=== PATIENT | female | born 1965 | race Caucasian/White ===

== ENCOUNTER → 2019-03-29 09:05 | Outpatient (BNVA) | payer MEDICARE, MEDICAID, SELFPAY | PROVIDERS: Family Provider Family Medicine; PCP Family Medicine; Visit Provider Nurse Practitioner Psychiatric/Mental Health | DX: F33.1 Major depressive disorder, recurrent, moderate (principal); F43.12 Post-traumatic stress disorder, chronic; F29 Unspecified psychosis not due to a substance or known physiological condition; F41.9 Anxiety disorder, unspecified; F40.10 Social phobia, unspecified | CPT/HCPCS: 99214; 99215 ==

== ENCOUNTER 2019-04-20 13:32 | Outpatient (CLI) | payer MEDICARE, MEDICAID, SELFPAY ==
[2019-04-20 14:45] LABS: Basophils # 0.1 10^3/uL (0.0-0.1); Basophils % 0.9 %; Eosinophils # 0.2 10^3/uL (0.0-0.8); Hematocrit 35.3 % (37.0-47.0); Hemoglobin 11.5 g/dL (11.5-15.3); Lymphocytes # 1.9 10^3/uL (0.8-4.8); Lymphocytes % 27.5 %; Mean Corpuscular HGB Conc 32.6 g/dL (30.0-36.0); Mean Corpuscular Hemoglobin 32.8 pg (28.0-34.0); Mean Corpuscular Volume 100.6 fL (81-99); Mean Platelet Volume 10.3 fL (7.4-10.4); Monocytes # 0.4 10^3/uL (0.2-0.9); Monocytes % 6.4 %; Neutrophils # 4.2 10^3/uL (1.8-7.7); Neutrophils % 61.9 %; Nucleated Red Blood Cells % 0 %; Platelet Count 389 10^3/cmm (130-400); Red Blood Count 3.51 10^6/uL (4.1-5.3); Red Cell Distribution Width 13.4 % (12.1-15.1); White Blood Count 6.8 10^3/uL (4.0-10.0)
[2019-04-20 15:08] LABS: Alanine Aminotransferase 16 U/L (0-33); Alkaline Phosphatase 143 IU/L (35-105); Aspartate Amino Transferase 21 U/L (0-32); Globulin 3.9 g/dL (1.3-4.6); Total Bilirubin 0.2 mg/dL (0.15-1.2); Total Protein 7.9 g/dL (6.6-8.7)
[2019-04-20 15:12] LABS: Creatinine Urine, Random 39 mg/dL (28-217); Microalbum Creatinine Ratio Ur 26 mg/dL (0-20); Microalbumin Random Urine 1 ug/dL (0-20)
[2019-04-20 15:27] LABS: Calcium 9.9 mg/dL (8.5-10.5); Parathyroid Hormone 50.8 pg/mL (15-65)
[2019-04-20 15:53] LABS: 25 Hydroxy Vitamin D 32 ng/mL (30-100)
== END 2019-04-20 13:33 | disposition home or self-care (01) ==
LOC: LAB 13:37
PROVIDERS: Family Provider Family Medicine; PCP Family Medicine; Visit Provider Nurse Practitioner Family
DX: N18.3 Chronic kidney disease, stage 3 (moderate) (principal)
CPT/HCPCS: 80076; 82044; 82306; 82310; 83970; 85025

== ENCOUNTER 2019-04-27 11:24 | Emergency (ER) | payer MEDICARE, MEDICAID, SELFPAY ==
[2019-04-27 11:36] VITALS: BP 126/76; PULSE 69; RESP 16; TEMP 36.6; O2SAT 97; BMI 32.5
[2019-04-27 11:45] VITALS: BP 163/74; PULSE 88; RESP 17; O2SAT 97
--- NOTE | 2019-04-27 11:46 | ED_ITS ---
HPI - General Adult General: Chief complaint: General Medical Stated complaint: eye pain, sore throat Time Seen by Provider: 04/27/19 11:42 History of Present Illness: HPI narrative: Patient complains about pinkeye in the left eye.complains about sore throat. Has had upper respiratory drainage. Did check into urgent care but left when they was told that she can only have one complaint is her story complaint: uri Onset (ago): day(s) Severity: mild Associated symptoms: Deny chest pain, dyspnea, headache(s), nausea, rash or vomiting Review of Systems Const: Denies: fever, chills or body aches Eyes: Reports: eye discharge and eye redness; Denies: change in vision or blurry vision ENMT: Reports: throat pain, nasal discharge and nasal congestion Card: Denies: chest pain or shortness of breath on exertion Resp: Denies: shortness of breath, productive cough or non-productive cough GI: Denies: abdominal pain, nausea or vomiting Musc: Denies: extremity pain Skin/Breast: Denies: rash Neuro: Denies: headache Psych: Denies: anxiety or depression Rafael/Lymph: Denies: easy bruising PFSH ED PFSH: Statuses (acute, chronic, etc) shown below reflect problem list status as previously entered and may not be historically accurate Social History (Updated 04/27/19 @ 11:19 by Yana Teixeira LPN) Smoking and tobacco status: former smoker Alcohol intake: never Physical Exam Const: COMMON NORMALS: no apparent distress, average body habitus and oriented x3 HENMT: COMMON NORMALS: normocephalic HEAD & SCALP: normal to inspection and normocephalic FACE & SINUS: normal facial exam Eye: GENERAL EYE: normal appearance of both eyes OTHER: Left conjunctive is red slight drainage green Neck/C-Spine: COMMON NORMALS: no JVD Chest: COMMONS NORMALS: inspection of chest normal Resp: COMMON NORMALS: normal respiratory effort and clear to auscultation bilaterally AUSCULTATION: clear to auscultation bilaterally Cardio: COMMON NORMALS: no JVD, regular rate and regular rhythm RATE: regular rate RHYTHM: regular rhythm GI: COMMON NORMALS: normal to inspection, nondistended, normoactive bowel sounds Extremity: COMMON NORMALS: normal to inspection and full ROM Neuro: COMMON NORMALS: oriented x3 Course Vital Signs: Vital signs: Vital Signs Temperature 97.9 F 04/27/19 11:36 Pulse Rate 69 04/27/19 11:36 Respiratory Rate 16 04/27/19 11:36 Blood Pressure 126/76 04/27/19 11:36 Pulse Oximetry 97 04/27/19 11:36 Discharge Plan Discharge Prescriptions: No Action loratadine [Claritin] 10 mg tablet 10 mg PO ONCE RF: 0 levothyroxine 50 mcg capsule 50 mcg PO ONCE RF: 0 buspirone 10 mg tablet 10 mg PO TID 30 Days Qty: 90 RF: 1 benztropine 1 mg tablet 1 mg PO BID 30 Days Qty: 60 RF: 1 gabapentin 100 mg capsule 100 mg PO TID Qty: 90 RF: 2 lamotrigine [Lamictal] 100 mg tablet 100 mg PO BID 30 Days Qty: 60 RF: 1 ziprasidone HCl [Geodon] 40 mg capsule 40 mg PO QAM 30 Days Qty: 30 RF: 1 ziprasidone HCl [Geodon] 60 mg capsule 60 mg PO .QHS 30 Days Qty: 30 RF: 1 zolpidem [Ambien] 10 mg tablet 10 mg PO .QHS PRN (Reason: insomnia) 30 Days Qty: 30 RF: 1 Coding Level of Care Code ED Watcher [employer] for Delia Arellano
[2019-04-27 12:34] VITALS: BP 118/75; PULSE 61; RESP 14; TEMP 36.6; O2SAT 98
== END 2019-04-27 12:32 | disposition home or self-care (01) ==
LOC: ER 11:53
PROVIDERS: Emergency Provider Nurse Practitioner Family; Family Provider Family Medicine; PCP Family Medicine
DX: J06.9 Acute upper respiratory infection, unspecified (principal); H57.12 Ocular pain, left eye; R09.82 Postnasal drip; J02.9 Acute pharyngitis, unspecified; Z87.891 Personal history of nicotine dependence
CPT/HCPCS: 99281

== ENCOUNTER 2019-05-03 10:24 | Outpatient (CLI) | payer MEDICARE, MEDICAID, SELFPAY ==
[2019-05-03 11:08] LABS: Albumin Level 3.9 g/dL (3.5-5.2); Anion Gap 15.1 (5-19); Blood Urea Nitrogen 12 mg/dL (6-20); Calcium 9.7 mg/dL (8.5-10.5); Carbon Dioxide 23 mmol/L (22-29); Chloride 107 mmol/L (98-107); Glucose 87 mg/dL (65-115); Phosphorus 3.8 mg/dL (2.5-4.5); Potassium 4.1 mmol/L (3.5-5.1); Sodium 141 mmol/L (136-145)
== END 2019-05-03 10:25 | disposition home or self-care (01) ==
LOC: LAB 10:26
PROVIDERS: Family Provider Family Medicine; PCP Family Medicine; Visit Provider Internal Medicine Nephrology
DX: N18.3 Chronic kidney disease, stage 3 (moderate) (principal)
CPT/HCPCS: 80069

== ENCOUNTER → 2019-05-10 09:00 | Outpatient (BNVA) | payer MEDICARE, MEDICAID, SELFPAY | PROVIDERS: Family Provider Family Medicine; PCP Family Medicine; Visit Provider Nurse Practitioner Psychiatric/Mental Health | DX: F33.1 Major depressive disorder, recurrent, moderate (principal); F43.12 Post-traumatic stress disorder, chronic; F41.9 Anxiety disorder, unspecified; F29 Unspecified psychosis not due to a substance or known physiological condition | CPT/HCPCS: 99214 ==

== ENCOUNTER 2019-05-13 07:52 | Emergency (ER) | payer MEDICARE, MEDICAID, SELFPAY ==
[2019-05-13 08:07] VITALS: BMI 30.9
[2019-05-13 08:12] VITALS: BP 142/86; PULSE 81; RESP 20; TEMP 36.7; O2SAT 97
--- NOTE | 2019-05-13 08:13 | XR_ITS ---
WS: [id number] Left ankle, 3 views, 05/13/2019 Clinical Data: INJURY TO ANKLE Comparison: None. Findings: No fractures or dislocations are seen. The ankle mortise is normal. The talus and calcaneus are unrem arkable. No soft tissue swelling over the medial or lateral malleolus is seen. XR/XR ankle LT min 3V* [id number] Impression: Negative left ankle.
--- NOTE | 2019-05-13 09:22 | ED_ITS ---
Entered by Rosa Isela Angela, acting as scribe for Nikhil Peoples DO May 13, 2019 07:52 HPI - Extremity Problem General: Chief complaint: Extremity Injury, Lower Stated complaint: LEFT ANKLE PAIN Time Seen by Provider: 05/13/19 09:23 History of Present Illness: HPI Narrative: 54 yo female presents with left ankle pain. Pt states that she was walking her dog a few days ago, he got excited and tangled her up and she fell. Pt states that she has been limping due to pain. MD Complaint: extremity pain Associated symptoms: Deny chest pain, fever(s) or rash Review of Systems Const: Denies: fever, chills, body aches, fatigue, malaise or night sweats Eyes: Denies: change in vision or blurry vision ENMT: Denies: throat pain, oral sores/lesions, dental pain, nasal discharge or nasal congestion Card: Denies: chest pain, palpitations, irregular heart rhythm, edema, syncope, shortness of breath on exertion, shortness of breath when lying down or leg pain with exertion Resp: Denies: shortness of breath, productive cough, non-productive cough or wheezing GI: Denies: abdominal pain, nausea, vomiting, vomiting blood, coffee grounds in vomit, difficulty swallowing, heartburn/indigestion, diarrhea, constipation, cramping, blood in stool or black tarry stool : Denies: flank pain, painful urination, urinary frequency, urinary urgency, urinary incontinence or blood in urine Musc: Denies: neck pain, back pain, extremity pain, extremity swelling, joint pain or joint swelling Skin/Breast: Denies: rash, itching or redness Neuro: Denies: headache, numbness in extremities, weakness in extremities, changes in sensation, lack of coordination, difficulty walking, frequent falls, dizziness, vertigo or confusion Psych: Denies: anxiety, depression, loss of interest, visual hallucinations, auditory hallucinations, suicidal ideation or homicidal ideation Endo: Denies: excessive urination, excessive thirst, tired all the time or cold intolerance Rafael/Lymph: Denies: easy bruising, easy bleeding, petechiae, enlarged lymph nodes or tender lymph nodes PFS ED PFSH: Medical History (Updated 05/13/19 @ 09:51 by Nikhil Peoples DO) Anxiety disorder Chronic post-traumatic stress disorder (PTSD) Moderate episode of recurrent major depressive disorder Psychosis Social History (Updated 05/10/19 @ 09:23 by Tasha Campos LPN) Smoking and tobacco status: never smoked Quit status (tobacco): has quit using tobacco Year quit tobacco: 2019 Former quit date comment: 0.5 PPD since I was 15. I did stop for 3 years one time but .. Second hand smoke exposure: No Alcohol intake: never Physical Exam Const: COMMON NORMALS: average body habitus, oriented x3 and alert GENERAL APPEARANCE: cooperative, comfortable, well kempt and well developed NUTRITIONAL APPEARANCE: not obese ORIENTATION/CONSCIOUSNESS: Yes awake, Yes oriented to person and Yes oriented to place HENMT: COMMON NORMALS: normocephalic, head/scalp atraumatic, EAC's normal, TM's normal bilaterally, external nose normal, moist oral mucous membranes and oropharynx normal HEAD & SCALP: normocephalic and atraumatic NOSE: external nose normal EXTERNAL AUDITORY CANAL: EAC's normal TYMPANIC MEMBRANE: TM's normal bilaterally MOUTH: oral and palatal mucosa normal, lip normal and tongue normal THROAT: posterior oropharynx normal and tonsils normal Eye: COMMON NORMALS: PERRL, EOMs intact bilaterally, conjunctivae normal and no scleral icterus CONJUNCTIVA: Yes conjunctivae normal PUPIL: Yes PERRL Neck/C-Spine: COMMON NORMALS: full ROM, no lymphadenopathy, supple, no meningeal signs and thyroid normal THYROID: thyroid normal and asymmetrical Lymph: LYMPHATIC: no lymphadenopathy noted Resp: COMMON NORMALS: normal respiratory effort, no retractions, no use of accessory muscles and clear to auscultation bilaterally AUSCULTATION: clear to auscultation bilaterally Cardio: COMMON NORMALS: regular rate and regular rhythm RATE: regular rate RHYTHM: regular rhythm HEART SOUNDS: no murmurs GI: COMMON NORMALS: normal to inspection, nondistended, normoactive bowel sounds, soft to palpation and no hepatosplenomegaly PALPATION: Yes soft and Yes no hepatosplenomegaly : COMMON NORMALS: Yes no CVA tenderness BLADDER/KIDNEY EXAM: Yes no CVA tenderness Back/Pelvis: COMMON NORMALS: no CVA tenderness LUMBAR SPINE/LOWER BACK: Yes normal to inspection Extremity: COMMON NORMALS: no clubbing, cyanosis or edema, no calf tenderness and no pedal edema Neuro: COMMON NORMALS: oriented x3 SENSORIUM/ORIENTATION: Yes alert, Yes oriented to person and Yes oriented to place MENINGEAL SIGNS: Yes no meningeal signs Psych: APPEARANCE: Yes well kempt Skin: COMMON NORMALS: no rashes or lesions noted and skin turgor normal GENERAL SKIN EXAM: no rashes or lesions noted and turgor normal Course ED course: X-ray unremarkable NSAIDs ice elevation follow-up as needed Vital Signs: Vital signs: Vital Signs Temperature 98.0 F 05/13/19 08:12 Pulse Rate 68 05/13/19 09:59 Respiratory Rate 18 05/13/19 09:59 Blood Pressure 132/83 05/13/19 09:59 Pulse Oximetry 98 05/13/19 09:59 Discharge Plan Discharge Patient Disposition: Home, Self-Care Clinical Impression: Ankle sprain and strain Condition: Stable Prescriptions: New diclofenac sodium 75 mg tablet,delayed release (DR/EC) 75 mg PO Q12H PRN (Reason: pain) Qty: 20 RF: 0 No Action trazodone 150 mg tablet 150 mg PO .q hs PRN (Reason: insomnia) Qty: 30 RF: 1 benztropine 1 mg tablet 1 mg PO BID 30 Days Qty: 60 RF: 1 gabapentin 100 mg capsule 100 mg PO TID Qty: 90 RF: 1 lamotrigine [Lamictal] 100 mg tablet 100 mg PO BID 30 Days Qty: 60 RF: 1 ziprasidone HCl [Geodon] 60 mg capsule 60 mg PO .QHS 30 Days Qty: 30 RF: 1 buspirone 10 mg tablet 10 mg PO TID 30 Days Qty: 90 RF: 1 ziprasidone HCl [Geodon] 40 mg capsule 40 mg PO QAM 30 Days Qty: 30 RF: 1 loratadine [Claritin] 10 mg tablet 10 mg PO ONCE RF: 0 levothyroxine 50 mcg capsule 50 mcg PO ONCE RF: 0 ciprofloxacin HCl 500 mg tablet 500 mg PO BID Qty: 10 RF: 0 Discharge Orders: Discharge Order (Routine); Ordered 05/13/19 Ordered By: Nikhil Peoples Referrals: Ange Keita DO [Primary Care Provider] - Discharge Diet: Usual diet Discharge Activity: Increase activity as tolerated Activity Restrictions/Additional Instructions: If not improving follow-up with your primary care doctor. 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
[2019-05-13 09:59] VITALS: BP 132/83; PULSE 68; RESP 18; O2SAT 98
== END 2019-05-13 10:03 | disposition home or self-care (01) ==
PROVIDERS: Emergency Provider Family Medicine; Family Provider Family Medicine; PCP Family Medicine
DX: S93.401A Sprain of unspecified ligament of right ankle, initial encounter (principal); S96.911A Strain of unspecified muscle and tendon at ankle and foot level, right foot, initial encounter; W18.39XA Other fall on same level, initial encounter; Y93.K1 Activity, walking an animal
CPT/HCPCS: 73610; 99281; 99283

== ENCOUNTER → 2019-07-05 08:16 | Outpatient (BNVA) | payer MEDICARE, MEDICAID, SELFPAY | PROVIDERS: Family Provider Family Medicine; PCP Family Medicine; Visit Provider Nurse Practitioner Psychiatric/Mental Health | DX: F33.1 Major depressive disorder, recurrent, moderate (principal); F43.12 Post-traumatic stress disorder, chronic; F41.9 Anxiety disorder, unspecified; F29 Unspecified psychosis not due to a substance or known physiological condition | CPT/HCPCS: 90832; 99213 ==

== ENCOUNTER 2019-07-25 09:55 | Emergency (ER) | payer MEDICARE, MEDICAID, SELFPAY ==
[2019-07-25 10:06] VITALS: BP 132/78; PULSE 73; RESP 16; TEMP 36.5; O2SAT 97; BMI 31.6
--- NOTE | 2019-07-25 10:22 | ED_ITS ---
HPI - General Adult General: Chief complaint: General Medical Stated complaint: BILAT/HAND TREMORS Time Seen by Provider: 07/25/19 10:06 History of Present Illness: HPI narrative: Camelia is a very nice 54-year-old female who comes in stating since she stopped taking buspirone 2 or 3 days ago she has had intermittent twitching or tremors of her upper extremities primarily in the hands. She notices this primarily when she goes to do something. She denies any headache, weakness, numbness or other complaints. The patient states she started hydroxyzine about a week ago but did not notice any problems when she started this medication. She otherwise denies any complaints and is unaware of anything that makes her symptoms better or worse. She is not tried anything at home for this. Associated symptoms: Deny chest pain, confusion, diaphoresis, dyspnea, headache(s), malaise, nausea, rash, palpitations, syncope or vomiting Review of Systems General: Reports: other (negative unless marked) Const: Denies: fever, chills, body aches, fatigue, malaise or diaphoresis Eyes: Denies: change in vision or blurry vision ENMT: Denies: throat pain, painful swallowing, hoarseness, ear pain, ear discharge, Change in hearing or nasal discharge Card: Denies: chest pain, palpitations, irregular heart rhythm, syncope, pre- syncope, shortness of breath on exertion or shortness of breath when lying down Resp: Denies: shortness of breath, productive cough, non-productive cough, wheezing, coughing up blood or chest congestion GI: Denies: abdominal pain, nausea, vomiting, vomiting blood, coffee grounds in vomit, diarrhea, constipation, cramping, blood in stool or black tarry stool : Denies: flank pain, painful urination, urinary frequency, urinary urgency, decreased urine ouput, urinary incontinence or blood in urine Musc: Denies: neck pain, back pain, extremity pain, extremity swelling, joint pain, joint swelling, joint warmth or joint stiffness Skin/Breast: Denies: rash, skin tenderness or yellow skin Neuro: Reports: other (See HPI); Denies: headache, numbness in extremities, weakness in extremities, changes in sensation, difficulty walking, dizziness, vertigo or confusion Psych: Reports: anxiety Endo: Denies: excessive thirst, tired all the time, cold intolerance, excessive sweating, flushing or hot flashes Rafael/Lymph: Denies: easy bruising, easy bleeding, petechiae or enlarged lymph nodes All/Imm: Denies: hives, throat swelling, tongue swelling, facial swelling or acute wheezing PFSH ED PFSH: Medical History Anxiety disorder Chronic post-traumatic stress disorder (PTSD) Moderate episode of recurrent major depressive disorder Psychosis Today, patient reports an increase in hearing sounds that other people do not hear, such as hearing her name being called and hearing animal sounds, such as an animal growl. She reports no command hallucinations. She asks about a temporary increase in the Geodon to 60 mg twice a day, but would like to titrate back down on this dosage in the future, if possible. Social History Smoking and tobacco status: never smoked Quit status (tobacco): has quit using tobacco Year quit tobacco: 2019 Former qu it date comment: 0.5 PPD since I was 15. I did stop for 3 years one time but.. Second hand smoke exposure: No Alcohol intake: never Physical Exam Const: COMMON NORMALS: no apparent distress, oriented x3, no limitations, healthy appearing and well nourished EXAM LIMITATIONS: no altered mental status GENERAL APPEARANCE: cooperative, well kempt and well developed ORIENTATION/CONSCIOUSNESS: Yes awake HENMT: COMMON NORMALS: normocephalic, head/scalp atraumatic, hearing grossly normal bilaterally, external ears normal, EAC's normal, external nose normal and moist oral mucous membranes HEAD & SCALP: normal to inspection, normocephalic and atraumatic FACE & SINUS: normal facial exam and face symmetric NOSE: external nose normal and nares normal EXTERNAL EAR: Yes external ears normal EXTERNAL AUDITORY CANAL: EAC's normal MOUTH: oral and palatal mucosa normal and tongue normal Eye: COMMON NORMALS: PERRL, EOMs intact bilaterally, conjunctivae normal and no scleral icterus GENERAL EYE: normal appearance of both eyes and normal light reflex CONJUNCTIVA: Yes conjunctivae normal SCLERA: sclerae normal CORNEA: Yes corneas normal PUPIL: Yes PERRL DIRECT OPHTHALMOSCOPY: Yes normal light reflex Neck/C-Spine: COMMON NORMALS: full ROM, no lymphadenopathy, supple, no meningeal signs and no JVD GENERAL: Yes normal visual inspection and Yes trachea midline CERVICAL SPINE: Yes cervical ROM normal Chest: COMMONS NORMALS: inspection of chest normal and palpation of chest normal Resp: COMMON NORMALS: normal respiratory effort, no retractions, no use of accessory muscles and clear to auscultation bilaterally EFFORT & INSPECTION: Yes able to speak in complete sentences AUSCULTATION: clear to auscultation bilaterally Cardio: COMMON NORMALS: no JVD, regular rate, regular rhythm, S1 normal heart sound, S2 normal heart sound, no gallops, no clicks, no murmurs and no rub JUGULAR VENOUS DISTENTION: no JVD RATE: regular rate RHYTHM: regular rhythm HEART SOUNDS: S1 normal and S2 normal GI: COMMON NORMALS: soft to palpation, non-tender, no hepatosplenomegaly and no masses INSPECTION: Yes normal to inspection PALPATION: Yes soft and Yes no hepatosplenomegaly : COMMON NORMALS: Yes no CVA tenderness BLADDER/KIDNEY EXAM: Yes no CVA tenderness Back/Pelvis: COMMON NORMALS: no CVA tenderness, thoracic and lumbar spine normal to inspection, no thoracic nor lumbar tenderness and thoraco-lumbar ROM normal Extremity: COMMON NORMALS: normal to inspection, full ROM, normal capillary refill, no joint enlargement, no clubbing, cyanosis or edema and no calf tenderness Neuro: COMMON NORMALS: oriented x3, CN's II-XII intact bilaterally, moves all extremities, no focal motor deficits and no sensory deficits noted MENINGEAL SIGNS: Yes no meningeal signs Psych: COMMON NORMALS: mental status grossly normal, thought process normal, cooperative, affect normal, speech normal and activity/motor behavior normal APPEARANCE: Yes well kempt SPEECH: Yes normal speech THOUGHT PROCESS: normal thought process Skin: COMMON NORMALS: no rashes or lesions noted, skin turgor normal, no jaundice, no petechiae and no mottling GENERAL SKIN EXAM: no rashes or lesions noted and turgor normal Course 2 ED course: 1024 -patient demonstrates alternating hand movements at the wrist calling these tremors. When distracted the symptoms subside. When she goes to move her hands and talk and touch her face she has no tremors or abnormal movements. Vital Signs: Vital signs: Vital Signs Temperature 97.7 F 07/25/19 10:06 Pulse Rate 73 07/25/19 10:06 Respiratory Rate 16 07/25/19 10:06 Blood Pressure 132/78 07/25/19 10:06 Pulse Oximetry 97 07/25/19 10:06 MDM - General Adult MDM Narrative: Medical decision making narrative: The case was reviewed with Dr. Bates, on-call for psychiatry. He does not think the patient's buspirone tapering off was causing the problems. He thinks this could be an extrapyramadial symptom related to her Geodon. He recommends increasing her benztropine to 1 mg every 8 hours. The patient symptoms do not seem classic for this and it seems to be that she is making herself do this but I will increase this nonetheless. She agrees to follow-up with the behavioral health clinic for recheck. She understands she can return here at any time should her symptoms change or worsen. Patient does have baseline renal insufficiency which is at his baseline but no other acute abnormalities are present. Lab Data: Attestation: I reviewed the patient's lab results. Labs: Lab Results 07/25/19 07/25/19 07/25/19 Range/Units 10:38 10:38 11:05 WBC 4.1 (4.0-10.0) 10^3/ uL RBC 3.51 L (4.1-5.3) 10^6/u L Hgb 11.3 L (11.5-15.3) g/dL Hct 35.3 L (37.0-47.0) % MCV 100.6 H (81-99) fL MCH 32.2 (28.0-34.0) pg MCHC 32.0 (30.0-36.0) g/dL RDW 12.8 (12.1-15.1) % Plt Count 265 (130-400) 10^3/c mm MPV 9.3 (7.4-10.4) fL Neut % (Auto) 52.9 % Lymph % (Auto) 33.5 % Zavala % (Auto) 8.7 % Eos % (Auto) 3.9 % Baso % (Auto) 1.0 % Neut # (Auto) 2.2 (1.8-7.7) 10^3/u L Lymph # (Auto) 1.4 (0.8-4.8) 10^3/u L Zavala # (Auto) 0.4 (0.2-0.9) 10^3/u L Eos # (Auto) 0.2 (0.0-0.8) 10^3/u L Baso # (Auto) 0.0 (0.0-0.1) 10^3/u L Nucleated RBC % (a uto) 0 % Nucleated RBCs # 0.0 /100WBC Sodium 140 (136-145) mmol/L Potassium 3.9 (3.5-5.1) mmol/L Chloride 107 (98-107) mmol/L Carbon Dioxide 23 (22-29) mmol/L Anion Gap 13.9 (5-19) BUN 14 (6-20) mg/dL Creatinine 2.0 H (0.5-0.9) mg/dL GFR Calculation 25.9 L (90-130) mL/min Glucose 87 (65-115) mg/dL Calculated Osmolal ity 286 (285-295) mOsm/k g Calcium 9.4 (8.5-10.5) mg/dL Magnesium 2.1 (1.7-2.3) mg/dL Total Bilirubin 0.2 (0.15-1.2) mg/dL AST 16 (0-32) U/L ALT 10 (0-33) U/L Alkaline Phosphata se 111 H (35-105) IU/L Creatine Kinase 87 (26-192) U/L Total Protein 7.0 (6.6-8.7) g/dL Albumin 4.2 (3.5-5.2) g/dL Globulin 2.8 (1.3-4.6) g/dL Urine Color (Yellow) Urine Appearance (CLEAR) Urine pH (5-7) Ur Specific Gravit y (1.005-1.030) Urine Protein (Negative) Urine Glucose (UA) (Normal) Urine Ketones (Negative) Urine Blood (Negative) Urine Nitrate (Negative) Urine Bilirubin (NEGATIVE) Urine Urobilinogen (Negative) mg/dL Ur Leukocyte Janelle ase (Negative) Urine RBC (0-2) /hpf Urine WBC (0-5) /hpf Ur Squamous Epith Cells (0-5) Urine Bacteria (NONE) Urine Opiates Scre en Negative (Negative) ng/mL Ur Barbiturates Sc reen Negative (Negative) ng/mL Ur Phencyclidine S crn Positive H (Negative) ng/mL Ur Amphetamines Sc reen Negative (Negative) ng/mL U Benzodiazepines Scrn Positive H (Negative) ng/mL Urine Cocaine Scre en Negative (Negative) ng/mL U Marijuana (THC) Screen Positive H (Negative) ng/mL 07/25/19 Range/Units 11:05 WBC (4.0-10.0) 10^3/ uL RBC (4.1-5.3) 10^6/u L Hgb (11.5-15.3) g/dL Hct (37.0-47.0) % MCV (81-99) fL MCH (28.0-34.0) pg MCHC (30.0-36.0) g/dL RDW (12.1-15.1) % Plt Count (130-400) 10^3/c mm MPV (7.4-10.4) fL Neut % (Auto) % Lymph % (Auto) % Zavala % (Auto) % Eos % (Auto) % Baso % (Auto) % Neut # (Auto) (1.8-7.7) 10^3/u L Lymph # (Auto) (0.8-4.8) 10^3/u L Zavala # (Auto) (0.2-0.9) 10^3/u L Eos # (Auto) (0.0-0.8) 10^3/u L Baso # (Auto) (0.0-0.1) 10^3/u L Nucleated RBC % (a uto) % Nucleated RBCs # /100WBC Sodium (136-145) mmol/L Potassium (3.5-5.1) mmol/L Chloride (98-107) mmol/L Carbon Dioxide (22-29) mmol/L Anion Gap (5-19) BUN (6-20) mg/dL Creatinine (0.5-0.9) mg/dL GFR Calculation (90-130) mL/min Glucose (65-115) mg/dL Calculated Osmolal ity (285-295) mOsm/k g Calcium (8.5-10.5) mg/dL Magnesium (1.7-2.3) mg/dL Total Bilirubin (0.15-1.2) mg/dL AST (0-32) U/L ALT (0-33) U/L Alkaline Phosphata se (35-105) IU/L Creatine Kinase (26-192) U/L Total Protein (6.6-8.7) g/dL Albumin (3.5-5.2) g/dL Globulin (1.3-4.6) g/dL Urine Color Yellow (Yellow) Urine Appearance Clear (CLEAR) Urine pH 5 (5-7) Ur Specific Gravit y 1.015 (1.005-1.030) Urine Protein Neg (Negative) Urine Glucose (UA) Norm (Normal) Urine Ketones Negative (Negative) Urine Blood Neg (Negative) Urine Nitrate Negative (Negative) Urine Bilirubin Neg (NEGATIVE) Urine Urobilinogen Norm (Negative) mg/dL Ur Leukocyte Janelle ase Trace H (Negative) Urine RBC None (0-2) /hpf Urine WBC 5-10 H (0-5) /hpf Ur Squamous Epith Cells 5-10 H (0-5) Urine Bacteria Trace (NONE) Urine Opiates Scre en (Negative) ng/mL Ur Barbiturates Sc reen (Negative) ng/mL Ur Phencyclidine S crn (Negative) ng/mL Ur Amphetamines Sc reen (Negative) ng/mL U Benzodiazepines Scrn (Negative) ng/mL Urine Cocaine Scre en (Negative) ng/mL U Marijuana (THC) Screen (Negative) ng/mL Discharge Plan Discharge Patient Disposition: Home, Self-Care Clinical Impression: Extrapyramidal symptom Condition: Stable Prescriptions: No Action loratadine [Claritin] 10 mg tablet 10 mg PO DAILY RF: 0 levothyroxine 50 mcg capsule 50 mcg PO DAILY RF: 0 ziprasidone HCl [Geodon] 60 mg capsule 60 mg PO BID 30 Days Qty: 60 RF: 1 benztropine 1 mg tablet 1 mg PO BID 30 Days Qty: 60 RF: 1 gabapentin 100 mg capsule 100 mg PO TID Qty: 90 RF: 1 lamotrigine [Lamictal] 100 mg tablet 100 mg PO BID 30 Days Qty: 60 RF: 1 hydroxyzine pamoate 25 mg capsule 25 mg PO BID PRN (Reason: anxiety) Qty: 60 RF: 0 propranolol 60 mg capsule,extended release 24 hr 60 mg PO BEDTIME RF: 0 Stool Softener-Laxative 8.6-50 mg tablet 1 tab PO DAILY RF: 0 Advil 200 mg Tablet 400 mg PO BID PRN (Reason: Pain) RF: 0 Dexilant See Rx Instructions .ROUTE .COMPLEX RF: 0 trazodone 150 mg tablet 150 mg PO BEDTIME PRN (Reason: insomnia) RF: 0 Multiple Vitamins Tablet 1 tab PO DAILY RF: 0 Discharge Orders: Discharge Order (Routine); Ordered 07/25/19 Ordered By: Thao Perez Referrals: Ange Keita DO [Primary Care Provider] - 1-3 days Discharge Diet: Advance as tolerated Discharge Activity: Resume usual activity Patient Instructions: Adverse Drug Reaction (ED) Activity Restrictions/Additional Instructions: Please return to the ER immediately for any of the signs or symptoms listed on your discharge instruction sheets, worsening/changing of your symptoms, you are not getting better as quickly as expected, or for ANY other cause or concerns. Be certain to take your benztropine 1 mg every 8 hours until your symptoms improve. Be certain to follow-up with the behavioral health clinic here in [place] as soon as possible to discuss further medication adjustments. Coding Level of Care Code ED Facility Manager Histology for Delia Fwandrew Exam Comprehensive
[2019-07-25 10:44] LABS: Eosinophils # 0.2 10^3/uL (0.0-0.8); Eosinophils % 3.9 %; Hematocrit 35.3 % (37.0-47.0); Hemoglobin 11.3 g/dL (11.5-15.3); Lymphocytes # 1.4 10^3/uL (0.8-4.8); Lymphocytes % 33.5 %; Mean Corpuscular Hemoglobin 32.2 pg (28.0-34.0); Mean Corpuscular Volume 100.6 fL (81-99); Mean Platelet Volume 9.3 fL (7.4-10.4); Monocytes # 0.4 10^3/uL (0.2-0.9); Monocytes % 8.7 %; Neutrophils # 2.2 10^3/uL (1.8-7.7); Neutrophils % 52.9 %; Nucleated Red Blood Cells % 0 %; Platelet Count 265 10^3/cmm (130-400); Red Blood Count 3.51 10^6/uL (4.1-5.3); Red Cell Distribution Width 12.8 % (12.1-15.1); White Blood Count 4.1 10^3/uL (4.0-10.0)
[2019-07-25 10:59] LABS: Alanine Aminotransferase 10 U/L (0-33); Albumin Level 4.2 g/dL (3.5-5.2); Alkaline Phosphatase 111 IU/L (35-105); Anion Gap 13.9 (5-19); Aspartate Amino Transferase 16 U/L (0-32); Blood Urea Nitrogen 14 mg/dL (6-20); Calcium 9.4 mg/dL (8.5-10.5); Carbon Dioxide 23 mmol/L (22-29); Chloride 107 mmol/L (98-107); Creatine Phosphokinase 87 U/L (26-192); Globulin 2.8 g/dL (1.3-4.6); Glomerular Filtration Rate 25.9 mL/min (90-130); Glucose 87 mg/dL (65-115); Magnesium 2.1 mg/dL (1.7-2.3); Osmolality Calculated 286 mOsm/kg (285-295); Potassium 3.9 mmol/L (3.5-5.1); Sodium 140 mmol/L (136-145); Total Bilirubin 0.2 mg/dL (0.15-1.2)
[2019-07-25 11:40] LABS: Bilirubin Urine Neg (NEGATIVE); Blood Urine Neg (Negative); Glucose Urine UA Norm (Normal); Ketones Urine Negative (Negative); Leukocyte Esterase Urine Trace (Negative); Nitrate Urine Negative (Negative); Protein Urine Neg (Negative); Specific Gravity, Urine 1.015 (1.005-1.030); Urine Appearance Clear (CLEAR); Urine Color Yellow (Yellow); Urobilinogen Urine Norm (Negative); pH Urine 5 (5-7)
[2019-07-25 11:45] LABS: Add Urine Culture? No; Bacteria Urine TRACE
[2019-07-25 11:49] LABS: Amphetamines Screen Urine Negative (Negative); Barbiturates Screen Urine Negative (Negative); Benzodiazepines Screen Urine Positive (Negative); Cocaine Screen Urine Negative (Negative); Opiate Screen Urine Negative (Negative); PCP Screen Urine Positive (Negative); THC Screen Urine Positive (Negative)
--- NOTE | 2019-07-25 11:55 | PC.NURSE ---
Read and agree with assessment.
--- NOTE | 2019-07-25 11:56 | PC.NURSE ---
Read and agree with medic assessment
[2019-07-25] MEDS: benztropine 1 mg Tablet PO (12:08)
[2019-07-25 12:09] VITALS: BP 128/75; PULSE 75; RESP 14; O2SAT 97
== END 2019-07-25 12:09 | disposition home or self-care (01) ==
PROVIDERS: Emergency Provider Emergency Medicine; PCP Family Medicine
DX: G25.9 Extrapyramidal and movement disorder, unspecified (principal); Z87.891 Personal history of nicotine dependence; Z79.899 Other long term (current) drug therapy
CPT/HCPCS: 12345; 36415; 80053; 80306; 81001; 82550; 83735; 85025; 99281; 99283

== ENCOUNTER → 2019-08-02 07:56 | Outpatient (BNVA) | payer MEDICARE, MEDICAID, SELFPAY | PROVIDERS: PCP Family Medicine; Visit Provider Nurse Practitioner Psychiatric/Mental Health | DX: F33.1 Major depressive disorder, recurrent, moderate (principal); F43.12 Post-traumatic stress disorder, chronic; F41.9 Anxiety disorder, unspecified | CPT/HCPCS: 99213 ==

== ENCOUNTER → 2019-08-12 07:41 | Outpatient (BNVA) | payer MEDICARE, MEDICAID, SELFPAY | PROVIDERS: PCP Family Medicine; Visit Provider Nurse Practitioner Psychiatric/Mental Health | DX: F43.12 Post-traumatic stress disorder, chronic (principal); F41.9 Anxiety disorder, unspecified; F33.1 Major depressive disorder, recurrent, moderate | CPT/HCPCS: 99212 ==

== ENCOUNTER → 2019-08-16 08:32 | Outpatient (BNVA) | payer MEDICARE, MEDICAID, SELFPAY | PROVIDERS: PCP Family Medicine; Visit Provider Nurse Practitioner Psychiatric/Mental Health | DX: F43.12 Post-traumatic stress disorder, chronic (principal); F41.9 Anxiety disorder, unspecified; F33.1 Major depressive disorder, recurrent, moderate | CPT/HCPCS: 99213 ==

== ENCOUNTER 2019-08-18 10:35 | Outpatient (CLI) | payer MEDICARE, MEDICAID, SELFPAY ==
--- NOTE | 2019-08-18 10:41 | XRR_ITS ---
PROCEDURE INFORMATION: Exam: XR Left Foot Complete Exam date and time: 08/18/2019 10:55 AM Age: 54 years old Clinical indication: Pain; Foot; Left; Additional info: Left lateral foot pain TECHNIQUE: Imaging protocol: XR Left foot. Views: 3 or more views. COMPARISON: CR Foot 3 views, LEFT* [id number] 10/05/2018 8:41 AM FINDINGS: Bones/joints: No fracture. No dislocation. Soft tissues: No acute soft tissue abnormality. XR/XR foot LT min 3V* [id number] IMPRESSION: No acute osseous abnormality.
== END 2019-08-18 10:36 | disposition home or self-care (01) ==
LOC: RADOUTREAD 10:39 → RADWPI 10:40
PROVIDERS: PCP Family Medicine; Visit Provider Family Medicine
DX: M79.672 Pain in left foot (principal)
CPT/HCPCS: 73630

== ENCOUNTER → 2019-08-30 07:41 | Outpatient (BNVA) | payer MEDICARE, MEDICAID, SELFPAY | PROVIDERS: PCP Family Medicine; Visit Provider Nurse Practitioner Psychiatric/Mental Health | DX: F33.1 Major depressive disorder, recurrent, moderate (principal); F41.9 Anxiety disorder, unspecified; F43.12 Post-traumatic stress disorder, chronic; F29 Unspecified psychosis not due to a substance or known physiological condition | CPT/HCPCS: 99213 ==

== ENCOUNTER 2019-10-14 13:42 | Outpatient (CLI) | payer MEDICARE, MEDICAID, SELFPAY ==
[2019-10-14 14:16] LABS: Basophils # 0.1 10^3/uL (0.0-0.1); Basophils % 1.1 %; Eosinophils # 0.1 10^3/uL (0.0-0.8); Eosinophils % 2.1 %; Hematocrit 34.9 % (37.0-47.0); Hemoglobin 11.2 g/dL (11.5-15.3); Lymphocytes # 1.5 10^3/uL (0.8-4.8); Lymphocytes % 32.2 %; Mean Corpuscular HGB Conc 32.1 g/dL (30.0-36.0); Mean Corpuscular Hemoglobin 31.5 pg (28.0-34.0); Mean Platelet Volume 9.8 fL (7.4-10.4); Monocytes # 0.4 10^3/uL (0.2-0.9); Monocytes % 8.4 %; Neutrophils # 2.67 10^3/uL (1.8-7.7); Neutrophils % 56.2 %; Nucleated Red Blood Cells % 0 %; Platelet Count 285 10^3/cmm (130-400); Red Blood Count 3.56 10^6/uL (4.1-5.3); Red Cell Distribution Width 12.7 % (12.1-15.1); White Blood Count 4.8 10^3/uL (4.0-10.0)
[2019-10-14 14:26] LABS: Albumin Level 4.1 g/dL (3.5-5.2); Anion Gap 13.2 (5-19); Blood Urea Nitrogen 11 mg/dL (6-20); Calcium 9.3 mg/dL (8.5-10.5); Carbon Dioxide 22 mmol/L (22-29); Chloride 109 mmol/L (98-107); Glomerular Filtration Rate 27.4 mL/min (90-130); Glucose 108 mg/dL (65-115); Phosphorus 3.8 mg/dL (2.5-4.5); Potassium 4.2 mmol/L (3.5-5.1); Sodium 140 mmol/L (136-145)
[2019-10-14 14:36] LABS: Urine Creatinine 107 mg/dL (28-217); Urine Protein Random 8 mg/dL
[2019-10-14 14:59] LABS: Calcium 9.4 mg/dL (8.5-10.5); Parathyroid Hormone 60.6 pg/mL (15-65)
[2019-10-14 15:32] LABS: UPRO/UCREAT Ratio 0.07 mg/mg CR
== END 2019-10-14 13:43 | disposition home or self-care (01) ==
LOC: LAB 13:46
PROVIDERS: PCP Family Medicine; Visit Provider Internal Medicine Nephrology
DX: N18.3 Chronic kidney disease, stage 3 (moderate) (principal)
CPT/HCPCS: 80069; 82310; 82570; 83970; 84156; 85025; 99212

== ENCOUNTER → 2019-11-08 10:09 | Outpatient (BNVA) | payer MEDICARE, MEDICAID, SELFPAY | PROVIDERS: PCP Family Medicine; Visit Provider Podiatrist Foot & Ankle Surgery | DX: M79.671 Pain in right foot (principal); M19.072 Primary osteoarthritis, left ankle and foot | CPT/HCPCS: 73630 ==

== ENCOUNTER → 2019-11-19 11:22 | Outpatient (BNVA) | payer MEDICARE, MEDICAID, SELFPAY | PROVIDERS: PCP Family Medicine; Visit Provider Nurse Practitioner Family | DX: N39.0 Urinary tract infection, site not specified (principal) | CPT/HCPCS: 81000; 87086 ==

== ENCOUNTER → 2019-12-09 08:25 | Outpatient (BNVA) | payer MEDICARE, MEDICAID, SELFPAY | PROVIDERS: PCP Family Medicine; Visit Provider Nurse Practitioner Psychiatric/Mental Health | DX: F43.12 Post-traumatic stress disorder, chronic (principal); F33.1 Major depressive disorder, recurrent, moderate; F41.9 Anxiety disorder, unspecified | CPT/HCPCS: 99212 ==

== ENCOUNTER → 2019-12-23 13:38 | Outpatient (BNVA) | payer MEDICARE, MEDICAID, SELFPAY | PROVIDERS: PCP Family Medicine; Visit Provider Nurse Practitioner | DX: R35.0 Frequency of micturition (principal) | CPT/HCPCS: 81000; 87086 ==

== ENCOUNTER 2020-01-06 10:07 | Outpatient (CLI) | payer MEDICARE, MEDICAID, SELFPAY | END 2020-01-06 10:08 | disposition home or self-care (01) | LOC: SPT 10:07 | PROVIDERS: PCP Family Medicine; Visit Provider Podiatrist Foot & Ankle Surgery | DX: Z46.89 Encounter for fitting and adjustment of other specified devices (principal); M79.671 Pain in right foot; M79.672 Pain in left foot; M19.071 Primary osteoarthritis, right ankle and foot; M19.072 Primary osteoarthritis, left ankle and foot | CPT/HCPCS: 81000; 87086; 97760; 99212; L3030 ==

== ENCOUNTER → 2020-01-20 11:38 | Outpatient (BNVA) | payer MEDICARE, MEDICAID, SELFPAY | PROVIDERS: PCP Family Medicine; Visit Provider Nurse Practitioner | DX: R30.0 Dysuria (principal) | CPT/HCPCS: 81000; 87086 ==

== ENCOUNTER → 2020-02-03 08:16 | Outpatient (BNVA) | payer MEDICARE, MEDICAID, SELFPAY | PROVIDERS: PCP Family Medicine; Visit Provider Nurse Practitioner Psychiatric/Mental Health | DX: F43.12 Post-traumatic stress disorder, chronic (principal); F33.1 Major depressive disorder, recurrent, moderate; F41.9 Anxiety disorder, unspecified; F29 Unspecified psychosis not due to a substance or known physiological condition | CPT/HCPCS: 99212 ==

== ENCOUNTER 2020-02-05 10:11 | Emergency (ER) | payer MEDICARE, MEDICAID, SELFPAY ==
[2020-02-05 10:42] VITALS: BP 128/83; PULSE 82; RESP 16; TEMP 36.5; O2SAT 97; BMI 32.4
[2020-02-05 10:50] VITALS: O2SAT 97
[2020-02-05] MEDS: morphine 4 mg/mL SDV 1 mL 2 MG IVP (11:32)
[2020-02-05] MEDS: ondansetron 2 mg/ML SDV 2 mL 4 MG IVP (11:32)
[2020-02-05 11:52] LABS: Basophils % 0.7 %; Eosinophils # 0.2 10^3/uL (0.0-0.8); Hematocrit 34.2 % (37.0-47.0); Hemoglobin 11.2 g/dL (11.5-15.3); Lymphocytes # 1.6 10^3/uL (0.8-4.8); Lymphocytes % 28.9 %; Mean Corpuscular HGB Conc 32.7 g/dL (30.0-36.0); Mean Corpuscular Hemoglobin 32.8 pg (28.0-34.0); Mean Corpuscular Volume 100.3 fL (81-99); Mean Platelet Volume 9.6 fL (7.4-10.4); Monocytes # 0.5 10^3/uL (0.2-0.9); Monocytes % 8.3 %; Neutrophils # 3.34 10^3/uL (1.8-7.7); Neutrophils % 58.9 %; Nucleated Red Blood Cells % 0 %; Platelet Count 263 10^3/cmm (130-400); Red Blood Count 3.41 10^6/uL (4.1-5.3); White Blood Count 5.7 10^3/uL (4.0-10.0)
--- NOTE | 2020-02-05 11:56 | ED_ITS ---
HPI - General Adult General: Chief complaint: General Medical Stated complaint: flank pain Time Seen by Provider: 02/05/20 10:39 Source: patient Mode of arrival: ambulatory Limitations: no limitations History of Present Illness: HPI narrative: 55-year-old female patient presents to the emergency department with urinary complaints. She reports treated for urinary tract infection approximately 2 weeks ago with Cipro. Reports seen by her primary care yesterday due to dysuria and lower pubic pain, diagnosed with urinary tract infection and placed on Augmentin. Reports woke up today with nausea, generalized dull achy pain throughout her abdomen worse to the bilateral flank area. She reports history of chronic kidney disease x6 years, followed by Dr. Muniz. She denies vomiting, denies fever or chills. She has history of chronic back pain but reports has not needed medication or pain management in several years. Onset (ago): day(s) (1) Location: back, abdomen and pelvis Radiation: back and abdomen Severity: moderate Quality: aching, dull and constant Pain Consistency: constant Relieving factors: rest Exacerbating factors: movement Associated symptoms: Reports decreased appetite and nausea; Deny chest pain, diaphoresis, dyspnea, headache(s), rash, palpitations or vomiting Treatments prior to arrival: other (Augmentin) Review of Systems General: Reports: 10 or more systems reviewed and unremarkable except in HPI and below Const: Denies: fever(s), chills or diaphoresis Eyes: Denies: blurry vision or eye redness ENMT: Denies: throat pain, dental pain or disequilibrium Card: Denies: chest pain, palpitations or irregular heart rhythm Resp: Denies: dyspnea, productive cough, non-productive cough or wheezing GI: Reports: abdominal pain and nausea; Denies: vomiting, heartburn or GI cramping : Denies: difficulty voiding or dysuria Musc: Reports: back pain (lower chronic); Denies: neck pain, joint swelling, joint stiffness, muscle cramps or muscle weakness Skin/Breast: Denies: rash or pruritus Neuro: Denies: headache(s), weakness in extremities or behavioral changes Psych: Denies: anxiety or depression Rafael/Lymph: Denies: easy bruising PFS ED PFSH: Medical History (Updated 02/05/20 @ 14:18 by GAMA Ayala) Anxiety disorder Chronic post-traumatic stress disorder (PTSD) GERD (gastroesophageal reflux disease) Moderate episode of recurrent major depressive disorder Psychosis History of unspecified psychosis diagnoses; has been on Geodon 40 mg twice daily for approximately 2 years. Surgical History H/O colonoscopy H/O decompression of ulnar nerve H/O esophagogastroduodenoscopy H/O: hysterectomy one ovary left S/P cholecystectomy Family History Other Cancer Hypertension Denies family history of Diabetes CAD (coronary artery disease) Anesthesia complication Bleeding disorder Social History (Updated 02/05/20 @ 10:48 by Lauro Wright RN) Smoking and tobacco status: former smoker Quit status (tobacco): has quit using tobacco Year quit tobacco: 2018 Former quit date comment: 0.5 PPD since I was 15. I did stop for 3 years one time but.. Second hand smoke exposure: No Alcohol intake: never Substance/Drug Use: current Substance/Drug use frequency: few times a week Substance/Drug use type: Marijuana Lives independently: Yes Marital status: Single Current occupational status: disabled History of recent travel: No Physical Exam Const: COMMON NORMALS: no acute distress, patient oriented x3, healthy appearing and alert GENERAL APPEARANCE: cooperative, comfortable and well hydrated HENMT: COMMON NORMALS: normocephalic, Normal external nose present and moist oral mucous membranes HEAD & SCALP: normocephalic NOSE: Normal external nose present Eye: COMMON NORMALS: Equal, round and reactive pupils present and EOMs intact bilaterally GENERAL EYE: appearance normal, both eyes and all related structures PUPIL: Yes Equal, round and reactive pupils present Neck/C-Spine: COMMON NORMALS: full ROM and no lymphadenopathy GENERAL: Yes normal visual inspection and Yes trachea midline CERVICAL SPINE: Yes cervical ROM normal Lymph: LYMPHATIC: no lymphadenopathy noted Chest: COMMONS NORMALS: normal inspection of the chest Resp: COMMON NORMALS: normal respiratory effort and clear to auscultation bilaterally EFFORT & INSPECTION: Yes able to speak in complete sentences AUSCULTATION: clear to auscultation bilaterally Cardio: COMMON NORMALS: regular rhythm, S1 normal heart sound present, S2 normal heart sound present and Peripheral pulses 2+ throughout RHYTHM: regular rhythm HEART SOUNDS: S1 normal heart sound present and S2 normal heart sound present PERIPHERAL PULSES: Peripheral pulses 2+ throughout GI: COMMON NORMALS: Normal to inspection, nondistended, normoactive bowel sounds present and Soft to palpation INSPECTION: Yes normal to inspection, No Abdominal wall edema, Yes abdominal distension, Yes central obesity, No Fluid wave present and No GI erythema present AUSCULTATION: Yes normoactive bowel sounds PALPATION: Yes Soft to palpation, Yes Tenderness to palpation present (GI) (pain reproduced to the bilateral flank with central palpation of abdomen), No Hernia present and No Palpable mass present PERCUSSION: no fluid wave : EXTERNAL FEMALE EXAM: No Hernia present Back/Pelvis: COMMON NORMALS: thoracic and lumbar spine normal to inspection GENERAL BACK: Yes CVA tenderness CVA tenderness: bilateral THORACIC SPINE/UPPER BACK: Yes normal to inspection, Yes thoracic ROM normal, No paraspinal muscle tenderness and No paraspinal muscle spasm LUMBAR SPINE/LOWER BACK: Yes normal to inspection, Yes lumbar spinal tenderness Lumbar spinal tenderness location: L3, L4 and L5, Yes paraspinal muscle tenderness Lumbar paraspinal muscle tenderness: right and Yes straight leg raise positive right SACROILIAC JOINTS: Yes SI joint(s) abnormal SI joint details: tender to palpation (rt) and pain elicited by compression of iliac crest maneuver (rt) Extremity: COMMON NORMALS: normal to inspection and capillary refill normal Neuro: COMMON NORMALS: patient oriented x3 and no focal motor deficits SENSORIUM/ORIENTATION: Yes alert Psych: COMMON NORMALS: mental status grossly normal, Normal thought process present and cooperative ACTIVITY/MOTOR BEHAVIOR: Yes appropriate eye contact THOUGHT PROCESS: Normal thought process present Skin: COMMON NORMALS: no rashes or lesions noted and turgor normal GENERAL SKIN EXAM: no rashes or lesions noted and turgor normal Course ED course: 55-year-old female patient presents to the emergency department with several week history of back pain, increased over the past 2 weeks, diagnosed with UTI approximately 10 days prior with prescription of short-term Cipro, return to her primary care physician's office yesterday with prescription of Augmentin. Right sciatic tenderness elicited upon exam. Elevation of creatinine at 2.1 with CKD 3B noted. Patient was counseled on kidney disease and to refrain from NSAID use. Pain was controlled in the ER with use of morphine, nausea resolved with Zofran. She has a history of pain management specialty. Findings were discussed with the patient of today's exam including urology results. She is to continue Augmentin until gone. Follow-up with her primary care provider next week, case discussed with Dr. Rueda and hydrocodone prescription was provided. She was counseled on use of Lidoderm patches and cyclobenzaprine. Agrees to return to the emergency department if she develops urinary or bowel incontinence lower leg extremity weakness. CT scan without acute abnormalities. Vital Signs: Vital signs: Vital Signs Temperature 97.7 F 02/05/20 10:42 Pulse Rate 74 02/05/20 13:03 Respiratory Rate 18 02/05/20 13:03 Blood Pressure 132/80 02/05/20 13:03 Pulse Oximetry 97 02/05/20 13:03 [facility] [place] - General Adult Lab Data: Labs: Lab Results 02/05/20 02/05/20 02/05/20 Range/Units 11:10 11:10 11:10 WBC 5.7 (4.0-10.0) 10^3/ uL RBC 3.41 L (4.1-5.3) 10^6/u L Hgb 11.2 L (11.5-15.3) g/dL Hct 34.2 L (37.0-47.0) % MCV 100.3 H (81-99) fL MCH 32.8 (28.0-34.0) pg MCHC 32.7 (30.0-36.0) g/dL RDW 14.0 (12.1-15.1) % Plt Count 263 (130-400) 10^3/c mm MPV 9.6 (7.4-10.4) fL Neut % (Auto) 58.9 % Lymph % (Auto) 28.9 % [place] % (Auto) 8.3 % Eos % (Auto) 3.0 % Baso % (Auto) 0.7 % Neut # (Auto) 3.34 (1.8-7.7) 10^3/u L Lymph # (Auto) 1.6 (0.8-4.8) 10^3/u L [place] # (Auto) 0.5 (0.2-0.9) 10^3/u L Eos # (Auto) 0.2 (0.0-0.8) 10^3/u L Baso # (Auto) 0.0 (0.0-0.1) 10^3/u L Nucleated RBC % (a uto) 0 % Nucleated RBCs # 0.0 /100WBC Sodium 139 (136-145) mmol/L Potassium 4.1 (3.5-5.1) mmol/L Chloride 107 (98-107) mmol/L Carbon Dioxide 22 (22-29) mmol/L Anion Gap 14.1 (5-19) BUN 14 (6-20) mg/dL Creatinine 2.1 H (0.5-0.9) mg/dL GFR Calculation 24.4 L (90-130) mL/min Glucose 101 (65-115) mg/dL Calculated Osmolal ity 289 (285-295) mOsm/k g Calcium 9.5 (8.5-10.5) mg/dL Total Bilirubin 0.2 (0.15-1.2) mg/dL AST 19 (0-32) U/L ALT 14 (0-33) U/L Alkaline Phosphata se 132 H (35-105) IU/L Total Protein 7.0 (6.6-8.7) g/dL Albumin 4.3 (3.5-5.2) g/dL Globulin 2.7 (1.3-4.6) g/dL HCG, Qual Negative (Negative) Urine Color (Yellow) Urine Appearance (CLEAR) Urine pH (5-7) Ur Specific Gravit y (1.005-1.030) Urine Protein (Negative) Urine Glucose (UA) (Normal) Urine Ketones (Negative) Urine Blood (Negative) Urine Nitrate (Negative) Urine Bilirubin (Negative) Urine Urobilinogen (Negative) mg/dL Ur Leukocyte Janelle ase (Negative) Urine RBC (0-2) /hpf Urine WBC (0-5) /hpf Ur Squamous Epith Cells (0-5) /hpf Amorphous Sediment Urine Bacteria (NONE) /hpf 02/04/ Range/Units 11:10 WBC (4.0-10.0) 10^3/ uL RBC (4.1-5.3) 10^6/u L Hgb (11.5-15.3) g/dL Hct (37.0-47.0) % MCV (81-99) fL MCH (28.0-34.0) pg MCHC (30.0-36.0) g/dL RDW (12.1-15.1) % Plt Count (130-400) 10^3/c mm MPV (7.4-10.4) fL Neut % (Auto) % Lymph % (Auto) % [place] % (Auto) % Eos % (Auto) % Baso % (Auto) % Neut # (Auto) (1.8-7.7) 10^3/u L Lymph # (Auto) (0.8-4.8) 10^3/u L [place] # (Auto) (0.2-0.9) 10^3/u L Eos # (Auto) (0.0-0.8) 10^3/u L Baso # (Auto) (0.0-0.1) 10^3/u L Nucleated RBC % (a uto) % Nucleated RBCs # /100WBC Sodium (136-145) mmol/L Potassium (3.5-5.1) mmol/L Chloride (98-107) mmol/L Carbon Dioxide (22-29) mmol/L Anion Gap (5-19) BUN (6-20) mg/dL Creatinine (0.5-0.9) mg/dL GFR Calculation (90-130) mL/min Glucose (65-115) mg/dL Calculated Osmolal ity (285-295) mOsm/k g Calcium (8.5-10.5) mg/dL Total Bilirubin (0.15-1.2) mg/dL AST (0-32) U/L ALT (0-33) U/L Alkaline Phosphata se (35-105) IU/L Total Protein (6.6-8.7) g/dL Albumin (3.5-5.2) g/dL Globulin (1.3-4.6) g/dL HCG, Qual (Negative) Urine Color Yellow (Yellow) Urine Appearance Clear (CLEAR) Urine pH 5 (5-7) Ur Specific Gravit y 1.010 (1.005-1.030) Urine Protein Neg (Negative) Urine Glucose (UA) Norm (Normal) Urine Ketones Negative (Negative) Urine Blood Neg (Negative) Urine Nitrate Negative (Negative) Urine Bilirubin Neg (Negative) Urine Urobilinogen Norm (Negative) mg/dL Ur Leukocyte Janelle ase Trace H (Negative) Urine RBC None (0-2) /hpf Urine WBC 5-10 H (0-5) /hpf Ur Squamous Epith Cells 0-4 H (0-5) /hpf Amorphous Sediment Not Reportable Urine Bacteria Trace (NONE) /hpf Imaging Data^: CT Abd/Pel: Radiologist's impression: [employer] [address] [address] Scan Report Signed Patient: Camelia Lopez Unit #: [id number] : 1965 Age/Sex: 55 / F ADM Date: 02/05/20 Loc: ER Room/Bed: Attending Dr: Ordering Provider/Ordering MD: Mey Treviño Date of Service: 02/05/20 Procedure(s): CT kidney stone 71015 Accession Number(s): [id number] Report Number: [id number] PROCEDURE INFORMATION: Exam: CT Abdomen And Pelvis Without Contrast Exam date and time: 02/05/2020 12:40 PM Age: 55 years old Clinical indication: Abdominal pain; Generalized; Additional info: Back and bilateral flank pain TECHNIQUE: Imaging protocol: Computed tomography of the abdomen and pelvis without contrast. Radiation optimization: All CT scans at this facility use at least one of these dose optimization techniques: automated exposure control; mA and/or kV adjustment per patient size (includes targeted exams where dose is matched to clinical indication); or iterative reconstruction. COMPARISON: CR Hip 2-3v RIGHT wwo Pelv* [id number] 06/04/2013 5:00 PM RADIATION DOSE METRICS: Total DLP (mGy-cm): 1648.45 FINDINGS: Mediastinal space: There is a sliding hiatal hernia measuring about 5 cm in diameter. Liver: There is a 1 cm benign cyst in the left lobe of the liver. Otherwise liver is unremarkable. Gallbladder and bile ducts: Cholecystectomy. Normal bile ducts. Pancreas: Normal. No ductal dilation. Pancreas: Normal. No ductal dilation. Spleen: Normal. No splenomegaly. Adrenal glands: Normal. No mass. Kidneys and ureters: There is left renal atrophy and scarring. A benign appearing cyst is present in the lower pole of the left kidney which is reported on old examination. There is no hydronephrosis or renal calcification. The ureters are not dilated. Stomach and bowel: There is sigmoid diverticulosis but there is no evidence of acute diverticulitis. There is no small bowel obstruction or dilatation. Appendix: No evidence of appendicitis. Intraperitoneal space: Unremarkable. No free air. No significant fluid collection. Vasculature: Unremarkable. No abdominal aortic aneurysm. Lymph nodes: Unremarkable. No enlarged lymph nodes. Urinary bladder: Unremarkable as visualized. Reproductive: The patient has undergone hysterectomy. No adnexal masses are seen.. Bones/joints: Unremarkable. No acute fracture. Soft tissues: Unremarkable. CT/CT kidney stone [id number] IMPRESSION: 1. No evidence of renal stone disease. 2. Left renal atrophy and scarring. 3. Sigmoid diverticulosis. 4. There is a 5 cm sliding hiatal hernia. 5. No acute abnormality. Radiation Dose CTDIVOL = (mGy): DLP = 1648.45 (mGy-cm) Dictated By: Vel Hunter Signed By: Vel Hunter Signed Date/Time: 02/05/20 1303 DD/ 1300 Discharge Plan Discharge Patient Disposition: Home Clinical Impression: Sciatica of right side, Spine pain, lumbar UTI (urinary tract infection) Qualifiers: Urinary tract infection type: acute cystitis Hematuria presence: without hematuria Qualified Code(s): N30.00 - Acute cystitis without hematuria CKD (chronic kidney disease) stage 3, GFR 30-59 ml/min Qualifiers: Chronic kidney disease stage 3 subtype: stage 3b (GFR 30-44) Qualified Code(s): N18.32 - Chronic kidney disease, stage 3b Condition: Stable Prescriptions: New Lidoderm 5 % adhesive patch,medicated 1 patch topical BID PRN (Reason: back pain) Qty: 30 RF: 0 cyclobenzaprine 10 mg tablet 10 mg PO TID PRN (Reason: muscle spasm) Qty: 10 RF: 0 hydrocodone-acetaminophen 5-325 mg tablet 1 tab PO Q4H PRN (Reason: pain) Qty: 7 RF: 0 Discontinued ciprofloxacin HCl 500 mg tablet 500 mg PO Q12H Qty: 14 RF: 0 meloxicam 15 mg tablet 15 mg PO DAILY 30 Days Qty: 30 RF: 0 ibuprofen [Advil] 200 mg Tablet 400 mg PO BID PRN (Reason: Pain) RF: 0 No Action propranolol 60 mg capsule,extended release 24 hr 60 mg PO .q am RF: 0 benztropine 1 mg tablet 1 mg PO BID Qty: 60 RF: 1 buspirone 10 mg tablet 20 mg PO TID 30 Days Qty: 180 RF: 1 hydroxyzine pamoate 25 mg capsule 25 mg PO BID PRN (Reason: anxiety) Qty: 60 RF: 1 lamotrigine [Lamictal] 100 mg tablet 100 mg PO BID 30 Days Qty: 60 RF: 1 ziprasidone HCl 60 mg capsule 60 mg PO QAM Qty: 30 RF: 1 ziprasidone HCl 40 mg capsule 40 mg PO .Every evening Qty: 30 RF: 0 trazodone 150 mg tablet 150 mg PO BEDTIME PRN (Reason: insomnia) Qty: 45 RF: 1 loratadine [Claritin] 10 mg tablet 10 mg PO DAILY RF: 0 levothyroxine 50 mcg capsule 50 mcg PO DAILY RF: 0 (DME) [employer] See Rx Instructions .Route .MEDSUPPLY Qty: 1 RF: 0 sucralfate [Carafate] 1 gram tablet 1 gm PO Q6H Qty: 120 RF: 3 Dexilant 30 mg capsule,biphase delayed releas 30 mg PO BID Qty: 60 RF: 2 Stool Softener-Laxative 8.6-50 mg tablet 1 tab PO DAILY RF: 0 Multiple Vitamins Tablet 1 tab PO DAILY RF: 0 Discharge Orders: Discharge Order (Routine); Ordered 02/05/20 Ordered By: Mey Treviño Referrals: Ange Keita DO [Primary Care Provider] - Discharge Diet: Usual diet Discharge Activity: Limit activity as instructed Patient Instructions: Urinary Tract Infection in Women (ED), Chronic Kidney Disease (ED), Sciatica (ED), Flank Pain (ED) Activity Restrictions/Additional Instructions: Do not use anti-inflammatories, such as Mobic, meloxicam, Advil, Aleve or naproxen Such medication can worsen your kidney function Take Augmentin until all gone Take Tylenol, 1 g orally 3 times daily, 2, 500 mg tablets as needed for pain Cyclobenzaprine will cause drowsiness, do not drive or operate heavy machinery with use of medication May apply warm moist heat, alternate with cool compresses as needed for sciatic pain May use Lidoderm patches as needed for pain Return to the emergency room if you develop fever, vomiting or worsening symptoms such as inability to feel your legs or incontinence of bowel or bladder Coding Level of Care Code ED Residence Hall Director for Chg Fwd Exam Comprehensive
[2020-02-05 11:59] LABS: HCG Qualitative Urine. Negative (Negative)
[2020-02-05 12:10] LABS: Alanine Aminotransferase 14 U/L (0-33); Albumin Level 4.3 g/dL (3.5-5.2); Alkaline Phosphatase 132 IU/L (35-105); Anion Gap 14.1 (5-19); Aspartate Amino Transferase 19 U/L (0-32); Blood Urea Nitrogen 14 mg/dL (6-20); Calcium 9.5 mg/dL (8.5-10.5); Carbon Dioxide 22 mmol/L (22-29); Chloride 107 mmol/L (98-107); Globulin 2.7 g/dL (1.3-4.6); Glomerular Filtration Rate 24.4 mL/min (90-130); Glucose 101 mg/dL (65-115); Osmolality Calculated 289 mOsm/kg (285-295); Potassium 4.1 mmol/L (3.5-5.1); Sodium 139 mmol/L (136-145); Total Bilirubin 0.2 mg/dL (0.15-1.2)
[2020-02-05 12:11] LABS: Bilirubin Urine Neg (Negative); Blood Urine Neg (Negative); Glucose Urine UA Norm (Normal); Ketones Urine Negative (Negative); Leukocyte Esterase Urine Trace (Negative); Nitrate Urine Negative (Negative); Protein Urine Neg (Negative); Urine Appearance Clear (CLEAR); Urine Color Yellow (Yellow); Urobilinogen Urine Norm (Negative); pH Urine 5 (5-7)
[2020-02-05 12:13] LABS: Add Urine Culture? No; Bacteria Urine TRACE /hpf; Squamous Epithelial Cell Urine 0-4 /hpf (0-5)
--- NOTE | 2020-02-05 12:15 | CTR_ITS ---
PROCEDURE INFORMATION: Exam: CT Abdomen And Pelvis Without Contrast Exam date and time: 02/05/2020 12:40 PM Age: 55 years old Clinical indication: Abdominal pain; Generalized; Additional info: Back and bilateral flank pain TECHNIQUE: Imaging protocol: Computed tomography of the abdomen and pelvis without contrast. Radiation optimization: All CT scans at this facility use at least one of these dose optimization techniques: automated exposure control; mA and/or kV adjustment per patient size (includes targeted exams where dose is matched to clinical indication); or iterative reconstruction. COMPARISON: CR Hip 2-3v RIGHT wwo Pelv* [id number] 06/04/2013 5:00 PM RADIATION DOSE METRICS: Total DLP (mGy-cm): 1648.45 FINDINGS: Mediastinal space: There is a sliding hiatal hernia measuring about 5 cm in diameter. Liver: There is a 1 cm benign cyst in the left lobe of the liver. Otherwise liver is unremarkable. Gallbladder and bile ducts: Cholecystectomy. Normal bile ducts. Pancreas: Normal. No ductal dilation. Pancreas: Normal. No ductal dilation. Spleen: Normal. No splenomegaly. Adrenal glands: Normal. No mass. Kidneys and ureters: There is left renal atrophy and scarring. A benign appearing cyst is present in the lower pole of the left kidney which is reported on old examination. There is no hydronephrosis or renal calcification. The ureters are not dilated. Stomach and bowel: There is sigmoid diverticulosis but there is no evidence of acute diverticulitis. There is no small bowel obstruction or dilatation. Appendix: No evidence of appendicitis. Intraperitoneal space: Unremarkable. No free air. No significant fluid collection. Vasculature: Unremarkable. No abdominal aortic aneurysm. Lymph nodes: Unremarkable. No enlarged lymph nodes. Urinary bladder: Unremarkable as visualized. Reproductive: The patient has undergone hysterectomy. No adnexal masses are seen.. Bones/joints: Unremarkable. No acute fracture. Soft tissues: Unremarkable. CT/CT kidney stone [id number] IMPRESSION: 1. No evidence of renal stone disease. 2. Left renal atrophy and scarring. 3. Sigmoid diverticulosis. 4. There is a 5 cm sliding hiatal hernia. 5. No acute abnormality. Radiation Dose CTDIVOL = (mGy): DLP = 1648.45 (mGy-cm)
[2020-02-05 13:03] VITALS: BP 132/80; PULSE 74; RESP 18; O2SAT 97
--- NOTE | 2020-02-05 13:12 | PC.NURSE ---
Pt updated on plan of care, vss, water provided, pt sts no other needs at this time, will continue to monitor.
--- NOTE | 2020-02-05 14:43 | PC.NURSE ---
Please disregard all orthopedic charges. Do not charge patient for elastic wrap, orthoglass supplies, cast padding, or sling. This was documented in error on the wrong patient. Patient had no charges for this visit. Thank you- Myra Chaudhry RN.
== END 2020-02-05 15:00 | disposition home or self-care (01) ==
PROVIDERS: Emergency Medicine; Emergency Provider Nurse Practitioner Family; PCP Family Medicine
DX: R30.0 Dysuria (principal); M54.31 Sciatica, right side; N30.00 Acute cystitis without hematuria; N18.32 Chronic kidney disease, stage 3b; Z87.891 Personal history of nicotine dependence
CPT/HCPCS: 12345; 29105; 74176; 80053; 81001; 81025; 85025; 96374; 96375; 99283; J2270; J2405

== ENCOUNTER → 2020-03-22 11:27 | Outpatient (BNVA) | payer MEDICARE, MEDICAID, SELFPAY | PROVIDERS: PCP Family Medicine; Referring Provider Family Medicine; Visit Provider Nurse Practitioner Family | DX: N39.0 Urinary tract infection, site not specified (principal) | CPT/HCPCS: 81003; 87086 ==

== ENCOUNTER → 2020-03-28 08:01 | Outpatient (BNVA) | payer MEDICARE, MEDICAID, SELFPAY | PROVIDERS: PCP Family Medicine; Visit Provider Nurse Practitioner Psychiatric/Mental Health | DX: F41.9 Anxiety disorder, unspecified (principal); F43.12 Post-traumatic stress disorder, chronic; F33.1 Major depressive disorder, recurrent, moderate | CPT/HCPCS: 99213 ==

== ENCOUNTER → 2020-04-27 07:51 | Outpatient (BNVA) | payer MEDICARE, MEDICAID, SELFPAY | PROVIDERS: PCP Family Medicine; Visit Provider Nurse Practitioner Psychiatric/Mental Health | DX: F41.9 Anxiety disorder, unspecified (principal); F43.12 Post-traumatic stress disorder, chronic; F33.1 Major depressive disorder, recurrent, moderate | CPT/HCPCS: 99214 ==

== ENCOUNTER 2020-04-27 12:53 | Outpatient (CLI) | payer MEDICARE, MEDICAID, SELFPAY ==
[2020-04-27 13:21] LABS: Basophils # 0.1 10^3/uL (0.0-0.1); Basophils % 0.9 %; Eosinophils # 0.1 10^3/uL (0.0-0.8); Eosinophils % 2.5 %; Hematocrit 35.7 % (37.0-47.0); Hemoglobin 11.9 g/dL (11.5-15.3); Lymphocytes # 1.9 10^3/uL (0.8-4.8); Lymphocytes % 32.9 %; Mean Corpuscular HGB Conc 33.3 g/dL (30.0-36.0); Mean Corpuscular Hemoglobin 33.7 pg (28.0-34.0); Mean Corpuscular Volume 101.1 fL (81-99); Mean Platelet Volume 9.4 fL (7.4-10.4); Monocytes # 0.4 10^3/uL (0.2-0.9); Monocytes % 7.6 %; Neutrophils # 3.16 10^3/uL (1.8-7.7); Neutrophils % 55.9 %; Nucleated Red Blood Cells % 0 %; Platelet Count 271 10^3/cmm (130-400); Red Blood Count 3.53 10^6/uL (4.1-5.3); Red Cell Distribution Width 13.2 % (12.1-15.1); White Blood Count 5.7 10^3/uL (4.0-10.0)
[2020-04-27 13:45] LABS: Creatinine Urine, Random 160 mg/dL (28-217); Microalbum Creatinine Ratio Ur 13 mg/dL (0-20); Microalbumin Random Urine 2 ug/dL (0-20)
[2020-04-27 14:04] LABS: 25 Hydroxy Vitamin D 39 ng/mL (30-100); Albumin Level 4.4 g/dL (3.5-5.2); Anion Gap 11.2 (5-19); Blood Urea Nitrogen 11 mg/dL (6-20); Calcium 9.4 mg/dL (8.5-10.5); Carbon Dioxide 25 mmol/L (22-29); Chloride 110 mmol/L (98-107); Glomerular Filtration Rate 29.1 mL/min (90-130); Glucose 89 mg/dL (65-115); Phosphorus 3.6 mg/dL (2.5-4.5); Potassium 4.2 mmol/L (3.5-5.1); Sodium 142 mmol/L (136-145)
[2020-04-27 14:22] LABS: Calcium 9.5 mg/dL (8.5-10.5); Parathyroid Hormone 78.5 pg/mL (15-65)
== END 2020-04-27 12:54 | disposition home or self-care (01) ==
PROVIDERS: PCP Family Medicine; Visit Provider Internal Medicine Nephrology
DX: N18.30 Chronic kidney disease, stage 3 unspecified (principal)
CPT/HCPCS: 36415; 80069; 82044; 82306; 82310; 83970; 85025

== ENCOUNTER 2020-05-23 12:42 | Emergency (ER) | payer MEDICARE, MEDICAID, SELFPAY ==
[2020-05-23 13:04] VITALS: BP 115/74; PULSE 72; RESP 18; TEMP 36.6; O2SAT 98; BMI 32.5
--- NOTE | 2020-05-23 13:30 | XRR_ITS ---
PROCEDURE INFORMATION: Exam: XR Right Foot Exam date and time: 05/23/2020 1:33 PM Age: 55 years old Clinical indication: Pain; Foot; Right; Additional info: Foot pain ? FX TECHNIQUE: Imaging protocol: XR Right foot. Views: 3 or more views. COMPARISON: CR XR foot RT min 3V* [id number] 11/08/2019 10:15 AM FINDINGS: Bones/joints: Mild degenerative changes are present predominantly in the 1st metatarsophalangeal joint and interphalangeal joints.. Soft tissues: Normal. XR/XR foot RT min 3V* [id number] IMPRESSION: No acute findings.
[2020-05-23 14:36] VITALS: PULSE 69; O2SAT 99
--- NOTE | 2020-05-23 14:42 | W.ED.EXTPRO ---
HPI - Extremity Problem General: Chief complaint: Extremity Injury, Lower Stated complaint: suspects broken right foot Time Seen by Provider: 05/23/20 14:42 Source: patient Mode of arrival: ambulatory Limitations: no limitations History of Present Illness: HPI Narrative: 55-year-old female patient presents to the emergency department with right foot pain. She reports tripped over a rock approximately 7 days ago. She reports pain remains to the right foot with swelling. She states unable to take ibuprofen due to renal disease. She reports pain with ambulation MD Complaint: extremity pain Onset (ago): day(s) (7) Pain Consistency: intermittent Location: right and lower extremity Quality: aching and dull Radiation: distal Relieving factors: immobilization and rest Exacerbating factors: range of motion, weight bearing and walking Associated symptoms: Reports no associated symptoms; Deny chest pain, fever(s) or rash Review of Systems General: Reports: 10 or more systems reviewed and unremarkable except in HPI and below Const: Denies: fever(s), chills or diaphoresis Eyes: Denies: blurry vision or eye redness ENMT: Denies: throat pain, dental pain or disequilibrium Card: Denies: chest pain, palpitations or irregular heart rhythm Resp: Denies: dyspnea, productive cough, non-productive cough or wheezing GI: Denies: abdominal pain, nausea or vomiting : Denies: difficulty voiding or dysuria Musc: Reports: joint pain and joint swelling; Denies: neck pain, back pain, joint redness or joint stiffness Skin/Breast: Denies: rash or pruritus Neuro: Denies: headache(s), weakness in extremities or behavioral changes Psych: Denies: anxiety or depression Rafael/Lymph: Denies: easy bruising PFS ED PFSH: Medical History Anxiety disorder Chronic post-traumatic stress disorder (PTSD) GERD (gastroesophageal reflux disease) Moderate episode of recurrent major depressive disorder Psychosis History of unspecified psychosis diagnoses; has been on Geodon 40 mg twice daily for approximately 2 years. Recurrent UTI Surgical History H/O colonoscopy H/O decompression of ulnar nerve H/O esophagogastroduodenoscopy H/O: hysterectomy one ovary left S/P cholecystectomy Family History Other Cancer Hypertension Denies family history of Diabetes CAD (coronary artery disease) Anesthesia complication Bleeding disorder Social History Smoking and tobacco status: former smoker Quit status (tobacco): has quit using tobacco Year quit tobacco: 2019 Former quit date comment: 0.5 PPD since I was 15. I did stop for 3 years one time but.. Second hand smoke exposure: No Alcohol intake: never Adopted: No Caregiver/support person: No Lives independently: Yes Household members: none Housing: Apartment Marital status: Single Number of children: 2 Number of grandchildren: 3 Highest education level completed: High School Graduate service: No Current occupational status: disabled Pets and animals: Yes Pets & animals: dog(s) History of recent travel: No Sexually active: No Current gender identity: Female Karely/Jew: [employer]ian Special karely needs: No Agree to transfusion: Yes Financial difficulty paying for basics: Somewhat Hard Female Reproductive History: Para: 2 Spontaneous abortions: Yes Physical Exam Const: COMMON NORMALS: no acute distress, average body habitus, patient oriented x3, healthy appearing, alert and well nourished GENERAL APPEARANCE: cooperative, comfortable and well hydrated HENMT: COMMON NORMALS: normocephalic, Normal external nose present and moist oral mucous membranes HEAD & SCALP: normocephalic NOSE: Normal external nose present Eye: COMMON NORMALS: Equal, round and reactive pupils present and EOMs intact bilaterally GENERAL EYE: appearance normal, both eyes and all related structures PUPIL: Yes Equal, round and reactive pupils present Neck/C-Spine: COMMON NORMALS: full ROM and no lymphadenopathy GENERAL: Yes normal visual inspection and Yes trachea midline CERVICAL SPINE: Yes cervical ROM normal Lymph: LYMPHATIC: no lymphadenopathy noted Chest: COMMONS NORMALS: normal inspection of the chest Resp: COMMON NORMALS: normal respiratory effort and clear to auscultation bilaterally AUSCULTATION: clear to auscultation bilaterally Cardio: COMMON NORMALS: regular rhythm, S1 normal heart sound present, S2 normal heart sound present and Peripheral pulses 2+ throughout RHYTHM: regular rhythm HEART SOUNDS: S1 normal heart sound present and S2 normal heart sound present PERIPHERAL PULSES: Peripheral pulses 2+ throughout GI: COMMON NORMALS: Soft to palpation and non-tender INSPECTION: Yes normal to inspection PALPATION: Yes Soft to palpation : COMMON NORMALS: Yes no CVA tenderness BLADDER/KIDNEY EXAM: Yes no CVA tenderness Back/Pelvis: COMMON NORMALS: no CVA tenderness and thoracic and lumbar spine normal to inspection Extremity: COMMON NORMALS: normal to inspection, full ROM, capillary refill normal, no clubbing, cyanosis or edema and no calf tenderness GENERAL: Yes normal exam except as noted RIGHT LOWER EXTREMITY: Yes foot & digits (Dorsal edema present, no ecchymosis or erythema) Right foot and digits: Yes palpation, Yes ROM (Full flexion and extension noted), Yes neurovascular exam (Distally intact) and Yes tendon exam (Intact without deficit) Neuro: COMMON NORMALS: patient oriented x3 and no focal motor deficits SENSORIUM/ORIENTATION: Yes alert Psych: COMMON NORMALS: mental status grossly normal, Normal thought process present and cooperative ACTIVITY/MOTOR BEHAVIOR: Yes appropriate eye contact THOUGHT PROCESS: Normal thought process present Skin: COMMON NORMALS: no rashes or lesions noted and turgor normal GENERAL SKIN EXAM: no rashes or lesions noted and turgor normal Course Vital Signs: Vital signs: Vital Signs Temperature 97.9 F 05/23/20 13:04 Pulse Rate 69 05/23/20 14:36 Respiratory Rate 18 05/23/20 13:04 Blood Pressure 115/74 05/23/20 13:04 Pulse Oximetry 99 05/23/20 14:36 MDM - Extremity (Nontraumatic) Imaging Data^: Xray Ortho: Radiologist's impression: [address] [address] XRay Report Signed Patient: Camelia Lopez #: [id number] : 1965Acct#:[id number] Age/Sex: 55 / FADM Date: 05/23/20 Loc: ERRoom/Bed: Attending Dr: Ordering Provider/Ordering MD: Mey Treviño Date of Service: 05/23/20 Procedure(s): XR foot RT min 3V* 22062 Accession Number(s): [id number] Report Number: [id number] PROCEDURE INFORMATION: Exam: XR Right Foot Exam date and time: 05/23/2020 1:33 PM Age: 55 years old Clinical indication: Pain; Foot; Right; Additional info: Foot pain ? FX TECHNIQUE: Imaging protocol: XR Right foot. Views: 3 or more views. COMPARISON: CR XR foot RT min 3V* [id number] 11/08/2019 10:15 AM FINDINGS: Bones/joints: Mild degenerative changes are present predominantly in the 1st metatarsophalangeal joint and interphalangeal joints.. Soft tissues: Normal. XR/XR foot RT min 3V* 27517 IMPRESSION: No acute findings. Dictated By:Vel Hunter Signed By:Zoe Hunter Date/Time:05/23/20 135 DD/ 1351 Discharge Plan Discharge Patient Disposition: Home Clinical Impression: Muscle strain of right foot, Contusion of foot Condition: Stable Prescriptions: No Action propranolol 60 mg capsule,extended release 24 hr 60 mg PO .q am RF: 0 benztropine 1 mg tablet 1 mg PO TID Qty: 90 RF: 1 buspirone 10 mg tablet 20 mg PO TID 30 Days Qty: 180 RF: 1 trazodone 150 mg tablet 150 mg PO BEDTIME PRN (Reason: insomnia) Qty: 45 RF: 1 ziprasidone HCl 60 mg capsule 60 mg PO QAM Qty: 30 RF: 1 hydroxyzine pamoate 50 mg capsule 50 mg PO BID PRN (Reason: anxiety) Qty: 60 RF: 1 ziprasidone HCl 40 mg capsule 40 mg PO .Every evening Qty: 30 RF: 1 ciprofloxacin HCl 500 mg tablet 500 mg PO BID Qty: 60 RF: 1 loratadine [Claritin] 10 mg tablet 10 mg PO DAILY RF: 0 levothyroxine 50 mcg capsule 50 mcg PO DAILY RF: 0 (DME) Sole Supports Custom Orthotics See Rx Instructions .Route .MEDSUPPLY Qty: 1 RF: 0 Combivent Respimat 20-100 mcg/actuation mist 2 puff inhalation Q6H PRN (Reason: shortness of breath or wheezing) RF: 0 albuterol sulfate 90 mcg/actuation HFA aerosol inhaler 2 inh inhalation Q6H PRN (Reason: shortness of breath or wheezing) RF: 0 diclofenac sodium 1 % gel topical RF: 0 meloxicam 15 mg tablet 15 mg PO DAILY RF: 0 simvastatin 20 mg tablet 20 mg PO DAILY RF: 0 epinephrine 0.3 mg/0.3 mL auto-injector 0.3 mg IM Q10M PRNRF: 0 Dexilant 30 mg capsule,biphase delayed releas 30 mg PO BID Qty: 60 RF: 2 sucralfate 1 gram tablet See Rx Instructions .ROUTE .COMPLEX Qty: 360 RF: 1 pantoprazole [Protonix] 40 mg tablet,delayed release (DR/EC) 40 mg PO BID 30 Days Qty: 60 RF: 0 Stool Softener-Laxative 8.6-50 mg tablet 1 tab PO DAILY RF: 0 Multiple Vitamins Tablet 1 tab PO DAILY RF: 0 Lidoderm 5 % adhesive patch,medicated 1 patch topical BID PRN (Reason: back pain) Qty: 30 RF: 0 Discharge Orders: Discharge ED (Routine); Ordered 05/23/20 Ordered By: Mey Treviño Referrals: Ange Keita DO [Primary Care Provider] - Discharge Diet: Usual diet Discharge Activity: Limit activity as instructed Patient Instructions: Muscle Strain (ED), Foot Contusion (ED), Opioid Safety Activity Restrictions/Additional Instructions: May apply Amor wrap to keep the foot compress, keep elevated and apply cool compresses as needed for pain Continue diclofenac topical gel as needed for pain May have Tylenol as needed for pain Return to the emergency department if you develop worsening symptoms such as redness swelling of the foot right calf pain or other concerns. Coding Level of Care Code ED Television Service Engineer for Delia Arellano
[2020-05-23 15:04] VITALS: BP 103/59; PULSE 70; O2SAT 98
== END 2020-05-23 15:07 | disposition home or self-care (01) ==
PROVIDERS: Emergency Provider Nurse Practitioner Family; PCP Family Medicine
DX: S96.911A Strain of unspecified muscle and tendon at ankle and foot level, right foot, initial encounter (principal); S90.31XA Contusion of right foot, initial encounter; Z87.891 Personal history of nicotine dependence; W18.09XA Striking against other object with subsequent fall, initial encounter
CPT/HCPCS: 73630; 99282

== ENCOUNTER 2020-06-07 07:59 | Emergency (ER) | payer MEDICARE, MEDICAID, SELFPAY ==
[2020-06-07 08:10] VITALS: BP 130/69; PULSE 77; RESP 18; TEMP 36.8; O2SAT 97; BMI 33.5
--- NOTE | 2020-06-07 08:39 | W.ED.GENADLT ---
HPI - General Adult General: Chief complaint: General Medical Stated complaint: SORE THROAT, LETHARGIC Time Seen by Provider: 06/07/20 08:11 History of Present Illness: HPI narrative: This patient is a 55 year old female presenting with sore throat, malaise, muscle aches and fatigue which started about a week ago. No fever. No loss of taste or smell. No N/V/D. No urinary symptoms, although she has been on cipro for a month for bladder problems . She has had mono previously, twice, and says this feels similar. She has chronic renal disease - not on dialysis - but says that otherwise she is healthy. She has history of mental illness and is on medications for that. Onset (ago): week(s) (1) Severity: moderate Pain Consistency: other (with swallowing) Associated symptoms: Reports malaise; Deny chest pain, dyspnea, headache(s), nausea, rash or vomiting Review of Systems General: Reports: 10 or more systems reviewed and unremarkable except in HPI and below Const: Reports: fatigue and malaise; Denies: fever(s) or chills Eyes: Denies: change in vision ENMT: Reports: throat pain and odynophagia Card: Denies: chest pain or swelling of feet/ankles Resp: Denies: dyspnea, productive cough or non-productive cough GI: Denies: abdominal pain, nausea or vomiting : Denies: flank pain or difficulty voiding Musc: Denies: neck pain or back pain Skin/Breast: Denies: rash Neuro: Denies: headache(s), numbness in extremities or weakness in extremities Rafael/Lymph: Denies: easy bruising or easy bleeding PFS ED PFSH: Medical History Anxiety disorder Chronic post-traumatic stress disorder (PTSD) GERD (gastroesophageal reflux disease) Moderate episode of recurrent major depressive disorder Psychosis History of unspecified psychosis diagnoses; has been on Geodon 40 mg twice daily for approximately 2 years. Recurrent UTI Surgical History H/O colonoscopy H/O decompression of ulnar nerve H/O esophagogastroduodenoscopy H/O: hysterectomy one ovary left S/P cholecystectomy Family History Other Cancer Hypertension Denies family history of Diabetes CAD (coronary artery disease) Anesthesia complication Bleeding disorder Social History Smoking and tobacco status: former smoker Quit status (tobacco): has quit using tobacco Year quit tobacco: 2019 Former quit date comment: 0.5 PPD since I was 15. I did stop for 3 years one time but.. Second hand smoke exposure: No Alcohol intake: never Adopted: No Caregiver/support person: No Lives independently: Yes Household members: none Housing: Apartment Marital status: Single Number of children: 2 Number of grandchildren: 3 Highest education level completed: High School Graduate service: No Current occupational status: disabled Pets and animals: Yes Pets & animals: dog(s) History of recent travel: No Sexually active: No Current gender identity: Female Karely/Judaism: Jain Special karely needs: No Agree to transfusion: Yes Financial difficulty paying for basics: Somewhat Hard Female Reproductive History: Para: 2 Spontaneous abortions: Yes Physical Exam Const: COMMON NORMALS: no acute distress, patient oriented x3, no limitations and alert GENERAL APPEARANCE: cooperative and comfortable HENMT: HEAD & SCALP: normal to inspection FACE & SINUS: normal facial exam Eye: GENERAL EYE: appearance normal, both eyes and all related structures Neck/C-Spine: COMMON NORMALS: supple, no meningeal signs and no JVD Chest: COMMONS NORMALS: normal inspection of the chest Resp: COMMON NORMALS: normal respiratory effort, No use of accessory muscles and clear to auscultation bilaterally AUSCULTATION: clear to auscultation bilaterally Cardio: COMMON NORMALS: no JVD, regular rate, regular rhythm and No murmurs present (Cardio) RATE: regular rate RHYTHM: regular rhythm GI: COMMON NORMALS: Normal to inspection, nondistended, normoactive bowel sounds present, Soft to palpation and non-tender INSPECTION: Yes normal to inspection AUSCULTATION: Yes normoactive bowel sounds PALPATION: Yes Soft to palpation Back/Pelvis: COMMON NORMALS: thoracic and lumbar spine normal to inspection Extremity: COMMON NORMALS: normal to inspection Neuro: COMMON NORMALS: patient oriented x3, moves all extremities, no focal motor deficits and no sensory deficits noted SENSORIUM/ORIENTATION: Yes alert MENINGEAL SIGNS: Yes no meningeal signs Psych: COMMON NORMALS: mental status grossly normal, cooperative and normal affect Skin: COMMON NORMALS: no rashes or lesions noted and turgor normal GENERAL SKIN EXAM: no rashes or lesions noted and turgor normal Course ED course: Patient's work up was unremarkable - COVID antigen neg - PCR pending. She reported feeling much better since being in the ED and was reassured by the normal results. She has outpatient follow up as needed. She understands to self isolate until the COVID PCR is back. Her anemia and elevated creatinine are around her baseline labs. Vital Signs: Vital signs: Vital Signs Temperature 98.2 F 06/07/20 08:10 Pulse Rate 64 06/07/20 10:32 Respiratory Rate 18 06/07/20 10:32 Blood Pressure 115/88 06/07/20 10:32 Pulse Oximetry 100 06/07/20 10:32 MDM - General Adult MDM Narrative: Medical decision making narrative: viral URI, COVID, anemia, dehydration, UTI Lab Data: Labs: Lab Results 06/07/20 06/07/20 06/07/20 Range/Units 08:55 08:55 08:56 WBC 5.1 (4.0-10.0) 10^3/ uL RBC 3.40 L (4.1-5.3) 10^6/u L Hgb 11.1 L (11.5-15.3) g/dL Hct 32.8 L (37.0-47.0) % MCV 96.5 (81-99) fL MCH 32.6 (28.0-34.0) pg MCHC 33.8 (30.0-36.0) g/dL RDW 12.3 (12.1-15.1) % Plt Count 220 (130-400) 10^3/c mm MPV 9.5 (7.4-10.4) fL Neut % (Auto) 54.5 % Lymph % (Auto) 33.4 % [place] % (Auto) 8.2 % Eos % (Auto) 2.5 % Baso % (Auto) 1.2 % Neut # (Auto) 2.79 (1.8-7.7) 10^3/u L Lymph # (Auto) 1.7 (0.8-4.8) 10^3/u L [place] # (Auto) 0.4 (0.2-0.9) 10^3/u L Eos # (Auto) 0.1 (0.0-0.8) 10^3/u L Baso # (Auto) 0.1 (0.0-0.1) 10^3/u L Nucleated RBC % (a uto) 0 % Nucleated RBCs # 0.0 /100WBC Sodium 142 (136-145) mmol/L Potassium 4.1 (3.5-5.1) mmol/L Chloride 109 H (98-107) mmol/L Carbon Dioxide 22 (22-29) mmol/L Anion Gap 15.1 (5-19) BUN 13 (6-20) mg/dL Creatinine 1.9 H (0.5-0.9) mg/dL GFR Calculation 27.3 L (90-130) mL/min Glucose 101 (65-115) mg/dL Calculated Osmolal ity 294 (285-295) mOsm/k g Calcium 9.1 (8.5-10.5) mg/dL Total Bilirubin 0.2 (0.15-1.2) mg/dL AST 17 (0-32) U/L ALT 13 (0-33) U/L Alkaline Phosphata se 116 H (35-105) IU/L Total Protein 6.7 (6.6-8.7) g/dL Albumin 4.0 (3.5-5.2) g/dL Globulin 2.7 (1.3-4.6) g/dL Urine Color (Yellow) Urine Appearance (CLEAR) Urine pH (5-7) Ur Specific Gravit y (1.005-1.030) Urine Protein (Negative) Urine Glucose (UA) (Normal) Urine Ketones (Negative) Urine Blood (Negative) Urine Nitrate (Negative) Urine Bilirubin (Negative) Urine Urobilinogen (Negative) mg/dL Ur Leukocyte Janelle ase (Negative) Urine RBC (0-2) /hpf Urine WBC (0-5) /hpf Ur Squamous Epith Cells (0-5) /hpf Amorphous Sediment Urine Bacteria (NONE) /hpf SARS-CoV-2 Ag (Rap id) Negative (Negative) Group A Strep Rapi d (Negative) 06/07/20 06/07/20 Range/Units 08:57 09:45 WBC (4.0-10.0) 10^3/ uL RBC (4.1-5.3) 10^6/u L Hgb (11.5-15.3) g/dL Hct (37.0-47.0) % MCV (81-99) fL MCH (28.0-34.0) pg MCHC (30.0-36.0) g/dL RDW (12.1-15.1) % Plt Count (130-400) 10^3/c mm MPV (7.4-10.4) fL Neut % (Auto) % Lymph % (Auto) % [place] % (Auto) % Eos % (Auto) % Baso % (Auto) % Neut # (Auto) (1.8-7.7) 10^3/u L Lymph # (Auto) (0.8-4.8) 10^3/u L [place] # (Auto) (0.2-0.9) 10^3/u L Eos # (Auto) (0.0-0.8) 10^3/u L Baso # (Auto) (0.0-0.1) 10^3/u L Nucleated RBC % (a uto) % Nucleated RBCs # /100WBC Sodium (136-145) mmol/L Potassium (3.5-5.1) mmol/L Chloride (98-107) mmol/L Carbon Dioxide (22-29) mmol/L Anion Gap (5-19) BUN (6-20) mg/dL Creatinine (0.5-0.9) mg/dL GFR Calculation (90-130) mL/min Glucose (65-115) mg/dL Calculated Osmolal ity (285-295) mOsm/k g Calcium (8.5-10.5) mg/dL Total Bilirubin (0.15-1.2) mg/dL AST (0-32) U/L ALT (0-33) U/L Alkaline Phosphata se (35-105) IU/L Total Protein (6.6-8.7) g/dL Albumin (3.5-5.2) g/dL Globulin (1.3-4.6) g/dL Urine Color Yellow (Yellow) Urine Appearance Clear (CLEAR) Urine pH 5 (5-7) Ur Specific Gravit y 1.015 (1.005-1.030) Urine Protein Neg (Negative) Urine Glucose (UA) Norm (Normal) Urine Ketones Negative (Negative) Urine Blood Neg (Negative) Urine Nitrate Negative (Negative) Urine Bilirubin Neg (Negative) Urine Urobilinogen Norm (Negative) mg/dL Ur Leukocyte Janelle ase 1+ H (Negative) Urine RBC 0-4 H (0-2) /hpf Urine WBC 10-15 H (0-5) /hpf Ur Squamous Epith Cells 0-4 H (0-5) /hpf Amorphous Sediment Not Reportable Urine Bacteria 1+ H (NONE) /hpf SARS-CoV-2 Ag (Rap id) (Negative) Group A Strep Rapi d Negative (Negative) Discharge Plan Discharge Patient Disposition: Home Clinical Impression: Malaise and fatigue, Acute sore throat Condition: Stable Prescriptions: No Action propranolol 60 mg capsule,extended release 24 hr 60 mg PO .q am RF: 0 benztropine 1 mg tablet 1 mg PO TID Qty: 90 RF: 1 buspirone 10 mg tablet 20 mg PO TID 30 Days Qty: 180 RF: 1 trazodone 150 mg tablet 150 mg PO BEDTIME PRN (Reason: insomnia) Qty: 45 RF: 1 ziprasidone HCl 60 mg capsule 60 mg PO QAM Qty: 30 RF: 1 hydroxyzine pamoate 50 mg capsule 50 mg PO BID PRN (Reason: anxiety) Qty: 60 RF: 1 ziprasidone HCl 40 mg capsule 40 mg PO .Every evening Qty: 30 RF: 1 ciprofloxacin HCl 500 mg tablet 500 mg PO BID Qty: 60 RF: 1 loratadine [Claritin] 10 mg tablet 10 mg PO DAILY RF: 0 levothyroxine 50 mcg capsule 50 mcg PO DAILY RF: 0 (DME) Sole Supports Custom Orthotics See Rx Instructions .Route .MEDSUPPLY Qty: 1 RF: 0 Combivent Respimat 20-100 mcg/actuation mist 2 puff inhalation Q6H PRN (Reason: shortness of breath or wheezing) RF: 0 albuterol sulfate 90 mcg/actuation HFA aerosol inhaler 2 inh inhalation Q6H PRN (Reason: shortness of breath or wheezing) RF: 0 diclofenac sodium 1 % gel topical RF: 0 meloxicam 15 mg tablet 15 mg PO DAILY RF: 0 simvastatin 20 mg tablet 20 mg PO DAILY RF: 0 epinephrine 0.3 mg/0.3 mL auto-injector 0.3 mg IM Q10M PRNRF: 0 Dexilant 30 mg capsule,biphase delayed releas 30 mg PO BID Qty: 60 RF: 2 sucralfate 1 gram tablet See Rx Instructions .ROUTE .COMPLEX Qty: 360 RF: 1 pantoprazole 40 mg tablet,delayed release (DR/EC) See Rx Instructions .ROUTE .COMPLEX Qty: 60 RF: 0 Stool Softener-Laxative 8.6-50 mg tablet 1 tab PO DAILY RF: 0 Multiple Vitamins Tablet 1 tab PO DAILY RF: 0 Lidoderm 5 % adhesive patch,medicated 1 patch topical BID PRN (Reason: back pain) Qty: 30 RF: 0 Discharge Orders: Discharge ED (Routine); Ordered 06/07/20 Ordered By: Poppy Rueda Referrals: Ange Keita DO [Primary Care Provider] - Discharge Diet: Usual diet Discharge Activity: Resume usual activity Patient Instructions: Pharyngitis (ED), Opioid Safety Activity Restrictions/Additional Instructions: Return to the ED if new or worse symptoms. Rest and drink plenty of fluids. Your COVID test was neg today, but a confirmatory test won't be completed until tomorrow - so you should self isolate as if you were positive until that test result is available. FOllow up wtih your doctor if not improving within 5 days. Coding Level of Care Code ED Human Resources Receptionist for Delia Arellano
[2020-06-07 09:04] LABS: Basophils # 0.1 10^3/uL (0.0-0.1); Basophils % 1.2 %; Eosinophils # 0.1 10^3/uL (0.0-0.8); Eosinophils % 2.5 %; Hematocrit 32.8 % (37.0-47.0); Hemoglobin 11.1 g/dL (11.5-15.3); Lymphocytes # 1.7 10^3/uL (0.8-4.8); Lymphocytes % 33.4 %; Mean Corpuscular HGB Conc 33.8 g/dL (30.0-36.0); Mean Corpuscular Hemoglobin 32.6 pg (28.0-34.0); Mean Corpuscular Volume 96.5 fL (81-99); Mean Platelet Volume 9.5 fL (7.4-10.4); Monocytes # 0.4 10^3/uL (0.2-0.9); Monocytes % 8.2 %; Neutrophils # 2.79 10^3/uL (1.8-7.7); Neutrophils % 54.5 %; Nucleated Red Blood Cells % 0 %; Platelet Count 220 10^3/cmm (130-400); Red Cell Distribution Width 12.3 % (12.1-15.1); White Blood Count 5.1 10^3/uL (4.0-10.0)
[2020-06-07 09:22] LABS: SARS Covid-2 Antigen Negative (Negative)
[2020-06-07 09:22] LABS: Alanine Aminotransferase 13 U/L (0-33); Alkaline Phosphatase 116 IU/L (35-105); Anion Gap 15.1 (5-19); Aspartate Amino Transferase 17 U/L (0-32); Blood Urea Nitrogen 13 mg/dL (6-20); Calcium 9.1 mg/dL (8.5-10.5); Carbon Dioxide 22 mmol/L (22-29); Chloride 109 mmol/L (98-107); Globulin 2.7 g/dL (1.3-4.6); Glomerular Filtration Rate 27.3 mL/min (90-130); Glucose 101 mg/dL (65-115); Osmolality Calculated 294 mOsm/kg (285-295); Potassium 4.1 mmol/L (3.5-5.1); Sodium 142 mmol/L (136-145); Total Bilirubin 0.2 mg/dL (0.15-1.2); Total Protein 6.7 g/dL (6.6-8.7)
[2020-06-07 09:23] LABS: Rapid Strep A Test Negative (Negative)
[2020-06-07 09:59] LABS: Add Urine Microscopic? YES; Bilirubin Urine Neg (Negative); Blood Urine Neg (Negative); Glucose Urine UA Norm (Normal); Ketones Urine Negative (Negative); Leukocyte Esterase Urine 1+ (Negative); Nitrate Urine Negative (Negative); Protein Urine Neg (Negative); Specific Gravity, Urine 1.015 (1.005-1.030); Urine Appearance Clear (CLEAR); Urine Color Yellow (Yellow); Urobilinogen Urine Norm (Negative); pH Urine 5 (5-7)
[2020-06-07 10:10] LABS: Add Urine Culture? No; Bacteria Urine 1+ /hpf; RBC Urine 0-4 /hpf (0-2); Squamous Epithelial Cell Urine 0-4 /hpf (0-5)
[2020-06-07 10:32] VITALS: BP 115/88; PULSE 64; RESP 18; O2SAT 100
== END 2020-06-07 10:30 | disposition home or self-care (01) ==
PROVIDERS: Emergency Provider Emergency Medicine; PCP Family Medicine
DX: J02.9 Acute pharyngitis, unspecified (principal); R53.83 Other fatigue; R53.81 Other malaise; Z87.891 Personal history of nicotine dependence
CPT/HCPCS: 80053; 81001; 85025; 87081; 87086; 87426; 87880; 99282

== ENCOUNTER 2020-06-29 11:19 | Outpatient (CLI) | payer MEDICARE, MEDICAID, SELFPAY ==
--- NOTE | 2020-06-29 11:32 | XR_ITS ---
WS: [id number] RIGHT ANKLE: 3 VIEW(S) TECHNIQUE: AP, oblique(s) and lateral. HISTORY: ACUTE R ANKLE PAIN COMPARISON: 05/23/2020 Normal anatomic alignment with no fracture or dislocation. Mild osteopenia. Mild narrowing of the joint. No significant degenerative changes at the joint spaces. Mild soft tissue edema around the ankle. XR/XR ankle RT min 3V* 65117 IMPRESSION: 1. Mild soft tissue edema. 2. Osteopenia with no fracture.
== END 2020-06-29 11:20 | disposition home or self-care (01) ==
PROVIDERS: PCP Family Medicine; Visit Provider Registered Nurse
DX: M25.571 Pain in right ankle and joints of right foot (principal); R60.0 Localized edema; M85.871 Other specified disorders of bone density and structure, right ankle and foot
CPT/HCPCS: 73610

== ENCOUNTER → 2020-07-03 08:12 | Outpatient (BNVA) | payer MEDICARE, MEDICAID, SELFPAY | PROVIDERS: PCP Family Medicine; Visit Provider Nurse Practitioner Psychiatric/Mental Health | DX: F43.12 Post-traumatic stress disorder, chronic (principal); F33.1 Major depressive disorder, recurrent, moderate | CPT/HCPCS: 99213 ==

== ENCOUNTER → 2020-07-10 14:44 | Outpatient (BNVA) | payer OTHER, MEDICAID, SELFPAY | PROVIDERS: PCP Family Medicine; Visit Provider Nurse Practitioner Psychiatric/Mental Health | DX: F43.12 Post-traumatic stress disorder, chronic (principal); F33.1 Major depressive disorder, recurrent, moderate; F41.1 Generalized anxiety disorder | CPT/HCPCS: 99213 ==

== ENCOUNTER 2020-07-15 14:13 | Emergency (ER) | payer MEDICARE, MEDICAID, SELFPAY ==
[2020-07-15 14:23] VITALS: BP 156/92; PULSE 92; RESP 18; TEMP 37.1; O2SAT 94; BMI 31.4
--- NOTE | 2020-07-15 14:33 | CTR_ITS ---
PROCEDURE INFORMATION: Exam: CT Head Without Contrast Exam date and time: 07/15/2020 2:56 PM Age: 55 years old Clinical indication: Weakness, extremity and weakness, facial; Left; Additional info: Dizzyness/weakness TECHNIQUE: Imaging protocol: Computed tomography of the head without contrast. Radiation optimization: All CT scans at this facility use at least one of these dose optimization techniques: automated exposure control; mA and/or kV adjustment per patient size (includes targeted exams where dose is matched to clinical indication); or iterative reconstruction. COMPARISON: No relevant prior studies available. RADIATION DOSE METRICS: Total DLP (mGy-cm): 1240.17 FINDINGS: Brain: There is asymmetric hyperdensity at right MCA trifurcation and proximal M2 segments, image 15 and 16 of axial series. This is concerning for hyperdense sign and thrombus. There is no loss of oglesby-white differentiation at this time. There is no acute intracranial hemorrhage. Cerebral ventricles: No ventriculomegaly. Bones/joints: No acute fracture. Paranasal sinuses: Visualized sinuses are unremarkable. No fluid levels. Mastoid air cells: No significant mastoid effusion. Soft tissues: Unremarkable as visualized. 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 No evidence of acute infarct at this time. [place] Stroke Program Early CT Score (ASPECTS) = 10. No evidence of acute hemorrhage. Radiation Dose CTDIVOL = (mGy): DLP = 1240.17 (mGy-cm)
--- NOTE | 2020-07-15 14:35 | ECG_ITS ---
[facility] Test Date: 2020-07-15 Pat Name: Camelia Lopez Department: Room: Gender: Female Reed Cleaner: : 1965 Requested By: Nikhil Jeffrey Order Number: [id number] Reading MD: LIO BLACK Measurements Intervals [place] Rate: 73 P: 64 SC: 157 QRS: 12 QRSD: 93 T: 44 QT: 396 QTc: 439 Interpretive Statements SINUS RHYTHM POSSIBLE LEFT ATRIAL ENLARGEMENT [-0.1mV P WAVE IN V1/V2] LOW QRS VOLTAGE IN PRECORDIAL LEADS [QRS DEFLECTION < 1.0 mV IN CHEST LEADS] POSSIBLE RIGHT VENTRICULAR CONDUCTION DELAY [RSR (QR) IN V1/V2] No previous ECG available for comparison Electronically Signed On 07-16-2020 22:25:39 CDT by LIO BLACK [id number]
[2020-07-15 14:42] VITALS: BP 156/92; PULSE 72; RESP 14; O2SAT 97
[2020-07-15 14:52] LABS: Basophils # 0.1 10^3/uL (0.0-0.1); Basophils % 0.7 %; Eosinophils # 0.2 10^3/uL (0.0-0.8); Eosinophils % 1.7 %; Hematocrit 36.6 % (37.0-47.0); Hemoglobin 11.9 g/dL (11.5-15.3); Lymphocytes # 3.6 10^3/uL (0.8-4.8); Lymphocytes % 36.1 %; Mean Corpuscular HGB Conc 32.5 g/dL (30.0-36.0); Mean Corpuscular Hemoglobin 32.4 pg (28.0-34.0); Mean Corpuscular Volume 99.7 fL (81-99); Mean Platelet Volume 9.8 fL (7.4-10.4); Monocytes # 0.7 10^3/uL (0.2-0.9); Monocytes % 6.9 %; Neutrophils # 5.33 10^3/uL (1.8-7.7); Neutrophils % 54.2 %; Nucleated Red Blood Cells % 0 %; Platelet Count 250 10^3/cmm (130-400); Red Blood Count 3.67 10^6/uL (4.1-5.3); White Blood Count 9.8 10^3/uL (4.0-10.0)
--- NOTE | 2020-07-15 14:55 | ED_ITS ---
HPI - Neuro Symptoms/Deficit General: Chief Complaint: Neuro Symptoms/Deficit Stated Complaint: NEURO SYMPTOMS Time Seen by Provider: 07/15/20 14:24 History of Present Illness: HPI Narrative: 55-year-old female presents emergency room earlier today she had lightheadedness and dizziness mild headache but this can wax and wane and at one point around 11 AM she thought she had some left-sided weakness that has resolved as well. On arrival here she has no focal neurologic deficits she denies any chest pain or shortness of breath she is awake and alert denies any abdominal pain. Onset (ago): hour(s) Last Observed Normal: 11:00 Location: left arm and left leg Severity: mild Quality: weak Relieving factors: time Exacerbating factors: none Context: sudden onset Associated symptoms: Deny chest pain, cough, diaphoresis, fevers/chills, headache(s), anorexia, malaise, nausea, seizures, short of breath, syncope, tingling, vertigo, vomiting or weakness Review of Systems Const: Denies: malaise or diaphoresis ENMT: Denies: throat pain, ear or mastoid pain, nasal discharge or nasal congestion Card: Denies: chest pain or syncope Resp: Denies: dyspnea, productive cough or non-productive cough GI: Denies: nausea or vomiting : Denies: flank pain, difficulty voiding, dysuria, urinary frequency or urinary urgency Skin/Breast: Denies: rash or pruritus Neuro: Denies: headache(s) or vertigo NIH stroke score NIHSS: Level Of Consciousness - 1a: 0 Level Of Consciousness Questions - 1b: Both Correct Level Of Consciousness Commands - 1c: Both Correct Best Gaze - 2: Normal Visual Mendez - 3: No Visual Loss Facial Palsy - 4: Normal Motor Arm Right - 5: No Drift Motor Arm Left - 5: No Drift Motor Leg Right - 6: No Drift Motor Leg Left - 6: No Drift Limb Ataxia - 7: Absent Sensory - 8: Normal Best Language - 9: No Aphasia Dysarthia - 10: Normal Extinction And Inattention - 11: 0 Score: Total Score: 0 Physical Exam Const: COMMON NORMALS: no acute distress GENERAL APPEARANCE: cooperative and comfortable ORIENTATION/CONSCIOUSNESS: Yes awake, Yes oriented to person, Yes oriented to place and Yes oriented to time HENMT: COMMON NORMALS: normocephalic, atraumatic and hearing grossly normal bilaterally HEAD & SCALP: normocephalic and atraumatic Neck/C-Spine: COMMON NORMALS: no JVD Resp: COMMON NORMALS: normal respiratory effort, No retractions, No use of accessory muscles and clear to auscultation bilaterally AUSCULTATION: clear to auscultation bilaterally Cardio: COMMON NORMALS: no JVD, regular rate, regular rhythm and No murmurs present (Cardio) RATE: regular rate RHYTHM: regular rhythm GI: COMMON NORMALS: Soft to palpation and No hepatosplenomegaly present AUSCULTATION: Yes normoactive bowel sounds PALPATION: Yes Soft to palpation, No Tenderness to palpation present (GI), No Guarding due to palpation present (GI) and Yes No hepatosplenomegaly present Extremity: COMMON NORMALS: normal to inspection, capillary refill normal, no clubbing, cyanosis or edema, no calf tenderness and no pedal edema Neuro: SENSORIUM/ORIENTATION: Yes oriented to person, Yes oriented to place and Yes oriented to time Skin: COMMON NORMALS: no rashes or lesions noted GENERAL SKIN EXAM: no rashes or lesions noted Course Vital Signs: Vital signs: Vital Signs Temperature 98.7 F 07/15/20 14:23 Pulse Rate 72 07/15/20 17:59 Respiratory Rate 18 07/15/20 15:15 Blood Pressure 132/79 07/15/20 17:59 Pulse Oximetry 97 07/15/20 17:59 MDM - Neuro Symptoms/Deficit MDM Narrative: Medical decision making narrative: Patient is completely resolved on repeat NIH score she still scores of 0 is full strength in all extremities and no deficits noted. She has fully resolved at this time she has no further deficits. Has not been taking aspirin will we will start her on a baby aspirin daily return if she has recurrence of symptoms. Lab Data: Labs: Lab Results 07/15/20 07/15/20 07/15/20 Range/Units 14:30 14:30 14:30 WBC 9.8 (4.0-10.0) 10^3/ uL RBC 3.67 L (4.1-5.3) 10^6/u L Hgb 11.9 (11.5-15.3) g/dL Hct 36.6 L (37.0-47.0) % MCV 99.7 H (81-99) fL MCH 32.4 (28.0-34.0) pg MCHC 32.5 (30.0-36.0) g/dL RDW 14.0 (12.1-15.1) % Plt Count 250 (130-400) 10^3/c mm MPV 9.8 (7.4-10.4) fL Neut % (Auto) 54.2 % Lymph % (Auto) 36.1 % Dougherty % (Auto) 6.9 % Eos % (Auto) 1.7 % Baso % (Auto) 0.7 % Neut # (Auto) 5.33 (1.8-7.7) 10^3/u L Lymph # (Auto) 3.6 (0.8-4.8) 10^3/u L Dougherty # (Auto) 0.7 (0.2-0.9) 10^3/u L Eos # (Auto) 0.2 (0.0-0.8) 10^3/u L Baso # (Auto) 0.1 (0.0-0.1) 10^3/u L Nucleated RBC % (a uto) 0 % Nucleated RBCs # 0.0 /100WBC Sodium 141 (136-145) mmol/L Potassium 3.9 (3.5-5.1) mmol/L Chloride 107 (98-107) mmol/L Carbon Dioxide 25 (22-29) mmol/L Anion Gap 12.9 (5-19) BUN 17 (6-20) mg/dL Creatinine 1.6 H (0.5-0.9) mg/dL GFR Calculation 33.3 L (90-130) mL/min Glucose 85 (65-115) mg/dL Calculated Osmolal ity 293 (285-295) mOsm/k g Calcium 8.5 (8.5-10.5) mg/dL Total Bilirubin 0.3 (0.15-1.2) mg/dL AST 21 (0-32) U/L ALT 18 (0-33) U/L Alkaline Phosphata se 103 (35-105) IU/L Troponin T Baselin e 13 H (0-10) ng/L Troponin T 120 Min [place] (0-10) ng/L Delta Troponin T (0-10) ABS# Total Protein 6.2 L (6.6-8.7) g/dL Albumin 3.8 (3.5-5.2) g/dL Globulin 2.4 (1.3-4.6) g/dL Urine Color (Yellow) Urine Appearance (CLEAR) Urine pH (5-7) Ur Specific Gravit y (1.005-1.030) Urine Protein (Negative) Urine Glucose (UA) (Normal) Urine Ketones (Negative) Urine Blood (Negative) Urine Nitrate (Negative) Urine Bilirubin (Negative) Urine Urobilinogen (Negative) mg/dL Ur Leukocyte Janelle ase (Negative) Urine RBC (0-2) /hpf Urine WBC (0-5) /hpf Ur Squamous Epith Cells (0-5) /hpf Ur Transition Epit h Cell /hpf Amorphous Sediment Urine Bacteria (NONE) /hpf 07/15/20 07/15/20 Range/Units 15:11 16:41 WBC (4.0-10.0) 10^3/ uL RBC (4.1-5.3) 10^6/u L Hgb (11.5-15.3) g/dL Hct (37.0-47.0) % MCV (81-99) fL MCH (28.0-34.0) pg MCHC (30.0-36.0) g/dL RDW (12.1-15.1) % Plt Count (130-400) 10^3/c mm MPV (7.4-10.4) fL Neut % (Auto) % Lymph % (Auto) % Dougherty % (Auto) % Eos % (Auto) % Baso % (Auto) % Neut # (Auto) (1.8-7.7) 10^3/u L Lymph # (Auto) (0.8-4.8) 10^3/u L Dougherty # (Auto) (0.2-0.9) 10^3/u L Eos # (Auto) (0.0-0.8) 10^3/u L Baso # (Auto) (0.0-0.1) 10^3/u L Nucleated RBC % (a uto) % Nucleated RBCs # /100WBC Sodium (136-145) mmol/L Potassium (3.5-5.1) mmol/L Chloride (98-107) mmol/L Carbon Dioxide (22-29) mmol/L Anion Gap (5-19) BUN (6-20) mg/dL Creatinine (0.5-0.9) mg/dL GFR Calculation (90-130) mL/min Glucose (65-115) mg/dL Calculated Osmolal ity (285-295) mOsm/k g Calcium (8.5-10.5) mg/dL Total Bilirubin (0.15-1.2) mg/dL AST (0-32) U/L ALT (0-33) U/L Alkaline Phosphata se (35-105) IU/L Troponin T Baselin e (0-10) ng/L Troponin T 120 Min [place] 13.48 H (0-10) ng/L Delta Troponin T 0.48 (0-10) ABS# Total Protein (6.6-8.7) g/dL Albumin (3.5-5.2) g/dL Globulin (1.3-4.6) g/dL Urine Color Yellow (Yellow) Urine Appearance Clear (CLEAR) Urine pH 5 (5-7) Ur Specific Gravit y 1.010 (1.005-1.030) Urine Protein Neg (Negative) Urine Glucose (UA) Norm (Normal) Urine Ketones Negative (Negative) Urine Blood Neg (Negative) Urine Nitrate Negative (Negative) Urine Bilirubin Neg (Negative) Urine Urobilinogen Norm (Negative) mg/dL Ur Leukocyte Janelle ase 1+ H (Negative) Urine RBC None (0-2) /hpf Urine WBC 5-10 H (0-5) /hpf Ur Squamous Epith Cells 0-4 H (0-5) /hpf Ur Transition Epit h Cell 0-4 /hpf Amorphous Sediment Not Reportable Urine Bacteria Trace (NONE) /hpf Discharge Plan Discharge Patient Disposition: Home Clinical Impression: Transient cerebral ischemia Condition: Stable Prescriptions: New aspirin 81 mg tablet,delayed release (DR/EC) 81 mg PO DAILY Qty: 30 RF: 0 No Action valacyclovir 1 gram tablet 1,000 mg PO DAILY@1030 RF: 0 sucralfate 1 gram tablet 1 g PO Q6H RF: 0 hydroxyzine pamoate 50 mg capsule 50 mg PO BID@1030,220 RF: 0 famotidine 20 mg tablet 20 mg PO BEDTIME@2199 RF: 0 levothyroxine 50 mcg tablet 50 mcg PO DAILY@103 RF: 0 simvastatin 20 mg tablet 20 mg PO BEDTIME@2199 RF: 0 trazodone 150 mg tablet 150 mg PO BEDTIME@2200 PRN (Reason: Insomnia) RF: 0 buspirone 10 mg tablet 20 mg PO TID@08,12,22 RF: 0 benztropine 1 mg tablet 1 mg PO BID@1030,2200 RF: 0 Geodon 40 mg capsule See Rx Instructions .ROUTE .COMPLEX RF: 0 albuterol sulfate 90 mcg/actuation HFA aerosol inhaler 2 puff INHALATION QID PRN (Reason: Shortness Of Breath) RF: 0 Dexilant 60 mg capsule,biphase delayed releas 60 mg PO DAILY@1030 RF: 0 Combivent Respimat 20-100 mcg/actuation mist 1 puff INHALATION QID RF: 0 Multivitamin Women 50 Plus 8 mg iron-400 mcg-300 mcg Tablet 1 tab PO DAILY@1030 RF: 0 Fish Oil 1,100 mg PO DAILY@1030 RF: 0 calcium 500 mg PO DAILY@1030 RF: 0 magnesium 1 tab PO DAILY@1030 RF: 0 Tylenol 325 mg Tablet 325 - 650 mg PO QID PRN (Reason: Pain) RF: 0 Discharge Orders: Discharge ED (Routine); Ordered 07/15/20 Ordered By: Nikhil Peoples Referrals: Ange Keita DO [Primary Care Provider] - Discharge Diet: Usual diet Discharge Activity: Resume usual activity Patient Instructions: Opioid Safety Coding Level of Care Code ED 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
[2020-07-15 15:09] LABS: Alanine Aminotransferase 18 U/L (0-33); Albumin Level 3.8 g/dL (3.5-5.2); Alkaline Phosphatase 103 IU/L (35-105); Blood Urea Nitrogen 17 mg/dL (6-20); Calcium 8.5 mg/dL (8.5-10.5); Carbon Dioxide 25 mmol/L (22-29); Chloride 107 mmol/L (98-107); Globulin 2.4 g/dL (1.3-4.6); Glomerular Filtration Rate 33.3 mL/min (90-130); Glucose 85 mg/dL (65-115); Osmolality Calculated 293 mOsm/kg (285-295); Sodium 141 mmol/L (136-145); Total Bilirubin 0.3 mg/dL (0.15-1.2); Total Protein 6.2 g/dL (6.6-8.7)
[2020-07-15 15:10] LABS: Troponin(5th) Baseline 13 ng/L (0-10)
[2020-07-15 15:15] VITALS: PULSE 69; RESP 18; O2SAT 97
[2020-07-15 15:17] LABS: Anion Gap 12.9 (5-19); Aspartate Amino Transferase 21 U/L (0-32); Potassium 3.9 mmol/L (3.5-5.1)
--- NOTE | 2020-07-15 15:25 | CTR_ITS ---
PROCEDURE INFORMATION: Exam: CT Angiography Head With Contrast, Arteriography Exam date and time: 07/15/2020 3:28 PM Age: 55 years old Clinical indication: Weakness; Additional info: Possible thrombus on CT head TECHNIQUE: Imaging protocol: Computed tomography angiography of the head with contrast. Exam focused on the arteries. 3D rendering (Not supervised by radiologist): MIP and/or 3D reconstructed images were created by the technologist. Total images: 798 Radiation optimization: All CT scans at this facility use at least one of these dose optimization techniques: automated exposure control; mA and/or kV adjustment per patient size (includes targeted exams where dose is matched to clinical indication); or iterative reconstruction. Contrast material: VISI 320; Contrast volume: 95 ml; Contrast route: INTRAVENOUS (IV); COMPARISON: CT head wo con* [id number] 07/15/2020 3:10 PM RADIATION DOSE METRICS: Total DLP (mGy-cm): 2105.8 FINDINGS: ANTERIOR CIRCULATION: Right internal carotid artery: Unremarkable. Intracranial segment is patent with no significant stenosis. No aneurysm. Right middle cerebral artery: Unremarkable. No occlusion or significant stenosis. No aneurysm. Right anterior cerebral artery: Unremarkable. No occlusion or significant stenosis. No aneurysm. Left internal carotid artery: Unremarkable. Intracranial segment is patent with no significant stenosis. No aneurysm. Left middle cerebral artery: Unremarkable. No occlusion or significant stenosis. No aneurysm. Left anterior cerebral artery: Unremarkable. No occlusion or significant stenosis. No aneurysm. POSTERIOR CIRCULATION: Right vertebral artery: Unremarkable. No occlusion or significant stenosis. No aneurysm. Left vertebral artery: Unremarkable. No occlusion or significant stenosis. No aneurysm. Basilar artery: Unremarkable. No occlusion or significant stenosis. No aneurysm. Right posterior cerebral artery: Unremarkable. No occlusion or significant stenosis. No aneurysm. Left posterior cerebral artery: Unremarkable. No occlusion or significant stenosis. No aneurysm. IMPRESSION: No large vessel stenosis or occlusion. PROCEDURE INFORMATION: Exam: CT Angiography Neck With Contrast Exam date and time: 07/15/2020 3:28 PM Age: 55 years old Clinical indication: Weakness; Additional info: Possible thrombus on CT head TECHNIQUE: Imaging protocol: Computed tomography angiography of the neck with contrast. 3D rendering (Not supervised by radiologist): MIP and/or 3D reconstructed images were created by the technologist. Radiation optimization: All CT scans at this facility use at least one of these dose optimization techniques: automated exposure control; mA and/or kV adjustment per patient size (includes targeted exams where dose is matched to clinical indication); or iterative reconstruction. Contrast material: VISI 320; Contrast volume: 95 ml; Contrast route: INTRAVENOUS (IV); COMPARISON: CT head wo con* [id number] 07/15/2020 3:10 PM RADIATION DOSE METRICS: Total DLP (mGy-cm): 2105.8 FINDINGS: Right common carotid artery: No stenosis. No dissection or occlusion. Right internal carotid artery: No stenosis of the extracranial segment. No dissection or occlusion. Right external carotid artery: No occlusion or stenosis of the origin. Right vertebral artery: No stenosis. No dissection or occlusion. Left common carotid artery: No stenosis. No dissection or occlusion. Left internal carotid artery: No stenosis of the extracranial segment. No dissection or occlusion. Left external carotid artery: No occlusion or stenosis of the origin. Left vertebral artery: No stenosis. No dissection or occlusion. Bones/joints: No visible acute osseous abnormality. Diffuse degenerative disease and degenerative disc disease of the cervical spine. Soft tissues: Unremarkable. No significant soft tissue swelling. CT/CT angio headneck* [id number] IMPRESSION: No stenosis or occlusion. REFERENCES: NASCET CRITERIA. The degree of internal carotid artery stenosis is based on NASCET criteria. Normal is no stenosis. Mild is less than 50% stenosis. Moderate is 50-69% stenosis. Severe is 70% to 99% stenosis. Total occlusion is no detectable patent lumen. Radiation Dose CTDIVOL = (mGy): DLP = 2105.8~2105.8 (mGy-cm)
[2020-07-15] MEDS: iodixanol 320 mg/mL 100mL Btl IV (16:01)
[2020-07-15 16:05] LABS: Add Urine Microscopic? YES; Bilirubin Urine Neg (Negative); Blood Urine Neg (Negative); Glucose Urine UA Norm (Normal); Ketones Urine Negative (Negative); Leukocyte Esterase Urine 1+ (Negative); Nitrate Urine Negative (Negative); Protein Urine Neg (Negative); Urine Appearance Clear (CLEAR); Urine Color Yellow (Yellow); Urobilinogen Urine Norm (Negative); pH Urine 5 (5-7)
[2020-07-15 16:06] LABS: Add Urine Culture? No; Bacteria Urine TRACE /hpf; Squamous Epithelial Cell Urine 0-4 /hpf (0-5); Transitional Epi Cells Urine 0-4 /hpf
[2020-07-15 16:33] VITALS: BP 124/68; PULSE 73; O2SAT 95
--- NOTE | 2020-07-15 16:35 | ECG_ITS ---
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1965 Requested By: Nikhil Jeffrey Order Number: [id number] Reading MD: LIO BLACK Measurements Intervals [place] Rate: 64 P: 52 [place]: 163 QRS: 17 QRSD: 93 T: 45 QT: 423 QTc: 439 Interpretive Statements SINUS RHYTHM LOW QRS VOLTAGE IN PRECORDIAL LEADS [QRS DEFLECTION < 1.0 mV IN CHEST LEADS] POSSIBLE RIGHT VENTRICULAR CONDUCTION DELAY [RSR (QR) IN V1/V2] Compared to ECG 07/15/2020 14:34:45 No significant changes Electronically Signed On 07-16-2020 22:28:42 CDT by LIO BLACK [id number]
[2020-07-15 17:14] LABS: Troponin 5 2HR 13.48 ng/L (0-10); Troponin 5 2HR Delta 0.48 ABS# (0-10)
[2020-07-15 17:30] VITALS: PULSE 72; O2SAT 100
[2020-07-15 17:59] VITALS: BP 132/79; PULSE 72; O2SAT 97
== END 2020-07-15 18:00 | disposition home or self-care (01) ==
PROVIDERS: Emergency Provider Family Medicine; PCP Family Medicine
DX: G45.9 Transient cerebral ischemic attack, unspecified (principal)
CPT/HCPCS: 36415; 70450; 70496; 70498; 80053; 81001; 84484; 85025; 93005; 99284; Q9967

== ENCOUNTER 2020-08-08 15:08 | Outpatient (CLI) | payer MEDICARE, MEDICAID, SELFPAY ==
[2020-08-08 15:37] LABS: INR 2.06 (0.8-1.2)
== END 2020-08-08 15:09 | disposition home or self-care (01) ==
LOC: LAB 15:14
PROVIDERS: PCP Family Medicine; Visit Provider Family Medicine
DX: I63.9 Cerebral infarction, unspecified (principal)
CPT/HCPCS: 85610

== ENCOUNTER 2020-08-10 16:02 | Outpatient (CLI) | payer MEDICARE, MEDICAID, SELFPAY ==
[2020-08-10 16:32] LABS: INR 1.99 (0.8-1.2)
== END 2020-08-10 16:03 | disposition home or self-care (01) ==
PROVIDERS: PCP Family Medicine; Visit Provider Family Medicine
DX: I63.9 Cerebral infarction, unspecified (principal)
CPT/HCPCS: 85610

== ENCOUNTER → 2020-08-31 08:23 | Outpatient (BNVA) | payer MEDICARE, MEDICAID, SELFPAY | PROVIDERS: PCP Family Medicine; Visit Provider Nurse Practitioner Psychiatric/Mental Health | DX: F43.12 Post-traumatic stress disorder, chronic (principal); F33.1 Major depressive disorder, recurrent, moderate; F41.1 Generalized anxiety disorder | CPT/HCPCS: 99213 ==

== ENCOUNTER 2020-09-13 17:07 | Outpatient (CLI) | payer MEDICARE, MEDICAID, SELFPAY ==
[2020-09-13 18:11] LABS: INR 5.47 (0.8-1.2)
== END 2020-09-13 17:08 | disposition home or self-care (01) ==
PROVIDERS: PCP Family Medicine; Visit Provider Family Medicine
DX: Z79.01 Long term (current) use of anticoagulants (principal)
CPT/HCPCS: 85610

== ENCOUNTER → 2020-10-03 07:20 | Outpatient (BNVA) | payer MEDICARE, MEDICAID, SELFPAY | PROVIDERS: PCP Family Medicine; Visit Provider Nurse Practitioner Psychiatric/Mental Health | DX: F41.1 Generalized anxiety disorder (principal); F43.12 Post-traumatic stress disorder, chronic; F33.1 Major depressive disorder, recurrent, moderate | CPT/HCPCS: 99213 ==

== ENCOUNTER → 2020-11-07 14:11 | Outpatient (BNVA) | payer MEDICARE, MEDICAID, SELFPAY | PROVIDERS: PCP Family Medicine; Visit Provider Specialist | DX: I69.359 Hemiplegia and hemiparesis following cerebral infarction affecting unspecified side (principal); Z79.01 Long term (current) use of anticoagulants; F17.200 Nicotine dependence, unspecified, uncomplicated | CPT/HCPCS: 99205 ==

== ENCOUNTER → 2020-11-09 10:30 | Outpatient (BNVA) | payer MEDICARE, MEDICAID, OTHER, SELFPAY | PROVIDERS: PCP Family Medicine; Visit Provider Nurse Practitioner Psychiatric/Mental Health | DX: F41.1 Generalized anxiety disorder (principal); F43.12 Post-traumatic stress disorder, chronic; F33.1 Major depressive disorder, recurrent, moderate; F29 Unspecified psychosis not due to a substance or known physiological condition | CPT/HCPCS: 99214 ==

== ENCOUNTER 2020-11-16 14:33 | Outpatient (RCR) | payer MEDICARE, MEDICAID, SELFPAY | END 2020-12-14 23:59 | disposition home or self-care (01) | LOC: SPT 14:33 | PROVIDERS: PCP Family Medicine; Referring Provider Family Medicine; Visit Provider Family Medicine | DX: I69.354 Hemiplegia and hemiparesis following cerebral infarction affecting left non-dominant side (principal) | CPT/HCPCS: 97110; 97161 ==

== ENCOUNTER → 2020-11-30 14:02 | Outpatient (BNVA) | payer MEDICARE, MEDICAID, SELFPAY | PROVIDERS: PCP Family Medicine; Visit Provider Registered Nurse Neonatal Intensive Care | DX: N39.0 Urinary tract infection, site not specified (principal) | CPT/HCPCS: 81000 ==

== ENCOUNTER → 2020-12-07 07:53 | Outpatient (BNVA) | payer MEDICARE, MEDICAID, SELFPAY | PROVIDERS: PCP Family Medicine; Visit Provider Nurse Practitioner Psychiatric/Mental Health | DX: I69.352 Hemiplegia and hemiparesis following cerebral infarction affecting left dominant side (principal); Z87.891 Personal history of nicotine dependence | CPT/HCPCS: 99213; 99214 ==

== ENCOUNTER 2020-12-27 12:35 | Outpatient (RCR) | payer MEDICARE, MEDICAID, SELFPAY | END 2021-01-14 23:59 | disposition home or self-care (01) | LOC: SOT 12:35 | PROVIDERS: PCP Family Medicine; Referring Provider Specialist; Visit Provider Specialist | DX: I69.359 Hemiplegia and hemiparesis following cerebral infarction affecting unspecified side (principal) | CPT/HCPCS: 97110; 97166 ==

== ENCOUNTER 2021-01-03 10:53 | Emergency (ER) | payer MEDICARE, MEDICAID, SELFPAY ==
[2021-01-03 10:58] VITALS: BP 119/78; PULSE 71; RESP 19; TEMP 36.7; O2SAT 96; BMI 30.9
--- NOTE | 2021-01-03 11:08 | XR_ITS ---
WS: [id number] Right ankle, 3 views, 01/03/2021 Clinical Data: fall, pain Comparison: Right ankle, 06/29/2020. Findings: No fractures or dislocations are seen. The ankle mortise is normal. The talus and calcaneus are unrem arkable. There is soft tissue swelling over the medial malleolus. XR/XR ankle RT min 3V* [id number] Impression: 1. Negative for fracture or dislocation of the right ankle. 2. Soft tissue swelling over the medial malleolus.
--- NOTE | 2021-01-03 11:36 | ED_ITS ---
HPI - Extremity Problem General: Chief complaint: Extremity Injury, Lower Stated complaint: R ANKLE PAIN, FALL Time Seen by Provider: 01/03/21 10:54 History of Present Illness: HPI Narrative: 55-year-old female presents emergency room with complaint of right ankle pain she had an inversion injury of her right ankle and now has significant bruising due to the fact that she is on Coumadin. She has been able to bear weight on it. She denies any other injury at the time that she fell. She is on Coumadin due to a septal defect which caused a stroke previously. MD Complaint: joint pain Onset (ago): day(s) Location: right and lower extremity (Ankle) Quality: aching Relieving factors: nothing Associated symptoms: Deny chest pain, fever(s) or rash Review of Systems Const: Denies: fever(s), chills, body aches, change in appetite, fatigue or malaise ENMT: Denies: throat pain, ear or mastoid pain, nasal discharge or nasal congestion Card: Denies: chest pain, edema, dyspnea on exertion or orthopnea Resp: Denies: dyspnea, productive cough or non-productive cough GI: Denies: abdominal pain, nausea, vomiting, hematemesis, coffee ground emesis, diarrhea, constipation, bloating, hematochezia or melena : Denies: flank pain, difficulty voiding, dysuria, urinary frequency or urinary urgency Skin/Breast: Denies: rash or pruritus PFS ED PFSH: Medical History Anxiety disorder Bile reflux gastritis Chronic kidney disease (CKD) Chronic post-traumatic stress disorder (PTSD) GERD (gastroesophageal reflux disease) Hypothyroidism Moderate episode of recurrent major depressive disorder Psychiatric care Psychosis History of unspecified psychosis diagnoses; has been on Geodon 40 mg twice daily for approximately 2 years. Recurrent UTI Surgical History H/O colonoscopy H/O decompression of ulnar nerve H/O esophagogastroduodenoscopy H/O: hysterectomy one ovary left S/P cholecystectomy Family History Other Cancer Hypertension Denies family history of Diabetes CAD (coronary artery disease) Anesthesia complication Bleeding disorder Social History Smoking and tobacco status: former smoker Quit status (tobacco): has quit using tobacco Year quit tobacco: 2019 Former quit date comment: 0.5 PPD since I was 15. I did stop for 3 years one time but.. Second hand smoke exposure: No Alcohol intake: never Adopted: No Caregiver/support person: No Lives independently: Yes Household members: none Housing: Apartment Marital status: Single Number of children: 2 Number of grandchildren: 3 Highest education level completed: High School Graduate service: No Current occupational status: disabled Pets and animals: Yes Pets & animals: dog(s) History of recent travel: No Sexually active: No Current gender identity: Female Karely/Baptism: [employer]oration Special karely needs: No Agree to transfusion: Yes Financial difficulty paying for basics: Somewhat Hard Female Reproductive History: Para: 2 Spontaneous abortions: Yes Physical Exam Const: COMMON NORMALS: no acute distress GENERAL APPEARANCE: cooperative and comfortable ORIENTATION/CONSCIOUSNESS: Yes awake, Yes oriented to person, Yes oriented to place and Yes oriented to time HENMT: COMMON NORMALS: normocephalic, atraumatic and hearing grossly normal bilaterally HEAD & SCALP: normocephalic and atraumatic Neck/C-Spine: COMMON NORMALS: no JVD Resp: COMMON NORMALS: normal respiratory effort, No retractions, No use of accessory muscles and clear to auscultation bilaterally AUSCULTATION: clear to auscultation bilaterally Cardio: COMMON NORMALS: no JVD, regular rate, regular rhythm and No murmurs present (Cardio) RATE: regular rate RHYTHM: regular rhythm GI: COMMON NORMALS: Soft to palpation and No hepatosplenomegaly present AUSCULTATION: Yes normoactive bowel sounds PALPATION: Yes Soft to palpation, No Tenderness to palpation present (GI), No Guarding due to palpation present (GI) and Yes No hepatosplenomegaly present Extremity: OTHER: Swelling and ecchymosis of the right ankle with no obvious deformity. Neurovascularly intact. Neuro: SENSORIUM/ORIENTATION: Yes oriented to person, Yes oriented to place and Yes oriented to time Skin: COMMON NORMALS: no rashes or lesions noted GENERAL SKIN EXAM: no rashes or lesions noted Course Vital Signs: Vital signs: Vital Signs Temperature 98.0 F 01/03/21 10:58 Pulse Rate 71 01/03/21 10:58 Respiratory Rate 19 H 01/03/21 10:58 Blood Pressure 119/78 01/03/21 10:58 Pulse Oximetry 96 01/03/21 10:58 MDM - Extremity (Nontraumatic) MDM Narrative: Medical decision making narrative: X-ray is unremarkable. Reviewed with patient. Also discussed around INR is 5 1 to hold her Coumadin for the next 2 days and follow-up with a repeat INR with her primary care doctor in 2 days they will further direct her from there. Weightbearing as tolerated ice and elevate acetaminophen for pain. Lab Data: Labs: Lab Results 01/03/21 11:25 PT 47.00 SECONDS H S ECONDS (12.1-14.9) INR 5.00 H (0.8-1.2) Discharge Plan Discharge Patient Disposition: Home Clinical Impression: Ankle sprain and strain Condition: Stable Prescriptions: No Action magnesium 200 mg tablet 200 mg PO DAILY RF: 0 loratadine [Claritin] 10 mg tablet 10 mg PO DAILY RF: 0 levothyroxine 50 mcg capsule 50 mcg PO DAILY RF: 0 (DME) Sole Supports Custom Orthotics See Rx Instructions .Route .MEDSUPPLY Qty: 1 RF: 0 Combivent Respimat 20-100 mcg/actuation mist 2 puff inhalation Q6H PRN (Reason: shortness of breath or wheezing) RF: 0 albuterol sulfate 90 mcg/actuation HFA aerosol inhaler 2 inh inhalation Q6H PRN (Reason: shortness of breath or wheezing) RF: 0 diclofenac sodium 1 % gel topical RF: 0 epinephrine 0.3 mg/0.3 mL auto-injector 0.3 mg IM Q10M PRNRF: 0 warfarin 2.5 mg tablet 2.5 mg PO DAILY RF: 0 gabapentin 100 mg capsule 100 mg PO TID RF: 0 bupropion HCl 100 mg tablet 100 mg PO QAM Qty: 30 RF: 1 buspirone 10 mg tablet 20 mg PO TID 30 Days Qty: 180 RF: 1 hydroxyzine pamoate 50 mg capsule 50 mg PO BID PRN (Reason: anxiety) Qty: 60 RF: 1 trazodone 150 mg tablet 150 mg PO BEDTIME PRN (Reason: insomnia) Qty: 30 RF: 1 ziprasidone HCl 60 mg capsule 60 mg PO QAM Qty: 30 RF: 1 ziprasidone HCl 40 mg capsule 40 mg PO .Every evening Qty: 30 RF: 1 nitrofurantoin monohyd/m-cryst [Macrobid] 100 mg capsule 100 mg PO BID 7 Days Qty: 14 RF: 0 sucralfate 1 gram tablet See Rx Instructions .ROUTE .COMPLEX Qty: 360 RF: 1 famotidine [Pepcid] 20 mg tablet 20 mg PO BID 90 Days Qty: 180 RF: 0 dexlansoprazole 30 mg capsule,biphase delayed releas 30 mg PO DAILY 30 Days Qty: 60 RF: 0 Stool Softener-Laxative 8.6-50 mg tablet 1 tab PO DAILY RF: 0 Multiple Vitamins Tablet 1 tab PO DAILY RF: 0 valacyclovir 1 gram tablet 1,000 mg PO DAILY@1030 RF: 0 sucralfate 1 gram tablet 1 g PO Q6H RF: 0 famotidine 20 mg tablet 20 mg PO BEDTIME@2200 RF: 0 levothyroxine 50 mcg tablet 50 mcg PO DAILY@1030 RF: 0 albuterol sulfate 90 mcg/actuation HFA aerosol inhaler 2 puff INHALATION QID PRN (Reason: Shortness Of Breath) RF: 0 Combivent Respimat 20-100 mcg/actuation mist 1 puff INHALATION QID RF: 0 Multivitamin Women 50 Plus 8 mg iron-400 mcg-300 mcg Tablet 1 tab PO DAILY@1030 RF: 0 Fish Oil 1,100 mg PO DAILY@1030 RF: 0 calcium 500 mg PO DAILY@1030 RF: 0 magnesium 1 tab PO DAILY@1030 RF: 0 Tylenol 325 mg Tablet 325 - 650 mg PO QID PRN (Reason: Pain) RF: 0 aspirin 81 mg tablet,delayed release (DR/EC) 81 mg PO DAILY Qty: 30 RF: 0 Discharge Orders: Discharge ED (Routine); Ordered 01/03/21 Ordered By: Nikhil Peoples Referrals: Ange Keita DO [Primary Care Provider] - Discharge Diet: Usual diet Discharge Activity: Increase activity as tolerated Patient Instructions: Opioid Safety Activity Restrictions/Additional Instructions: Ice elevate acetaminophen for discomfort. Weightbearing as tolerated if not improving follow-up with your primary care or return to the emergency room. Coding Level of Care Code ED Doctor Assistant for Delia Arellano
[2021-01-03 12:02] VITALS: BP 128/81; PULSE 73; RESP 16; O2SAT 97
== END 2021-01-03 12:04 | disposition home or self-care (01) ==
PROVIDERS: Emergency Provider Family Medicine; PCP Family Medicine
DX: S93.401A Sprain of unspecified ligament of right ankle, initial encounter (principal); S96.911A Strain of unspecified muscle and tendon at ankle and foot level, right foot, initial encounter; Z79.01 Long term (current) use of anticoagulants; Z79.82 Long term (current) use of aspirin; Z87.891 Personal history of nicotine dependence; X50.9XXA Other and unspecified overexertion or strenuous movements or postures, initial encounter
CPT/HCPCS: 36415; 73610; 85610; 99281

== ENCOUNTER 2021-01-05 07:41 | Emergency (ER) | payer MEDICARE, MEDICAID, SELFPAY ==
[2021-01-05 07:44] VITALS: BMI 30.9
--- NOTE | 2021-01-05 07:48 | USCV_ITS ---
Camelia Lopez Age: 55 Gender: F : 1965 Exam Date: 01/05/2021 08:06 Ordering Phys: Bryan Zurita Technologist: Lacey Fleming [place]am [place] [facility] [place] Indication: S/P FALL RLE PAIN AND DISCOLORATION HISTORY: Lower extremity pain. PROCEDURES: Venous duplex imaging was performed in only the right lower extremity. The following venous structures were evaluated: common femoral vein, profunda vein, proximal portion of the greater saphenous vein, superficial femoral vein, and the popliteal vein. In addition, the posterior tibial and peroneal trunk were evaluated. Serial compression, augmentation maneuvers, and spectral Doppler flow evaluation were performed. FINDINGS: No evidence of DVT seen in any vessel visualized at this time. Large right calf hematoma seen in area of pain CONCLUSIONS No evidence of right lower extremity DVT. Large right calf hematoma seen in area of pain measures 4.4 x 7.6 cm Bala Sanchez MD (Electronically Signed) Final Date: 05 January 2021 14:32 S
--- NOTE | 2021-01-05 07:49 | W.ED.LOWEXIN ---
HPI - Extremity Injury (Lower) General: Chief Complaint: Extremity Injury, Lower Stated Complaint: R LEG PAIN AFTER FALL FRIDAY Time Seen by Provider: 01/05/21 07:44 History of Present Illness: HPI Narrative: Patient is a 55-year-old female comes to the ED with right leg pain. Patient was seen here on January 03 after she had a fall twisted her right ankle. x-rayed her ankle and there is no fracture seen and she was diagnosed with an ankle sprain and strain. She is now having increased pain and swelling in her right lower leg is worried about a potential blood clot since she does have a history of DVT. She says the pain she is feeling and the swelling that she has reminds her of her last DVT. Patient is currently on warfarin. She denies any chest pain, shortness of breath or hemoptysis. Review of Systems Const: Denies: fever(s), chills or fatigue Eyes: Denies: change in vision or eye discomfort ENMT: Denies: throat pain, odynophagia, nasal discharge or nasal congestion Card: Denies: chest pain, palpitations, edema, swelling of feet/ankles, dyspnea on exertion or orthopnea Resp: Denies: dyspnea, productive cough or non-productive cough GI: Denies: abdominal pain, nausea, vomiting, diarrhea, constipation or hematochezia : Denies: flank pain, dysuria or hematuria Musc: Reports: extremity pain (Right lower leg) and extremity swelling (Right lower leg); Denies: neck pain or back pain Skin/Breast: Denies: rash or new lesions Neuro: Denies: headache(s), numbness in extremities or weakness in extremities [facility] PFSH: Medical History Anxiety disorder Bile reflux gastritis Chronic kidney disease (CKD) Chronic post-traumatic stress disorder (PTSD) GERD (gastroesophageal reflux disease) Hypothyroidism Moderate episode of recurrent major depressive disorder Psychiatric care Psychosis History of unspecified psychosis diagnoses; has been on Geodon 40 mg twice daily for approximately 2 years. Recurrent UTI Surgical History H/O colonoscopy H/O decompression of ulnar nerve H/O esophagogastroduodenoscopy H/O: hysterectomy one ovary left S/P cholecystectomy Family History Other Cancer Hypertension Denies family history of Diabetes CAD (coronary artery disease) Anesthesia complication Bleeding disorder Social History Smoking and tobacco status: former smoker Quit status (tobacco): has quit using tobacco Year quit tobacco: 2019 Former quit date comment: 0.5 PPD since I was 15. I did stop for 3 years one time but.. Second hand smoke exposure: No Alcohol intake: never Adopted: No Caregiver/support person: No Lives independently: Yes Household members: none Housing: Apartment Marital status: Single Number of children: 2 Number of grandchildren: 3 Highest education level completed: High School Graduate service: No Current occupational status: disabled Pets and animals: Yes Pets & animals: dog(s) History of recent travel: No Sexually active: No Current gender identity: Female Karely/Mu-Ism: Druze Special karely needs: No Agree to transfusion: Yes Financial difficulty paying for basics: Somewhat Hard Female Reproductive History: Para: 2 Spontaneous abortions: Yes Physical Exam Const: COMMON NORMALS: no acute distress, patient oriented x3, healthy appearing and alert GENERAL APPEARANCE: cooperative and comfortable HENMT: COMMON NORMALS: normocephalic HEAD & SCALP: normocephalic MOUTH: Normal oral and palatal mucosa present THROAT: posterior oropharynx normal and uvula midline Eye: COMMON NORMALS: Equal, round and reactive pupils present PUPIL: Yes Equal, round and reactive pupils present Neck/C-Spine: COMMON NORMALS: supple GENERAL: Yes normal visual inspection Resp: COMMON NORMALS: normal respiratory effort, No retractions, No use of accessory muscles and clear to auscultation bilaterally AUSCULTATION: clear to auscultation bilaterally Cardio: COMMON NORMALS: regular rate, regular rhythm, S1 normal heart sound present, S2 normal heart sound present, No gallops present (Cardio), No clicks present (Cardio), No murmurs present (Cardio) and Peripheral pulses 2+ throughout RATE: regular rate RHYTHM: regular rhythm HEART SOUNDS: S1 normal heart sound present and S2 normal heart sound present PERIPHERAL PULSES: Peripheral pulses 2+ throughout GI: COMMON NORMALS: Normal to inspection, nondistended, normoactive bowel sounds present, Soft to palpation, non-tender and no masses PALPATION: Yes Soft to palpation : COMMON NORMALS: Yes no CVA tenderness BLADDER/KIDNEY EXAM: Yes no CVA tenderness Back/Pelvis: COMMON NORMALS: no CVA tenderness Extremity: GENERAL: Yes normal exam except as noted, Yes calf tenderness (right leg) and Yes edema (2+ pitting edema around right foot and ankle. No edema on left leg) Neuro: COMMON NORMALS: patient oriented x3 SENSORIUM/ORIENTATION: Yes alert Skin: GENERAL SKIN EXAM: dry skin Course Vital Signs: Vital signs: Vital Signs Temperature 98.3 F 01/05/21 07:52 Pulse Rate 93 01/05/21 07:52 Respiratory Rate 20 H 01/05/21 07:52 Blood Pressure 133/78 01/05/21 07:52 Pulse Oximetry 97 01/05/21 07:52 MDM - Extremity Injury (Lower) MDM Narrative: Medical decision making narrative: Patient is a 55-year-old female comes to the ED with right lower extremity swelling and pain. Patient did have a fall and injured right ankle 2 days ago and was seen here in the ED and x-rays were negative for an ankle fracture patient was diagnosed with an ankle sprain of right lower leg. She is having increased pain and swelling in her right leg and calf. Patient does take warfarin. Exam finds pedal pulse 2+ but patient does have right lower extremity 2+ pitting edema. Ultrasound venous duplex of right lower extremity showed no DVTs or blood clots but did note a hematoma in the calf. Patient diagnosed with a hematoma of right calf and discharged home. She was sent home with a prescription for hydrocodone 5/325 mg 8 tablets to help with any acute pain. She was told to rest ice elevate and use compression to help with symptoms. Return to ED precautions given. Follow-up with PCP in 5 to 7 days reevaluation. Patient understood and agreed with plan. Imaging Data^: US Vascular: Attestation: I personally reviewed and interpreted this imaging study as follows: Radiologist's impression: Ultrasound venous duplex right lower extremity?no DVTs or blood clots seen. 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 See Rx Instructions .Route .MEDSUPPLY Qty: 1 RF: 0 Combivent Respimat 20-100 mcg/actuation mist 2 puff inhalation Q6H PRN (Reason: shortness of breath or wheezing) RF: 0 albuterol sulfate 90 mcg/actuation HFA aerosol inhaler 2 inh inhalation Q6H PRN (Reason: shortness of breath or wheezing) RF: 0 diclofenac sodium 1 % gel topical RF: 0 epinephrine 0.3 mg/0.3 mL auto-injector 0.3 mg IM Q10M PRNRF: 0 warfarin 2.5 mg tablet 2.5 mg PO DAILY RF: 0 gabapentin 100 mg capsule 100 mg PO TID RF: 0 bupropion HCl 100 mg tablet 100 mg PO QAM Qty: 30 RF: 1 buspirone 10 mg tablet 20 mg PO TID 30 Days Qty: 180 RF: 1 hydroxyzine pamoate 50 mg capsule 50 mg PO BID PRN (Reason: anxiety) Qty: 60 RF: 1 trazodone 150 mg tablet 150 mg PO BEDTIME PRN (Reason: insomnia) Qty: 30 RF: 1 ziprasidone HCl 60 mg capsule 60 mg PO QAM Qty: 30 RF: 1 ziprasidone HCl 40 mg capsule 40 mg PO .Every evening Qty: 30 RF: 1 nitrofurantoin monohyd/m-cryst [Macrobid] 100 mg capsule 100 mg PO BID 7 Days Qty: 14 RF: 0 sucralfate 1 gram tablet See Rx Instructions .ROUTE .COMPLEX Qty: 360 RF: 1 famotidine [Pepcid] 20 mg tablet 20 mg PO BID 90 Days Qty: 180 RF: 0 dexlansoprazole 30 mg capsule,biphase delayed releas 30 mg PO DAILY 30 Days Qty: 60 RF: 0 Stool Softener-Laxative 8.6-50 mg tablet 1 tab PO DAILY RF: 0 Multiple Vitamins Tablet 1 tab PO DAILY RF: 0 valacyclovir 1 gram tablet 1,000 mg PO DAILY@1030 RF: 0 sucralfate 1 gram tablet 1 g PO Q6H RF: 0 famotidine 20 mg tablet 20 mg PO BEDTIME@2200 RF: 0 levothyroxine 50 mcg tablet 50 mcg PO DAILY@1030 RF: 0 albuterol sulfate 90 mcg/actuation HFA aerosol inhaler 2 puff INHALATION QID PRN (Reason: Shortness Of Breath) RF: 0 Combivent Respimat 20-100 mcg/actuation mist 1 puff INHALATION QID RF: 0 Multivitamin Women 50 Plus 8 mg iron-400 mcg-300 mcg Tablet 1 tab PO DAILY@1030 RF: 0 Fish Oil 1,100 mg PO DAILY@1030 RF: 0 calcium 500 mg PO DAILY@1030 RF: 0 magnesium 1 tab PO DAILY@1030 RF: 0 Tylenol 325 mg Tablet 325 - 650 mg PO QID PRN (Reason: Pain) RF: 0 aspirin 81 mg tablet,delayed release (DR/EC) 81 mg PO DAILY Qty: 30 RF: 0 Discharge Orders: Discharge ED (Routine); Ordered 01/05/21 Ordered By: Bryan Zurita Referrals: Ange Keita DO [Primary Care Provider] - Discharge Diet: Regular Discharge Activity: Increase activity as tolerated Patient Instructions: Contusion in Adults (ED), Hematoma (ED) Activity Restrictions/Additional Instructions: Follow-up with medical provider as directed in 5 to 7 days for reevaluation. Rest, ice, elevate and compress right lower leg with Amor wrap to help with symptoms. Take medications as prescribed. Return to the ER or your medical provider if condition worsens. Please read and understand discharge instructions. Thank you for choosing [facility] for your healthcare needs today. Please realize this is an emergency room and that we are providing you with a medical screening exam and this may not be complete and all inclusive of all the testing and or work up that you may need to determine your ailment or severity of your illness. It is very important that you follow up as instructed or that you return to the Emergency Department should you have concerns or if your condition changes or worsens in any way. Coding Level of Care Code ED Technical Maintenance Specialist for Delia Fwd Exam Comprehensive
[2021-01-05 07:52] VITALS: BP 133/78; PULSE 93; RESP 20; TEMP 36.8; O2SAT 97
[2021-01-05] MEDS: HYDROcodone-acetaminophen 5-325 mg Tablet 1 TAB PO (09:01)
[2021-01-05 09:58] VITALS: BP 141/63; PULSE 87; RESP 18; O2SAT 95
== END 2021-01-05 09:45 | disposition home or self-care (01) ==
PROVIDERS: Emergency Provider Physician Assistant; PCP Family Medicine
DX: S80.11XA Contusion of right lower leg, initial encounter (principal); Z79.01 Long term (current) use of anticoagulants; Z79.82 Long term (current) use of aspirin; Z87.891 Personal history of nicotine dependence; W19.XXXA Unspecified fall, initial encounter
CPT/HCPCS: 93971; 99283

== ENCOUNTER → 2021-01-08 15:10 | Outpatient (BNVA) | payer MEDICARE, MEDICAID, SELFPAY | PROVIDERS: PCP Family Medicine; Referring Provider Registered Nurse; Visit Provider Specialist | DX: M25.561 Pain in right knee (principal) | CPT/HCPCS: 73562; 73590 ==

== ENCOUNTER → 2021-01-23 08:33 | Outpatient (BNVA) | payer MEDICARE, MEDICAID, SELFPAY | PROVIDERS: PCP Family Medicine; Visit Provider Nurse Practitioner Psychiatric/Mental Health | DX: F43.12 Post-traumatic stress disorder, chronic (principal); F33.1 Major depressive disorder, recurrent, moderate; F41.1 Generalized anxiety disorder | CPT/HCPCS: 99213 ==

== ENCOUNTER 2021-02-04 15:19 | Outpatient (CLI) | payer MEDICARE, MEDICAID, SELFPAY ==
[2021-02-04 15:45] LABS: INR 2.34 (0.8-1.2)
== END 2021-02-04 15:20 | disposition home or self-care (01) ==
LOC: LAB 15:24
PROVIDERS: PCP Family Medicine; Visit Provider Internal Medicine
DX: I10 Essential (primary) hypertension (principal); I82.409 Acute embolism and thrombosis of unspecified deep veins of unspecified lower extremity
CPT/HCPCS: 85610

== ENCOUNTER → 2021-04-24 08:10 | Outpatient (BNVA) | payer MEDICARE, MEDICAID, SELFPAY | PROVIDERS: PCP Family Medicine; Visit Provider Nurse Practitioner Psychiatric/Mental Health | DX: F33.1 Major depressive disorder, recurrent, moderate (principal); F41.1 Generalized anxiety disorder; F43.12 Post-traumatic stress disorder, chronic | CPT/HCPCS: 99213 ==

== ENCOUNTER → 2021-04-25 10:08 | Outpatient (BNVA) | payer MEDICARE, MEDICAID, SELFPAY | PROVIDERS: PCP Family Medicine; Visit Provider Specialist | DX: I69.354 Hemiplegia and hemiparesis following cerebral infarction affecting left non-dominant side (principal); D68.59 Other primary thrombophilia; Z87.891 Personal history of nicotine dependence | CPT/HCPCS: 99213 ==

== ENCOUNTER 2021-05-18 15:37 | Outpatient (CLI) | payer MEDICARE, MEDICAID, SELFPAY ==
[2021-05-18 16:23] LABS: Basophils # 0.1 10^3/uL (0.0-0.1); Basophils % 0.9 %; Eosinophils # 0.2 10^3/uL (0.0-0.8); Eosinophils % 2.2 %; Hematocrit 35.3 % (37.0-47.0); Hemoglobin 11.4 g/dL (11.5-15.3); Lymphocytes # 2.2 10^3/uL (0.8-4.8); Lymphocytes % 27.4 %; Mean Corpuscular HGB Conc 32.3 g/dL (30.0-36.0); Mean Corpuscular Hemoglobin 29.6 pg (28.0-34.0); Mean Corpuscular Volume 91.7 fl (81-99); Mean Platelet Volume 10.3 fL (7.4-10.4); Monocytes # 0.6 10^3/uL (0.2-0.9); Monocytes % 7.9 %; Neutrophils # 4.98 10^3/uL (1.8-7.7); Neutrophils % 61.4 %; Nucleated Red Blood Cells % 0 %; Platelet Count 307 10^3/cmm (130-400); Red Blood Count 3.85 10^6/uL (4.1-5.3); Red Cell Distribution Width 15.7 % (12.1-15.1); White Blood Count 8.1 10^3/uL (4.0-10.0)
[2021-05-18 17:10] LABS: Albumin Level 4.3 g/dL (3.5-5.2); Anion Gap 14.1 (5-19); Blood Urea Nitrogen 10 mg/dL (6-20); Calcium 9.5 mg/dL (8.5-10.5); Carbon Dioxide 24 mmol/L (22-29); Chloride 105 mmol/L (98-107); Glomerular Filtration Rate 35.8 mL/min (90-130); Glucose 95 mg/dL (65-115); Parathyroid Hormone 61.1 pg/mL (15-65); Phosphorus 2.7 mg/dL (2.5-4.5); Potassium 4.1 mmol/L (3.5-5.1); Sodium 139 mmol/L (136-145)
[2021-05-18 17:11] LABS: Calcium 9.7 mg/dL (8.5-10.5)
[2021-05-18 17:18] LABS: 25 Hydroxy Vitamin D 48 ng/mL (30-100)
[2021-05-18 17:25] LABS: Creatinine Urine, Random 31 mg/dL (28-217); Microalbum Creatinine Ratio Ur 32 mg/dL (0-20); Microalbumin Random Urine 1 ug/dL (0-20)
== END 2021-05-18 15:38 | disposition home or self-care (01) ==
PROVIDERS: PCP Family Medicine; Visit Provider Internal Medicine Nephrology
DX: N18.4 Chronic kidney disease, stage 4 (severe) (principal)
CPT/HCPCS: 36415; 80069; 82044; 82306; 82310; 83970; 85025

== ENCOUNTER 2021-05-24 12:22 | Outpatient (CLI) | payer MEDICARE, MEDICAID, SELFPAY ==
[2021-05-24 14:33] LABS: Basophils # 0.1 10^3/uL (0.0-0.1); Basophils % 0.6 %; Eosinophils # 0.2 10^3/uL (0.0-0.8); Eosinophils % 1.6 %; Hematocrit 36.8 % (37.0-47.0); Hemoglobin 11.8 g/dL (11.5-15.3); Mean Corpuscular HGB Conc 32.1 g/dL (30.0-36.0); Mean Corpuscular Hemoglobin 30.2 pg (28.0-34.0); Mean Corpuscular Volume 94.1 fl (81-99); Mean Platelet Volume 10.5 fL (7.4-10.4); Monocytes # 0.6 10^3/uL (0.2-0.9); Monocytes % 5.9 %; Neutrophils # 6.78 10^3/uL (1.8-7.7); Neutrophils % 70.7 %; Nucleated Red Blood Cells % 0 %; Platelet Count 315 10^3/cmm (130-400); Red Blood Count 3.91 10^6/uL (4.1-5.3); Red Cell Distribution Width 16.9 % (12.1-15.1); White Blood Count 9.6 10^3/uL (4.0-10.0)
[2021-05-24 14:49] LABS: Alanine Aminotransferase 13 U/L (0-33); Albumin Level 4.1 g/dL (3.5-5.2); Alkaline Phosphatase 106 IU/L (35-105); Anion Gap 13.3 (5-19); Aspartate Amino Transferase 18 U/L (0-32); Blood Urea Nitrogen 11 mg/dL (6-20); Calcium 9.9 mg/dL (8.5-10.5); Carbon Dioxide 26 mmol/L (22-29); Chloride 106 mmol/L (98-107); Ferritin 19 ng/mL (15-150); Glomerular Filtration Rate 35.8 mL/min (90-130); Glucose 78 mg/dL (65-115); Iron 84 ug/dL (37-145); Lactate Dehydrogenase 242 U/L (135-214); Osmolality Calculated 290 mOsm/kg (285-295); Percent Saturation 24.3 % (20-50); Potassium 4.3 mmol/L (3.5-5.1); Sodium 141 mmol/L (136-145); Total Bilirubin 0.3 mg/dL (0.15-1.2); Total Iron Binding Capacity 345 mcg/dl; Total Protein 7.1 g/dL (6.6-8.7); Unsaturated Iron Binding 261 ug/dL (112-347)
[2021-05-24 14:56] LABS: Erythrocyte Sedimentation Rate 4 mm/hr (0-15)
[2021-05-24 15:05] LABS: Vitamin B12 611 pg/mL (232-1245)
[2021-05-24 19:37] LABS: Folate Level > 20.0 ng/mL (4.8-37.3)
[2021-05-25 15:13] LABS: KAPPA LIGHT CHAIN, FREE, SERUM 38.1 mg/L (3.3-19.4); KAPPA/LAMBDA LIGHT CHAINS FREE 0.84 (0.26-1.65); LAMBDA LIGHT CHAIN, FREE, SERU 45.1 mg/L (5.7-26.3)
--- NOTE | 2021-05-27 10:39 | ONC CON_ITS ---
Dr. Pantoja New Patient Note Patient: Camelia CHAUHAN Unit #: [id number]: 1965 Dicatated By: Rosas Pantoja M.D.Date of Visit: May 24, 2021 Onc MED New Patient/Consult Referring Physician: Dr. JASON MAZARIEGOS MD Chief Complaint: Anemia/thrombophilia. History of Present Illness: This is a 56-year-old woman with a mild anemia. 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 In July 2020 she was admitted to [facility] in [place] with an acute right hemispheric stroke. I do not have those records available, but according the patient, she was determined to have 2 blood clotting disorders, one being factor V Leiden mutation and the other a protein deficiency, which I would assume to be protein C or protein S deficiency. The records from Dr. Mazariegos include a factor V Leiden mutation study from 07/19/2020 which did confirm heterozygosity for the factor V Leiden ([id number]) mutation. 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 She has remained on anticoagulation with apixaban and aspirin. Her more recent laboratory studies from 04/25/2021 included CBC showing mild anemia, hemoglobin 11.8 g and hematocrit 35.7%. The MCV was normal at 91.5. The white blood cell count was 6900 and the platelet count was 331,000. Her comprehensive metabolic profile showed elevated BUN and creatinine at 13 and 1.78 mg/dL. Bilirubin and liver enzymes were normal. TSH was normal at 1.42 mIU/L. In reviewing her records in [facility], she has multiple CBCs dating back to 2010. Up until June 2018 these at all shown normal hemoglobin levels, ranging from 12 to 14 g. As of 11/09/2018 hemoglobin was slightly low at 11.1 g, and it has remained at that level on multiple subsequent blood counts. Her previous serum iron studies and B12 level were both in the low normal range. There appears to have been a gradual increase in her serum creatinine since 2016, but with the most significant increase occurring between June and September 2017. It has basically remained stable since then. She complains that she gets tired easily, but she is able to do some housework. Her ECOG score is 1. She has good appetite. Over the past 8 months she has had a weight gain in the range of 35 pounds. She does not have fever or night sweats. She reports having a lot of allergy related sinus symptoms. She does not complain of cough, and she has not been having shortness of breath or chest pain. She has bad bile acid reflux. She has no other GI or complaints. She reports having pain at the bottom of her right heel. She has chronic nerve pain in the back of her neck. She does not complain of headache. She has some mild orthostatic dysequilibrium. She has persistent left arm paralysis. She has had problems with her memory since the stroke. She has bipolar disorder with associated anxiety and depression. Past Medical History: Her medical history includes anxiety, arthritis, asthma, bipolar disorder, chronic kidney disease (stage 3b), chronic migraine, chronic obstructive pulmonary disease, depression, gastroesophageal reflux disease, history of cervical cancer, history of right hemispheric stroke, hyperlipidemia, hypothyroidism, irritable bowel syndrome, and thrombophilia in association with factor V Leiden mutation. Past Surgical History: Her surgical/procedural history includes cholecystectomy, tonsillectomy, ulnar nerve release on the left arm, right oophorectomy in 2002, and hysterectomy in 1994. Medications: Albuterol Sulfate 2 Puff(s) (of 108 (90 base) mcg/act) Aerosol Powder, Breath Activated Inhalation four times a day PRN, Apixaban 1 Tablet (of 5 mg) Oral b.i.d., Aspirin 1 Tablet (of 81 mg) Tablet, enteric coated Oral daily, Atorvastatin Calcium 1 Tablet (of 40 mg) Oral at bedtime, busPIRone HCl 1 Tablet (of 20 mg) Oral daily, Calcium 600 + D 1 Tablet (of 600-200 mg - Units) Oral daily, Dexlansoprazole 1 Capsule (of 60 mg) Capsule Delayed Release Oral daily, Fexofenadine HCl 1 Tablet (of 180 mg) Oral daily, Gabapentin 2 Capsule (of 100 mg) Oral t.i.d., hydrOXYzine Pamoate 2 Capsule (of 25 mg) Oral b.i.d., Levothyroxine Sodium 1 Tablet (of 50 mcg) Oral daily, Magnesium Oxide 1 Tablet (of 400 mg) Oral b.i.d., Multivitamin 1 Tablet Oral daily, [place] 3 1 Capsule (of 1000 mg) Oral daily, Pantoprazole Sodium 1 Tablet (of 40 mg) Tablet, enteric coated Oral b.i.d., Propranolol HCl 1 Capsule (of 60 mg) Tablet Oral at bedtime, Senna 1 Capsule (of 8.6 mg) Oral q 2 days, Sucralfate 1 Tablet (of 1 g) Oral b.i.d., traZODone HCl 1 Tablet (of 150 mg) Oral at bedtime, Triamcinolone Acetonide 1 Inhalation (of 55 mcg/act) Aerosol Nasal daily, valACYclovir HCl 1 Tablet (of 1 g) Oral daily, Ziprasidone HCl 1 Capsule (of 40 mg) Oral at bedtime Allergies: Amoxicillin-Pot Clavulanate, Cefaclor, Ciprofloxacin HCl, Hymenoptra Tests, Penicillins, and Sulfa Antibiotics. Social History: Ms. CHAUHAN is and she is disabled. She has a 30-year history of smoking, previously 1 pack of cigarettes daily. She had quit smoking in 2019. She started again after her stroke. She currently smokes 1/4 to 1/2 packs/day. She does not drink alcohol. Family History: Father of kidney cancer age 64. Mother with suicide at age 67. Her only sibling is a sister, currently age 61, who has been treated for breast cancer. There is no history of thromboembolism in the family. Review Of Symptoms: Constitutional - She gets tired very easily. She is able to go some housework. She has good appetite. She has had a weight gain of 35 pounds over the past 8 months. She does not have fever or night sweats. ECOG score is 1, Eyes - No change in vision, ENMT - No hearing loss. She has tinnitus. She has a lot of allergy related sinus symptoms. No mouth sores. No sore throat or difficulty swallowing, Hematologic/Lymphatic - No abnormal bruising or bleeding, Respiratory - No shortness of breath. No cough. No pleuritic pain or hemoptysis, Cardiovascular - No angina pain. No palpitations, Gastrointestinal - No nausea or vomiting. She has bad bile acid reflux. No diarrhea or constipation. No blood in the stool or black stools. She had a colonoscopy a couple of years ago, Genitourinary (F) - No dysuria or hematuria. No urinary frequency. She has some bladder incontinence, Musculoskeletal - She has pain at the bottom of her right heel. She has no other joint or bone pain, Integumentary - No skin rash or other skin changes, Neurologic - No headache. No numbness or tingling. She has some mild orthostatic dysequilibrium. She has had persistent paralysis in the left arm following her stroke, Psychiatric - She has bipolar disorder with anxiety and depression. Vital Signs: Performed on May 24, 2021 14:36: 4, 0, 31.76 (HIGH), 1.89 sq.m, 64 in, 96 %, 80 /min, 16 /min, 110/72 mm(hg), 99.5 F (HIGH), and 185.0 lbs (HIGH). Physical Examination: Constitutional - She appears somewhat weak generally, Eyes - Sclerae nonicteric. Conjunctivae clear, ENMT - No lesions noted in the oral cavity, Neck - No mass or thyromegaly, Hematologic/Lymphatic - No cervical, clavicular, or axillary adenopathy, Respiratory - Lungs are clear with good air movement bilaterally, Cardiovascular - Heart rhythm is regular. There is no murmur, gallop, or rub noted. There is no carotid bruit noted, Abdomen - Soft and non-tender. Liver and spleen are not enlarged. There is no abdominal mass or ascites noted and there is no inguinal adenopathy, Back/Spine - No spine or CVA tenderness noted, Extremities - No edema. Pedal pulses are palpable bilaterally, Integumentary - No rashes. No suspicious skin lesions noted, Neurologic - She has left arm paralysis. Problem List: 1. Thrombophilia in association with factor V Leiden mutation and possibly an additional inheritable defect. 2. She had associated right hemispheric stroke in July 2020. 3. She has mild anemia. The cause is uncertain. It may be due to underlying chronic kidney disease. 4. Chronic kidney disease. She has been followed by Dr. Muniz. 5. Hyperlipidemia. 6. Bile acid reflux. 7. Asthma/COPD. 8. Hypothyroidism. 9. Chronic migraine. 10. Chronic nerve pain. 11. Bipolar disorder with anxiety and depression. Problems Addressed with this Encounter and Plan: 1. Thrombophilia in association with the factor V Leiden mutation. She may have an additional inheritable defect contributing to it, but that will have to be verified with records. In any case, she will need to remain on anticoagulation indefinitely. There are no other specific implications with regard to her management, but genetic counseling may be appropriate for her children. 2. She is mildly anemic. The cause is uncertain, but it may just be due to the underlying chronic kidney disease. She will have additional laboratory studies today to include CBC, comprehensive metabolic profile, reticulocyte count, LDH level, sed rate, B12 and folate levels, serum iron studies and ferritin, protein electrophoresis, and serum free light chain assay. With the associated thromboembolism, I also will check PNH level, and I will review the blood smear. She will have further evaluation as indicated. Signed By: Rosas Pantoja M.D. <<Signature on File>>
[2021-05-30 02:02] LABS: PROTEIN, TOTAL 7.1 g/dL (6.1-8.1)
[2021-05-30 13:33] LABS: ALPHA 1 GLOBULIN 0.3 g/dL (0.2-0.3); ALPHA 2 GLOBULIN 0.7 g/dL (0.5-0.9); BETA 1 GLOBULIN 0.5 g/dL (0.4-0.6); BETA 2 GLOBULIN 0.3 g/dL (0.2-0.5); GAMMA GLOBULIN 1.2 g/dL (0.8-1.7)
== END 2021-05-24 12:23 | disposition home or self-care (01) ==
PROVIDERS: PCP Family Medicine; Visit Provider Internal Medicine Medical Oncology
DX: D68.59 Other primary thrombophilia (principal); D68.51 Activated protein C resistance; D64.9 Anemia, unspecified; E78.5 Hyperlipidemia, unspecified; J44.9 Chronic obstructive pulmonary disease, unspecified; E03.9 Hypothyroidism, unspecified; F31.9 Bipolar disorder, unspecified; F41.9 Anxiety disorder, unspecified; F32.A Depression, unspecified; Z86.73 Personal history of transient ischemic attack (TIA), and cerebral infarction without residual deficits; K21.9 Gastro-esophageal reflux disease without esophagitis; Z79.899 Other long term (current) drug therapy
CPT/HCPCS: 36415; 80053; 82607; 82728; 82746; 83540; 83550; 83615; 83883; 84155; 84165; 85025; 85045; 85651; 86356; 99204

== ENCOUNTER → 2021-06-21 11:16 | Outpatient (BNVA) | payer MEDICARE, MEDICAID, SELFPAY | PROVIDERS: PCP Family Medicine; Visit Provider Nurse Practitioner Psychiatric/Mental Health | DX: F33.1 Major depressive disorder, recurrent, moderate (principal); F41.1 Generalized anxiety disorder; F43.12 Post-traumatic stress disorder, chronic | CPT/HCPCS: 99214 ==

== ENCOUNTER → 2021-07-05 11:26 | Outpatient (BNVA) | payer MEDICARE, MEDICAID, SELFPAY | PROVIDERS: PCP Family Medicine; Visit Provider Nurse Practitioner Psychiatric/Mental Health | DX: F41.9 Anxiety disorder, unspecified (principal); Z79.899 Other long term (current) drug therapy | CPT/HCPCS: 80061; 83036 ==

== ENCOUNTER → 2021-09-10 07:26 | Outpatient (BNVA) | payer MEDICARE, MEDICAID, SELFPAY ==
[2021-07-27 14:04] VITALS: BP 116/71; BMI 31.2
== END ==
PROVIDERS: PCP Family Medicine; Visit Provider Nurse Practitioner Psychiatric/Mental Health
DX: F33.1 Major depressive disorder, recurrent, moderate (principal); F41.1 Generalized anxiety disorder; F43.12 Post-traumatic stress disorder, chronic
CPT/HCPCS: 99213

== ENCOUNTER 2021-11-18 09:09 | Emergency (ER) | payer MEDICARE, SELFPAY ==
[2021-07-27 14:04] VITALS: BP 116/71; BMI 31.2
[2021-11-18 09:21] VITALS: BP 107/70; PULSE 101; RESP 18; TEMP 36.3; O2SAT 96; BMI 30.9
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
== END 2021-11-18 11:42 | disposition home or self-care (01) ==
PROVIDERS: Emergency Provider Registered Nurse; PCP Family Medicine
DX: S22.41XA Multiple fractures of ribs, right side, initial encounter for closed fracture (principal); Z79.01 Long term (current) use of anticoagulants; Z79.82 Long term (current) use of aspirin; Z87.891 Personal history of nicotine dependence; V89.2XXA Person injured in unspecified motor-vehicle accident, traffic, initial encounter
CPT/HCPCS: 71101; 99283

== ENCOUNTER 2021-12-02 07:35 | Emergency (ER) | payer MEDICARE, SELFPAY ==
[2021-07-27 14:04] VITALS: BP 116/71; BMI 31.2
--- NOTE | 2021-12-02 07:37 | XRR_ITS ---
PROCEDURE INFORMATION: Exam: XR Chest Exam date and time: 12/02/2021 8:20 AM Age: 56 years old Clinical indication: Cough TECHNIQUE: Imaging protocol: Radiologic exam of the chest. Views: 1 view. Other technique: Frontal portable upright view of the chest. COMPARISON: CR (CHEST, ) 11/18/2021 10:01 AM FINDINGS: Lungs: The lungs are clear bilaterally. The pulmonary vasculature is normal. Pleural spaces: No pleural effusion. No pneumothorax. Heart/Mediastinum: The heart is normal in size and contour. Mediastinum: Stable. Vasculature: Mild aortic arch atherosclerotic calcification without ectasia. Bones/joints: Stable. Organs: The gallbladder is likely surgically absent, with metallic clips overlying the gallbladder fossa. XR/XR chest 1V portable [id number] IMPRESSION: 1. No acute cardiopulmonary abnormality identified. 2. Prior cholecystectomy.
[2021-12-02 07:57] VITALS: BP 140/81; PULSE 103; RESP 21; TEMP 36.7; O2SAT 97; BMI 31.2
--- NOTE | 2021-12-02 08:20 | CTR_ITS ---
PROCEDURE INFORMATION: Exam: CT Abdomen And Pelvis Without Contrast Exam date and time: 12/02/2021 8:56 AM Age: 56 years old Clinical indication: Abdominal pain; Generalized; Prior surgery; Surgery date: 6+ months; Surgery type: Lap choley, hyster; Additional info: Diarrhea/abd pain TECHNIQUE: Imaging protocol: Computed tomography of the abdomen and pelvis without contrast. Radiation optimization: All CT scans at this facility use at least one of these dose optimization techniques: automated exposure control; mA and/or kV adjustment per patient size (includes targeted exams where dose is matched to clinical indication); or iterative reconstruction. COMPARISON: CT kidney stone [id number] 02/05/2020 12:30 PM RADIATION DOSE METRICS: Total DLP (mGy-cm): 818.64 FINDINGS: Diaphragm: A moderate hiatal hernia is present above the level of the diaphragm. Liver: Hepatic left lobe benign cyst, measuring 8.8 mm. Gallbladder and bile ducts: The gallbladder is surgically absent, with metallic clips in the gallbladder fossa. No extrahepatic biliary ductal dilatation or calculus. Pancreas: Moderate pancreatic atrophy. Spleen: A small medial splenule is present. Adrenal glands: Normal. No mass. Kidneys and ureters: Bilateral renal benign cysts, largest on the right measuring 1.9 cm. Severe left, mild right renal cortical scarring. Stomach and bowel: Sigmoid and distal descending colonic diverticula are present without evidence of diverticulitis. Appendix: The vermiform appendix is normal. Intraperitoneal space: No free air. No significant fluid collection. Vasculature: Mild aortic atherosclerotic calcification without aneurysm. The iliac arteries show mild bilateral atherosclerotic calcifications without evidence of aneurysm. Right pelvic calcified phlebolith. Lymph nodes: No enlarged lymph nodes. Urinary bladder: The urinary bladder is partially decompressed and somewhat difficult to assess. Reproductive: The uterus is status post hysterectomy. Bones/joints: Moderate interval chronic appearing L1 vertebral body compression deformity. Soft tissues: Unremarkable. CT/CT abdomen pelvis wo con [id number] IMPRESSION: 1. Moderate interval chronic appearing L1 vertebral body compression deformity. Clinical correlation with the patient's specific symptomatology is recommended. 2. Prior cholecystectomy. 3. Prior hysterectomy. 4. Diverticulosis. 5. Bilateral renal benign cysts. No follow-up imaging is recommended. 6. Stable bilateral renal cortical scarring. 7. Hepatic benign cyst. No follow-up imaging is recommended. 8. Hiatal hernia. COMMENTS: Consistent with the [employer]'s Incidental Findings Committee white paper (J Am Alpa Radiol 2018): Any incidental renal lesion less than 1 cm or classified as too small to characterize, or any incidental cystic renal lesion characterized as simple-appearing, is likely benign. No follow-up imaging is recommended for these lesions per consensus recommendations based on imaging criteria.
--- NOTE | 2021-12-02 08:36 | W.ED.NAVMDI ---
HPI - Nausea/Vomiting/Diarrhea General: Chief complaint: Nausea/Vomiting/Diarrhea Stated complaint: Possible Covid Time Seen by Provider: 12/02/21 07:37 Source: patient Mode of arrival: ambulatory Limitations: no limitations History of Present Illness: 56-year-old female states over the last 3 to 4 days she had some cough congestion states she had been on a Z-Cory states over the last 2 days she has been having some abdominal cramping and having diarrhea she had nausea as well and vomiting. States she is concerned she may have COVID states the cramping pain she has in her abdomen is a 2 out of 10 denies any blood in her stool. She denies any worsening proving factors. Associated nausea: No Associated symtoms: Denies chest pain, dysuria, headache(s) or nausea Review of Systems Const: Denies: fever(s), chills, body aches or change in appetite Eyes: Denies: blurry vision or eye discomfort ENMT: Denies: throat pain or dental pain Card: Denies: chest pain Resp: Denies: dyspnea GI: Reports: diarrhea; Denies: abdominal pain, nausea or vomiting : Denies: dysuria Musc: Denies: neck pain or back pain Skin/Breast: Denies: rash Neuro: Denies: headache(s) Psych: Denies: depression Rafael/Lymph: Denies: easy bruising All/Imm: Denies: urticaria PFSH ED PFSH: Medical History Anxiety disorder Bile reflux gastritis Chronic kidney disease (CKD) Chronic post-traumatic stress disorder (PTSD) GERD (gastroesophageal reflux disease) Hypothyroidism Moderate episode of recurrent major depressive disorder Psychiatric care Psychosis History of unspecified psychosis diagnoses; has been on Geodon 40 mg twice daily for approximately 2 years. Recurrent UTI Surgical History H/O colonoscopy H/O decompression of ulnar nerve H/O esophagogastroduodenoscopy H/O: hysterectomy one ovary left S/P cholecystectomy Family History Other Cancer Hypertension Denies family history of Diabetes CAD (coronary artery disease) Anesthesia complication Bleeding disorder Social History Smoking and tobacco status: former smoker Quit status (tobacco): has quit using tobacco Year quit tobacco: 2019 Former quit date comment: 0.5 PPD since I was 15. I did stop for 3 years one time but.. Second hand smoke exposure: No Alcohol intake: never Adopted: No Caregiver/support person: No Lives independently: Yes Household members: none Housing: Apartment Marital status: Single Number of children: 2 Number of grandchildren: 3 Highest education level completed: High School Graduate service: No Current occupational status: disabled Pets and animals: Yes Pets & animals: dog(s) History of recent travel: No Sexually active: No Current gender identity: Female Karely/Jehovah'S Witness: Adventist Special karely needs: No Agree to transfusion: Yes Financial difficulty paying for basics: Somewhat Hard Female Reproductive History: Para: 2 Spontaneous abortions: Yes Physical Exam Const: COMMON NORMALS: patient oriented x3 HENMT: COMMON NORMALS: normocephalic and atraumatic HEAD & SCALP: normocephalic and atraumatic Eye: COMMON NORMALS: Equal, round and reactive pupils present and EOMs intact bilaterally PUPIL: Yes Equal, round and reactive pupils present Neck/C-Spine: COMMON NORMALS: full ROM and supple Chest: COMMONS NORMALS: normal inspection of the chest and normal palpation of entire chest wall Resp: COMMON NORMALS: normal respiratory effort, No retractions, No use of accessory muscles and clear to auscultation bilaterally AUSCULTATION: clear to auscultation bilaterally Cardio: COMMON NORMALS: regular rate, regular rhythm and No murmurs present (Cardio) RATE: regular rate RHYTHM: regular rhythm GI: COMMON NORMALS: Normal to inspection, nondistended, normoactive bowel sounds present, Soft to palpation, non-tender and no masses PALPATION: Yes Soft to palpation Extremity: COMMON NORMALS: normal to inspection and full ROM Neuro: COMMON NORMALS: patient oriented x3, moves all extremities and no focal motor deficits Psych: COMMON NORMALS: mental status grossly normal, Normal thought process present and cooperative THOUGHT PROCESS: Normal thought process present Skin: COMMON NORMALS: no rashes or lesions noted and no wounds GENERAL SKIN EXAM: no rashes or lesions noted Course Vital Signs: Vital signs: Vital Signs Temperature 98.1 F 12/02/21 07:57 Pulse Rate 71 12/02/21 10:42 Respiratory Rate 14 12/02/21 10:42 Blood Pressure 114/67 12/02/21 10:42 Pulse Oximetry 95 12/02/21 10:25 Oxygen Delivery Me thod 12/02/21 10:25 MDM - Nausea/Vomiting/Diarrhea Medical Decision Making Patient presents here with some nausea vomiting slight generalized weakness her COVID was negative she does have a urinary tract infection she has been able to tolerate p.o. here CT scan is negative blood works normal we will treat with antibiotics at home along with nausea medicine she is to follow-up with PCP and return if worsening she understands agrees to plan. Lab Data : 12/02/21 08:36 12/02/21 08:36 Radiology Impressions Chest X-Ray 12/02/21 07:37 IMPRESSION: 1. No acute cardiopulmonary abnormality identified. 2. Prior cholecystectomy. Abdomen/Pelvis CT 12/02/21 08:20 IMPRESSION: 1. Moderate interval chronic appearing L1 vertebral body compression deformity. Clinical correlation with the patient's specific symptomatology is recommended. 2. Prior cholecystectomy. 3. Prior hysterectomy. 4. Diverticulosis. 5. Bilateral renal benign cysts. No follow-up imaging is recommended. 6. Stable bilateral renal cortical scarring. 7. Hepatic benign cyst. No follow-up imaging is recommended. 8. Hiatal hernia. COMMENTS: Consistent with the [employer]'s Incidental Findings Committee white paper (J Am Alpa Radiol 2018): Any incidental renal lesion less than 1 cm or classified as too small to characterize, or any incidental cystic renal lesion characterized as simple-appearing, is likely benign. No follow-up imaging is recommended for these lesions per consensus recommendations based on imaging criteria. Laboratory Results WBC 6.6 10^3/uL (4.0-10.0) 12/02/21 08:36 RBC 3.42 10^6/uL (4.1-5.3) L 12/02/21 08:36 Hgb 11.8 g/dL (11.5-15.3) 12/02/21 08:36 Hct 34.5 % (37.0-47.0) L 12/02/21 08:36 MCV 100.9 fl (81-99) H 12/02/21 08:36 MCH 34.5 pg (28.0-34.0) H 12/02/21 08:36 MCHC 34.2 g/dL (30.0-36.0) 12/02/21 08:36 RDW 13.9 % (12.1-15.1) 12/02/21 08:36 Plt Count 330 10^3/cmm (130-400) 12/02/21 08:36 MPV 10.4 fL (7.4-10.4) 12/02/21 08:36 Neut % (Auto) 64.4 % 12/02/21 08:36 Lymph % (Auto) 23.1 % 12/02/21 08:36 Amelia % (Auto) 9.0 % 12/02/21 08:36 Eos % (Auto) 2.1 % 12/02/21 08:36 Baso % (Auto) 1.2 % 12/02/21 08:36 Neut # (Auto) 4.22 10^3/uL (1.8-7.7) 12/02/21 08:36 Lymph # (Auto) 1.5 10^3/uL (0.8-4.8) 12/02/21 08:36 Amelia # (Auto) 0.6 10^3/uL (0.2-0.9) 12/02/21 08:36 Eos # (Auto) 0.1 10^3/uL (0.0-0.8) 12/02/21 08:36 Baso # (Auto) 0.1 10^3/uL (0.0-0.1) 12/02/21 08:36 Nucleated RBC % (auto) 0 % 12/02/21 08:36 Nucleated RBCs # 0.0 /100WBC 12/02/21 08:36 Sodium 140 mmol/L (136-145) 12/02/21 08:36 Potassium 3.8 mmol/L (3.5-5.1) 12/02/21 08:36 Chloride 108 mmol/L (98-107) H 12/02/21 08:36 Carbon Dioxide 20 mmol/L (22-29) L 12/02/21 08:36 Anion Gap 15.8 (5-19) 12/02/21 08:36 BUN 17 mg/dL (6-20) 12/02/21 08:36 Creatinine 1.4 mg/dL (0.5-0.9) H 12/02/21 08:36 GFR Calculation 38.8 mL/min (90-130) L 12/02/21 08:36 Glucose 92 mg/dL (65-115) 12/02/21 08:36 Calculated Osmolality 291 mOsm/kg (285-295) 12/02/21 08:36 Calcium 9.4 mg/dL (8.5-10.5) 12/02/21 08:36 Total Bilirubin 0.6 mg/dL (0.15-1.2) 12/02/21 08:36 AST 31 U/L (0-32) 12/02/21 08:36 ALT 19 U/L (0-33) 12/02/21 08:36 Alkaline Phosphatase 177 U/L (35-105) H 12/02/21 08:36 Total Protein 6.8 g/dL (6.6-8.7) 12/02/21 08:36 Albumin 3.9 g/dL (3.5-5.2) 12/02/21 08:36 Globulin 2.9 g/dL (1.3-4.6) 12/02/21 08:36 Lipase 37 U/L (13-60) 12/02/21 08:36 Urine Color Yellow (Yellow) 12/02/21 10:14 Urine Appearance Hazy (CLEAR) A 12/02/21 10:14 Urine pH 5 (5-7) 12/02/21 10:14 Ur Specific [place] 1.020 (1.005-1.030) 12/02/21 10:14 Urine Protein Trace (Negative) 12/02/21 10:14 Urine Glucose (UA) Norm (Normal) 12/02/21 10:14 Urine Ketones 2+ (Negative) H 12/02/21 10:14 Urine Blood 2+ (Negative) H 12/02/21 10:14 Urine Nitrate Positive (Negative) H 12/02/21 10:14 Urine Bilirubin Neg (Negative) 12/02/21 10:14 Urine Urobilinogen Norm mg/dL (Negative) 12/02/21 10:14 Ur Leukocyte Esterase 2+ (Negative) H 12/02/21 10:14 Urine RBC 0-4 /hpf (0-2) H 12/02/21 10:14 Urine WBC >100 /hpf (0-5) H 12/02/21 10:14 Ur Squamous Epith Cells 5-10 /hpf (0-5) H 12/02/21 10:14 Amorphous Sediment Not Reportable 12/02/21 10:14 Urine Bacteria 2+ /hpf (NONE) H 12/02/21 10:14 SARS-CoV-2 Ag (Rapid) Negative (Negative) 12/02/21 08:36 Discharge Plan Discharge Patient Disposition: Home Clinical Impression: Acute cystitis, Diarrhea, Vomiting Condition: Stable Prescriptions: New ondansetron 4 mg tablet,disintegrating 4 mg PO Q6H PRN (Reason: nausea and vomiting) Qty: 14 0RF doxycycline hyclate 100 mg tablet 100 mg PO BID 7 Days Qty: 14 0RF No Action magnesium 200 mg tablet 200 mg PO DAILY (DME) Sole Supports Custom Orthotics See Rx Instructions .Route .MEDSUPPLY Qty: 1 0RF Rx Instructions: As directed Combivent Respimat 20-100 mcg/actuation mist 2 puff inhalation Q6H PRN (Reason: shortness of breath or wheezing) albuterol sulfate 90 mcg/actuation HFA aerosol inhaler 2 inh inhalation Q6H PRN (Reason: shortness of breath or wheezing) diclofenac sodium 1 % gel topical gabapentin 100 mg capsule 100 mg PO TID Eliquis 5 mg tablet 5 mg PO BID tizanidine 2 mg capsule 2 mg PO Q8H PRN (Reason: muscle spasticity) fexofenadine [Makenna Allergy] 180 mg tablet 180 mg PO DAILY PRN (Reason: allergies) melatonin 5 mg capsule PO .q hs PRN (Reason: insomnia) bupropion HCl 150 mg tablet extended release 24 hr 150 mg PO QAM Qty: 30 2RF Rx Instructions: Take one tablet by mouth every morning buspirone 10 mg tablet 20 mg PO TID 30 Days Qty: 180 2RF Rx Instructions: Take 2 tablets by mouth morning, afternoon, and evening hydroxyzine pamoate 50 mg capsule 50 mg PO BID PRN (Reason: anxiety) Qty: 60 2RF Rx Instructions: Take 1 capsule twice daily, if needed for anxiety trazodone 150 mg tablet 150 mg PO BEDTIME PRN (Reason: insomnia) Qty: 30 2RF Rx Instructions: take 1 tablet daily at bedtime, if needed for sleep ziprasidone HCl 40 mg capsule 40 mg PO .Every evening Qty: 30 2RF Rx Instructions: Take 1 capsule by mouth every evening; give with food (meal/snack) ziprasidone HCl 60 mg capsule 60 mg PO QAM Qty: 30 2RF Rx Instructions: Take 1 capsule by mouth every morning;give with food (meal/snack) azithromycin 250 mg tablet See Rx Instructions PO .COMPLEX Qty: 6 0RF Rx Instructions: take 500 mg today (day 1), then 250 mg for 4 days (days 2-5) PO sucralfate 1 gram tablet See Rx Instructions .ROUTE .COMPLEX Qty: 360 1RF Dose Instruction: TAKE 1 TABLET BY MOUTH EVERY 6 HOURS Rx Instructions: TAKE 1 TABLET BY MOUTH EVERY 6 HOURS dexlansoprazole 30 mg capsule,biphase delayed releas 30 mg PO DAILY 30 Days Qty: 60 0RF Stool Softener-Laxative 8.6-50 mg tablet 1 tab PO DAILY Multiple Vitamins Tablet 1 tab PO DAILY valacyclovir 1 gram tablet 1,000 mg PO DAILY@1030 sucralfate 1 gram tablet 1 g PO Q6H levothyroxine 50 mcg tablet 50 mcg PO DAILY@1030 albuterol sulfate 90 mcg/actuation HFA aerosol inhaler 2 puff INHALATION QID PRN (Reason: Shortness Of Breath) Combivent Respimat 20-100 mcg/actuation mist 1 puff INHALATION QID Multivitamin Women 50 Plus 8 mg iron-400 mcg-300 mcg Tablet 1 tab PO DAILY@1030 Fish Oil 1,100 mg PO DAILY@1030 calcium 500 mg PO DAILY@1030 Tylenol 325 mg Tablet 325 - 650 mg PO QID PRN (Reason: Pain) aspirin 81 mg tablet,delayed release (DR/EC) 81 mg PO DAILY Qty: 30 0RF Discharge Orders: Discharge ED (Routine); Ordered 12/02/21 Ordered By: Buddy Moran Referrals: Ange Keita DO [Primary Care Provider] - 1-3 days Discharge Diet: Advance as tolerated Discharge Activity: Resume usual activity Patient Instructions: Urinary Tract Infection in Women (ED) Coding Level of Care Code ED Lead Java Software Engineer for Delia Fwd Exam Comprehensive
[2021-12-02 08:54] LABS: Basophils # 0.1 10^3/uL (0.0-0.1); Basophils % 1.2 %; Eosinophils # 0.1 10^3/uL (0.0-0.8); Eosinophils % 2.1 %; Hematocrit 34.5 % (37.0-47.0); Hemoglobin 11.8 g/dL (11.5-15.3); Lymphocytes # 1.5 10^3/uL (0.8-4.8); Lymphocytes % 23.1 %; Mean Corpuscular HGB Conc 34.2 g/dL (30.0-36.0); Mean Corpuscular Hemoglobin 34.5 pg (28.0-34.0); Mean Corpuscular Volume 100.9 fl (81-99); Mean Platelet Volume 10.4 fL (7.4-10.4); Monocytes # 0.6 10^3/uL (0.2-0.9); Neutrophils # 4.22 10^3/uL (1.8-7.7); Neutrophils % 64.4 %; Nucleated Red Blood Cells % 0 %; Platelet Count 330 10^3/cmm (130-400); Red Blood Count 3.42 10^6/uL (4.1-5.3); Red Cell Distribution Width 13.9 % (12.1-15.1); White Blood Count 6.6 10^3/uL (4.0-10.0)
[2021-12-02 09:08] LABS: Alanine Aminotransferase 19 U/L (0-33); Albumin Level 3.9 g/dL (3.5-5.2); Alkaline Phosphatase 177 U/L (35-105); Anion Gap 15.8 (5-19); Aspartate Amino Transferase 31 U/L (0-32); Blood Urea Nitrogen 17 mg/dL (6-20); Calcium 9.4 mg/dL (8.5-10.5); Carbon Dioxide 20 mmol/L (22-29); Chloride 108 mmol/L (98-107); Globulin 2.9 g/dL (1.3-4.6); Glomerular Filtration Rate 38.8 mL/min (90-130); Glucose 92 mg/dL (65-115); Lipase 37 U/L (13-60); Osmolality Calculated 291 mOsm/kg (285-295); Potassium 3.8 mmol/L (3.5-5.1); Sodium 140 mmol/L (136-145); Total Bilirubin 0.6 mg/dL (0.15-1.2); Total Protein 6.8 g/dL (6.6-8.7)
[2021-12-02 09:10] VITALS: RESP 16
[2021-12-02] MEDS: HYDROmorphone 1 mg/mL INJ 1 mL 0.5 MG IVP (09:10)
[2021-12-02] MEDS: ondansetron 2 mg/ML SDV 2 mL 4 MG IVP (09:10)
[2021-12-02] MEDS: sodium chloride 0.9% 1,000 ML 999 ML IV (09:11)
[2021-12-02 09:20] LABS: SARS Covid-2 Antigen Negative (Negative)
[2021-12-02 10:25] VITALS: BP 141/85; PULSE 68; RESP 16; O2SAT 95
[2021-12-02 10:40] LABS: Blood Urine 2+ (Negative); Glucose Urine UA Norm (Normal); Ketones Urine 2+ (Negative); Protein Urine Trace (Negative); Urine Appearance Hazy (CLEAR); Urine Color Yellow (Yellow); pH Urine 5 (5-7)
[2021-12-02 10:41] LABS: Add Urine Culture? Yes; Add Urine Microscopic? YES; Bacteria Urine 2+ /hpf; Bilirubin Urine Neg (Negative); Leukocyte Esterase Urine 2+ (Negative); Nitrate Urine Positive (Negative); RBC Urine 0-4 /hpf (0-2); Urobilinogen Urine Norm (Negative); WBC Urine >100 /hpf (0-5)
[2021-12-02 10:42] VITALS: BP 114/67; PULSE 71; RESP 14
[2021-12-02] MEDS: doxycycline 100 mg Tablet PO (10:51)
[2021-12-02 10:58] VITALS: BP 114/67
== END 2021-12-02 11:05 | disposition home or self-care (01) ==
PROVIDERS: Emergency Provider Emergency Medicine; PCP Family Medicine
DX: N30.00 Acute cystitis without hematuria (principal); R19.7 Diarrhea, unspecified; R11.11 Vomiting without nausea; Z79.01 Long term (current) use of anticoagulants; Z79.82 Long term (current) use of aspirin; Z20.822 Contact with and (suspected) exposure to COVID-19; Z87.891 Personal history of nicotine dependence
CPT/HCPCS: 71045; 74176; 80053; 81001; 83690; 85025; 87077; 87086; 87186; 87426; 87493; 87506; 96361; 96374; 96375; 99285; J1170; J2405; J7030

== ENCOUNTER 2022-01-03 09:05 | Emergency (ER) | payer MEDICARE, MEDICAID, SELFPAY ==
[2021-07-27 14:04] VITALS: BP 116/71; BMI 31.2
[2022-01-03 09:08] VITALS: BP 120/78; PULSE 78; RESP 16; TEMP 36.6; O2SAT 98; BMI 27.4
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
[2022-01-03 09:38] VITALS: BP 115/76; PULSE 67; RESP 18; O2SAT 95
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
== END 2022-01-03 10:21 | disposition home or self-care (01) ==
PROVIDERS: Emergency Provider Family Medicine; PCP Family Medicine
DX: M25.562 Pain in left knee (principal); Z79.01 Long term (current) use of anticoagulants; Z79.82 Long term (current) use of aspirin; Z87.891 Personal history of nicotine dependence
CPT/HCPCS: 73562; 99283

== ENCOUNTER → 2022-05-14 14:31 | Outpatient (BNVA) | payer MEDICARE, MEDICAID, SELFPAY ==
[2021-07-27 14:04] VITALS: BP 116/71; BMI 31.2
== END ==
PROVIDERS: PCP Family Medicine; Visit Provider Specialist
DX: I69.354 Hemiplegia and hemiparesis following cerebral infarction affecting left non-dominant side (principal); D68.59 Other primary thrombophilia; Z87.891 Personal history of nicotine dependence; Z79.01 Long term (current) use of anticoagulants
CPT/HCPCS: 99214

== ENCOUNTER 2022-07-08 15:56 | Oncology outpatient (recurring) (ONCR) | payer MEDICARE, MEDICAID, SELFPAY ==
[2021-07-27 14:04] VITALS: BP 116/71; BMI 31.2
[2022-07-08 16:55] LABS: Basophils # 0.1 10^3/uL (0.0-0.1); Basophils % 1.3 %; Eosinophils # 0.2 10^3/uL (0.0-0.8); Eosinophils % 3.6 %; Hematocrit 38.1 % (37.0-47.0); Hemoglobin 12.6 g/dL (11.5-15.3); Lymphocytes % 35.2 %; Mean Corpuscular HGB Conc 33.1 g/dL (30.0-36.0); Mean Corpuscular Hemoglobin 31.1 pg (28.0-34.0); Mean Corpuscular Volume 94.1 fl (81-99); Mean Platelet Volume 9.6 fL (7.4-10.4); Monocytes # 0.5 10^3/uL (0.2-0.9); Monocytes % 8.7 %; Neutrophils # 2.83 10^3/uL (1.8-7.7); Nucleated Red Blood Cells % 0 %; Platelet Count 280 10^3/cmm (130-400); Red Blood Count 4.05 10^6/uL (4.1-5.3); Red Cell Distribution Width 13.2 % (12.1-15.1); White Blood Count 5.5 10^3/uL (4.0-10.0)
[2022-07-08 18:03] LABS: Alanine Aminotransferase 21 U/L (0-33); Albumin Level 3.9 g/dL (3.5-5.2); Alkaline Phosphatase 117 U/L (35-105); Anion Gap 13.2 (5-19); Aspartate Amino Transferase 18 U/L (0-32); Blood Urea Nitrogen 11 mg/dL (6-20); Calcium 8.8 mg/dL (8.5-10.5); Carbon Dioxide 24 mmol/L (22-29); Chloride 106 mmol/L (98-107); Ferritin 55 ng/mL (15-150); Globulin 2.5 g/dL (1.3-4.6); Glomerular Filtration Rate 30.9 mL/min (90-130); Glucose 87 mg/dL (65-115); Iron 74 ug/dL (37-145); Osmolality Calculated 287 mOsm/kg (285-295); Percent Saturation 32.3 % (20-50); Potassium 4.2 mmol/L (3.5-5.1); Sodium 139 mmol/L (136-145); Total Bilirubin 0.2 mg/dL (0.15-1.2); Total Iron Binding Capacity 229 mcg/dl; Total Protein 6.4 g/dL (6.6-8.7); Unsaturated Iron Binding 155 ug/dL (112-347)
== END 2022-07-14 23:59 | disposition home or self-care (01) ==
LOC: ONCMED 15:56
PROVIDERS: PCP Family Medicine; Visit Provider Internal Medicine Medical Oncology
DX: D64.9 Anemia, unspecified (principal); K59.00 Constipation, unspecified; D68.51 Activated protein C resistance; Z79.01 Long term (current) use of anticoagulants; Z79.899 Other long term (current) drug therapy
CPT/HCPCS: 36415; 80053; 82728; 83540; 83550; 85025; 99214

== ENCOUNTER → 2022-07-09 07:40 | Outpatient (BNVA) | payer MEDICARE, MEDICAID, SELFPAY ==
[2021-07-27 14:04] VITALS: BP 116/71; BMI 31.2
== END ==
PROVIDERS: PCP Family Medicine; Visit Provider Podiatrist Foot & Ankle Surgery
DX: I73.9 Peripheral vascular disease, unspecified (principal); L60.3 Nail dystrophy; Z79.01 Long term (current) use of anticoagulants; D68.59 Other primary thrombophilia; G81.10 Spastic hemiplegia affecting unspecified side
CPT/HCPCS: 11721

== ENCOUNTER 2022-07-19 11:37 | Outpatient (CLI) | payer MEDICARE, MEDICAID, SELFPAY ==
[2021-07-27 14:04] VITALS: BP 116/71; BMI 31.2
[2022-07-19 12:58] LABS: Basophils # 0.1 10^3/uL (0.0-0.1); Basophils % 1.3 %; Eosinophils # 0.2 10^3/uL (0.0-0.8); Hematocrit 37.3 % (37.0-47.0); Lymphocytes # 1.8 10^3/uL (0.8-4.8); Lymphocytes % 33.2 %; Mean Corpuscular HGB Conc 32.2 g/dL (30.0-36.0); Mean Corpuscular Hemoglobin 31.2 pg (28.0-34.0); Mean Corpuscular Volume 96.9 fl (81-99); Mean Platelet Volume 9.8 fL (7.4-10.4); Monocytes # 0.4 10^3/uL (0.2-0.9); Monocytes % 7.3 %; Neutrophils # 2.98 10^3/uL (1.8-7.7); Nucleated Red Blood Cells % 0 %; Platelet Count 256 10^3/cmm (130-400); Red Blood Count 3.85 10^6/uL (4.1-5.3); Red Cell Distribution Width 13.5 % (12.1-15.1); White Blood Count 5.5 10^3/uL (4.0-10.0)
[2022-07-19 13:14] LABS: Albumin Level 3.9 g/dL (3.5-5.2); Anion Gap 12.8 (5-19); Blood Urea Nitrogen 9 mg/dL (6-20); Calcium 8.5 mg/dL (8.5-10.5); Carbon Dioxide 25 mmol/L (22-29); Chloride 107 mmol/L (98-107); Glomerular Filtration Rate 33.1 mL/min (90-130); Glucose 92 mg/dL (65-115); Phosphorus 3.4 mg/dL (2.5-4.5); Potassium 3.8 mmol/L (3.5-5.1); Sodium 141 mmol/L (136-145)
[2022-07-19 13:16] LABS: Calcium 8.7 mg/dL (8.5-10.5)
[2022-07-19 13:23] LABS: Parathyroid Hormone 76.8 pg/mL (15-65)
[2022-07-19 13:24] LABS: Creatinine Urine, Random 37 mg/dL (28-217); Microalbum Creatinine Ratio Ur 27 mg/dL (0-20); Microalbumin Random Urine 1 ug/dL (0-20)
== END 2022-07-19 11:38 | disposition home or self-care (01) ==
LOC: LAB 11:42
PROVIDERS: PCP Family Medicine; Visit Provider Internal Medicine Nephrology
DX: N18.32 Chronic kidney disease, stage 3b (principal)
CPT/HCPCS: 36415; 80069; 82044; 82310; 83970; 85025

== ENCOUNTER → 2022-09-12 11:14 | Outpatient (BNVA) | payer MEDICARE, SELFPAY ==
[2021-07-27 14:04] VITALS: BP 116/71; BMI 31.2
== END ==
PROVIDERS: PCP Family Medicine; Visit Provider Specialist
DX: I69.354 Hemiplegia and hemiparesis following cerebral infarction affecting left non-dominant side (principal); D68.51 Activated protein C resistance; Z79.01 Long term (current) use of anticoagulants
CPT/HCPCS: 36415; 64642; 64645; 85651; 86160; 86162; 86235; 86255; 86376; 86431; 99214; J0585

== ENCOUNTER → 2022-10-10 11:29 | Outpatient (BNVA) | payer MEDICARE, SELFPAY ==
[2021-07-27 14:04] VITALS: BP 116/71; BMI 31.2
== END ==
PROVIDERS: PCP Family Medicine; Visit Provider Nurse Practitioner Psychiatric/Mental Health
DX: Z79.899 Other long term (current) drug therapy (principal); F33.1 Major depressive disorder, recurrent, moderate; F41.1 Generalized anxiety disorder; F43.12 Post-traumatic stress disorder, chronic
CPT/HCPCS: 80053; 80061; 83036

== ENCOUNTER → 2022-12-12 10:22 | Outpatient (BNVA) | payer MEDICARE, MEDICAID, SELFPAY ==
[2021-07-27 14:04] VITALS: BP 116/71; BMI 31.2
== END ==
PROVIDERS: PCP Family Medicine; Visit Provider Specialist
DX: G81.12 Spastic hemiplegia affecting left dominant side (principal); R29.90 Unspecified symptoms and signs involving the nervous system; I63.511 Cerebral infarction due to unspecified occlusion or stenosis of right middle cerebral artery; R76.0 Raised antibody titer
CPT/HCPCS: 64642

== ENCOUNTER 2023-02-10 10:12 | Outpatient (CLI) | payer OTHER, MEDICAID, SELFPAY ==
[2021-07-27 14:04] VITALS: BP 116/71; BMI 31.2
[2023-02-10 11:04] LABS: Basophils # 0.1 10^3/uL (0.0-0.1); Basophils % 1.1 %; Eosinophils # 0.3 10^3/uL (0.0-0.8); Eosinophils % 4.3 %; Hematocrit 39.4 % (36-47); Lymphocytes # 2.1 10^3/uL (0.8-4.8); Lymphocytes % 31.5 %; Mean Corpuscular HGB Conc 33.2 g/dL (30-55); Mean Corpuscular Hemoglobin 33.5 pg (27-33); Mean Corpuscular Volume 100.8 fl (85-98); Mean Platelet Volume 10.6 fL (7.4-10.4); Monocytes # 0.5 10^3/uL (0.2-0.9); Monocytes % 8.1 %; Neutrophils # 3.59 10^3/uL (1.8-7.7); Neutrophils % 54.8 %; Nucleated Red Blood Cells % 0 %; Platelet Count 293 10^3/cmm (157-399); Red Blood Count 3.91 10^6/uL (3.85-5.65); Red Cell Distribution Width 15.6 % (12.1-15.1); White Blood Count 6.54 10^3/uL (3.29-11.43)
[2023-02-10 11:22] LABS: Albumin Level 3.9 g/dL (3.5-5.2); Anion Gap 14.9 (5-19); Blood Urea Nitrogen 13 mg/dL (6-20); Calcium 9.2 mg/dL (8.5-10.5); Carbon Dioxide 23 mmol/L (22-29); Chloride 108 mmol/L (98-107); Glomerular Filtration Rate 28.8 mL/min (90-130); Glucose 91 mg/dL (65-115); Phosphorus 3.2 mg/dL (2.5-4.5); Potassium 3.9 mmol/L (3.5-5.1); Sodium 142 mmol/L (136-145)
[2023-02-10 11:23] LABS: Calcium 9.4 mg/dL (8.5-10.5)
[2023-02-10 11:30] LABS: Parathyroid Hormone 55.2 pg/mL (15-65)
[2023-02-10 11:37] LABS: Creatinine Urine, Random 122 mg/dL (28-217); Microalbum Creatinine Ratio Ur 8 mg/dL (0-20); Microalbumin Random Urine 1 ug/dL (0-20)
== END 2023-02-10 10:13 | disposition home or self-care (01) ==
PROVIDERS: PCP Family Medicine; Visit Provider Internal Medicine Nephrology
DX: N18.32 Chronic kidney disease, stage 3b (principal); D63.1 Anemia in chronic kidney disease; R32 Unspecified urinary incontinence
CPT/HCPCS: 36415; 80069; 82044; 82310; 83970; 85025

== ENCOUNTER → 2023-03-04 07:47 | Outpatient (BNVA) | payer MEDICARE, MEDICAID, SELFPAY ==
[2021-07-27 14:04] VITALS: BP 116/71; BMI 31.2
== END ==
PROVIDERS: PCP Family Medicine; Visit Provider Podiatrist Foot & Ankle Surgery
DX: L60.3 Nail dystrophy (principal); I73.9 Peripheral vascular disease, unspecified; Z79.01 Long term (current) use of anticoagulants; G81.10 Spastic hemiplegia affecting unspecified side; D68.59 Other primary thrombophilia
CPT/HCPCS: 11721

== ENCOUNTER → 2023-03-20 13:20 | Outpatient (BNVA) | payer OTHER, MEDICAID, SELFPAY ==
[2021-07-27 14:04] VITALS: BP 116/71; BMI 31.2
== END ==
PROVIDERS: PCP Family Medicine; Visit Provider Specialist
DX: G81.14 Spastic hemiplegia affecting left nondominant side (principal)
CPT/HCPCS: 64643; 64642

== ENCOUNTER → 2023-04-10 16:08 | Outpatient (BNVA) | payer MEDICARE, MEDICAID, SELFPAY ==
[2021-07-27 14:04] VITALS: BP 116/71; BMI 31.2
== END ==
PROVIDERS: PCP Family Medicine; Visit Provider Nurse Practitioner
DX: S69.92XA Unspecified injury of left wrist, hand and finger(s), initial encounter (principal); W19.XXXA Unspecified fall, initial encounter
CPT/HCPCS: 73110

== ENCOUNTER → 2023-05-07 11:45 | Outpatient (BNVA) | payer MEDICARE, MEDICAID, SELFPAY ==
[2021-07-27 14:04] VITALS: BP 116/71; BMI 31.2
== END ==
PROVIDERS: PCP Family Medicine; Referring Provider Nurse Practitioner Family; Visit Provider Surgery
DX: M62.08 Separation of muscle (nontraumatic), other site (principal); Z79.899 Other long term (current) drug therapy
CPT/HCPCS: 99203

== ENCOUNTER → 2023-06-17 07:56 | Outpatient (BNVA) | payer MEDICARE, MEDICAID, SELFPAY ==
[2021-07-27 14:04] VITALS: BP 116/71; BMI 31.2
== END ==
PROVIDERS: PCP Family Medicine; Visit Provider Podiatrist Foot & Ankle Surgery
DX: L60.3 Nail dystrophy (principal); I73.9 Peripheral vascular disease, unspecified; Z79.01 Long term (current) use of anticoagulants; D68.59 Other primary thrombophilia; L84 Corns and callosities; G81.14 Spastic hemiplegia affecting left nondominant side
CPT/HCPCS: 11055; 11721

== ENCOUNTER → 2023-06-19 09:16 | Outpatient (BNVA) | payer MEDICARE, MEDICAID, SELFPAY ==
[2021-07-27 14:04] VITALS: BP 116/71; BMI 31.2
== END ==
PROVIDERS: PCP Family Medicine; Visit Provider Specialist
DX: I69.359 Hemiplegia and hemiparesis following cerebral infarction affecting unspecified side (principal); D68.59 Other primary thrombophilia; Z79.01 Long term (current) use of anticoagulants
CPT/HCPCS: 64642; 64643; 99214

== ENCOUNTER → 2023-09-16 08:15 | Outpatient (BNVA) | payer MEDICARE, OTHER, SELFPAY ==
[2021-07-27 14:04] VITALS: BP 116/71; BMI 31.2
== END ==
PROVIDERS: PCP Family Medicine; Visit Provider Podiatrist Foot & Ankle Surgery
DX: L60.3 Nail dystrophy (principal); I73.9 Peripheral vascular disease, unspecified; Z79.01 Long term (current) use of anticoagulants; G81.10 Spastic hemiplegia affecting unspecified side; D68.59 Other primary thrombophilia; L84 Corns and callosities
CPT/HCPCS: 11055; 11721

== ENCOUNTER → 2023-09-25 09:14 | Outpatient (BNVA) | payer MEDICARE, MEDICAID, SELFPAY ==
[2021-07-27 14:04] VITALS: BP 116/71; BMI 31.2
== END ==
PROVIDERS: PCP Family Medicine; Visit Provider Specialist
DX: I69.352 Hemiplegia and hemiparesis following cerebral infarction affecting left dominant side (principal); D68.59 Other primary thrombophilia; Z79.01 Long term (current) use of anticoagulants
CPT/HCPCS: 64642

== ENCOUNTER → 2023-12-02 10:30 | Outpatient (BNVA) | payer MEDICARE, MEDICAID, SELFPAY ==
[2021-07-27 14:04] VITALS: BP 116/71; BMI 31.2
== END ==
PROVIDERS: PCP Family Medicine; Visit Provider Podiatrist Foot & Ankle Surgery
DX: L60.3 Nail dystrophy (principal); I73.9 Peripheral vascular disease, unspecified; Z79.01 Long term (current) use of anticoagulants; D68.59 Other primary thrombophilia; L84 Corns and callosities; G81.14 Spastic hemiplegia affecting left nondominant side
CPT/HCPCS: 11055; 11721

== ENCOUNTER → 2023-12-18 12:29 | Outpatient (BNVA) | payer MEDICARE, MEDICAID, SELFPAY ==
[2021-07-27 14:04] VITALS: BP 116/71; BMI 31.2
== END ==
PROVIDERS: PCP Family Medicine; Visit Provider Specialist
DX: I69.352 Hemiplegia and hemiparesis following cerebral infarction affecting left dominant side; D68.59 Other primary thrombophilia; Z79.01 Long term (current) use of anticoagulants
CPT/HCPCS: 64643; 64644

== ENCOUNTER 2024-01-23 09:36 | Emergency (ER) | payer MEDICARE, MEDICAID, SELFPAY ==
[2021-07-27 14:04] VITALS: BP 116/71; BMI 31.2
[2024-01-23 09:44] VITALS: BP 167/88; PULSE 71; RESP 18; TEMP 36.7; O2SAT 95
--- NOTE | 2024-01-23 10:02 | W.ED.DENTAL ---
HPI - Dental/Oral General: Chief complaint: Dental/Oral Stated complaint: bleeding for 24hrs, surgery yesterday Time Seen by Provider: 01/23/24 09:44 Source: patient Mode of arrival: ambulatory Limitations: no limitations History of Present Illness: Patient is a 59-year-old female presents to ED today for a complaint of dental extraction bleeding. She states yesterday she had multiple bottom teeth extracted. She states sites have continued to ooze over the past 24 hours. She normally does take Eliquis but was taken off of this prior to the procedure and placed on Lovenox shots. She has no other complaints at this time. Onset (ago): hour(s) Duration: constant Severity: mild Relieving factors: nothing Exacerbating factors: nothing Context: other (recent dental extractions) Associated symptoms: Reports no associated symptoms Treatment prior to arrival: none Related Data Home Medications Medication Instructions Recorded Confirmed ipratropium 20 mcg-albuterol 100 2 puff inhalation Q6H PRN 02/08/20 01/23/24 mcg/actuation mist for inhalation shortness of breath or wheezing (Combivent Respimat) Fish Oil 1,100 mg PO DAILY@102907/15/20 01/23/24 acetaminophen 325 mg tablet 325 - 650 mg PO QID PRN Pain 07/15/20 01/23/24 (Tylenol) albuterol sulfate 90 mcg/actuation 2 puff inhalation QID PRN 07/15/20 01/23/24 aerosol inhaler Shortness Of Breath calcium 500 mg PO DAILY@0 07/15/20 01/23/24 levothyroxine 50 mcg tablet 50 mcg PO DAILY@102907/15/20 01/23/24 [id number] 8 mg-folic 400 1 tab PO DAILY@102907/15/20 01/23/24 mcg-K 50 mcg-lutein 300 mcg tablet (Multivitamin Women 50 Plus) sucralfate 1 gram tablet 1 g PO Q6H 07/15/20 01/23/24 valacyclovir 1 gram tablet 1,000 mg PO DAILY@0 07/15/20 01/23/24 apixaban 5 mg tablet (Eliquis) 5 mg PO BID 04/25/21 01/23/24 coenzyme Q10 75 mg capsule (Ultra 75 mg PO DAILY 06/04/22 01/23/24 CoQ10) atorvastatin 40 mg tablet 40 mg PO DAILY 01/23/24 01/23/24 bupropion HCl 300 mg 24 hr tablet, 300 mg PO QAM 01/23/24 01/23/24 extended release dexlansoprazole 60 mg 60 mg PO DAILY 01/23/24 01/23/24 capsule,biphase delayed release fluticasone propionate 50 50 mcg intranasal DAILY 01/23/24 01/23/24 mcg/actuation nasal spray,suspension gabapentin 100 mg capsule 100 mg PO TID 01/23/24 01/23/24 metoclopramide HCl 10 mg tablet 10 mg PO BID 01/23/24 01/23/24 oxybutynin chloride 10 mg 10 mg PO DAILY 01/23/24 01/23/24 tablet,extended release 24 hr propranolol 60 mg capsule,24 60 mg PO DAILY 01/23/24 01/23/24 hr,extended release Previous Rx's Medication Instructions Recorded aspirin 81 mg tablet,delayed 81 mg PO DAILY #30 tabs 07/15/20 release fluconazole 150 mg tablet 150 mg PO Q72H #2 tabs 11/28/23 baclofen 10 mg tablet See Rx Instructions .Route 12/16/23 .COMPLEX #60 tabs onabotulinumtoxinA 100 unit 600 unit IM .[id number] #6 ea 12/16/23 solution for injection (Botox) enoxaparin 150 mg/mL subcutaneous 150 mg SUBCUT Q12H #10 mL 12/18/23 syringe (Lovenox) fluoxetine 40 mg capsule (Prozac) 80 mg (2 x 40 mg) PO DAILY #60 caps 01/15/24 hydroxyzine pamoate 50 mg capsule 50 mg PO TID PRN anxiety #90 caps 01/15/24 ziprasidone HCl 60 mg capsule See Rx Instructions .Route 01/15/24 .COMPLEX #60 caps Allergies Allergy/AdvReac Type Severity Reaction Status Date / Time venom-wasp Allergy Severe ALGY-Anaphy Verified 01/15/24 11:06 laxis amoxicillin Allergy rash Verified 01/15/24 11:06 cefaclor [From Ceclor] Allergy rash Verified 01/15/24 11:06 cefazolin Allergy rash Verified 01/15/24 11:06 clavulanic acid Allergy Unknown Verified 01/15/24 11:06 [From Augmentin] Penicillins Allergy rash Verified 01/15/24 11:06 Sulfa (Sulfonamide Allergy rash Verified 01/15/24 11:06 Antibiotics) zolpidem [From Ambien] Allergy Unknown Verified 01/15/24 11:06 Review of Systems ENMT: Reports: other (dental extraction bleeding) Card: Denies: chest pain Resp: Denies: dyspnea GI: Denies: nausea or vomiting Neuro: Denies: headache(s) PFSH ED PFSH: Medical History On combination antipsychotic drug therapy Nicotine use disorder Heterozygous factor V Leiden mutation Anemia Psychiatric care Hypothyroidism Chronic kidney disease (CKD) Bile reflux gastritis Recurrent UTI GERD (gastroesophageal reflux disease) Psychosis History of unspecified psychosis diagnoses; has been on Geodon 40 mg twice daily for approximately 2 years. Anxiety disorder Chronic post-traumatic stress disorder (PTSD) Moderate episode of recurrent major depressive disorder Surgical History S/P cholecystectomy H/O esophagogastroduodenoscopy H/O colonoscopy H/O decompression of ulnar nerve H/O: hysterectomy one ovary left Family History Other Cancer Hypertension Denies family history of Diabetes CAD (coronary artery disease) Anesthesia complication Bleeding disorder Social History Smoking and tobacco/nicotine status: current every day tobacco/nicotine user Quit status (tobacco/nicotine): has quit using Year quit tobacco: 2019 Former quit date comment: 0.5 PPD since I was 15. I did stop for 3 years one time but.. Second hand smoke exposure: No Alcohol intake: never Substance/Drug Use: current Substance/Drug use frequency: few times a week Adopted: No Caregiver/support person: No Lives independently: Yes Household members: none Housing: Apartment Marital status: Single Number of children: 2 Number of grandchildren: 3 Highest education level completed: High School Graduate service: No Current occupational status: disabled Pets and animals: Yes Pets & animals: dog(s) Sexually active: No Do you think of yourself as: Straight/Heterosexual Current gender identity: Female Karely/Nondenominational: Sikhism Special karely needs: No Agree to transfusion: Yes Female Reproductive History: Para: 2 Spontaneous abortions: Yes Physical Exam Const: COMMON NORMALS: no acute distress, no limitations, alert and well nourished HENMT: FACE & SINUS: normal facial exam TEETH & GINGIVA IMAGES: 1. recent dental extractions with large clot formation; sutures Neck/C-Spine: GENERAL: Yes normal visual inspection Resp: COMMON NORMALS: normal respiratory effort and clear to auscultation bilaterally AUSCULTATION: clear to auscultation bilaterally Cardio: COMMON NORMALS: regular rate and regular rhythm RATE: regular rate RHYTHM: regular rhythm Neuro: SENSORIUM/ORIENTATION: Yes alert Course Vital Signs: Vital signs: Vital Signs Temperature 98.1 F 01/23/24 09:44 Pulse Rate 71 01/23/24 09:44 Respiratory Rate 18 01/23/24 09:44 Blood Pressure 167/88 01/23/24 09:44 Pulse Oximetry 95 01/23/24 09:44 Oxygen Delivery Me thod Room Air 01/23/24 09:44 MDM - Dental/Oral Medical Decision Making Patient here with oozing to surgical dental extraction sites involving lower gumline. Attempted lidocaine/epi soaked gauze, tea bag, firm pressure, and ultimately surgicel and bleeding has subsided. Discussed multiple therapies she can try at home if bleeding resumes. Recommend she follow up with her dentist as soon as possible. Return precautions were discussed if she cannot get bleeding to stop at home. Medical Records I reviewed the patient's medical records. No radiology studies performed this visit Discharge Plan Discharge Patient Disposition: Home Clinical Impression: Surgical wound hemorrhage after dental procedure Condition: Stable Prescriptions: No Action Combivent Respimat 20-100 mcg/actuation mist 2 puff inhalation Q6H PRN (Reason: shortness of breath or wheezing) Eliquis 5 mg tablet 5 mg PO BID Ultra CoQ10 75 mg capsule 75 mg PO DAILY enoxaparin [Lovenox] 150 mg/mL syringe 150 mg SUBCUT Q12H Qty: 10 0RF Rx Instructions: Start twice daily injections immediately after stopping Eliquis. Take up until AM of surgery. fluoxetine [Prozac] 40 mg capsule 80 mg PO DAILY Qty: 60 2RF hydroxyzine pamoate 50 mg capsule 50 mg PO TID PRN (Reason: anxiety) Qty: 90 2RF ziprasidone HCl 60 mg capsule See Rx Instructions .ROUTE .COMPLEX Qty: 60 2RF Dose Instruction: take 1 capsule BY MOUTH TWICE DAILY EVERY MORNING AND EVERY EVENING. TAKE WITH FOOD (MEAL/SNACK) OF AT LEAST 350 CALORIES Rx Instructions: take 1 capsule BY MOUTH TWICE DAILY EVERY MORNING AND EVERY EVENING. TAKE WITH FOOD (MEAL/SNACK) OF AT LEAST 350 CALORIES fluconazole 150 mg tablet 150 mg PO Q72H Qty: 2 0RF baclofen 10 mg tablet See Rx Instructions .ROUTE .COMPLEX Qty: 60 2RF Dose Instruction: take 1/2 tablet BY MOUTH TWICE DAILY Rx Instructions: take 1/2 tablet BY MOUTH TWICE DAILY Botox 100 unit recon soln 600 unit IM .[id number] Qty: 6 3RF valacyclovir 1 gram tablet 1,000 mg PO DAILY@1030 sucralfate 1 gram tablet 1 g PO Q6H levothyroxine 50 mcg tablet 50 mcg PO DAILY@1030 albuterol sulfate 90 mcg/actuation HFA aerosol inhaler 2 puff INHALATION QID PRN (Reason: Shortness Of Breath) Multivitamin Women 50 Plus 8 mg iron-400 mcg-300 mcg Tablet 1 tab PO DAILY@1030 Fish Oil 1,100 mg PO DAILY@1030 calcium 500 mg PO DAILY@1030 acetaminophen [Tylenol] 325 mg Tablet 325 - 650 mg PO QID PRN (Reason: Pain) aspirin 81 mg tablet,delayed release (DR/EC) 81 mg PO DAILY Qty: 30 0RF atorvastatin 40 mg tablet 40 mg PO DAILY oxybutynin chloride 10 mg tablet extended release 24hr 10 mg PO DAILY propranolol 60 mg capsule,extended release 24 hr 60 mg PO DAILY gabapentin 100 mg capsule 100 mg PO TID fluticasone propionate 50 mcg/actuation spray,suspension 50 mcg INTRANASAL DAILY metoclopramide HCl 10 mg tablet 10 mg PO BID dexlansoprazole 60 mg capsule,biphase delayed releas 60 mg PO DAILY bupropion HCl 300 mg tablet extended release 24 hr 300 mg PO QAM Discharge Orders: Discharge ED (Routine); Ordered 01/23/24 Ordered By: Nancy Carlos Referrals: Ange Keita DO [Primary Care Provider] - Activity Restrictions/Additional Instructions: As we discussed, if bleeding begins again once you get home, apply firm pressure to the bleeding site for 45 minutes to an hour. You were also provided Surgicel which provided good hemostatic relief here in the emergency department. You can try cold fluids/ice and tea bags to attempt to help as well. Your dentist should have an after hour emergency contact you can use over the weekend if needed. If you cannot get bleeding to stop or if you cannot contact your dentist-you may return to the emergency department for further care. Coding Level of Care Code ED [employer] Service Captain for Delia Arellano
[2024-01-23 10:30] VITALS: BP 123/85; PULSE 71; O2SAT 92
[2024-01-23 11:00] VITALS: BP 126/90; PULSE 70; O2SAT 94
[2024-01-23 12:31] VITALS: BP 134/95; PULSE 73; O2SAT 94
== END 2024-01-23 12:35 | disposition home or self-care (01) ==
PROVIDERS: Emergency Provider Physician Assistant; PCP Family Medicine
DX: K91.840 Postprocedural hemorrhage of a digestive system organ or structure following a digestive system procedure (principal); Z79.01 Long term (current) use of anticoagulants; Z79.82 Long term (current) use of aspirin; Z87.891 Personal history of nicotine dependence; N18.9 Chronic kidney disease, unspecified
CPT/HCPCS: 99282

== ENCOUNTER → 2024-02-10 10:45 | Outpatient (BNVA) | payer MEDICARE, MEDICAID, SELFPAY ==
[2021-07-27 14:04] VITALS: BP 116/71; BMI 31.2
== END ==
PROVIDERS: PCP Family Medicine; Visit Provider Podiatrist Foot & Ankle Surgery
DX: L60.3 Nail dystrophy (principal); I73.9 Peripheral vascular disease, unspecified; Z79.01 Long term (current) use of anticoagulants; D68.59 Other primary thrombophilia; L84 Corns and callosities; M20.42 Other hammer toe(s) (acquired), left foot; G81.14 Spastic hemiplegia affecting left nondominant side
CPT/HCPCS: 11055; 11721

== ENCOUNTER 2024-03-02 13:31 | Outpatient (CLI) | payer MEDICARE, MEDICAID, SELFPAY ==
[2021-07-27 14:04] VITALS: BP 116/71; BMI 31.2
[2024-03-02 14:18] LABS: Basophils # 0.1 10^3/uL (0.0-0.1); Basophils % 1.4 %; Eosinophils # 0.2 10^3/uL (0.0-0.8); Eosinophils % 4.2 %; Hematocrit 32.2 % (36-47); Lymphocytes # 1.7 10^3/uL (0.8-4.8); Lymphocytes % 29.6 %; Mean Corpuscular HGB Conc 30.7 g/dL (30-55); Mean Corpuscular Hemoglobin 29.8 pg (27-33); Mean Platelet Volume 9.6 fL (7.4-10.4); Monocytes # 0.6 10^3/uL (0.2-0.9); Monocytes % 10.4 %; Neutrophils # 3.14 10^3/uL (1.8-7.7); Neutrophils % 54.2 %; Nucleated Red Blood Cells % 0 %; Platelet Count 342 10^3/cmm (157-399); Red Blood Count 3.32 10^6/uL (3.85-5.65); Red Cell Distribution Width 14.5 % (12.1-15.1); White Blood Count 5.78 10^3/uL (3.29-11.43)
[2024-03-02 14:35] LABS: Cholesterol 171 mg/dL (0-200); HDL Cholesterol 61 mg/dL (60-100); LDL Cholesterol Calculated 88 mg/dL (50-129); LDL HDL Ratio 1.44 RATIO (0.00-3.22); Triglycerides 109 mg/dL (0-150)
[2024-03-02 14:36] LABS: Albumin Level 3.9 g/dL (3.5-5.2); Chloride 104 mmol/L (98-107); Estmated Average Glucose 97; Potassium 4.4 mmol/L (3.5-5.1); Sodium 143 mmol/L (136-145)
[2024-03-02 14:38] LABS: Calcium 9.3 mg/dL (8.5-10.5)
[2024-03-02 14:41] LABS: Creatinine Urine, Random 34 mg/dL (28-217); Microalbum Creatinine Ratio Ur 29 mg/dL (0-20); Microalbumin Random Urine 1 ug/dL (0-20)
[2024-03-02 14:52] LABS: Anion Gap 17.4 (5-19); Blood Urea Nitrogen 17 mg/dL (8-23); Calcium 9.1 mg/dL (8.5-10.5); Carbon Dioxide 26 mmol/L (22-29); Glomerular Filtration Rate 28.7 mL/min (90-130); Glucose 86 mg/dL (65-115); Phosphorus 3.5 mg/dL (2.5-4.5)
== END 2024-03-02 13:32 | disposition home or self-care (01) ==
LOC: LAB 13:33
PROVIDERS: Nurse Practitioner; PCP Family Medicine; Visit Provider Registered Nurse
DX: N18.32 Chronic kidney disease, stage 3b (principal); Z79.899 Other long term (current) drug therapy
CPT/HCPCS: 36415; 80061; 80069; 82044; 82310; 83036; 83970; 85025

== ENCOUNTER 2024-03-19 18:05 | Emergency (ER) | payer MEDICARE, MEDICAID, SELFPAY ==
[2021-07-27 14:04] VITALS: BP 116/71; BMI 31.2
[2024-03-19 18:10] VITALS: BP 115/74; PULSE 97; RESP 16; TEMP 36.8; O2SAT 96
--- NOTE | 2024-03-19 21:00 | XRR_ITS ---
PROCEDURE INFORMATION: Exam: XR Right Shoulder Exam date and time: 03/19/2024 9:21 PM Age: 59 years old Clinical indication: Right; Patient HX: RT shoulder pain post fall TECHNIQUE: Imaging protocol: Radiologic exam of the right shoulder. Views: 2 or more views. COMPARISON: CR (CHEST, ) 12/02/2021 8:20 AM FINDINGS: Bones/joints: No acute fracture or dislocation. Degenerative joint disease. Soft tissues: Unremarkable. XR/XR shoulder RT min 2V* [id number] IMPRESSION: No acute bony findings.
--- NOTE | 2024-03-19 21:00 | XRR_ITS ---
PROCEDURE INFORMATION: Exam: XR Left Ribs Exam date and time: 03/19/2024 9:26 PM Age: 59 years old Clinical indication: Other: Lt lower rib pain; Patient HX: Lt lower anterior/lateral rib pain post fall TECHNIQUE: Imaging protocol: Radiologic exam of the left ribs. Views: 2 views. COMPARISON: CR (CHEST, ) 12/02/2021 8:20 AM FINDINGS: Bones/joints: Subtle cortical irregularity of the left posterolateral 4th rib. Pleural space: No pneumothorax. Soft tissues: Normal. XR/XR ribs LT 2V* [id number] IMPRESSION: Subtle cortical irregularity of the left posterolateral 4th rib concerning for a nondisplaced fracture.
--- NOTE | 2024-03-19 21:01 | ED_ITS ---
HPI - Back Pain/Injury General: Chief Complaint: Back Pain/Injury Stated Complaint: FALL rib pain right shoulder pain Time Seen by Provider: 03/19/24 20:37 Source: patient Mode of arrival: ambulatory Limitations: no limitations History of Present Illness: Patient is a 59-year-old female presenting to the emergency department after a fall occurred on Friday. She states that this was a simple trip and fall, she has had similar in the past but this time she fell onto her 's wheelchair. States that she struck her left ribs, and try to catch herself with her right arm. She is having pain to the left ribs and the right shoulder region. States she is having pain with abduction of the right shoulder. She has been taking Tylenol for pain, states that when she moves it is an 8/10 but if she is resting it is a 0. She denies pain medications at this time, just wants to make sure nothing is fractured or dislocated. Reports a history of right rib fractures, stating this feels similar. She denies hitting her head or losing consciousness with the fall. MD elicited complaint: fall Onset (ago): day(s) Timing: constant Pain scale (0-10): 8 Similar Symptoms Previously: Yes Exacerbating factors: movement Relieving factors: immobilization Context: fall Associated symptoms: Deny abdominal pain, chills, fever(s), nausea or vomiting Related Data Home Medications Medication Instructions Recorded Confirmed ipratropium 20 mcg-albuterol 100 2 puff inhalation Q6H PRN 02/08/20 03/18/24 mcg/actuation mist for inhalation shortness of breath or wheezing (Combivent Respimat) Fish Oil 1,100 mg PO DAILY@102907/15/20 03/18/24 acetaminophen 325 mg tablet 325 - 650 mg PO QID PRN Pain 07/15/20 03/18/24 (Tylenol) albuterol sulfate 90 mcg/actuation 2 puff inhalation QID PRN 07/15/20 03/18/24 aerosol inhaler Shortness Of Breath calcium 500 mg PO DAILY@102907/15/20 03/18/24 levothyroxine 50 mcg tablet 50 mcg PO DAILY@102907/15/20 03/18/24 buqvcqge-qmli-naho 8 mg-folic 400 1 tab PO DAILY@1030 07/15/20 03/18/24 mcg-K 50 mcg-lutein 300 mcg tablet (Multivitamin Women 50 Plus) sucralfate 1 gram tablet 1 g PO Q6H 07/15/20 03/18/24 valacyclovir 1 gram tablet 1,000 mg PO DAILY@1030 07/15/20 03/18/24 apixaban 5 mg tablet (Eliquis) 5 mg PO BID 04/25/21 03/18/24 coenzyme Q10 75 mg capsule (Ultra 75 mg PO DAILY 06/04/22 03/18/24 CoQ10) atorvastatin 40 mg tablet 40 mg PO DAILY 01/23/24 03/18/24 dexlansoprazole 60 mg 60 mg PO DAILY 01/23/24 03/18/24 capsule,biphase delayed release fluticasone propionate 50 50 mcg intranasal DAILY 01/23/24 03/18/24 mcg/actuation nasal spray,suspension gabapentin 100 mg capsule 100 mg PO TID 01/23/24 03/18/24 metoclopramide HCl 10 mg tablet 10 mg PO BID 01/23/24 03/18/24 oxybutynin chloride 10 mg 10 mg PO DAILY 01/23/24 03/18/24 tablet,extended release 24 hr propranolol 60 mg capsule,24 60 mg PO DAILY 01/23/24 03/18/24 hr,extended release Previous Rx's Medication Instructions Recorded aspirin 81 mg tablet,delayed 81 mg PO DAILY #30 tabs 07/15/20 release fluconazole 150 mg tablet 150 mg PO Q72H #2 tabs 11/28/23 baclofen 10 mg tablet See Rx Instructions .Route 12/16/23 .COMPLEX #60 tabs onabotulinumtoxinA 100 unit 600 unit IM .P10rgdu #6 ea 12/16/23 solution for injection (Botox) bupropion HCl 300 mg 24 hr tablet, 300 mg PO QAM #30 tabs 03/18/24 extended release fluoxetine 40 mg capsule (Prozac) 80 mg (2 x 40 mg) PO DAILY #60 caps 03/18/24 hydroxyzine pamoate 50 mg capsule 50 mg PO TID PRN anxiety #90 caps 03/18/24 ziprasidone HCl 60 mg capsule See Rx Instructions .Route 03/18/24 .COMPLEX #60 caps Allergies Allergy/AdvReac Type Severity Reaction Status Date / Time venom-wasp Allergy Severe ALGY-Anaphy Verified 03/18/24 15:04 laxis amoxicillin Allergy rash Verified 03/18/24 15:04 cefaclor [From Ceclor] Allergy rash Verified 03/18/24 15:04 cefazolin Allergy rash Verified 03/18/24 15:04 clavulanic acid Allergy Unknown Verified 03/18/24 15:04 [From Augmentin] Penicillins Allergy rash Verified 03/18/24 15:04 Sulfa (Sulfonamide Allergy rash Verified 03/18/24 15:04 Antibiotics) zolpidem [From Ambien] Allergy Unknown Verified 03/18/24 15:04 Review of Systems General: Reports: 10 or more systems reviewed and unremarkable except in HPI and below Const: Denies: fever(s) or chills Card: Denies: chest pain Resp: Denies: dyspnea or productive cough GI: Denies: abdominal pain, nausea, vomiting or diarrhea : Denies: flank pain Musc: Reports: limited range of motion and other (Left rib pain); Denies: neck pain, back pain, extremity pain, extremity swelling, joint pain (Right shoulder), joint swelling, joint redness, joint warmth or muscle weakness Skin/Breast: Denies: rash Neuro: Denies: headache(s), numbness in extremities or weakness in extremities PFSH ED PFSH: Medical History On combination antipsychotic drug therapy Nicotine use disorder Heterozygous factor V Leiden mutation Anemia Psychiatric care Hypothyroidism Chronic kidney disease (CKD) Bile reflux gastritis Recurrent UTI GERD (gastroesophageal reflux disease) Psychosis History of unspecified psychosis diagnoses; has been on Geodon 40 mg twice daily for approximately 2 years. Anxiety disorder Chronic post-traumatic stress disorder (PTSD) Moderate episode of recurrent major depressive disorder Surgical History S/P cholecystectomy H/O esophagogastroduodenoscopy H/O colonoscopy H/O decompression of ulnar nerve H/O: hysterectomy one ovary left Family History Other Cancer Hypertension Denies family history of Diabetes CAD (coronary artery disease) Anesthesia complication Bleeding disorder Social History Smoking and tobacco/nicotine status: current every day tobacco/nicotine user Quit status (tobacco/nicotine): has quit using Year quit tobacco: 2019 Former quit date comment: 0.5 PPD since I was 15. I did stop for 3 years one time b ut.. Second hand smoke exposure: No Alcohol intake: never Substance/Drug Use: current Substance/Drug use frequency: few times a week Adopted: No Caregiver/support person: No Lives independently: Yes Household members: none Housing: Apartment Marital status: Single Number of children: 2 Number of grandchildren: 3 Highest education level completed: High School Graduate service: No Current occupational status: disabled Pets and animals: Yes Pets & animals: dog(s) Sexually active: No Do you think of yourself as: Straight/Heterosexual Current gender identity: Female Karely/Orthodoxy: Anabaptist Special karely needs: No Agree to transfusion: Yes Female Reproductive History: Para: 2 Spontaneous abortions: Yes Physical Exam Const: COMMON NORMALS: no acute distress, patient oriented x3, no limitations, healthy appearing, alert and well nourished HENMT: COMMON NORMALS: normocephalic and atraumatic HEAD & SCALP: normocephalic and atraumatic Neck/C-Spine: COMMON NORMALS: full ROM, supple and no meningeal signs Chest: COMMONS NORMALS: normal inspection of the chest OTHER: Reproducible tenderness to palpation to the left lateral chest wall, just inferior to left breast. No bruising or step-off deformity. Resp: COMMON NORMALS: normal respiratory effort, No use of accessory muscles and clear to auscultation bilaterally AUSCULTATION: clear to auscultation bilaterally Cardio: COMMON NORMALS: regular rate and regular rhythm RATE: regular rate RHYTHM: regular rhythm Extremity: COMMON NORMALS: normal to inspection, full ROM, capillary refill normal, no joint enlargement and no clubbing, cyanosis or edema NARRATIVE EXTREMITY EXAM: Right shoulder normal to inspection. Mild nonspecific tenderness to palpation of the right shoulder joint. No pain with extension or flexion of the right shoulder, reproducible pain specifically with abduction. Radial pulse 2+. Neuro: COMMON NORMALS: patient oriented x3, moves all extremities, no focal motor deficits and no sensory deficits noted SENSORIUM/ORIENTATION: Yes alert MENINGEAL SIGNS: Yes no meningeal signs Skin: COMMON NORMALS: no rashes or lesions noted GENERAL SKIN EXAM: no rashes or lesions noted Course Vital Signs: Vital signs: Vital Signs Temperature 98.2 F 03/19/24 18:10 Pulse Rate 72 03/19/24 22:37 Respiratory Rate 18 03/19/24 22:37 Blood Pressure 114/81 03/19/24 22:37 Pulse Oximetry 99 03/19/24 22:37 Oxygen Delivery Me thod Room Air 03/19/24 18:10 MDM - Back Pain/Injury Medical Decision Making Patient fell on Friday, has had steady pain in the left side as well as to her right shoulder. X-ray of the right shoulder was normal, but x-ray of left ribs showing nondisplaced fracture of the fourth posterolateral rib. Will treat with pain control and we discussed pulmonary hygiene. Also we thoroughly discussed reasons to return and patient endorsed understanding. She denied pain medication throughout ED stay, will follow-up with primary care. Labs Radiology Impressions Ribs X-Ray 03/19/24 21:00 IMPRESSION: Subtle cortical irregularity of the left posterolateral 4th rib concerning for a nondisplaced fracture. Shoulder X-Ray 03/19/24 21:00 IMPRESSION: No acute bony findings. All radiology interpretation(s) finalized by discharge Discharge Plan Discharge Patient Disposition: Home Clinical Impression: Closed rib fracture Qualifiers: Encounter type: initial encounter Rib fracture type: single rib Laterality: left Qualified Code(s): S22.32XA - Fracture of one rib, left side, initial encounter for closed fracture Condition: Stable Prescriptions: No Action Combivent Respimat 20-100 mcg/actuation mist 2 puff inhalation Q6H PRN (Reason: shortness of breath or wheezing) Eliquis 5 mg tablet 5 mg PO BID Ultra CoQ10 75 mg capsule 75 mg PO DAILY bupropion HCl 300 mg tablet extended release 24 hr 300 mg PO QAM Qty: 30 2RF fluoxetine [Prozac] 40 mg capsule 80 mg PO DAILY Qty: 60 2RF ziprasidone HCl 60 mg capsule See Rx Instructions .ROUTE .COMPLEX Qty: 60 2RF Dose Instruction: take 1 capsule BY MOUTH TWICE DAILY EVERY MORNING AND EVERY EVENING. TAKE WITH FOOD (MEAL/SNACK) OF AT LEAST 350 CALORIES Rx Instructions: take 1 capsule BY MOUTH TWICE DAILY EVERY MORNING AND EVERY EVENING. TAKE WITH FOOD (MEAL/SNACK) OF AT LEAST 350 CALORIES hydroxyzine pamoate 50 mg capsule 50 mg PO TID PRN (Reason: anxiety) Qty: 90 2RF fluconazole 150 mg tablet 150 mg PO Q72H Qty: 2 0RF baclofen 10 mg tablet See Rx Instructions .ROUTE .COMPLEX Qty: 60 2RF Dose Instruction: take 1/2 tablet BY MOUTH TWICE DAILY Rx Instructions: take 1/2 tablet BY MOUTH TWICE DAILY Botox 100 unit recon soln 600 unit IM .[id number] Qty: 6 3RF valacyclovir 1 gram tablet 1,000 mg PO DAILY@1030 sucralfate 1 gram tablet 1 g PO Q6H levothyroxine 50 mcg tablet 50 mcg PO DAILY@1030 albuterol sulfate 90 mcg/actuation HFA aerosol inhaler 2 puff INHALATION QID PRN (Reason: Shortness Of Breath) Multivitamin Women 50 Plus 8 mg iron-400 mcg-300 mcg Tablet 1 tab PO DAILY@1030 Fish Oil 1,100 mg PO DAILY@1030 calcium 500 mg PO DAILY@1030 acetaminophen [Tylenol] 325 mg Tablet 325 - 650 mg PO QID PRN (Reason: Pain) aspirin 81 mg tablet,delayed release (DR/EC) 81 mg PO DAILY Qty: 30 0RF atorvastatin 40 mg tablet 40 mg PO DAILY oxybutynin chloride 10 mg tablet extended release 24hr 10 mg PO DAILY propranolol 60 mg capsule,extended release 24 hr 60 mg PO DAILY gabapentin 100 mg capsule 100 mg PO TID fluticasone propionate 50 mcg/actuation spray,suspension 50 mcg INTRANASAL DAILY metoclopramide HCl 10 mg tablet 10 mg PO BID dexlansoprazole 60 mg capsule,biphase delayed releas 60 mg PO DAILY Discharge Orders: Discharge ED (Routine); Ordered 03/20/24 Ordered By: Howard Garcia Referrals: Ange Keita DO [Primary Care Provider] - Patient Instructions: Rib Fracture (ED) Activity Restrictions/Additional Instructions: See attached patient instructions for further education. Please take pain medication as prescribed. Pulmonary hygiene as we discussed. Topical IcyHot or other remedies. Avoid any further trauma. Follow-up with your primary care provider. Return with any new or worsening. Coding Level of Care Code ED Tool Adjuster for Delia Arellano
[2024-03-19 22:37] VITALS: BP 114/81; PULSE 72; RESP 18; O2SAT 99
[2024-03-20 00:07] VITALS: BP 116/61; PULSE 79; RESP 16; O2SAT 98
[2024-03-20 00:17] VITALS: BP 116/61; PULSE 82; RESP 16; O2SAT 95
== END 2024-03-20 00:18 | disposition home or self-care (01) ==
PROVIDERS: Emergency Provider Physician Assistant; PCP Family Medicine
DX: S22.32XA Fracture of one rib, left side, initial encounter for closed fracture (principal); Z79.01 Long term (current) use of anticoagulants; Z79.82 Long term (current) use of aspirin; Z87.891 Personal history of nicotine dependence; N18.9 Chronic kidney disease, unspecified; W19.XXXA Unspecified fall, initial encounter
CPT/HCPCS: 71100; 73030; 99284

== ENCOUNTER → 2024-04-02 14:00 | Outpatient (BNVA) | payer MEDICARE, MEDICAID, SELFPAY ==
[2021-07-27 14:04] VITALS: BP 116/71; BMI 31.2
== END ==
PROVIDERS: PCP Family Medicine; Visit Provider Specialist
DX: G81.10 Spastic hemiplegia affecting unspecified side (principal)
CPT/HCPCS: 64644

== ENCOUNTER → 2024-04-15 10:42 | Outpatient (BNVA) | payer MEDICAID, OTHER, SELFPAY ==
[2021-07-27 14:04] VITALS: BP 116/71; BMI 31.2
== END ==
PROVIDERS: PCP Family Medicine; Visit Provider Podiatrist Foot & Ankle Surgery
DX: M20.42 Other hammer toe(s) (acquired), left foot (principal); I73.9 Peripheral vascular disease, unspecified; L60.3 Nail dystrophy; Z79.01 Long term (current) use of anticoagulants; G81.10 Spastic hemiplegia affecting unspecified side; D68.59 Other primary thrombophilia
CPT/HCPCS: 11721; 28010; 28011

== ENCOUNTER → 2024-07-09 12:50 | Outpatient (BNVA) | payer MEDICARE, MEDICAID, SELFPAY ==
[2021-07-27 14:04] VITALS: BP 116/71; BMI 31.2
== END ==
PROVIDERS: PCP Family Medicine; Visit Provider Specialist
DX: G81.12 Spastic hemiplegia affecting left dominant side (principal); D68.59 Other primary thrombophilia; Z79.01 Long term (current) use of anticoagulants
CPT/HCPCS: 64644; 99212; J9999

== ENCOUNTER → 2024-07-13 11:18 | Outpatient (BNVA) | payer MEDICARE, MEDICAID, SELFPAY ==
[2021-07-27 14:04] VITALS: BP 116/71; BMI 31.2
== END ==
PROVIDERS: PCP Family Medicine; Visit Provider Podiatrist Foot & Ankle Surgery
DX: I73.9 Peripheral vascular disease, unspecified (principal); L60.3 Nail dystrophy; L84 Corns and callosities; Z79.01 Long term (current) use of anticoagulants; G81.10 Spastic hemiplegia affecting unspecified side; D68.59 Other primary thrombophilia; M20.42 Other hammer toe(s) (acquired), left foot
CPT/HCPCS: 11056; 11721

== ENCOUNTER 2024-07-15 14:52 | Emergency (ER) | payer MEDICARE, MEDICAID, SELFPAY ==
[2021-07-27 14:04] VITALS: BP 116/71; BMI 31.2
[2024-07-15 14:58] VITALS: BP 94/86; PULSE 84; RESP 18; TEMP 37; O2SAT 97
--- NOTE | 2024-07-15 15:18 | XR_ITS ---
WS: [id number] Left hip, 2 views, AP pelvis, 07/15/2024 Clinical Data: fall Comparison: Left hip, 06/04/2013 Findings: No fractures or dislocations are seen. The left hip shows no fractures. The right hip is normal. The soft tissues are not remarkable. The adjacent pelvis is normal. XR/XR hip LT 2-3V wo/w pel* [id number] Impression: Negative pelvis and left hip.
--- NOTE | 2024-07-15 15:19 | W.ED.BACK ---
HPI - Back Pain/Injury General: Chief Complaint: Back Pain/Injury Stated Complaint: has had several falls in last couple of days Time Seen by Provider: 07/15/24 15:07 Source: patient Mode of arrival: wheelchair Limitations: no limitations History of Present Illness: This patient made her way to the emergency department today because of concern about injury to her left pelvis left hip and left lower back. She states that she had a fall onto her left buttock on Friday when she missed stepped. 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 She was able to get up and make her way back home. Yesterday she apparently caught her foot when she was walking around the house on a piece of furniture and fell on the same left hip buttock region. She says she thinks it is bruised but last time she thought that she had a broken bone so she is here to get that evaluated. States she is able to walk and bear weight but it is sore to do so. She states she did not hurt herself in any other location she denies any head or neck or other back pain. No other change in her usual state of health. Absolutely no syncopal episodes related to the fall and she has had no change in her neurologic status in any way. Associated symptoms: Deny abdominal pain, chills, fever(s), nausea, syncope or vomiting Related Data Home Medications ?Medication ?Instructions ?Recorded ?Confirmed ipratropium 20 mcg-albuterol 100 2 puff inhalation Q6H PRN 02/08/20 07/15/24 mcg/actuation mist for inhalation shortness of breath or wheezing (Combivent Respimat) acetaminophen 325 mg tablet 325 - 650 mg PO QID PRN Pain 07/15/20 07/15/24 (Tylenol) albuterol sulfate 90 mcg/actuation 2 puff inhalation QID PRN 07/15/20 07/15/24 aerosol inhaler Shortness Of Breath levothyroxine 50 mcg tablet 50 mcg PO DAILY@102907/15/20 07/15/24 nfsdkmal-gdkr-ushf 8 mg-folic 400 1 tab PO DAILY@102907/15/20 07/15/24 mcg-K 50 mcg-lutein 300 mcg tablet (Multivitamin Women 50 Plus) sucralfate 1 gram tablet 1 g PO Q6H 07/15/20 07/15/24 valacyclovir 1 gram tablet 1,000 mg PO DAILY@1030 07/15/20 07/15/24 apixaban 5 mg tablet (Eliquis) 5 mg PO BID 04/25/21 07/15/24 coenzyme Q10 75 mg capsule (Ultra 75 mg PO DAILY 06/04/22 07/15/24 CoQ10) atorvastatin 40 mg tablet 40 mg PO QPM 01/23/24 07/15/24 dexlansoprazole 60 mg 60 mg PO DAILY 01/23/24 07/15/24 capsule,biphase delayed release fluticasone propionate 50 50 mcg intranasal DAILY PRN 01/23/24 07/15/24 mcg/actuation nasal allergies spray,suspension metoclopramide HCl 10 mg tablet 10 mg PO BID 01/23/24 07/15/24 oxybutynin chloride 10 mg 10 mg PO DAILY 01/23/24 07/15/24 tablet,extended release 24 hr propranolol 60 mg capsule,24 60 mg PO DAILY 01/23/24 07/15/24 hr,extended release baclofen 10 mg tablet 10 mg PO .UP TO QID 07/15/24 07/15/24 calcium carbonate 500 mg PO DAILY 07/15/24 07/15/24 omega 0-vui-qnh-fish oil 1,000 mg 1 cap PO .@1030 07/15/24 07/15/24 (120 mg-180 mg) capsule (Fish Oil) Previous Rx's ?Medication ?Instructions ?Recorded aspirin 81 mg tablet,delayed 81 mg PO DAILY #30 tabs 07/15/20 release onabotulinumtoxinA 100 unit 600 unit IM .[id number] #6 ea 12/16/23 solution for injection (Botox) bupropion HCl 300 mg 24 hr tablet, 300 mg PO QAM #30 tabs 06/04/24 extended release fluoxetine 40 mg capsule (Prozac) 80 mg (2 x 40 mg) PO DAILY #60 caps 06/04/24 hydroxyzine pamoate 50 mg capsule 50 mg PO TID PRN anxiety #90 caps 06/04/24 ziprasidone HCl 60 mg capsule See Rx Instructions .Route 06/04/24 .COMPLEX #60 caps Allergies Allergy/AdvReac Type Severity Reaction Status Date / Time venom-wasp Allergy Severe ALGY-Anaphy Verified 07/13/24 11:33 laxis amoxicillin Allergy rash Verified 07/13/24 11:33 cefaclor (From Ceclor) Allergy rash Verified 07/13/24 11:33 cefazolin Allergy rash Verified 07/13/24 11:33 clavulanic acid (From Allergy Unknown Verified 07/13/24 11:33 Augmentin) doxycycline Allergy ALGY-Rash Verified 07/13/24 11:33 Penicillins Allergy rash Verified 07/13/24 11:33 Sulfa (Sulfonamide Allergy rash Verified 07/13/24 11:33 Antibiotics) zolpidem (From Ambien) Allergy Unknown Verified 07/13/24 11:33 Review of Systems Const: Denies: fever(s) or chills Card: Denies: chest pain, palpitations, syncope or pre-syncope GI: Denies: abdominal pain, nausea or vomiting Musc: Reports: extremity pain; Denies: neck pain Skin/Breast: Denies: rash or pruritus Neuro: Denies: headache(s) or numbness in extremities Rafael/Lymph: Denies: easy bruising or easy bleeding PFSH ED PFSH: Medical History On combination antipsychotic drug therapy Nicotine use disorder Heterozygous factor V Leiden mutation Anemia Psychiatric care Hypothyroidism Chronic kidney disease (CKD) Bile reflux gastritis Recurrent UTI GERD (gastroesophageal reflux disease) Psychosis History of unspecified psychosis diagnoses; has been on Geodon 40 mg twice daily for approximately 2 years. Anxiety disorder Chronic post-traumatic stress disorder (PTSD) Moderate episode of recurrent major depressive disorder Surgical History S/P cholecystectomy H/O esophagogastroduodenoscopy H/O colonoscopy H/O decompression of ulnar nerve H/O: hysterectomy one ovary left Family History Other Cancer Hypertension Denies family history of Diabetes CAD (coronary artery disease) Anesthesia complication Bleeding disorder Social History Smoking and tobacco/nicotine status: current every day tobacco/nicotine user Quit status (tobacco/nicotine): has quit using Year quit tobacco: 2019 Former quit date comment: 0.5 PPD since I was 15. I did stop for 3 years one time but.. Second hand smoke exposure: No Alcohol intake: never Substance/Drug Use: current Substance/Drug use frequency: few times a week Adopted: No Caregiver/support person: No Lives independently: Yes Household members: none Housing: Apartment Marital status: Single Number of children: 2 Number of grandchildren: 3 Highest education level completed: High School Graduate service: No Current occupational status: disabled Pets and animals: Yes Pets & animals: dog(s) Sexually active: No Do you think of yourself as: Straight/Heterosexual Current gender identity: Female Karely/Synagogue: Jewish Special karely needs: No Agree to transfusion: Yes Female Reproductive History: Para: 2 Spontaneous abortions: Yes Physical Exam Narrative: EXAM NARRATIVE: She is alert and cooperative. She speaks relatively fluently there is a's very minimal dysarthria but does not in any way affect her ability to communicate. He has otherwise in no acute distress. Const: COMMON NORMALS: no acute distress and patient oriented x3 GENERAL APPEARANCE: cooperative and comfortable NUTRITIONAL APPEARANCE: overweight HENMT: COMMON NORMALS: atraumatic HEAD & SCALP: atraumatic FACE & SINUS: face symmetric Eye: COMMON NORMALS: Equal, round and reactive pupils present and EOMs intact bilaterally PUPIL: Yes Equal, round and reactive pupils present Neck/C-Spine: COMMON NORMALS: full ROM CERVICAL SPINE: Yes cervical ROM normal, No Cervical spine tenderness, No step off deformity, No Paracervical muscle tenderness, No Paracervical spasm and No Trapezius muscle tenderness Resp: COMMON NORMALS: normal respiratory effort EFFORT & INSPECTION: Yes able to speak in complete sentences Cardio: COMMON NORMALS: regular rate and Peripheral pulses 2+ throughout RATE: regular rate PERIPHERAL PULSES: Peripheral pulses 2+ throughout GI: COMMON NORMALS: Soft to palpation and non-tender PALPATION: Yes Soft to palpation Back/Pelvis: PELVIS: Yes no pain with anterior-posterior compression, Yes no pain with lateral compression and No tenderness over symphysis pubis SACROILIAC JOINTS: Yes SI joint(s) abnormal SI joint details: tender to palpation (Left) COCCYX: no tenderness Extremity: COMMON NORMALS: normal to inspection, full ROM, capillary refill normal and no calf tenderness Neuro: COMMON NORMALS: patient oriented x3 OTHER: 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 Psych: COMMON NORMALS: mental status grossly normal Skin: COMMON NORMALS: no rashes or lesions noted and no wounds GENERAL SKIN EXAM: no rashes or lesions noted Course Reevaluation(s): Reevaluation #1: Patient remained stable. I discussed x-ray findings and lack of any evidence of fracture pelvis, hip etc. I also discussed that the soreness should improve as it is most consistent with a soft tissue injury but if it is not improving or worsening anytime she should return for reevaluation. Time: 16:28 Vital Signs: Vital signs: Vital Signs Temperature 98.6 F 07/15/24 14:58 Pulse Rate 84 07/15/24 14:58 Respiratory Rate 18 07/15/24 14:58 Blood Pressure 94/86 07/15/24 14:58 Pulse Oximetry 97 07/15/24 14:58 Oxygen Delivery Me thod Room Air 07/15/24 14:58 MDM - Back Pain/Injury Medical Decision Making Patient presented as noted in history of present illness because of fall with some resultant left hip and pelvic pain. She was concerned about possible broken bone. Her clinical exam did not reveal any shortening rotation or any other concerning obvious findings without any evidence of deformity etc. She had some tenderness in her posterior superior iliac spine region but again no other secondary significant findings. Images were ordered of the left hip and pelvis which were reassuring without evidence of fracture etc. She is stable to be discharged at this time with close follow-up and return precautions which she acknowledged. Labs Radiology Impressions Hip/Pelvis X-Ray 07/15/24 15:18 Impression: Negative pelvis and left hip. All radiology interpretation(s) finalized by discharge Discharge Plan Discharge Patient Disposition: Home Clinical Impression: Contusion of soft tissue Condition: Stable Prescriptions: No Action Combivent Respimat 20-100 mcg/actuation mist 2 puff inhalation Q6H PRN (Reason: shortness of breath or wheezing) Eliquis 5 mg tablet 5 mg PO BID Ultra CoQ10 75 mg capsule 75 mg PO DAILY Botox 100 unit recon soln 600 unit IM .[id number] Qty: 6 3RF bupropion HCl 300 mg tablet extended release 24 hr 300 mg PO QAM Qty: 30 2RF fluoxetine [Prozac] 40 mg capsule 80 mg PO DAILY Qty: 60 2RF hydroxyzine pamoate 50 mg capsule 50 mg PO TID PRN (Reason: anxiety) Qty: 90 2RF ziprasidone HCl 60 mg capsule See Rx Instructions .ROUTE .COMPLEX Qty: 60 2RF Dose Instruction: take 1 capsule BY MOUTH TWICE DAILY EVERY MORNING AND EVERY EVENING. TAKE WITH FOOD (MEAL/SNACK) OF AT LEAST 350 CALORIES Rx Instructions: Take 1 capsule BY MOUTH TWICE DAILY EVERY MORNING AND EVERY EVENING. TAKE WITH FOOD (MEAL/SNACK) OF AT LEAST 350 CALORIES valacyclovir 1 gram tablet 1,000 mg PO DAILY@1030 sucralfate 1 gram tablet 1 g PO Q6H levothyroxine 50 mcg tablet 50 mcg PO DAILY@1030 albuterol sulfate 90 mcg/actuation HFA aerosol inhaler 2 puff INHALATION QID PRN (Reason: Shortness Of Breath) Multivitamin Women 50 Plus 8 mg iron-400 mcg-300 mcg Tablet 1 tab PO DAILY@1030 acetaminophen [Tylenol] 325 mg Tablet 325 - 650 mg PO QID PRN (Reason: Pain) aspirin 81 mg tablet,delayed release (DR/EC) 81 mg PO DAILY Qty: 30 0RF calcium carbonate [Calcium 500] 500 mg calcium (1,250 mg) Tablet 500 mg PO DAILY omega 3-yvh-nog-fish oil [Fish Oil] 1,000 (120-180) mg Capsule 1 cap PO .@1030 baclofen 10 mg tablet 10 mg PO .UP TO QID atorvastatin 40 mg tablet 40 mg PO QPM oxybutynin chloride 10 mg tablet extended release 24hr 10 mg PO DAILY propranolol 60 mg capsule,extended release 24 hr 60 mg PO DAILY fluticasone propionate 50 mcg/actuation spray,suspension 50 mcg INTRANASAL DAILY PRN (Reason: allergies) metoclopramide HCl 10 mg tablet 10 mg PO BID dexlansoprazole 60 mg capsule,biphase delayed releas 60 mg PO DAILY Discharge Orders: Discharge ED (Routine); Ordered 07/15/24 Ordered By: Martin Greenberg Referrals: Ange Keita DO [Primary Care Provider, Family Practice] Discharge Diet: Usual diet Discharge Activity: Increase activity as tolerated Patient Instructions: Opioid Safety, Pain Management Activity Restrictions/Additional Instructions: Your x-rays today did not show any signs of fracture or other serious injury. Continue to increase your activity as tolerated with utilization of your walker or cane to aid in your ambulation. If your pain does not resolve in the next 5 to 7 days or worsens at any time return to this or the nearest emergency department for reevaluation or follow-up with your regular doctor. Print Language: Kiswahili Coding Level of Care Code ED [employer] for Delia Arellano
[2024-07-15 16:47] VITALS: BP 103/74; PULSE 79; O2SAT 87
== END 2024-07-15 16:54 | disposition home or self-care (01) ==
PROVIDERS: Emergency Provider Emergency Medicine; PCP Family Medicine
DX: R10.2 Pelvic and perineal pain (principal); S70.02XA Contusion of left hip, initial encounter; Z79.01 Long term (current) use of anticoagulants; Z79.82 Long term (current) use of aspirin; Z72.0 Tobacco use; W19.XXXA Unspecified fall, initial encounter
CPT/HCPCS: 73502; 99283

== ENCOUNTER → 2024-10-07 13:06 | Outpatient (BNVA) | payer MEDICARE, MEDICAID, SELFPAY ==
[2021-07-27 14:04] VITALS: BP 116/71; BMI 31.2
== END ==
PROVIDERS: PCP Family Medicine; Visit Provider Specialist
DX: G81.14 Spastic hemiplegia affecting left nondominant side (principal); D68.59 Other primary thrombophilia; Z79.01 Long term (current) use of anticoagulants
CPT/HCPCS: 64644; 99212; J9999

== ENCOUNTER 2024-10-16 15:06 | Observation (INO) | payer MEDICARE, MEDICAID, SELFPAY ==
--- OUTSIDE RECORDS SUMMARY | 2016-08-16 06:00 | XMS_ITS | Continuity of Care Document ---
Author Organization [facility] Address [id number] [address] Phone Care Team Providers Care Back Hand Name Role Phone Ronaldo LIONSJanice Unavailable Unavaila ble Allergies, Adverse Reactions, Alerts Substance Reaction Status Criticality Sulfa (Sulfonamide Antibiotics) Active No Information PENICILLIN Active No Information cefaclor Active No Information Medications Medication Instructions Dosage Effective Dates (start - stop) Status Comments clindamycin 150 mg capsule take 2 capsules by oral route every 6 hours until gone for dental infection for Pain - Active Lexapro 10 mg tablet take 1 tablet by or al route every day 10 MG - Active Patanol 0.1 % eye drops instill 1 drop by ophthalmic route 2 times every day into affected eye(s) at an interval of 6 to 8 hours - Active trazodone 100 mg tablet take 1 tablet by oral route 2 times every day after meals 100 MG - Active Geodon 80 mg capsule take 1 capsule by o ral route 2 times every day with food 80 MG - Active ranitidine 150 mg capsule take 1 capsule by oral route 2 times every day - Active Flovent Diskus 50 mcg/actuation powder for inhalation inhale 1 puff by inhalation route 2 times every day - Active senna 8.6 mg capsule take 2 capsule by o ral route every day at bedtime - Active propranolol ER 60 mg capsule,24 hr,extended release take 2 capsule by oral route every day 120 MG - Active Claritin 10 mg tablet take 1 tablet by o ral route every day 10 MG - Active Tirosint 50 mcg capsule take 1 capsule by oral route every day 50 MCG - Active zonisamide 100 mg capsule take 1 capsule by oral route every day 100 MG - Active Procedures Procedure Date Intraoral Periapical First Film Intraoral Periapical Each Additional Film Intraoral Periapical Each Additional Film Panoramic Film Bitewings Two Films Comprehensive Oral Evaluatio n New Or Established EDR Approval Note EDR Approval Note Advance Directives Directive Yes / No Effective Date File Name No Information Encounters Encounter Description Practice Location Reason(s) For Visit Diagnoses Date Provider Providers Copied on Encounter [facility], [id number] [facility], [place], [place], [id number], [place] tel:[phone] [facility] Encounter for dental exam and cleaning w/o abnormal findings 7 Ronaldo Camacho. [address] [place], [address], [place]. tel:[phone] Referring Provider: Janice Jeffrey, [address] [place], [address]. tel:[phone] Family History Family Member Type Diagnosis Age At Onset No Information Payers Payer name Insurance type Covered alliance party ID Joaquim arnold(s) D Medicaid [id number] Social History Type Description Quantity Date Captured Comments Alcohol Use Details No Caffeine Use Details Unknown Tobacco Use Status Smoking Status Unknown if ever smoked 16 Non-Smoking Tobacco Use Details : No Details Available : No Details Available Sex Female Vital Signs Date / Time: Height Weight BMI Pulse Rate Blood Pressure Temperature Respiratory Rate Body Surface Area Head Circumference Head Circ. Percentile Wt./Robin. Percentile BMI percentile Pulse Ox Inhaled Ox 11:13 AM 116/71 mm[Hg] Chief Complaint And Reason For Visit No Information Reason For Referral Reason For Referral No Information History Of Present Illness Encounter Date Complaint History Of Prese nt Illness No Information Functional Status Date Functional Assessmen t No Information Instructions Date Instruction Additional Infor mation No Information Assessments Type Assessment Date No Information Patient Care Teams Name Effective Dates (start - stop) Status Members No Information
[2021-07-27 14:04] VITALS: BP 116/71; BMI 31.2
[2024-10-16] VITALS (7 sets, daily range): BP systolic 104–123; BP diastolic 59–80; PULSE 91–100; RESP 16–18; TEMP 36.4–37.5; O2SAT 92–95
--- NOTE | 2024-10-16 15:08 | W.ED.GENADLT ---
HPI - General Adult General: Stated complaint: diff urinating Time Seen by Provider: 10/16/24 15:07 History of Present Illness: 59-year-old female presents to the emergency room with difficulty urinating Associated symptoms: Deny chest pain, dyspnea or rash Related Data Home Medications ?Medication ?Instructions ?Recorded ?Confirmed ipratropium 20 mcg-albuterol 100 2 puff inhalation Q6H PRN 02/08/20 10/07/24 mcg/actuation mist for inhalation shortness of breath or wheezing (Combivent Respimat) acetaminophen 325 mg tablet 325 - 650 mg PO QID PRN Pain 07/15/20 10/07/24 (Tylenol) albuterol sulfate 90 mcg/actuation 2 puff inhalation QID PRN 07/15/20 10/07/24 aerosol inhaler Shortness Of Breath levothyroxine 50 mcg tablet 50 mcg PO DAILY@1030 07/15/20 10/07/24 yyltzwjw-jueo-vxjd 8 mg-folic 400 1 tab PO DAILY@0 07/15/20 10/07/24 mcg-K 50 mcg-lutein 300 mcg tablet (Multivitamin Women 50 Plus) sucralfate 1 gram tablet 1 g PO Q6H 07/15/20 10/07/24 valacyclovir 1 gram tablet 1,000 mg PO DAILY@1030 07/15/20 10/07/24 apixaban 5 mg tablet (Eliquis) 5 mg PO BID 04/25/21 10/07/24 coenzyme Q10 75 mg capsule (Ultra 75 mg PO DAILY 06/04/22 10/07/24 CoQ10) atorvastatin 40 mg tablet 40 mg PO QPM 01/23/24 10/07/24 dexlansoprazole 60 mg 60 mg PO DAILY 01/23/24 10/07/24 capsule,biphase delayed release fluticasone propionate 50 50 mcg intranasal DAILY PRN 01/23/24 10/07/24 mcg/actuation nasal allergies spray,suspension oxybutynin chloride 10 mg 10 mg PO DAILY 01/23/24 10/07/24 tablet,extended release 24 hr propranolol 60 mg capsule,24 60 mg PO DAILY 01/23/24 10/07/24 hr,extended release baclofen 10 mg tablet 10 mg PO .UP TO QID 07/15/24 10/07/24 calcium carbonate 500 mg PO DAILY 07/15/24 10/07/24 omega 7-jtl-frh-fish oil 1,000 mg 1 cap PO .@1030 07/15/24 10/07/24 (120 mg-180 mg) capsule (Fish Oil) Previous Rx's ?Medication ?Instructions ?Recorded aspirin 81 mg tablet,delayed 81 mg PO DAILY #30 tabs 07/15/20 release onabotulinumtoxinA 100 unit 400 unit IM .[id number] #6 ea 07/20/24 solution for injection (Botox) fluoxetine 40 mg capsule (Prozac) 80 mg (2 x 40 mg) PO DAILY #60 caps 09/19/24 bupropion HCl 300 mg 24 hr tablet, 300 mg PO QAM #30 tabs 09/30/24 extended release ziprasidone HCl 60 mg capsule See Rx Instructions .Route 09/30/24 .COMPLEX #60 caps hydroxyzine pamoate 50 mg capsule 50 mg PO TID PRN anxiety #90 caps 10/07/24 Allergies Allergy/AdvReac Type Severity Reaction Status Date / Time venom-wasp Allergy Severe ALGY-Anaphy Verified 10/07/24 13:51 laxis amoxicillin Allergy rash Verified 10/07/24 13:51 cefaclor (From Ceclor) Allergy rash Verified 10/07/24 13:51 cefazolin Allergy rash Verified 10/07/24 13:51 clavulanic acid (From Allergy Unknown Verified 10/07/24 13:51 Augmentin) doxycycline Allergy ALGY-Rash Verified 10/07/24 13:51 Penicillins Allergy rash Verified 10/07/24 13:51 Sulfa (Sulfonamide Allergy rash Verified 10/07/24 13:51 Antibiotics) zolpidem (From Ambien) Allergy Unknown Verified 10/07/24 13:51 Review of Systems Const: Denies: fever(s) or chills Card: Denies: chest pain Resp: Denies: dyspnea GI: Denies: abdominal pain : Denies: dysuria, urinary frequency or urinary urgency Musc: Denies: neck pain or back pain Skin/Breast: Denies: rash PFSH ED PFSH: Medical History On combination antipsychotic drug therapy Nicotine use disorder Heterozygous factor V Leiden mutation Anemia Psychiatric care Hypothyroidism Chronic kidney disease (CKD) Bile reflux gastritis Recurrent UTI GERD (gastroesophageal reflux disease) Psychosis History of unspecified psychosis diagnoses; has been on Geodon 40 mg twice daily for approximately 2 years. Anxiety disorder Chronic post-traumatic stress disorder (PTSD) Moderate episode of recurrent major depressive disorder Surgical History S/P cholecystectomy H/O esophagogastroduodenoscopy H/O colonoscopy H/O decompression of ulnar nerve H/O: hysterectomy one ovary left Family History Other Cancer Hypertension Denies family history of Diabetes CAD (coronary artery disease) Anesthesia complication Bleeding disorder Social History Smoking and tobacco/nicotine status: current every day tobacco/nicotine user Quit status (tobacco/nicotine): has quit using Year quit tobacco: 2019 Former quit date comment: 0.5 PPD since I was 15. I did stop for 3 years one time but.. Second hand smoke exposure: No Alcohol intake: never Substance/Drug Use: current Substance/Drug use frequency: few times a week Adopted: No Caregiver/support person: No Lives independently: Yes Household members: none Housing: Apartment Marital status: Single Number of children: 2 Number of grandchildren: 3 Highest education level completed: High School Graduate service: No Current occupational status: disabled Pets and animals: Yes Pets & animals: dog(s) Sexually active: No Do you think of yourself as: Straight/Heterosexual Current gender identity: Female Karely/Restorationist: Scientologist Special karely needs: No Agree to transfusion: Yes Female Reproductive History: Para: 2 Spontaneous abortions: Yes Physical Exam Const: COMMON NORMALS: no acute distress GENERAL APPEARANCE: cooperative and comfortable ORIENTATION/CONSCIOUSNESS: Yes awake, Yes oriented to person, Yes oriented to place and Yes oriented to time HENMT: COMMON NORMALS: normocephalic, atraumatic and hearing grossly normal bilaterally HEAD & SCALP: normocephalic and atraumatic Resp: COMMON NORMALS: normal respiratory effort, No retractions, No use of accessory muscles and clear to auscultation bilaterally AUSCULTATION: clear to auscultation bilaterally Cardio: COMMON NORMALS: regular rate, regular rhythm and No murmurs present (Cardio) RATE: regular rate RHYTHM: regular rhythm GI: COMMON NORMALS: Soft to palpation and No hepatosplenomegaly present AUSCULTATION: Yes normoactive bowel sounds PALPATION: Yes Soft to palpation, No Tenderness to palpation present (GI), No Guarding due to palpation present (GI) and Yes No hepatosplenomegaly present Extremity: COMMON NORMALS: normal to inspection, capillary refill normal, no clubbing, cyanosis or edema, no calf tenderness and no pedal edema Neuro: SENSORIUM/ORIENTATION: Yes oriented to person, Yes oriented to place and Yes oriented to time Skin: COMMON NORMALS: no rashes or lesions noted GENERAL SKIN EXAM: no rashes or lesions noted Discharge Plan Discharge Condition: Stable Prescriptions: No Action Combivent Respimat 20-100 mcg/actuation mist 2 puff inhalation Q6H PRN (Reason: shortness of breath or wheezing) Eliquis 5 mg tablet 5 mg PO BID Ultra CoQ10 75 mg capsule 75 mg PO DAILY bupropion HCl 300 mg tablet extended release 24 hr 300 mg PO QAM Qty: 30 2RF ziprasidone HCl 60 mg capsule See Rx Instructions .ROUTE .COMPLEX Qty: 60 2RF Dose Instruction: take 1 capsule BY MOUTH TWICE DAILY EVERY MORNING AND EVERY EVENING. TAKE WITH FOOD (MEAL/SNACK) OF AT LEAST 350 CALORIES Rx Instructions: Take 1 capsule BY MOUTH TWICE DAILY EVERY MORNING AND EVERY EVENING. TAKE WITH FOOD (MEAL/SNACK) OF AT LEAST 350 CALORIES Botox 100 unit recon soln 400 unit IM .[id number] Qty: 6 3RF fluoxetine [Prozac] 40 mg capsule 80 mg PO DAILY Qty: 60 2RF hydroxyzine pamoate 50 mg capsule 50 mg PO TID PRN (Reason: anxiety) Qty: 90 2RF valacyclovir 1 gram tablet 1,000 mg PO DAILY@1030 sucralfate 1 gram tablet 1 g PO Q6H levothyroxine 50 mcg tablet 50 mcg PO DAILY@1030 albuterol sulfate 90 mcg/actuation HFA aerosol inhaler 2 puff INHALATION QID PRN (Reason: Shortness Of Breath) Multivitamin Women 50 Plus 8 mg iron-400 mcg-300 mcg Tablet 1 tab PO DAILY@1030 acetaminophen [Tylenol] 325 mg Tablet 325 - 650 mg PO QID PRN (Reason: Pain) aspirin 81 mg tablet,delayed release (DR/EC) 81 mg PO DAILY Qty: 30 0RF calcium carbonate [Calcium 500] 500 mg calcium (1,250 mg) Tablet 500 mg PO DAILY omega 9-opj-jyr-fish oil [Fish Oil] 1,000 (120-180) mg Capsule 1 cap PO .@1030 baclofen 10 mg tablet 10 mg PO .UP TO QID atorvastatin 40 mg tablet 40 mg PO QPM oxybutynin chloride 10 mg tablet extended release 24hr 10 mg PO DAILY propranolol 60 mg capsule,extended release 24 hr 60 mg PO DAILY fluticasone propionate 50 mcg/actuation spray,suspension 50 mcg INTRANASAL DAILY PRN (Reason: allergies) dexlansoprazole 60 mg capsule,biphase delayed releas 60 mg PO DAILY Referrals: Ange Keita DO [Primary Care Provider, Family Practice] Print Language: Haitian Coding Level of Care Code ED [employer] for Delia Arellano
--- NOTE | 2024-10-16 15:11 | W.ED.GENADLT ---
HPI - General Adult General: Chief complaint: Urogenital-Female Stated complaint: diff urinating Time Seen by Provider: 10/16/24 15:07 Source: patient Mode of arrival: ambulatory Limitations: no limitations History of Present Illness: 59-year-old female states she has had a history of chronic kidney disease states over the last 2 to 3 days been having difficult time urinating. States that she had frequent urination and not urinating much. She has had some mild abdominal pain she rates a 2 out of 10 she denies any severe dysuria but does have a lot of frequency. She denies any fevers denies any vomiting. Associated symptoms: Deny chest pain, dyspnea, headache(s), nausea, rash or vomiting Related Data Home Medications ?Medication ?Instructions ?Recorded ?Confirmed ipratropium 20 mcg-albuterol 100 2 puff inhalation Q6H PRN 02/08/20 10/16/24 mcg/actuation mist for inhalation shortness of breath or wheezing (Combivent Respimat) acetaminophen 325 mg tablet 325 - 650 mg PO QID PRN Pain 07/15/20 10/16/24 (Tylenol) albuterol sulfate 90 mcg/actuation 2 puff inhalation QID PRN 07/15/20 10/16/24 aerosol inhaler Shortness Of Breath iakmdjcy-emxm-foly 8 mg-folic 400 1 tab PO DAILY@102907/15/20 10/16/24 mcg-K 50 mcg-lutein 300 mcg tablet (Multivitamin Women 50 Plus) valacyclovir 1 gram tablet 1,000 mg PO DAILY@1030 07/15/20 10/16/24 apixaban 5 mg tablet (Eliquis) 5 mg PO BID 04/25/21 10/16/24 coenzyme Q10 75 mg capsule (Ultra 75 mg PO DAILY 06/04/22 10/16/24 CoQ10) atorvastatin 40 mg tablet 40 mg PO QPM 01/23/24 10/16/24 dexlansoprazole 60 mg 60 mg PO DAILY 01/23/24 10/16/24 capsule,biphase delayed release (Dexilant) fluticasone propionate 50 50 mcg intranasal DAILY PRN 01/23/24 10/16/24 mcg/actuation nasal allergies spray,suspension oxybutynin chloride 10 mg 10 mg PO DAILY 11/08/24 08/02/25 tablet,extended release 24 hr propranolol 60 mg capsule,24 60 mg PO DAILY 01/23/24 10/16/24 hr,extended release baclofen 10 mg tablet 10 mg PO .UP TO QID 07/15/24 10/16/24 calcium carbonate 500 mg PO DAILY 07/15/24 10/16/24 omega 6-egh-cdn-fish oil 1,000 mg 1 cap PO .@1030 07/15/24 10/16/24 (120 mg-180 mg) capsule (Fish Oil) ferrous sulfate 325 mg (65 mg 325 mg PO DAILY 10/16/24 10/16/24 iron) tablet (FeroSul) fluoxetine 40 mg capsule 80 mg PO DAILY 10/16/24 10/16/24 levothyroxine 50 mcg tablet 50 mcg PO QAM 10/16/24 10/16/24 Previous Rx's ?Medication ?Instructions ?Recorded aspirin 81 mg tablet,delayed 81 mg PO DAILY #30 tabs 07/15/20 release onabotulinumtoxinA 100 unit 400 unit IM .Z15izmn #6 ea 07/20/24 solution for injection (Botox) bupropion HCl 300 mg 24 hr tablet, 300 mg PO QAM #30 tabs 09/30/24 extended release ziprasidone HCl 60 mg capsule See Rx Instructions .Route 09/30/24 .COMPLEX #60 caps hydroxyzine pamoate 50 mg capsule 50 mg PO TID PRN anxiety #90 caps 10/07/24 nitrofurantoin 100 mg PO BID 7 days #14 caps 10/16/24 monohydrate/macrocrystals 100 mg capsule (Macrobid) Allergies Allergy/AdvReac Type Severity Reaction Status Date / Time venom-wasp Allergy Severe ALGY-Anaphy Verified 10/07/24 13:51 laxis amoxicillin Allergy rash Verified 10/07/24 13:51 cefaclor (From [facility]) Allergy rash Verified 10/07/24 13:51 cefazolin Allergy rash Verified 10/07/24 13:51 clavulanic acid (From Allergy Unknown Verified 10/07/24 13:51 Augmentin) doxycycline Allergy ALGY-Rash Verified 10/07/24 13:51 Penicillins Allergy rash Verified 10/07/24 13:51 Sulfa (Sulfonamide Allergy rash Verified 10/07/24 13:51 Antibiotics) zolpidem (From Ambien) Allergy Unknown Verified 10/07/24 13:51 Review of Systems Const: Denies: fever(s), chills, body aches or change in appetite ENMT: Denies: throat pain or dental pain Card: Denies: chest pain Resp: Denies: dyspnea GI: Reports: abdominal pain; Denies: nausea, vomiting or diarrhea : Reports: difficulty voiding Musc: Denies: neck pain or back pain Skin/Breast: Denies: rash Neuro: Denies: headache(s) PFSH ED PFSH: Medical History On combination antipsychotic drug therapy Nicotine use disorder Heterozygous factor V Leiden mutation Anemia Psychiatric care Hypothyroidism Chronic kidney disease (CKD) Bile reflux gastritis Recurrent UTI GERD (gastroesophageal reflux disease) Psychosis History of unspecified psychosis diagnoses; has been on Geodon 40 mg twice daily for approximately 2 years. Anxiety disorder Chronic post-traumatic stress disorder (PTSD) Moderate episode of recurrent major depressive disorder Surgical History S/P cholecystectomy H/O esophagogastroduodenoscopy H/O colonoscopy H/O decompression of ulnar nerve H/O: hysterectomy one ovary left Family History Other Cancer Hypertension Denies family history of Diabetes CAD (coronary artery disease) Anesthesia complication Bleeding disorder Social History Smoking and tobacco/nicotine status: current every day tobacco/nicotine user Quit status (tobacco/nicotine): has quit using Year quit tobacco: 2019 Former quit date comment: 0.5 PPD since I was 15. I did stop for 3 years one time but.. Second hand smoke exposure: No Alcohol intake: never Substance/Drug Use: current Substance/Drug use frequency: few times a week Adopted: No Caregiver/support person: No Lives independently: Yes Household members: none Housing: Apartment Marital status: Single Number of children: 2 Number of grandchildren: 3 Highest education level completed: High School Graduate service: No Current occupational status: disabled Pets and animals: Yes Pets & animals: dog(s) Sexually active: No Do you think of yourself as: Straight/Heterosexual Current gender identity: Female Karely/Buddhism: Mu-Ism Special karely needs: No Agree to transfusion: Yes Female Reproductive History: Para: 2 Spontaneous abortions: Yes Physical Exam Const: COMMON NORMALS: no acute distress, patient oriented x3 and healthy appearing HENMT: COMMON NORMALS: normocephalic and atraumatic HEAD & SCALP: normocephalic and atraumatic Eye: COMMON NORMALS: conjunctivae normal CONJUNCTIVA: Yes conjunctivae normal Neck/C-Spine: COMMON NORMALS: full ROM and supple Chest: COMMONS NORMALS: normal inspection of the chest Resp: COMMON NORMALS: normal respiratory effort Cardio: COMMON NORMALS: regular rate, regular rhythm and No murmurs present (Cardio) RATE: regular rate RHYTHM: regular rhythm GI: COMMON NORMALS: Normal to inspection, nondistended, normoactive bowel sounds present, Soft to palpation, non-tender and no masses PALPATION: Yes Soft to palpation Extremity: COMMON NORMALS: normal to inspection and full ROM Neuro: COMMON NORMALS: patient oriented x3, moves all extremities and no focal motor deficits Psych: COMMON NORMALS: mental status grossly normal, Normal thought process present and cooperative THOUGHT PROCESS: Normal thought process present Skin: COMMON NORMALS: no rashes or lesions noted and no wounds GENERAL SKIN EXAM: no rashes or lesions noted Course Vital Signs: Vital signs: Vital Signs Temperature 97.5 F L 10/16/24 15:21 Pulse Rate 100 10/16/24 17:00 Respiratory Rate 16 10/16/24 15:21 Blood Pressure 104/80 10/16/24 17:00 Pulse Oximetry 95 10/16/24 17:00 Oxygen Delivery Me thod Room Air 10/16/24 15:21 MDM - General Adult Medical Decision Making Patient presents here with urinary retention she does have a UTI likely causing her retention she does have an elevated white count she has had some weakness as well we will admit this time for observation for IV antibiotics patient's vital signs here been stable. Medical Records I reviewed the patient's medical records. Lab Data I reviewed the patient's lab results. 10/16/24 14:53 10/16/24 14:53 Radiology Impressions Abdomen/Pelvis CT 10/16/24 15:29 IMPRESSION: 1. Atrophic left kidney not significantly changed. 2. No acute findings or significant change from previous. Laboratory Results WBC 18.04 10^3/uL (3.29-11.43) H 10/16/24 14:53 RBC 3.85 10^6/uL (3.85-5.65) 10/16/24 14:53 Hgb 11.90 g/dL (11.27-16.99) 10/16/24 14:53 Hct 36.7 % (36-47) 10/16/24 14:53 MCV 95.3 fl (85-98) 10/16/24 14:53 MCH 30.9 pg (27-33) 10/16/24 14:53 MCHC 32.4 g/dL (30-55) 10/16/24 14:53 RDW 16.2 % (12.1-15.1) H 10/16/24 14:53 Plt Count 366 10^3/cmm (157-399) 10/16/24 14:53 MPV 10.3 fL (7.4-10.4) 10/16/24 14:53 Neut % (Auto) 78.9 % 10/16/24 14:53 Lymph % (Auto) 11.6 % 10/16/24 14:53 Angelina % (Auto) 8.5 % 10/16/24 14:53 Eos % (Auto) 0.2 % 10/16/24 14:53 Baso % (Auto) 0.4 % 10/16/24 14:53 Neut # (Auto) 14.23 10^3/uL (1.8-7.7) H 10/16/24 14:53 Lymph # (Auto) 2.1 10^3/uL (0.8-4.8) 10/16/24 14:53 Angelina # (Auto) 1.5 10^3/uL (0.2-0.9) H 10/16/24 14:53 Eos # (Auto) 0.0 10^3/uL (0.0-0.8) 10/16/24 14:53 Baso # (Auto) 0.1 10^3/uL (0.0-0.1) 10/16/24 14:53 Nucleated RBC % (auto) 0 % 10/16/24 14:53 Nucleated RBCs # 0.0 /100WBC 10/16/24 14:53 Sodium 138 mmol/L (136-145) 10/16/24 14:53 Potassium 3.7 mmol/L (3.5-5.1) 10/16/24 14:53 Chloride 101 mmol/L (98-107) 10/16/24 14:53 Carbon Dioxide 19 mmol/L (22-29) L 10/16/24 14:53 Anion Gap 21.7 (5-19) H 10/16/24 14:53 BUN 20 mg/dL (8-23) 10/16/24 14:53 Creatinine 1.8 mg/dL (0.5-0.9) H 10/16/24 14:53 GFR Calculation 28.7 mL/min (90-130) L 10/16/24 14:53 Glucose 109 mg/dL (65-115) 10/16/24 14:53 Calculated Osmolality 289 mOsm/kg (285-295) 10/16/24 14:53 Calcium 9.5 mg/dL (8.5-10.5) 10/16/24 14:53 Total Bilirubin 0.6 mg/dL (0.15-1.2) 10/16/24 14:53 AST 1325 U/L (0-32) H 10/16/24 14:53 ALT 656 U/L (0-33) H 10/16/24 14:53 Alkaline Phosphatase 214 U/L (35-105) H 10/16/24 14:53 Total Protein 7.1 g/dL (6.6-8.7) 10/16/24 14:53 Albumin 3.8 g/dL (3.5-5.2) 10/16/24 14:53 Globulin 3.3 g/dL (1.3-4.6) 10/16/24 14:53 Lipase 24 U/L (13-60) 10/16/24 14:53 Urine Color Yellow (Yellow) 10/16/24 15:41 Urine Appearance Cloudy (CLEAR) A 10/16/24 15:41 Urine pH 6.5 (5-7) 10/16/24 15:41 Ur Specific [place] 1.013 (1.005-1.030) 10/16/24 15:41 Urine Protein Trace (Negative) A 10/16/24 15:41 Urine Glucose (UA) Negative (Normal) 10/16/24 15:41 Urine Ketones 1+ (Negative) H 10/16/24 15:41 Urine Blood Trace (Negative) A 10/16/24 15:41 Urine Nitrate Negative (Negative) 10/16/24 15:41 Urine Bilirubin Negative (Negative) 10/16/24 15:41 Urine Urobilinogen 1.0 mg/dL (Negative) 10/16/24 15:41 Ur Leukocyte Esterase 3+ (Negative) A 10/16/24 15:41 Urine RBC 0-2 /hpf (0-2) 10/16/24 15:41 Urine WBC >100 /hpf (0-5) H 10/16/24 15:41 Ur Squamous Epith Cells 0-5 /hpf (0-5) 10/16/24 15:41 Amorphous Sediment Not Reportable 10/16/24 15:41 Urine Bacteria 4+ /hpf (NONE) H 10/16/24 15:41 Hyaline Casts 5.77 /lpf 10/16/24 15:41 All radiology interpretation(s) finalized by discharge Discharge Plan Discharge Patient Disposition: Placed in Observation Clinical Impression: Acute cystitis, Acute urinary retention Discharge Diet: Advance as tolerated Discharge Activity: Resume usual activity Coding Level of Care Code ED Public Health Advisor for Delia Arellano
--- OUTSIDE RECORDS SUMMARY | 2024-10-16 15:16 | XMS_ITS | Encounter Summary ---
Author Organization [place] [employer] [facility] Address [address] [place] [address] Phone Care Team Providers Care Fire Extinguisher Sprinkler Inspector Name Role Phone Ange Keita DO Primary Care Provider [phone] Encounter Details Date Type Department Care Team (Late st Contact Info) Description 11/07/2018 Orders Only [facility] [employer] [address] [address] Shane Callejas NP Chronic kidney disease stage 3 Social History Tobacco Use Types Packs/Day Years Used Date Smoking Tobacco: Every Day Cigarettes 0.3 35.6 Started: 03/17/1989 Smokeless Tobacco: Never Alcohol Use Standard Drinks/Week Comments Never 0 (1 standard drink = 0.6 oz pur e alcohol) AUDIT-C Answer Date Recorded Frequency of Alcohol Consumption Never 07/08/2018 Average Number of Drinks Not on file 019 Frequency of Binge Drinking Not on file 06/16 Comments Unknown Sex and Gender Information Value Date Recorded Sex Assigned at Not on file Legal Sex Female 12:42 PM EST Gender Identity Not on file Sexual Orientation Not on file documented as of this encounter Plan of Treatment Upcoming Encounters Date Type Department Care Team (Late st Contact Info) Description 03/08/2025 9:00 AM WOUND CARE NURSE Office Visit [facility] [employer] [address] [address] Violeta Ortega NP [address] [place] [address] documented as of this encounter Procedures Procedure Name Priority Date/Time Associated Diagnosis Comments VITAMIN D 25 HYDROXY Routine 11/09/2018 12:08 PM CDT Chronic kidney disease stage 3 CBC Routine 11/09/2018 12:08 PM CDT Chronic kidney disease stage 3 PTH, INTACT Routine 11/09/2018 12:08 PM CDT Chronic kidney disease stage 3 RENAL FUNCTION PANEL Routine 11/09/2018 12:08 PM CDT Chronic kidney disease stage 3 documented in this encounter Results * Vit D 25 hydroxy (11/09/2018 12:08 PM CDT) Vitamin D, 25-OH, Total 40 ng/mL Blood specimen (specimen) Venous blood / Unknown 11/09/2018 12:08 PM CDT Heather Whitten MA - 11/09/2018 2:44 PM CDT [facility] [address] [place], [place] [address] Shane Callejas DRY MILL WORKER LAB BLOOD ORDERABLES Final Result * PTH, intact (11/09/2018 12:08 PM CDT) Pathologist [facility] Parathyroid Hormone, Intact 61.5 pg/mL Blood specimen (specimen) Venous blood / Unknown 11/09/2018 12:08 PM CDT Heather Whitten MA - 11/09/2018 2:44 PM CDT [facility] [address] [place], [place] [address] Shane Callejas DRY MILL WORKER LAB BLOOD ORDERABLES Final Result * CBC (11/09/2018 12:08 PM CDT) WBC 6.9 K/uL Red Blood Cell Count 3.25 Hemoglobin 11.1 g/dL Hematocrit 33.7 % MCV 103.7 MCH 34.3 MCHC 33.0 RDW 13.9 Platelet Count 254 MPV 8.1 Absolute Neutrophils 4.5 Absolute Lymphocytes 1.8 Absolute Monocytes 0.4 Absolute Eosinophils 0.2 Absolute Basophils 0.0 Neutrophils 64.6 K/uL Lymphocytes 25.9 Monocytes 5.9 Eosinophils 3.3 Basophils 0.3 Blood specimen (specimen) Venous blood / Unknown 11/09/2018 12:08 PM CDT Heather Whitten MA - 11/09/2018 2:40 PM CDT [facility] [address] [place], [place] [address] Shane Callejas DRY MILL WORKER LAB BLOOD ORDERABLES Final Result * (ABNORMAL) Renal function panel (11/09/2018 12:08 PM CDT) Albumin 3.8 3.5 - 5.0 g/dL BUN 20 4 - 21 mg/dL Calcium 9.0 8.7 - 10.7 mg/dL Chloride 107 99 - 108 Bicarbonate (CO2) 22 22 - 30 mmol/L Creatinine 1.70(A) 0.50 - 1.10 mg/dL eGFR 38.0 mL/min/1.7 3m*2 eGFR Non- 31.0 mL/min/1.7 3m*2 Glucose 110 Phosphorus, Serum 3.4 Potassium 3.9 3.4 - 5.5 Sodium 142 137 - 147 Blood specimen (specimen) Venous blood / Unknown 11/09/2018 12:08 PM CDT Heather Whitten MA - 11/09/2018 2:40 PM CDT [facility] [address] [place], [place] [address] Shane Callejas DRY MILL WORKER LAB BLOOD ORDERABLES Final Result documented in this encounter Visit Diagnoses Diagnosis Chronic kidney disease stage 3 (HCC) documented in this encounter Care Teams Fire Extinguisher Sprinkler Inspector Relationship Specialty Start Date End Date Ange Keita DO [address] [place] [address] PCP - General Family Medicine 03/26/18 documented as of this encounter
--- OUTSIDE RECORDS SUMMARY | 2024-10-16 15:16 | XMS_ITS | Encounter Summary ---
Author Organization [facility] Address [address] [place] [address] Phone Care Team Providers Care Data Technical Lead Name Role Phone Ange Keita DO Primary Care Provider [phone] Encounter Details Date Type Department Care Team (Late st Contact Info) Description 05/15/2019 Orders Only [facility] [employer], [address] [address] Shane Callejas NP Chronic kidney disease stage 3 (HCC) Social History Tobacco Use Types Packs/Day Years Used Date Smoking Tobacco: Former Cigarettes Q uit: 06/15/2018 Smokeless Tobacco: Never Alcohol Use Standard Drinks/Week [...] st Contact Info) Description 03/08/2025 9:00 AM DIRECTOR MEDICAL WRITING Office Visit [facility] [employer] [address] [phone] Violeta Ortega NP [address] [place] [address] documented as of this encounter Procedures Procedure Name Priority Date/Time Associated Diagnosis Comments URINE ALBUMIN / CREATININE RATIO Routine 04/20/2019 1:50 PM DIRECTOR MEDICAL WRITING Chronic kidney disease stage 3 (HCC) VITAMIN D 25 HYDROXY Routine 04/20/2019 1:50 PM DIRECTOR MEDICAL WRITING Chronic kidney disease stage 3 (HCC) CBC Routine 04/20/2019 1:50 PM DIRECTOR MEDICAL WRITING Chronic kidney disease stage 3 (HCC) PTH, INTACT Routine 04/20/2019 1:50 PM DIRECTOR MEDICAL WRITING Chronic kidney disease stage 3 (HCC) documented in this encounter Results * Vit D 25 hydroxy (04/20/2019 1:50 PM DIRECTOR MEDICAL WRITING) [facility] Vitamin D, 25-OH, Total 32 ng/mL Blood specimen (specimen) Venous blood / Unknown 04/20/2019 1:50 PM DIRECTOR MEDICAL WRITING Rebekah Bull LPN - 04/20/2019 2:37 PM DIRECTOR MEDICAL WRITING .[facility] [address] [place] [id number] Kobi Reeves Defensive Line Coach. Shane Callejas CARTON MARKER MACHINE LAB BLOOD ORDERABLES Final Result * (ABNORMAL) Urine albumin / creatinine ratio (04/20/2019 1:50 PM DIRECTOR MEDICAL WRITING) [facility] Urine Microalbumin 1 mg/dL Creatinine, Urine 39 mg/dL Microalb/Creat Ratio 26(A) 0 - 20 mg/g Creat Urine specimen (specimen) Urine specimen obtained by clean catch procedure / Unknown 04/20/2019 1:50 PM DIRECTOR MEDICAL WRITING Rebekah Bull LPN - 04/20/2019 2:37 PM DIRECTOR MEDICAL WRITING .[facility] [address] [facility] [place] [address] Dr. Kobi Reeves Defensive Line Coach. Shane Callejas CARTON MARKER MACHINE LAB URINE ORDERABLES Final Result * PTH, intact (04/20/2019 1:50 PM DIRECTOR MEDICAL WRITING) Parathyroid Hormone, Intact 50.8 pg/mL Blood specimen (specimen) Venous blood / Unknown 04/20/2019 1:50 PM DIRECTOR MEDICAL WRITING Narrative Rebekah Reeves LPN - 04/20/2019 2:37 PM DIRECTOR MEDICAL WRITING .[facility] [address] [place] [address] Dr. Kobi Reeves Defensive Line Coach. Shane Callejas CARTON MARKER MACHINE LAB BLOOD ORDERABLES Final Result * CBC (04/20/2019 1:50 PM DIRECTOR MEDICAL WRITING) Pathologist [facility] WBC 6.8 K/uL Red Blood Cell Count 3.51 Hemoglobin 11.5 g/dL Hematocrit 35.3 % MCV 100.6 MCH 32.8 MCHC 32.6 RDW 13.4 Platelet Count 389 MPV 10.3 Absolute Neutrophils 4.2 Absolute Lymphocytes 1.9 Absolute Monocytes 0.4 Absolute Eosinophils 0.2 Absolute Basophils 0.1 Neutrophils 61.9 K/uL Lymphocytes 27.5 Monocytes 6.4 Eosinophils 3.0 Basophils 0.9 Blood specimen (specimen) Venous blood / Unknown 04/20/2019 1:50 PM DIRECTOR MEDICAL WRITING Narrative Nicole Nation LPN - 04/20/2019 2:37 PM DIRECTOR MEDICAL WRITING CIRCLE BEVELER lab [facility] [address] [facility] [address] [address] Michael Monteiro, MED DIRECTOR Shane Callejas CARTON MARKER MACHINE LAB BLOOD ORDERABLES Final Result documented in this encounter Visit Diagnoses Diagnosis Chronic kidney disease stage 3 (HCC) documented in this encounter Care Teams Data Technical Lead Relationship Specialty Start Date End Date Ange Keita DO [address] [place] [address] PCP - General Family Medicine 03/26/18 documented as of this encounter
--- OUTSIDE RECORDS SUMMARY | 2024-10-16 15:16 | XMS_ITS | Clinical Summary ---
Author Organization [facility] Facility Address [address] [address] Care Team Providers Care Housekeeping Department Worker Name Role Phone Ange Keita DO Primary Care Provider [phone] Allergies Active Allergy Reactions Criticality Noted Date Comments Amoxicillin-Pot Clavulanate Other (see comments) 07/04/2020 Cefaclor Other (see comments) 05/26/2018 Ciprofloxacin Other (see comments) 07/04/2020 Doxycycline Itching,Rash Medium 02/18/2024 Penicillins Other (see comments) 05/26/2018 Sulfa Antibiotics Other (see comments),Itching,Ra sh Low 05/26/2017 Wasp Venom Protein Other (see comments) 018 Zolpidem 09/12/2022 Other reaction(s): Unknown Medications * This document contains information received from the source organization and may not represent a complete record from that organization. omega-3 (FISH OIL) 1000 MG capsule 1 (one) time each day Active Multiple Vitamins-Minera ls (MULTIVITAMIN ADULT) tablet 1 (one) time each day Active Sennosides (SENNA) 8.6 MG capsule Take 1 capsule by mouth every other day Active albuterol HFA (PROVENTIL HFA;VENTOLIN HFA) 108 (90 Base) MCG/ACT inhaler 2 puffs 4 (four) times a day Active levothyroxine (SYNTHROID, LEVOTHROID) 50 MCG tablet 1 tablet 1 (one) time each day Active propranolol LA (INDERAL LA) 60 MG 24 hr capsule Take 1 capsule by mouth at bed time Active sucralfate (CARAFATE) 1 g tablet Take 1 tablet by mouth 2 (two) times a day Active ziprasidone (GEODON) 20 MG capsule 60 mg every morning and 40 mg every evening Active hydrOXYzine (VISTARIL) 25 MG capsule Take 50 mg by mouth 2 (two) times a day 0 Active valACYclovir (VALTREX) 1 g tablet Take 1,000 mg by mouth daily 0 Active pantoprazole (PROTONIX) 40 MG EC tablet Take 1 tablet by mouth 2 (two) times a day 1 Active atorvastatin (LIPITOR) 40 MG tablet Take 40 mg by mouth 1 Active Eliquis 5 MG tablet 2 (two) times a day 2 Active dexlansoprazole (DEXILANT) [address] capsule Take 1 tablet by mouth 1 (one) time each day 1 Active magnesium oxide (MAG-OX) 400 MG tablet Take 400 mg by mouth 1 (one) time each day Active calcium carbonate-vitam in D 600-200 MG-UNIT per tablet Take 1 tablet by mouth in the morning. Active aspirin (ST KIMMY) 81 MG EC tablet Take 81 mg by mouth 1 (one) time each day Active COENZYME Q10 PO 75 mg 3 Active acetaminophen (TYLENOL) 325 MG tablet Take 650 mg by mouth every 6 (six) hours if needed 1 Active Combivent Respimat 20-100 MCG/ACT inhaler inhale ONE PUFF FOUR TIMES DAILY 3 Active baclofen (LIORESAL) 10 MG tablet Take 5 mg by mouth in the morning and 5 mg in the evening. 3 Active FLUoxetine (PROzac) 40 MG capsule Take 60 mg by mouth 1 (one) time each day 4 Active fluticasone (FLONASE) 50 MCG/ACT nasal spray Administer 1 spray into each nostril 1 (one) time each day 4 Active oxybutynin XL (DITROPAN-XL) 10 MG 24 hr tablet Take 10 mg by mouth 1 (one) time each day 4 Active buPROPion XL (WELLBUTRIN XL) 300 MG 24 hr tablet Take 300 mg by mouth 1 (one) time each day in the morning 4 Active Breztri Aerosphere 160-9-4.8 MCG/ACT aerosol Inhale 2 puffs in the morning and 2 puffs in the evening. 5 Active ferrous sulfate 325 (65 Fe) MG tablet Take 325 mg by mouth in the morning. 5 Active metoclopramide (REGLAN) 10 MG tablet TAKE 1 TABLET BY MOUTH TWICE DAILY NEEDED FOR nausea or emesis Active Botox 100 units injection Inject 100 Units into the shoulder, thigh, or buttocks Active Active Problems Problem Noted Date Diagnosed Date Patient declines smoking cessation information 0 09/06/2024 Chronic kidney disease stage 3B 09/06/2024 Anemia in chronic kidney disease 11/12/2018 Urinary incontinence 04/07/2018 Resolved Problems Problem Noted Date Diagnosed Date Resolved Date Chronic kidney disease, Stage IV (severe) 04/07/2018 09/06/2024 Tobacco user 04/07/2018 11/12/2018 Encounters Date Type Department Care Team Description 09/06/2024 9:30 AM CDT Office Visit [facility] [address] [place] [address] Leyla Devlin, LAVELL Urinary incontinence, not otherwise specified (Primary Dx); Chronic kidney disease, Stage IV (severe) (HCC); Anemia in chronic kidney disease; Patient declines smoking cessation information; Chronic kidney disease stage 3B (HCC) 08/30/2024 Telephone [facility] [address] [place] [address] Fady Mejia from Last 3 Months Immunizations Immunization Administration Dates Next Due Influenza TIV (IM) 2018,10/15/2012 Pneumococcal Polysaccharide 11/11/2017 Family History Medical History Relation Comments Cancer Father 2 Kidney Cancer Dementia Mother 2 Diabetes Mother 2 Hypertension Mother 2 Relation Status Comments Father 1 Father 2 Mother 1 Mother 2 Social History Tobacco Use Types Packs/Day Years Used Date Smoking Tobacco: Every Day Cigarettes Last attempted to quit: 06/15/2018 Smokeless Tobacco: Never Tobacco Cessation:Ready to Q uit: Not Asked; Counseling Given: Not Answered Alcohol Use Standard Drinks/Week Comments Never 0 [...] on file Sexual Orientation Not on file Last Filed Vital Signs Vital Sign Reading Time Taken Comments Blood Pressure 102/66 09/06/2024 9:43 AM CDT Pulse 68 09/06/2024 9:43 AM CDT Temperature 36.7 C (98.1 F) 10/20/2019 9:07 AM CDT Respiratory Rate - - Oxygen Saturation 99% 03/03/2024 1:04 PM [employer] Inhaled Oxygen Concentration - - Weight 76.1 kg (167 lb 12.8 oz) 09/06/2024 9:43 AM CDT Height 162.6 cm (5' 4 ) 09/06/2024 9:43 AM CDT Body Mass Index 28.8 09/06/2024 9:43 AM CDT Plan of Treatment Upcoming Encounters Date Type Department Care Team (Late st Contact Info) Description 03/08/2025 9:00 AM [employer] Office Visit [facility] [address] [place] [address] Violeta Ortega NP [address] [address] Health Maintenance Due Date Last Done Comments Breast Cancer Screening 1965 Colorectal Cancer Screening: Annual FOBT 01/06/2013 Colorectal Cancer Screening: Sigmoidoscopy 01/06/2013 Pneumococcal Vaccine: 50+ Years (3 of 3 - PCV20 or PCV21) 11/11/2022 11/13/2018, 11/11/2017 Influenza Vaccine (#1) 2024 2, 11/08/2019, 11/11/2018, Additional history exists Colorectal Cancer Screening: Colonoscopy 12/24/2027 12/23/2017 Pneumococcal Vaccine: Peds (0 to 5 Years) and At-Risk Patients (6 to 49 Years) Discontinued 11/13/2018, 11/11/2017 Hepatitis B Vaccine Aged Out No longe r eligible based on patient's age to complete this topic Insurance Medicaid [place] ([id number]) Dual Complete Choice [place] Care Teams Housekeeping Department Worker Relationship Specialty Start Date End Date Ange Keita DO [address] [place] [address] PCP - General Family Medicine 03/26/18
[2024-10-16 15:23] LABS: Hematocrit 36.7 % (36-47); Hemoglobin 11.90 g/dL (11.27-16.99); Mean Corpuscular HGB Conc 32.4 g/dL (30-55); Mean Corpuscular Hemoglobin 30.9 pg (27-33); Mean Corpuscular Volume 95.3 fl (85-98); Nucleated Red Blood Cells % 0 %; Platelet Count 366 10^3/cmm (157-399); Red Blood Count 3.85 10^6/uL (3.85-5.65); White Blood Count 18.04 10^3/uL (3.29-11.43)
--- NOTE | 2024-10-16 15:29 | CTR_ITS ---
PROCEDURE INFORMATION: Exam: CT Abdomen And Pelvis Without Contrast Exam date and time: 10/16/2024 4:01 PM Age: 59 years old Clinical indication: Abdominal pain; C/O urinary retention. PT reports that she has only been able to dribble urine out since this morning. HX left kidney and decreased function to the right. ; Additional info: Abd pain TECHNIQUE: Imaging protocol: Computed tomography of the abdomen and pelvis without contrast. Radiation optimization: All CT scans at this facility use at least one of these dose optimization techniques: automated exposure control; mA and/or kV adjustment per patient size (includes targeted exams where dose is matched to clinical indication); or iterative reconstruction. COMPARISON: CT abdomen pelvis wo con [id number] 12/02/2021 8:56 AM RADIATION DOSE METRICS: Total DLP (mGy-cm): 644.57 FINDINGS: Limitations: The absence of intravenous contrast lessens the sensitivity of this study for solid organ abnormalities. Lungs: There is mild dependent atelectasis of the lung bases. Diaphragm: A moderate hiatal hernia is present. Liver: There is no focal abnormality within the liver. Gallbladder and biliary ducts: There has been a cholecystectomy. There is no common bile duct dilation. Pancreas: The pancreas is normal. Spleen: The spleen is normal. There is prominent splenule medial to the spleen not significantly changed. Adrenal glands: The adrenal glands are normal. Kidneys and ureters: There is a 17 x 27 mm sized cyst lower pole left kidney not significantly changed. Left kidney is moderately atrophic with areas of cortical scarring not significantly changed. The right kidney is normal. There is no evidence of hydronephrosis. There is no evidence of renal or ureteral calcifications. Stomach and bowel: Mild diverticulosis is present in the distal colon. There is no evidence of colitis/diverticulitis. There is no evidence of intestinal obstruction. Appendix: A normal appendix is identified. Intraperitoneal space: There is no evidence of free intraperitoneal fluid. Vasculature: The aorta demonstrates mild atherosclerotic calcification. There is no evidence of an abdominal aortic aneurysm. Lymph nodes: There is no evidence of lymphadenopathy. Urinary bladder: Urinary bladder is drained by Cortez catheter. Reproductive: There has been a hysterectomy. Bones/joints: There is moderate wedging compression L1 stable compared with 12/02/2021. Soft tissues: Unremarkable. CT/CT kidney stone [id number] IMPRESSION: 1. Atrophic left kidney not significantly changed. 2. No acute findings or significant change from previous.
[2024-10-16 15:37] LABS: Alanine Aminotransferase 656 U/L (0-33); Albumin Level 3.8 g/dL (3.5-5.2); Alkaline Phosphatase 214 U/L (35-105); Anion Gap 21.7 (5-19); Blood Urea Nitrogen 20 mg/dL (8-23); Calcium 9.5 mg/dL (8.5-10.5); Carbon Dioxide 19 mmol/L (22-29); Chloride 101 mmol/L (98-107); Globulin 3.3 g/dL (1.3-4.6); Glucose 109 mg/dL (65-115); Lipase 24 U/L (13-60); Osmolality Calculated 289 mOsm/kg (285-295); Potassium 3.7 mmol/L (3.5-5.1); Sodium 138 mmol/L (136-145); Total Protein 7.1 g/dL (6.6-8.7)
[2024-10-16 15:44] LABS: Creatinine Clr Calc Pharmacy 31.9762
[2024-10-16 15:48] LABS: Glucose Urine UA Negative (Normal); Nitrate Urine Negative (Negative); Specific Gravity, Urine 1.013 (1.005-1.030)
[2024-10-16 15:51] LABS: Add Urine Microscopic? YES
[2024-10-16 16:09] LABS: Aspartate Amino Transferase 1325 U/L (0-32)
--- NOTE | 2024-10-16 17:45 | PC.NURSE ---
pt in gown, thompson in place, ID band and allergy band on.
--- NOTE | 2024-10-16 19:07 | PM.HP ---
Providers/Chief Complaint Admitting Physician: Bala Clements MD Primary Care Provider: Ange Keita DO Chief Complaint: diff urinating History of Present Illness Camelia Lopez is a 59 year old female comes in with symptoms of urinary retention states she could not pee and was dribbling. She states she has never had a Cortez catheter before and this is the first time. She could not pee on Friday or Friday and her butt hurts from sitting on the toilet. She denies back pain. She has multiple medication allergies including penicillin and sulfa. She had rash to penicillin sulfa doxycycline cefazolin Ceclor. She can take Macrobid and clindamycin. Patient had Cortez placed and returned 700 cc immediately and thousand total within the hour. She had a CT scan showingAtrophic atrophic left kidney bladder was decompressed with Cortez and so no particular findings Patient is on multiple muscle relaxers and also oxybutynin. Urine with 4+ bacteria greater than 100 white cells 3+ leukocyte Estrace and ketones Review of Systems Narrative: General no fever she has had chills felt cold Cardiovascular no chest pain palpitations or edema Respiratory no shortness of breath cough wheezing GI no nausea vomiting constipation she has diarrhea couple times today. She reports some blood in the stool with wiping no dysuria or pain just cannot pee she denies hematuria. Neuro patient reports she had a stroke about 3 years ago and left side is weak. She is able to walk typically but weaker last couple of days. She also denies being aware of having unequal pupils Medications/Allergies Home Medications ?Medication ?Instructions ?Recorded ?Confirmed ?Last Taken ?Type ipratropium 20 mcg-albuterol 100 2 puff inhalation Q6H PRN 02/08/20 10/16/24 01/22/24 History mcg/actuation mist for inhalation shortness of breath or wheezing (Combivent Respimat) acetaminophen 325 mg tablet 325 - 650 mg PO QID PRN Pain 07/15/20 10/16/24 01/22/24 History (Tylenol) albuterol sulfate 90 mcg/actuation 2 puff inhalation QID PRN 07/15/20 10/16/24 01/22/24 History aerosol inhaler Shortness Of Breath aspirin 81 mg tablet,delayed 81 mg PO DAILY #30 tabs 07/15/20 10/16/2425 07:00 Rx release sopvrbnd-guxh-wjxq 8 mg-folic 400 1 tab PO DAILY@1030 07/15/20 10/16/24 10/15/24 10:00 History mcg-K 50 mcg-lutein 300 mcg tablet (Multivitamin Women 50 Plus) valacyclovir 1 gram tablet 1,000 mg PO DAILY@1030 07/15/20 10/16/24 10/15/24 10:30 History apixaban 5 mg tablet (Eliquis) 5 mg PO BID 04/25/21 10/16/24 10/15/24 07:00 History coenzyme Q10 75 mg capsule (Ultra 75 mg PO DAILY 06/04/22 10/16/24 10/15/24 09:00 History CoQ10) atorvastatin 40 mg tablet 40 mg PO QPM 01/23/24 10/16/24 10/14/24 21:00 History dexlansoprazole 60 mg 60 mg PO DAILY 01/23/24 10/16/24 10/15/24 09:00 History capsule,biphase delayed release (Dexilant) fluticasone propionate 50 50 mcg intranasal DAILY PRN 01/23/24 10/16/24 01/22/24 History mcg/actuation nasal allergies spray,suspension oxybutynin chloride 10 mg 10 mg PO DAILY 01/23/24 10/16/24 10/15/24 09:00 History tablet,extended release 24 hr propranolol 60 mg capsule,24 60 mg PO DAILY 01/23/24 10/16/24 10/15/24 09:00 History hr,extended release baclofen 10 mg tablet 10 mg PO .UP TO QID 07/15/24 10/16/24 10/15/24 08:00 History calcium carbonate 500 mg PO DAILY 07/15/24 10/16/24 10/15/24 09:00 History omega 3-glt-rur-fish oil 1,000 mg 1 cap PO .@1030 07/15/24 10/16/24 10/15/24 10:30 History (120 mg-180 mg) capsule (Fish Oil) onabotulinumtoxinA 100 unit 400 unit IM .M48isda #6 ea 07/20/24 10/16/24 Unknown Rx solution for injection (Botox) bupropion HCl 300 mg 24 hr tablet, 300 mg PO QAM #30 tabs 09/30/24 10/16/24 10/15/24 08:00 Rx extended release ziprasidone HCl 60 mg capsule See Rx Instructions .Route 09/30/24 10/16/24 10/15/24 09:00 Rx .COMPLEX #60 caps hydroxyzine pamoate 50 mg capsule 50 mg PO TID PRN anxiety #90 caps 10/07/24 10/16/24 10/15/24 09:00 Rx ferrous sulfate 325 mg (65 mg 325 mg PO DAILY 10/16/24 10/16/24 10/15/24 11:00 History iron) tablet (FeroSul) fluoxetine 40 mg capsule 80 mg PO DAILY 10/16/24 10/16/24 10/15/24 09:00 History levothyroxine 50 mcg tablet 50 mcg PO QAM 10/16/24 10/16/24 10/15/24 08:00 History nitrofurantoin 100 mg PO BID 7 days #14 caps 10/16/24 Unknown Rx monohydrate/macrocrystals 100 mg capsule (Macrobid) Allergies Allergy/AdvReac Type Severity Reaction Status Date / Time venom-wasp Allergy Severe ALGY-Anaphy Verified 10/07/24 13:51 laxis amoxicillin Allergy rash Verified 10/07/24 13:51 cefaclor (From Ceclor) Allergy rash Verified 10/07/24 13:51 cefazolin Allergy rash Verified 10/07/24 13:51 clavulanic acid (From Allergy Unknown Verified 10/07/24 13:51 Augmentin) doxycycline Allergy ALGY-Rash Verified 10/07/24 13:51 Penicillins Allergy rash Verified 10/07/24 13:51 Sulfa (Sulfonamide Allergy rash Verified 10/07/24 13:51 Antibiotics) zolpidem (From Ambien) Allergy Unknown Verified 10/07/24 13:51 PFSH Acute PFSH: Medical History (Updated 10/16/24 @ 19:15 by Bala Clements MD) On combination antipsychotic drug therapy Nicotine use disorder Heterozygous factor V Leiden mutation Anemia Psychiatric care Hypothyroidism Chronic kidney disease (CKD) Bile reflux gastritis Recurrent UTI GERD (gastroesophageal reflux disease) Psychosis History of unspecified psychosis diagnoses; has been on Geodon 40 mg twice daily for approximately 2 years. Anxiety disorder Chronic post-traumatic stress disorder (PTSD) Moderate episode of recurrent major depressive disorder Surgical History S/P cholecystectomy H/O esophagogastroduodenoscopy H/O colonoscopy H/O decompression of ulnar nerve H/O: hysterectomy one ovary left Family History Other Cancer Hypertension Denies family history of Diabetes CAD (coronary artery disease) Anesthesia complication Bleeding disorder Social History (Updated 10/16/24 @ 19:11 by Bala Clements MD) Smoking and tobacco/nicotine status: current every day tobacco/nicotine user cigarettes Packs smoked per day: 1 Second hand smoke exposure: No Alcohol intake: never Substance/Drug Use: unknown Additional social history: Patient denies drug use she admits to smoking 1 pack/day she denies being on chronic pain meds. She is companied by her friend Murphy La who serves as her caregiver part at the time. She wants full CODE STATUS and states that her daughter Lissette Troy is her next of kin and decision maker if she is unable to make her own decision Adopted: No Caregiver/support person: No Lives independently: Yes Household members: none Housing: Apartment Marital status: Single Number of children: 2 Number of grandchildren: 3 Highest education level completed: High School Graduate service: No Current occupational status: disabled Pets and animals: Yes Pets & animals: dog(s) Sexually active: No Do you think of yourself as: Straight/Heterosexual Current gender identity: Female Karely/Episcopal: Mandaeism Special karely needs: No Agree to transfusion: Yes Female Reproductive History: Para: 2 Spontaneous abortions: Yes Vitals/I&O/Wt Last Vital Signs Temp 97.5 F L 10/16/24 15:21 Pulse 92 10/16/24 18:00 Resp 16 10/16/24 15:21 BP 123/59 10/16/24 18:00 Pulse Ox 94 10/16/24 18:00 O2 Del Method Room Air 10/16/24 18:00 Weight last 48 hrs Weight 70.307 kg Physical Exam Narrative: General well-developed well-nourished obese female in no acute cardiopulmonary distress neuro she is alert oriented pleasant left pupil 7 mm and reactive right pupil 5 mm and reactive Motor 5/5 right hand sales representative left side 3/5 left arm biceps and triceps 2+ to 3 right 5/5 Right leg lift 5-/5 left side 4/5 ankle flexion and extension 5/5 right 4/5 left CV Urinary Catheter Management: Cortez: Cath Placed During This Visit: yes Reason for Continuing Indwelling Catheter: Acute Urinary Retention or Obstruction Urinary Catheter Date of Insertion: 10/16/24 Data 10/16/24 14:53 10/16/24 14:53 A&P Assessment and plan 1. Acute cystitis: Patient had urinary retention has been to the hospital with chronic kidney disease and treated with Cipro because she cannot tolerate penicillin or Rocephin families of medication. We have elected to give her Cipro since bioavailability is essentially 100% 2. Acute urinary retention: Patient has Cortez placed she also has urinary tract infection. Urine retention likely attributable to oxybutynin baclofen 3. Hepatitis: Unclear etiology but her AST is is 1325 and ALT 656 when it was 34 and 36 in 2022 she has been having some diarrhea which could suggest hepatitis A. Will do acute panel. Bilirubin is 0.6 so we will hold off on ultrasound for now. Her medications could be causing this and will have to be further evaluated lipase is 24 4. Spastic hemiparesis affecting nondominant side: Patient on multiple medications likely contributing to urinary retention possibly to her hepatitis PDMP PDMP Reviewed: Not Reviewed Attestations Medical Necessity Statement*: Patient is admitted to the hospital for physical therapy evaluation, monitoring of her UTI and repeat labs expected to be in the hospital 1-2 midnights Coding Level of Care Code 35636 Diagnoses Acute cystitis N30.00 Acute urinary retention R33.8 Hepatitis K75.9 Spastic hemiparesis affecting nondominant side G81.10 Time Spent (min) 70
[2024-10-16] MEDS: sodium chlor 0.9% + KCl 20 mEq 20 MEQ/1,000 ML BAG 100 MEQ IV (20:29)
[2024-10-16 23:57] LABS: Hepatitis A Antibody IgM Non-Reactive (Nonreactive); Hepatitis B Surface Antigen Non-Reactive (Nonreactive)
[2024-10-17] VITALS (7 sets, daily range): BP systolic 99–119; BP diastolic 62–75; PULSE 82–91; RESP 13–18; TEMP 36.6–37.2; O2SAT 91–99
[2024-10-17] MEDS: sodium chlor 0.9% + KCl 20 mEq 20 MEQ/1,000 ML BAG 100 MEQ IV (05:25)
[2024-10-17] MEDS: pneumococcal (23 valent) SDV 0.5 mL IM (11:12)
[2024-10-17 13:45] LABS: Hematocrit 32.2 % (36-47); Hemoglobin 10.20 g/dL (11.27-16.99); Mean Corpuscular HGB Conc 31.7 g/dL (30-55); Mean Corpuscular Hemoglobin 30.4 pg (27-33); Mean Corpuscular Volume 96.1 fl (85-98); Nucleated Red Blood Cells % 0 %; Platelet Count 249 10^3/cmm (157-399); Red Blood Count 3.35 10^6/uL (3.85-5.65); White Blood Count 9.80 10^3/uL (3.29-11.43)
[2024-10-17 14:03] LABS: Alanine Aminotransferase 443 U/L (0-33); Albumin Level 2.9 g/dL (3.5-5.2); Alkaline Phosphatase 167 U/L (35-105); Anion Gap 13.2 (5-19); Aspartate Amino Transferase 590 U/L (0-32); Blood Urea Nitrogen 15 mg/dL (8-23); Calcium 8.4 mg/dL (8.5-10.5); Carbon Dioxide 20 mmol/L (22-29); Chloride 112 mmol/L (98-107); Globulin 2.4 g/dL (1.3-4.6); Glucose 89 mg/dL (65-115); Osmolality Calculated 292 mOsm/kg (285-295); Potassium 4.2 mmol/L (3.5-5.1); Sodium 141 mmol/L (136-145); Total Protein 5.3 g/dL (6.6-8.7)
[2024-10-17 14:11] LABS: Creatinine Clr Calc Pharmacy 49.1067
--- NOTE | 2024-10-17 15:23 | P.PN_ITS ---
Subjective 2 Subjective: 59-year-old female states she feels better. She had been on oxybutynin for overactive bladder but states that she can be off it. 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 We discussed that her liver enzymes are quite high but her hepatitis panel is negative. Patient states her diarrhea has resolved. We discussed that her hepatitis or liver inflammation may be due to polypharmacy. She states that her PCP had told her that her liver enzymes were high but she did not know exactly how high. We discussed that her AST was 1325 normal being less than 32 and ALT was 656 normal being less than 33. Patient is motivated to try a lower dose of medication. Currently patient feels fine on the medications as written. Anticipate that she will have some symptoms, but will need to start back some of her medications for renal and liver adjusted doses Vitals/I&O/Wt Last Vital Signs Temp 98.9 F 10/17/24 11:41 Pulse 91 10/17/24 11:41 Resp 14 10/17/24 11:41 BP 106/65 10/17/24 11:41 Pulse Ox 91 10/17/24 11:41 O2 Del Method Room Air 10/17/24 11:41 10/17/24 10/17/24 10/17/24 06:59 14:59 22:59 Intake Total 1133.333 / 1133.333 240 / 240 1000 / 1240 Output Total 200 / 200 Balance 933.333 / 933.333 240 / 240 1000 / 1240 Weight last 48 hrs Weight 73.936 kg Weight 70.307 kg Weight 70.307 kg Physical Exam 2 Narrative: General well-developed well-nourished obese female in no acute cardiopulmonary distress neuro she is alert oriented pleasant left pupil 7 mm and reactive right pupil 5 mm and reactive Motor 5/5 right hand rn endoscopy left side 2+ to 3/5 left arm biceps and triceps 3 right 5/5 Right leg lift 5-/5 left side 4/5 ankle flexion and extension 5/5 right 4/5 left Patient is able to hold her left hand up in the air when I lift both of them up and she tries to focus on keeping it up for about 5 to 7 seconds CV regular rate and rhythm Lungs clear to auscultation bilaterally Abdomen positive bowel tones soft mild suprapubic tenderness back no flank tenderness Urinary Catheter Management: Cortez: Cath Placed During This Visit: yes Reason for Continuing Indwelling Catheter: Acute Urinary Retention or Obstruction Urinary Catheter Date of Insertion: 10/16/24 Data 10/17/24 13:39 10/17/24 13:39 Micro: Microbiology 10/16/24 15:41 Urine Culture - Preliminary Urine,Clean Catch Gram Negative Rods A&P Assessment and plan 1. Acute cystitis: Patient had urinary retention has been to the hospital with chronic kidney disease and treated with Cipro because she cannot tolerate penicillin or Rocephin families of medication. We have elected to give her Cipro since bioavailability is essentially 100% Continue on Cipro 2. Acute urinary retention: Patient has Cortez placed she also has urinary tract infection. Urine retention likely attributable to oxybutynin baclofen 3. Hepatitis: Unclear etiology but her AST is is 1325 and ALT 656 when it was 34 and 36 in 2022 she has been having some diarrhea which could suggest hepatitis A. Will do acute panel. Bilirubin is 0.6 so we will hold off on ultrasound for now. Her medications could be causing this and will have to be further evaluated lipase is 24 Stop Lipitor for now. She did get her dose as I inadvertently wrote for yesterday I am not able to order acetaminophen level due to her insurance will further question patient regarding how much acetaminophen she has recently been taking 4. Spastic hemiparesis affecting nondominant side: Patient on multiple medications likely contributing to urinary retention possibly to her hepatitis. Oxybutynin has been stopped and I have held baclofen. Creatinine also improved with hydration 5. CKD (chronic kidney disease) stage 3, GFR 30-59 ml/min: Patient with chronic creatinine 1.8 but this may have been related to urinary retention. Cortez is in and she dropped her creatinine to 1.2. This may suggest that she has chronic urinary retention. Oxybutynin is stopped Plan: Baclofen held bupropion decreased to half dose fluoxetine continued at full dose oxybutynin stopped Cortez in place potential discharge home tomorrow. I have held off on liver ultrasound because she had a CT of the liver showing no stones or enlargement of the gallbladder and the bilirubin has been normal PDMP PDMP Reviewed: Not Reviewed Attestations 2 Medical Necessity Statement*: Patient remains in the hospital for treatment of UTI and monitoring of liver function for 1 additional midnight Coding Level of Care Code 07588 Diagnoses Acute cystitis N30.00 Acute urinary retention R33.8 Hepatitis K75.9 Spastic hemiparesis affecting nondominant side G81.10 CKD (chronic kidney disease) stage 3, GFR 30-59 ml/min N18.30 Time Spent (min) 35
[2024-10-18 04:00] VITALS: BP 128/85; PULSE 78; RESP 20; TEMP 36.8; O2SAT 95
[2024-10-18 07:48] VITALS: BP 120/77; PULSE 84; RESP 18; TEMP 36.8; O2SAT 96
[2024-10-18 11:26] VITALS: BP 118/76; PULSE 89; RESP 18; TEMP 36.8; O2SAT 92
--- NOTE | 2024-10-18 14:25 | PC.NURSE ---
Removed patient's Cortez Catheter at this time to see if patient is able to void.
--- NOTE | 2024-10-18 15:23 | PM.DCS ---
Discharge Providers Date of Admission: 10/16/24 17:09 Date of Discharge: October 18, 2024 Attending Provider at Admission: Bala Clements MD Attending Provider at Discharge: Wendy Taylor MD Primary Care Provider: Ange Keita DO Diagnoses at Discharge Discharge Diagnosis 1. Acute cystitis: 2. Acute urinary retention: 3. Hepatitis: 4. Spastic hemiparesis affecting nondominant side: 5. CKD (chronic kidney disease) stage 3, GFR 30-59 ml/min: Reason for Visit Reason for Visit: diff urinating Hospital Course Hospital Course Patient is a 59-year-old lady who was admitted to the hospital on October 16, 2024 with chief complaints of urinary retention. Patient states that she was having only dribbling 2 to 3 days prior to admission. She had a Cortez catheter placed and returned [address] of the abdomen and pelvis was performed which showed an atrophic left kidney. She was found to have a UTI which showed 2 species of Klebsiella pneumonia both sensitive to ciprofloxacin. Due to concern that acute urinary retention may be related to oxybutynin and baclofen use, dose of both medications was reduced. Incidentally she was found to have elevated AST and ALT at 1325 and 656 respectively. Acute hepatitis serology was negative with hep A IgM, hep B surface antigen, hep B core IgM and hep C screen negative. Alkaline phosphatase was noted to be at 167, prior numbers reviewed between 111-143. CT of the abdomen and pelvis was performed which did not show any focal abnormality within the liver. She was status postcholecystectomy without any biliary dilatation encountered. Creatinine remained stable at 1.2 at discharge, this was improved over previous numbers which ranged between 1.4-1.8. Etiology of her liver dysfunction remains unclear at this time but potentially may be related to statin use which has been held at the time of discharge. She was additionally noted to have mildly elevated CK at 377 therefore statins were discontinued at this time. Patient is recommended to follow-up with her primary care physician for recheck of her LFTs and CK in a week. Trial of Cortez catheter removal was given today however this resulted in retention of 200 cc urine. Patient was therefore discharged with Cortez catheter in place with recommendations to follow-up with urology in the next 2 to 3 weeks. Physical Exam Narrative: General: No acute distress, AO x3 HEENT: PERRLA, pupils bilaterally equal and reactive, pallors not present Chest: Normal vesicular breath sounds, no added sounds, equal good air entry bilaterally CVS: S1-S2 regular, no murmurs, no tachycardia, no gallops, no rubs Abdomen: Soft, nontender, no organomegaly, bowel sounds present Urinary Catheter Management: Cortez: Cath Placed During This Visit: yes Reason for Continuing Indwelling Catheter: Acute Urinary Retention or Obstruction Urinary Catheter Date of Insertion: 10/16/24 Discharge Data Studies Completed and Pending Completed Studies During Hospitalization Category Date Time Status CT abdomen renal stone [CT kidney stone 93302] Stat Cat Scan 10/16/24 15:29 Completed Radiology Impressions Abdomen/Pelvis CT 10/16/24 15:29 IMPRESSION: 1. Atrophic left kidney not significantly changed. 2. No acute findings or significant change from previous. Laboratory Results WBC 9.80 10^3/uL (3.29-11.43) 10/17/24 13:39 RBC 3.35 10^6/uL (3.85-5.65) L 10/17/24 13:39 Hgb 10.20 g/dL (11.27-16.99) L 10/17/24 13:39 Hct 32.2 % (36-47) L 10/17/24 13:39 MCV 96.1 fl (85-98) 10/17/24 13:39 MCH 30.4 pg (27-33) 10/17/24 13:39 MCHC 31.7 g/dL (30-55) 10/17/24 13:39 RDW 16.3 % (12.1-15.1) H 10/17/24 13:39 Plt Count 249 10^3/cmm (157-399) D 10/17/24 13:39 MPV 9.7 fL (7.4-10.4) 10/17/24 13:39 Neut % (Auto) 71.7 % 10/17/24 13:39 Lymph % (Auto) 17.7 % 10/17/24 13:39 [place] % (Auto) 8.3 % 10/17/24 13:39 Eos % (Auto) 1.4 % 10/17/24 13:39 Baso % (Auto) 0.6 % 10/17/24 13:39 Neut # (Auto) 7.03 10^3/uL (1.8-7.7) 10/17/24 13:39 Lymph # (Auto) 1.7 10^3/uL (0.8-4.8) 10/17/24 13:39 [place] # (Auto) 0.8 10^3/uL (0.2-0.9) 10/17/24 13:39 Eos # (Auto) 0.1 10^3/uL (0.0-0.8) 10/17/24 13:39 Baso # (Auto) 0.1 10^3/uL (0.0-0.1) 10/17/24 13:39 Nucleated RBC % (auto) 0 % 10/17/24 13:39 Nucleated RBCs # 0.0 /100WBC 10/17/24 13:39 Sodium 141 mmol/L (136-145) 10/17/24 13:39 Potassium 4.2 mmol/L (3.5-5.1) 10/17/24 13:39 Chloride 112 mmol/L (98-107) H 10/17/24 13:39 Carbon Dioxide 20 mmol/L (22-29) L 10/17/24 13:39 Anion Gap 13.2 (5-19) 10/17/24 13:39 BUN 15 mg/dL (8-23) 10/17/24 13:39 Creatinine 1.2 mg/dL (0.5-0.9) H 10/17/24 13:39 GFR Calculation 45.8 mL/min (90-130) L 10/17/24 13:39 Glucose 89 mg/dL (65-115) 10/17/24 13:39 Calculated Osmolality 292 mOsm/kg (285-295) 10/17/24 13:39 Calcium 8.4 mg/dL (8.5-10.5) L 10/17/24 13:39 Total Bilirubin 0.4 mg/dL (0.15-1.2) 10/17/24 13:39 AST 590 U/L (0-32) H 10/17/24 13:39 ALT 443 U/L (0-33) H 10/17/24 13:39 Alkaline Phosphatase 167 U/L (35-105) H 10/17/24 13:39 Creatine Kinase 377 U/L (26-192) H* 10/17/24 13:39 Total Protein 5.3 g/dL (6.6-8.7) L D 10/17/24 13:39 Albumin 2.9 g/dL (3.5-5.2) L 10/17/24 13:39 Globulin 2.4 g/dL (1.3-4.6) 10/17/24 13:39 Lipase 24 U/L (13-60) 10/16/24 14:53 Urine Color Yellow (Yellow) 10/16/24 15:41 Urine Appearance Cloudy (CLEAR) A 10/16/24 15:41 Urine pH 6.5 (5-7) 10/16/24 15:41 Ur Specific [place] 1.013 (1.005-1.030) 10/16/24 15:41 Urine Protein Trace (Negative) A 10/16/24 15:41 Urine Glucose (UA) Negative (Normal) 10/16/24 15:41 Urine Ketones 1+ (Negative) H 10/16/24 15:41 Urine Blood Trace (Negative) A 10/16/24 15:41 Urine Nitrate Negative (Negative) 10/16/24 15:41 Urine Bilirubin Negative (Negative) 10/16/24 15:41 Urine Urobilinogen 1.0 mg/dL (Negative) 10/16/24 15:41 Ur Leukocyte Esterase 3+ (Negative) A 10/16/24 15:41 Urine RBC 0-2 /hpf (0-2) 10/16/24 15:41 Urine WBC >100 /hpf (0-5) H 10/16/24 15:41 Ur Squamous Epith Cells 0-5 /hpf (0-5) 10/16/24 15:41 Amorphous Sediment Not Reportable 10/16/24 15:41 Urine Bacteria 4+ /hpf (NONE) H 10/16/24 15:41 Hyaline Casts 5.77 /lpf 10/16/24 15:41 Hepatitis A IgM Ab Non-reactive (Nonreactive) 10/16/24 14:53 Hep Bs Antigen Non-reactive (Nonreactive) 10/16/24 14:53 Hep B Core IgM Ab Non-reactive (Nonreactive) 10/16/24 14:53 Hepatitis C Antibody Non-reactive (Nonreactive) 10/16/24 14:53 Vitals Last Vital Signs Temp 98.2 F 10/18/24 11:26 Pulse 89 10/18/24 11:26 Resp 18 10/18/24 11:26 BP 118/76 10/18/24 11:26 Pulse Ox 92 10/18/24 11:26 O2 Del Method Room Air 10/18/24 11:26 Discharge Plan Discharge Patient Disposition: Home Condition: Stable Prescriptions: New ciprofloxacin HCl 500 mg tablet 500 mg PO BID 5 Days Qty: 10 0RF Continued Combivent Respimat 20-100 mcg/actuation mist 2 puff inhalation Q6H PRN (Reason: shortness of breath or wheezing) Eliquis 5 mg tablet 5 mg PO BID Ultra CoQ10 75 mg capsule 75 mg PO DAILY ziprasidone HCl 60 mg capsule See Rx Instructions .ROUTE .COMPLEX Qty: 60 2RF Dose Instruction: take 1 capsule BY MOUTH TWICE DAILY EVERY MORNING AND EVERY EVENING. TAKE WITH FOOD (MEAL/SNACK) OF AT LEAST 350 CALORIES Rx Instructions: Take 1 capsule BY MOUTH TWICE DAILY EVERY MORNING AND EVERY EVENING. TAKE WITH FOOD (MEAL/SNACK) OF AT LEAST 350 CALORIES Botox 100 unit recon soln 400 unit IM .[id number] Qty: 6 3RF hydroxyzine pamoate 50 mg capsule 50 mg PO TID PRN (Reason: anxiety) Qty: 90 2RF valacyclovir 1 gram tablet 1,000 mg PO DAILY@1030 albuterol sulfate 90 mcg/actuation HFA aerosol inhaler 2 puff INHALATION QID PRN (Reason: Shortness Of Breath) Multivitamin Women 50 Plus 8 mg iron-400 mcg-300 mcg Tablet 1 tab PO DAILY@1030 acetaminophen [Tylenol] 325 mg Tablet 325 - 650 mg PO QID PRN (Reason: Pain) aspirin 81 mg tablet,delayed release (DR/EC) 81 mg PO DAILY Qty: 30 0RF calcium carbonate 500 mg calcium (1,250 mg) Tablet 500 mg PO DAILY omega 6-jhg-gor-fish oil [Fish Oil] 1,000 (120-180) mg Capsule 1 cap PO .@1030 fluoxetine 40 mg capsule 80 mg PO DAILY levothyroxine 50 mcg tablet 50 mcg PO QAM ferrous sulfate [FeroSul] 325 mg (65 mg iron) tablet 325 mg PO DAILY propranolol 60 mg capsule,extended release 24 hr 60 mg PO DAILY fluticasone propionate 50 mcg/actuation spray,suspension 50 mcg INTRANASAL DAILY PRN (Reason: allergies) dexlansoprazole [Dexilant] 60 mg capsule,biphase delayed releas 60 mg PO DAILY Changed oxybutynin chloride 10 mg tablet extended release 24hr 10 mg PO DAILY PRN (Reason: spasm) Qty: 1 0RF bupropion HCl 300 mg tablet extended release 24 hr 150 mg PO QAM Qty: 30 2RF Discontinued atorvastatin 40 mg tablet 40 mg PO QPM No Action baclofen 10 mg tablet 10 mg PO .UP TO QID Discharge Order = DC NOW: Discharge Order (Routine); Ordered 10/18/24 Ordered By: Wendy Taylor Referrals: Albino Rosales MD [Referring, Urology] Referral Note: We have faxed your information to Dr. Rosales clinic of the need for a follow-up appointment to be scheduled. If you have not heard from them within the next 2 business days, please call them directly. Ange Keita DO [Primary Care Provider, [facility]] - 10/21/24 11:00 am Discharge Diet: Advance as tolerated Discharge Activity: Resume usual activity Patient Instructions: Urinary Tract Infection in Women (ED), Acute Urinary Retention in Women (ED), Opioid Safety, Patient Portal & Bianca Instructions Discharge Attestations Time Spent in Discharge Care*: greater than 30 min Quality Metrics Clinical Quality Measures [ No reported AMI, CVA or VTE this stay] Coding Level of Care Code Acute Code for Chg Fwd Diagnoses Acute cystitis N30.00 Acute urinary retention R33.8 Hepatitis K75.9 Spastic hemiparesis affecting nondominant side G81.10 CKD (chronic kidney disease) stage 3, GFR 30-59 ml/min N18.32 Chronic kidney disease stage 3 subtype: stage 3b (GFR 30-44)
--- NOTE | 2024-10-18 15:45 | PC.NURSE ---
Bladder scan pre-Void was 298 patient voided 100mls and post void bladder scan was 201. Spoke to Dr. Taylor and Cortez catheter replaced.
[2024-10-18 15:47] VITALS: BP 132/75; PULSE 77; RESP 16; TEMP 36.7; O2SAT 98
[2024-10-18 17:29] VITALS: BP 130/76; PULSE 88; RESP 16; TEMP 36.7; O2SAT 95
--- NOTE | 2024-10-18 18:15 | PC.NURSE ---
Patient discharged at this time. Patient is A&Ox3. Respirations even and non-labored on room air. Reviewed with patient how to empty her Cortez Catheter bag. Patient was sent with a Cortez for urinary retention. Discussed the changes to patient's current home medications and the antibiotic she would need to finish. Patient verbalized understanding. Patient pushed to private car.
== END 2024-10-18 18:22 | disposition home or self-care (01) ==
LOC: ER 18:11 → MEDSURG 18:51
PROVIDERS: Family Medicine; Admitting Provider Internal Medicine; Emergency Provider Emergency Medicine; PCP Family Medicine; Visit Provider Student in an Organized Health Care Education/Training Program
DX: R33.8 Other retention of urine (principal); N30.00 Acute cystitis without hematuria; K75.9 Inflammatory liver disease, unspecified; G81.10 Spastic hemiplegia affecting unspecified side; N18.32 Chronic kidney disease, stage 3b; Z79.82 Long term (current) use of aspirin; K21.9 Gastro-esophageal reflux disease without esophagitis; F17.200 Nicotine dependence, unspecified, uncomplicated; D64.9 Anemia, unspecified; E03.9 Hypothyroidism, unspecified; F41.9 Anxiety disorder, unspecified; F43.12 Post-traumatic stress disorder, chronic
CPT/HCPCS: 51702; 51798; 74176; 80053; 80074; 81001; 82550; 83690; 85025; 87086; 87186; 90471; 90732; 96360; 96361; 97161; 97166; 99285; G0378; J3480; J9999

== ENCOUNTER → 2024-10-19 10:38 | Outpatient (BNVA) | payer MEDICARE, MEDICAID, SELFPAY ==
[2021-07-27 14:04] VITALS: BP 116/71; BMI 31.2
== END ==
PROVIDERS: PCP Family Medicine; Visit Provider Podiatrist Foot & Ankle Surgery
DX: I73.9 Peripheral vascular disease, unspecified (principal); L60.3 Nail dystrophy; L84 Corns and callosities; L60.8 Other nail disorders; Z79.01 Long term (current) use of anticoagulants; G81.10 Spastic hemiplegia affecting unspecified side; D68.59 Other primary thrombophilia; M20.42 Other hammer toe(s) (acquired), left foot
CPT/HCPCS: 11055; 11056; 11721; 99213

== ENCOUNTER 2024-11-26 14:01 | Outpatient (CLI) | payer MEDICARE, MEDICAID, SELFPAY ==
[2021-07-27 14:04] VITALS: BP 116/71; BMI 31.2
[2024-11-26 14:00] VITALS: BP 132/83; PULSE 79; RESP 16; TEMP 36.6; O2SAT 95
[2024-11-26] MEDS: ertapenem 1,000 mg SDV 1000 MG IVP (14:44)
--- NOTE | 2024-11-26 15:18 | PICC.NOTE ---
Midline placed to right basilic vein. Referred to vascular access nurse for midline placement due to need for IV antibiotics x 7 days. Risks and benefits discussed with patient and pt daughter and informed consent obtained from pt. Pt with history of stroke and left sided weakness. Right arm assessed with right basilic vein measuring 3.7 mm, straight, and apparent best choice for placement. Using sterile technique and MST, right basilic vein accessed x 1 stick. Mid-arm circumference measured 10 cm from right AC 37 cm. Trimmed cath 10 cm with 0 cm external length noted. Line secured with stat-lock. Insertion site covered with Biopatch and TSM. Orders from Dr. Darinel Winston at [facility] clinic to give Meropenem 1 gm IV x 7 days. Debbie Nagy, associate director finance, clarified medication order. Ertapenem 1 gm IVP x 7 days to be given per clarified order from Dr. Winston. Ertapenem 1 gm given IVP. No reaction noted. Home teaching for midline given to pt and pt daughter. Pt to return over the weekend to OPS at 1130 both Fri and Friday for IV antibiotic. Pt to go to CTC at 1200 on Friday11/29/24. CTC will give additional appointment times after visit. End of therapy scheduled 12/02/24. Pt and daughter given written copy of appointment dates/times/locations. Pt and daughter verbalized understanding and stated she has transportation to get to appointments.
== END 2024-11-27 11:17 | disposition home or self-care (01) ==
PROVIDERS: PCP Family Medicine; Visit Provider Urology
DX: N39.0 Urinary tract infection, site not specified (principal)
CPT/HCPCS: 36569; 96374; C1751; J1335

== ENCOUNTER 2024-12-03 10:32 | Emergency (ER) | payer MEDICARE, MEDICAID, SELFPAY ==
[2021-07-27 14:04] VITALS: BP 116/71; BMI 31.2
--- OUTSIDE RECORDS SUMMARY | 2024-12-03 10:37 | XMS_ITS | Encounter Summary ---
Author Organization [facility], [facility] Address [address] [place] [address] Phone Care Team Providers Care Solar Pv Installer Name Role Phone Ange Keita DO Primary Care Provider [phone] Encounter Details Date Type Department Care Team (Late st Contact Info) Description 05/15/2019 Orders Only [facility], [address] [address] Shane Callejas NP Chronic kidney [...] st Contact Info) Description 03/08/2025 9:00 AM CERTIFIED PEST CONTROL TECHNICIAN Office Visit [facility] [employer] [address] [address] Violeta Ortega NP [address] [place] [address] documented as of this encounter Procedures Procedure Name Priority Date/Time Associated Diagnosis Comments URINE ALBUMIN / CREATININE RATIO Routine 04/20/2019 1:50 PM CERTIFIED PEST CONTROL TECHNICIAN Chronic kidney disease stage 3 (HCC) VITAMIN D 25 HYDROXY Routine 04/20/2019 1:50 PM CERTIFIED PEST CONTROL TECHNICIAN Chronic kidney disease stage 3 (HCC) CBC Routine 04/20/2019 1:50 PM CERTIFIED PEST CONTROL TECHNICIAN Chronic kidney disease stage 3 (HCC) PTH, INTACT Routine 04/20/2019 1:50 PM CERTIFIED PEST CONTROL TECHNICIAN Chronic kidney disease stage 3 (HCC) documented in this encounter Results * Vit D 25 hydroxy (04/20/2019 1:50 PM CERTIFIED PEST CONTROL TECHNICIAN) [facility] Vitamin D, 25-OH, Total 32 ng/mL Blood specimen (specimen) Venous blood / Unknown 04/20/2019 1:50 PM CERTIFIED PEST CONTROL TECHNICIAN Rebekah Bull LPN - 04/20/2019 2:37 PM CERTIFIED PEST CONTROL TECHNICIAN .[facility] Clinical Laboratory [address] [place] [id number] [address] Kobi Reeves Applications Instructor. Shane Callejas PHYSICAL METALLURGIST LAB BLOOD ORDERABLES Final Result * (ABNORMAL) Urine albumin / creatinine ratio (04/20/2019 1:50 PM CERTIFIED PEST CONTROL TECHNICIAN) [facility] Urine Microalbumin 1 mg/dL Creatinine, Urine 39 mg/dL Microalb/Creat Ratio 26(A) 0 - 20 mg/g Creat Urine specimen (specimen) Urine specimen obtained by clean catch procedure / Unknown 04/20/2019 1:50 PM CERTIFIED PEST CONTROL TECHNICIAN Rebekah Bull LPN - 04/20/2019 2:37 PM CERTIFIED PEST CONTROL TECHNICIAN .[facility] Laboratory [address] [facility] [place] [address] Dr. Kobi Reeves Applications Instructor. Shane Callejas PHYSICAL METALLURGIST LAB URINE ORDERABLES Final Result * PTH, intact (04/20/2019 1:50 PM CERTIFIED PEST CONTROL TECHNICIAN) Parathyroid Hormone, Intact 50.8 pg/mL Blood specimen (specimen) Venous blood / Unknown 04/20/2019 1:50 PM CERTIFIED PEST CONTROL TECHNICIAN Narrative Rebekah Reeves LPN - 04/20/2019 2:37 PM CERTIFIED PEST CONTROL TECHNICIAN .[facility] [address] [place] [address] Dr. Kobi Reeves Applications Instructor. Shane Callejas PHYSICAL METALLURGIST LAB BLOOD ORDERABLES Final Result * CBC (04/20/2019 1:50 PM CERTIFIED PEST CONTROL TECHNICIAN) Pathologist [facility] WBC 6.8 K/uL Red Blood Cell Count 3.51 Hemoglobin 11.5 g/dL Hematocrit 35.3 % MCV 100.6 MCH 32.8 MCHC 32.6 RDW 13.4 Platelet Count 389 MPV 10.3 Absolute Neutrophils 4.2 Absolute Lymphocytes 1.9 Absolute Monocytes 0.4 Absolute Eosinophils 0.2 Absolute Basophils 0.1 Neutrophils 61.9 K/uL Lymphocytes 27.5 Monocytes 6.4 Eosinophils 3.0 Basophils 0.9 Blood specimen (specimen) Venous blood / Unknown 04/20/2019 1:50 PM CERTIFIED PEST CONTROL TECHNICIAN Narrative Nicole Nation LPN - 04/20/2019 2:37 PM CERTIFIED PEST CONTROL TECHNICIAN EVENT SPECIALIST PRODUCT DEMONSTRATOR lab [facility] Clinical Laboratory [address] [facility] [address] [address] Michael Monteiro, MED DIRECTOR Shane Callejas PHYSICAL METALLURGIST LAB BLOOD ORDERABLES Final Result documented in this encounter Visit Diagnoses Diagnosis Chronic kidney disease stage 3 (HCC) documented in this encounter Care Teams Solar Pv Installer Relationship Specialty Start Date End Date Ange Keita DO [address] [place] [address] PCP - General Family Medicine 03/26/18 documented as of this encounter
--- OUTSIDE RECORDS SUMMARY | 2024-12-03 10:37 | XMS_ITS | Clinical Summary ---
Author Organization [facility] Facility Address [address] [address] Care Team Providers Care Connie Cleaner Name Role Phone Ange Keita DO Primary Care Provider [phone] Allergies Active Allergy Reactions Criticality Noted Date [...] Description 09/06/2024 9:30 AM CDT Office Visit [facility], [address] [address] Leyla Devlin, LAVELL Urinary incontinence, not otherwise specified (Primary Dx); Chronic kidney disease, Stage IV (severe) (HCC); Anemia in chronic kidney disease; Patient declines smoking cessation information; Chronic kidney disease stage 3B (HCC) from Last 3 Months Immunizations Immunization Administration [...] - Oxygen Saturation 99% 03/03/2024 1:04 PM KNOCKDOWN WORKER Inhaled Oxygen Concentration - - Weight 76.1 kg (167 lb 12.8 oz) 09/06/2024 9:43 AM CDT Height 162.6 cm (5' 4 ) 09/06/2024 9:43 AM CDT Body Mass Index 28.8 09/06/2024 9:43 AM CDT Plan of Treatment Upcoming Encounters Date Type Department Care Team (Late st Contact Info) Description 03/08/2025 9:00 AM KNOCKDOWN WORKER Office Visit [facility] [address] [place] [address] Violeta Ortega NP [address] [place] [address] Health Maintenance Due Date Last Done [...] Choice [place] Care Teams Connie Cleaner Relationship Specialty Start Date End Date Ange Keita DO [address] [place] [address] PCP - General Family Medicine 03/26/18
--- OUTSIDE RECORDS SUMMARY | 2024-12-03 10:37 | XMS_ITS | Encounter Summary ---
Author Organization [facility] [employer] [facility] Address [address] [place] [address] Phone Care Team Providers Care Skip Hoist Engineer Name Role Phone Ange Keita DO Primary Care Provider [phone] Encounter Details Date Type Department Care Team (Late st Contact Info) Description 11/07/2018 Orders Only [facility] [address] [address] Shane Callejas NP Chronic kidney disease stage 3 Social History Tobacco Use Types Packs/Day Years Used Date Smoking Tobacco: Every Day Cigarettes 0.3 35.7 Started: 03/17/1989 Smokeless Tobacco: Never Alcohol Use [...] st Contact Info) Description 03/08/2025 9:00 AM DEPLOYMENT MANAGER Office Visit [facility] [employer] [address] [address] Violeta Ortega NP [address] [place] [address] documented as of this encounter [...] Whitten MA - 11/09/2018 2:44 PM CDT FELT DYEING MACHINE TENDER Lab [facility] [address] [place], [place] [address] Shane Callejas BRUSHER TENDER LAB BLOOD ORDERABLES Final Result * PTH, intact (11/09/2018 12:08 PM CDT) Pathologist [facility] Parathyroid Hormone, Intact 61.5 pg/mL Blood specimen (specimen) Venous blood / Unknown 11/09/2018 12:08 PM CDT Heather Whitten MA - 11/09/2018 2:44 PM CDT FELT DYEING MACHINE TENDER Lab [facility] [address] [place], [place] [address] Shane Callejas BRUSHER TENDER LAB BLOOD ORDERABLES Final Result * CBC [...] Whitten MA - 11/09/2018 2:40 PM CDT FELT DYEING MACHINE TENDER Lab [facility] [address] [place], [place] [address] Shane Callejas BRUSHER TENDER LAB BLOOD ORDERABLES Final Result * (ABNORMAL) [...] Whitten MA - 11/09/2018 2:40 PM CDT FELT DYEING MACHINE TENDER Lab [facility] [address] [place], [place] [address] Shane Callejas BRUSHER TENDER LAB BLOOD ORDERABLES Final Result documented in this encounter Visit Diagnoses Diagnosis Chronic kidney disease stage 3 (HCC) documented in this encounter Care Teams Skip Hoist Engineer Relationship Specialty Start Date End Date Ange Keita DO [address] [place] [address] PCP - General Family Medicine 03/26/18 documented as of this encounter
[2024-12-03 10:41] VITALS: BP 110/60; PULSE 93; RESP 18; TEMP 36.8; O2SAT 96; BMI 25.7
--- NOTE | 2024-12-03 10:50 | XR_ITS ---
WS: [id number] XR chest 1V portable [id number] REASON FOR EXAM: weakness FINDINGS: Mild tortuosity of the thoracic aorta with normal heart size. Large hiatal hernia. Calcified granulomatous disease bilaterally. No acute pulmonary parenchymal or pleural abnormality. Mild levoscoliosis of the thoracic spine with moderate degenerative spondylosis. XR/XR chest 1V portable [id number] IMPRESSION: No acute chest abnormality.
--- NOTE | 2024-12-03 10:50 | CT_ITS ---
WS: [id number] CT HEAD NONCONTRAST HISTORY: fall TECHNIQUE: Contiguous axial imaging performed through the brain. Bone and soft tissue windows. Sagittal and coronal reformats reviewed. All CT scans at [facility] use at least one of these dose optimization techniques: automated exposure control; mA and/or kV adjustment per patient size (includes targeted exams where dose is matched to clinical indication); or iterative reconstruction. DLP: 979.08 mGy.cm COMPARISON: 07/15/2020 Age-indeterminate area of decreased attenuation centered in the RIGHT basal ganglia and extending through the hughes radiata and centrum semiovale. Fingerlike extensions of edema with a central focus of increased density measuring 4.3 mm suspicious for acute blood products. These findings are asymmetric to the LEFT and new since 2020. Mild atrophy otherwise. Ventricles: Ventricles are slightly prominent. There is very slight ex vacuo dilatation of the RIGHT lateral ventricle which is new suggesting volume loss. No midline shift. No inferior displacement of the cerebellar tonsils. Paranasal sinuses: As visualized are clear. Mastoid air cells: Well pneumatized. Calvarium and scalp: Skull is intact with no soft tissue edema or swelling. CT/CT head wo con* [id number] IMPRESSION: 1. Moderate size area of edema centered in the RIGHT deep white matter with ex tension into the centrum semiovale and hughes radiata with fingerlike extension s into the subcortical white matter. Hyperdense focus within the edema measures 4.3 mm suspicious for acute blood products versus developing calcification. Th tod findings were not present in 2020. There is no significant midline shift. T hese findings may be due to a subacute infarct with hemorrhage but neoplasm nee ds to be considered also. Recommend MRI brain with and without contrast for fur ther evaluation. 2. No hydrocephalus. There is very slight dilatation of the RIGHT lateral vent ricle with comparison to the LEFT and compared to the prior study from 2020. Notified Buddy Moran MD at 12/03/2024 11:49 AM.
--- NOTE | 2024-12-03 11:07 | ECG_ITS ---
[facility] Test Date: 2024-12-03 Pat Name: Camelia Lopez Department: Room: Gender: Female Blanket Binder: : [id number] Requested By: Buddy Moran Order Number: [id number] Darling MD: Jones Salcido M.D. Measurements Intervals [place] Rate: 92 P: 57 [place]: 174 QRS: -1 QRSD: 102 T: 48 QT: 383 QTc: 474 Interpretive Statements SINUS RHYTHM LOW QRS VOLTAGE IN PRECORDIAL LEADS [QRS DEFLECTION < 1.0 mV IN CHEST LEADS] INCOMPLETE RIGHT BUNDLE BRANCH BLOCK [90+ ms QRS DURATION, TERMINAL R IN V1/V2, 40+ ms S IN I/aVL/V4/V5/V6] MINIMAL ST DEPRESSION [0.025+ mV ST DEPRESSION] No previous ECG available for comparison Electronically Signed On 12-04-2024 13:07:19 CDT by Jones Salcido M.D. [email or web address]
--- NOTE | 2024-12-03 11:20 | W.ED.WEAKNES ---
HPI - Weakness General: Chief complaint: Weakness Stated complaint: multi falls Time Seen by Provider: 12/03/24 10:48 Source: patient Mode of arrival: ambulatory Limitations: no limitations History of Present Illness: 59-year-old female states she was recently diagnosed with UTI states she had been on oral along with IV antibiotics with PICC line just finished antibiotics yesterday. She states that she has been having some weakness has had multiple falls over the last 2 days. States she did hit her head yesterday. There is concern that the UTI is not fully resolved and she has weakness like this when she has UTIs. Patient here denies any abdominal pain or fevers and trauma questions appropriately denies any vomiting diarrhea Associated symptoms: Denies nausea or vomiting Related Data Home Medications ?Medication ?Instructions ?Recorded ?Confirmed ipratropium 20 mcg-albuterol 100 2 puff inhalation Q6H PRN 02/08/20 11/26/24 mcg/actuation mist for inhalation shortness of breath or wheezing (Combivent Respimat) acetaminophen 325 mg tablet 325 - 650 mg PO QID PRN Pain 07/15/20 11/26/24 (Tylenol) albuterol sulfate 90 mcg/actuation 2 puff inhalation QID PRN 07/15/20 11/26/24 aerosol inhaler Shortness Of Breath [id number] 8 mg-folic 400 1 tab PO DAILY@0 07/15/20 11/26/24 mcg-K 50 mcg-lutein 300 mcg tablet (Multivitamin Women 50 Plus) valacyclovir 1 gram tablet 1,000 mg PO DAILY@1030 07/15/20 11/26/24 apixaban 5 mg tablet (Eliquis) 5 mg PO BID 04/25/21 11/26/24 coenzyme Q10 75 mg capsule (Ultra 75 mg PO DAILY 06/04/22 11/26/24 CoQ10) dexlansoprazole 60 mg 60 mg PO DAILY 01/23/24 11/26/24 capsule,biphase delayed release (Dexilant) fluticasone propionate 50 50 mcg intranasal DAILY PRN 01/23/24 11/26/24 mcg/actuation nasal allergies spray,suspension propranolol 60 mg capsule,24 60 mg PO DAILY 01/23/24 11/26/24 hr,extended release calcium carbonate 500 mg PO DAILY 07/15/24 11/26/24 omega 7-rvd-cux-fish oil 1,000 mg 1 cap PO .@1030 07/15/24 11/26/24 (120 mg-180 mg) capsule (Fish Oil) ferrous sulfate 325 mg (65 mg 325 mg PO DAILY 10/16/24 11/26/24 iron) tablet (FeroSul) fluoxetine 40 mg capsule 80 mg PO DAILY 10/16/24 11/26/24 levothyroxine 50 mcg tablet 50 mcg PO QAM 10/16/24 11/26/24 Previous Rx's ?Medication ?Instructions ?Recorded aspirin 81 mg tablet,delayed 81 mg PO DAILY #30 tabs 07/15/20 release onabotulinumtoxinA 100 unit 400 unit IM .[id number] #6 ea 07/20/24 solution for injection (Botox) hydroxyzine pamoate 50 mg capsule 50 mg PO TID PRN anxiety #90 caps 10/07/24 oxybutynin chloride 10 mg 10 mg PO DAILY PRN spasm #1 tab 10/18/24 tablet,extended release 24 hr ziprasidone HCl 60 mg capsule See Rx Instructions .Route 10/27/24 .COMPLEX #60 caps baclofen 10 mg tablet See Rx Instructions .Route 11/09/24 .COMPLEX #120 tabs bupropion HCl 300 mg 24 hr tablet, 300 mg PO QAM #30 tabs 11/11/24 extended release Allergies Allergy/AdvReac Type Severity Reaction Status Date / Time venom-wasp Allergy Severe ALGY-Anaphy Verified 10/19/24 10:53 laxis amoxicillin Allergy rash Verified 10/19/24 10:53 cefaclor (From Ceclor) Allergy rash Verified 10/19/24 10:53 cefazolin Allergy rash Verified 10/19/24 10:53 clavulanic acid (From Allergy Unknown Verified 10/19/24 10:53 Augmentin) doxycycline Allergy ALGY-Rash Verified 10/19/24 10:53 Penicillins Allergy rash Verified 10/19/24 10:53 Sulfa (Sulfonamide Allergy rash Verified 10/19/24 10:53 Antibiotics) zolpidem (From Ambien) Allergy Unknown Verified 10/19/24 10:53 Review of Systems Const: Reports: fatigue and malaise GI: Denies: abdominal pain, nausea or vomiting PFSH ED PFSH: Medical History On combination antipsychotic drug therapy Nicotine use disorder Heterozygous factor V Leiden mutation Anemia Psychiatric care Hypothyroidism Chronic kidney disease (CKD) Bile reflux gastritis Recurrent UTI GERD (gastroesophageal reflux disease) Psychosis History of unspecified psychosis diagnoses; has been on Geodon 40 mg twice daily for approximately 2 years. Anxiety disorder Chronic post-traumatic stress disorder (PTSD) Moderate episode of recurrent major depressive disorder Surgical History S/P cholecystectomy H/O esophagogastroduodenoscopy H/O colonoscopy H/O decompression of ulnar nerve H/O: hysterectomy one ovary left Family History Other Cancer Hypertension Denies family history of Diabetes CAD (coronary artery disease) Anesthesia complication Bleeding disorder Social History Smoking and tobacco/nicotine status: current every day tobacco/nicotine user cigarettes Packs smoked per day: 1 Second hand smoke exposure: No Alcohol intake: never Substance/Drug Use: unknown Additional social history: Patient denies drug use she admits to smoking 1 pack/day she denies being on chronic pain meds. She is companied by her friend Murphy La who serves as her caregiver part at the time. She wants full CODE STATUS and states that her daughter Lissette Troy is her next of kin and decision maker if she is unable to make her own decision Adopted: No Caregiver/support person: No Lives independently: Yes Household members: none Housing: Apartment Marital status: Single Number of children: 2 Number of grandchildren: 3 Highest education level completed: High School Graduate service: No Current occupational status: disabled Current occupation: disabled Pets and animals: Yes Pets & animals: dog(s) Sexually active: No Do you think of yourself as: Straight/Heterosexual Current gender identity: Female Karely/Confucianism: Zoroastrianism Special karely needs: No Agree to transfusion: Yes Female Reproductive History: Para: 2 Spontaneous abortions: Yes Physical Exam Const: COMMON NORMALS: no acute distress and patient oriented x3 HENMT: COMMON NORMALS: normocephalic and atraumatic HEAD & SCALP: normocephalic and atraumatic Eye: COMMON NORMALS: Equal, round and reactive pupils present and EOMs intact bilaterally PUPIL: Yes Equal, round and reactive pupils present Neck/C-Spine: COMMON NORMALS: full ROM and supple Chest: COMMONS NORMALS: normal inspection of the chest and normal palpation of entire chest wall Resp: COMMON NORMALS: normal respiratory effort, No retractions, No use of accessory muscles and clear to auscultation bilaterally AUSCULTATION: clear to auscultation bilaterally Cardio: COMMON NORMALS: regular rate, regular rhythm and No murmurs present (Cardio) RATE: regular rate RHYTHM: regular rhythm GI: COMMON NORMALS: Normal to inspection, nondistended, normoactive bowel sounds present, Soft to palpation, non-tender and no masses PALPATION: Yes Soft to palpation Extremity: COMMON NORMALS: normal to inspection and full ROM Neuro: COMMON NORMALS: patient oriented x3, moves all extremities and no focal motor deficits Psych: COMMON NORMALS: mental status grossly normal, Normal thought process present and cooperative THOUGHT PROCESS: Normal thought process present Skin: COMMON NORMALS: no rashes or lesions noted and no wounds GENERAL SKIN EXAM: no rashes or lesions noted Course Vital Signs: Vital signs: Vital Signs Temperature 98.3 F 12/03/24 10:41 Pulse Rate 92 12/03/24 12:43 Respiratory Rate 15 12/03/24 12:43 Blood Pressure 111/73 12/03/24 12:43 Pulse Oximetry 95 12/03/24 12:43 Oxygen Delivery Me thod Room Air 12/03/24 12:43 MDM - Weakness Medical Decision Making Patient presents here with multiple falls along with increasing weakness been going on for 2 days. Patient does have left-sided weakness from old stroke no new focal deficits seen here on exam. Patient's head CT does show an area of edema with small bleed could be neoplasm versus a hemorrhagic stroke. Patient also had hit her head it could be trauma related. I did speak to [facility] will transfer there for high-level care of neurosurgery did speak to the ER physician there who is excepted Dr. Sampson I did inform daughter and patient at this they understand agree to plan Medical Records I reviewed the patient's medical records. Lab Data I reviewed the patient's lab results. 12/03/24 11:37 12/03/24 11:37 Radiology Impressions Chest X-Ray 12/03/24 10:50 IMPRESSION: No acute chest abnormality. Head CT 12/03/24 10:50 IMPRESSION: 1. Moderate size area of edema centered in the RIGHT deep white matter with extension into the centrum semiovale and hughes radiata with fingerlike extensions into the subcortical white matter. Hyperdense focus within the edema measures 4.3 mm suspicious for acute blood products versus developing calcification. These findings were not present in 2020. There is no significant midline shift. These findings may be due to a subacute infarct with hemorrhage but neoplasm needs to be considered also. Recommend MRI brain with and without contrast for further evaluation. 2. No hydrocephalus. There is very slight dilatation of the RIGHT lateral ventricle with comparison to the LEFT and compared to the prior study from 2020. Notified Buddy Moran MD at 12/03/2024 11:49 AM. Laboratory Results WBC 11.67 10^3/uL (3.29-11.43) H 12/03/24 11:37 RBC 3.58 10^6/uL (3.85-5.65) L 12/03/24 11:37 Hgb 10.60 g/dL (11.27-16.99) L 12/03/24 11:37 Hct 32.9 % (36-47) L 12/03/24 11:37 MCV 91.9 fl (85-98) 12/03/24 11:37 MCH 29.6 pg (27-33) 12/03/24 11:37 MCHC 32.2 g/dL (30-55) 12/03/24 11:37 RDW 15.9 % (12.1-15.1) H 12/03/24 11:37 Plt Count 305 10^3/cmm (157-399) 12/03/24 11:37 MPV 10.2 fL (7.4-10.4) 12/03/24 11:37 Neut % (Auto) 79.8 % 12/03/24 11:37 Lymph % (Auto) 11.1 % 12/03/24 11:37 [place] % (Auto) 6.2 % 12/03/24 11:37 Eos % (Auto) 2.1 % 12/03/24 11:37 Baso % (Auto) 0.5 % 12/03/24 11:37 Neut # (Auto) 9.33 10^3/uL (1.8-7.7) H 12/03/24 11:37 Lymph # (Auto) 1.3 10^3/uL (0.8-4.8) 12/03/24 11:37 [place] # (Auto) 0.7 10^3/uL (0.2-0.9) 12/03/24 11:37 Eos # (Auto) 0.2 10^3/uL (0.0-0.8) 12/03/24 11:37 Baso # (Auto) 0.1 10^3/uL (0.0-0.1) 12/03/24 11:37 Nucleated RBC % (auto) 0 % 12/03/24 11:37 Nucleated RBCs # 0.0 /100WBC 12/03/24 11:37 PT 16.50 SECONDS (12.1-14.9) H 12/03/24 11:37 INR 1.25 (0.8-1.2) H 12/03/24 11:37 Sodium 139 mmol/L (136-145) 12/03/24 11:37 Potassium 4.5 mmol/L (3.5-5.1) 12/03/24 11:37 Chloride 104 mmol/L (98-107) 12/03/24 11:37 Carbon Dioxide 23 mmol/L (22-29) 12/03/24 11:37 Anion Gap 16.5 (5-19) 12/03/24 11:37 BUN 14 mg/dL (8-23) 12/03/24 11:37 Creatinine 1.2 mg/dL (0.5-0.9) H 12/03/24 11:37 GFR Calculation 45.8 mL/min (90-130) L 12/03/24 11:37 Glucose 89 mg/dL (65-115) 12/03/24 11:37 Calculated Osmolality 288 mOsm/kg (285-295) 12/03/24 11:37 Calcium 8.8 mg/dL (8.5-10.5) 12/03/24 11:37 Magnesium 2.1 mg/dL (1.7-2.3) 12/03/24 11:37 Total Bilirubin 0.5 mg/dL (0.15-1.2) 12/03/24 11:37 AST 73 U/L (0-32) H 12/03/24 11:37 ALT 71 U/L (0-33) H 12/03/24 11:37 Alkaline Phosphatase 147 U/L (35-105) H 12/03/24 11:37 Total Protein 5.9 g/dL (6.6-8.7) L 12/03/24 11:37 Albumin 3.5 g/dL (3.5-5.2) 12/03/24 11:37 Globulin 2.4 g/dL (1.3-4.6) 12/03/24 11:37 TSH 1.51 uIU/mL (0.27-4.20) 12/03/24 11:37 Urine Color Yellow (Yellow) 12/03/24 11:49 Urine Appearance Clear (CLEAR) 12/03/24 11:49 Urine pH 5.5 (5-7) 12/03/24 11:49 Ur Specific [place] 1.021 (1.005-1.030) 12/03/24 11:49 Urine Protein Trace (Negative) A 12/03/24 11:49 Urine Glucose (UA) Negative (Normal) 12/03/24 11:49 Urine Ketones Trace (Negative) 12/03/24 11:49 Urine Blood Negative (Negative) 12/03/24 11:49 Urine Nitrate Negative (Negative) 12/03/24 11:49 Urine Bilirubin Negative (Negative) 12/03/24 11:49 Urine Urobilinogen 1.0 mg/dL (Negative) 12/03/24 11:49 Ur Leukocyte Esterase 1+ (Negative) A 12/03/24 11:49 Urine RBC 0-2 /hpf (0-2) 12/03/24 11:49 Urine WBC 0-5 /hpf (0-5) 12/03/24 11:49 Ur Squamous Epith Cells 0-5 /hpf (0-5) 12/03/24 11:49 Amorphous Sediment Not Reportable 12/03/24 11:49 Urine Bacteria None seen /hpf (NONE) 12/03/24 11:49 Hyaline Casts 1.21 /lpf 12/03/24 11:49 All radiology interpretation(s) finalized by discharge EKG Data EKG 1: I personally reviewed and interpreted this EKG as follows: EKG interpretation date: 12/03/24 EKG interpretation time: 11:07 Interpretation: nsr hr [address] elevation qrs 102 qtc 432 Critical Care Time Critical Care Time: Critical Care Time: Yes Total Critical Care Time: 40 Attestation: The high probability of a clinically significant, sudden or life threatening deterioration of the patient's neuro system(s) required my full and direct attention, intervention and personal management. The critical care time is as shown. This time is in addition to time spent performing any reported procedures but includes the following: [x] Data and vital sign review and interpretation [x] Patient assessment, examination and intervention [x] Documentation [x] Medication orders and management Discharge Plan Discharge Patient Disposition: Xfer Short-Term Hosp Clinical Impression: Hemorrhagic stroke, Weakness Condition: Stable Referrals: Ange Keita DO [Primary Care Provider, [facility]] Print Language: [place] Islander Coding Level of Care Code ED Data Governance Consultant for Delia Arellano
[2024-12-03 11:43] LABS: Hematocrit 32.9 % (36-47); Hemoglobin 10.60 g/dL (11.27-16.99); Mean Corpuscular HGB Conc 32.2 g/dL (30-55); Mean Corpuscular Hemoglobin 29.6 pg (27-33); Mean Corpuscular Volume 91.9 fl (85-98); Nucleated Red Blood Cells % 0 %; Platelet Count 305 10^3/cmm (157-399); Red Blood Count 3.58 10^6/uL (3.85-5.65); White Blood Count 11.67 10^3/uL (3.29-11.43)
[2024-12-03 11:53] LABS: INR 1.25 (0.8-1.2); Prothrombin Time 16.50 SECONDS (12.1-14.9)
[2024-12-03 11:55] LABS: Glucose Urine UA Negative (Normal); Nitrate Urine Negative (Negative); Specific Gravity, Urine 1.021 (1.005-1.030)
[2024-12-03 11:57] LABS: Add Urine Microscopic? YES
[2024-12-03 12:10] LABS: Alanine Aminotransferase 71 U/L (0-33); Albumin Level 3.5 g/dL (3.5-5.2); Alkaline Phosphatase 147 U/L (35-105); Anion Gap 16.5 (5-19); Aspartate Amino Transferase 73 U/L (0-32); Blood Urea Nitrogen 14 mg/dL (8-23); Calcium 8.8 mg/dL (8.5-10.5); Carbon Dioxide 23 mmol/L (22-29); Chloride 104 mmol/L (98-107); Creatinine Clr Calc Pharmacy 47.2502; Globulin 2.4 g/dL (1.3-4.6); Glucose 89 mg/dL (65-115); Magnesium 2.1 mg/dL (1.7-2.3); Osmolality Calculated 288 mOsm/kg (285-295); Potassium 4.5 mmol/L (3.5-5.1); Sodium 139 mmol/L (136-145); Thyroid Stimulating Hormone 1.51 uIU/mL (0.27-4.20); Total Protein 5.9 g/dL (6.6-8.7)
[2024-12-03 12:12] LABS: UA Slide Review UA Slide Review Perf
[2024-12-03 12:43] VITALS: BP 111/73; PULSE 92; RESP 15; O2SAT 95
[2024-12-03 14:02] VITALS: BP 100/63; PULSE 89; O2SAT 100
== END 2024-12-03 14:05 | disposition short-term general hospital (02) ==
PROVIDERS: Emergency Provider Emergency Medicine; PCP Family Medicine
DX: S06.340A Traumatic hemorrhage of right cerebrum without loss of consciousness, initial encounter (principal); N18.9 Chronic kidney disease, unspecified; F17.210 Nicotine dependence, cigarettes, uncomplicated; R53.1 Weakness; W19.XXXA Unspecified fall, initial encounter
CPT/HCPCS: 36415; 70450; 71045; 80053; 81001; 83735; 84443; 85025; 85610; 93005; 99285

== ENCOUNTER 2024-12-09 14:00 | Oncology outpatient (recurring) (ONCR) | payer OTHER, MEDICAID, SELFPAY ==
[2021-07-27 14:04] VITALS: BP 116/71; BMI 31.2
[2024-11-27] MEDS: ertapenem 1,000 mg SDV 1000 MG IVP (11:40)
[2024-11-27 11:56] VITALS: BP 110/59; PULSE 75; RESP 18; TEMP 36.7; O2SAT 92
--- NOTE | 2024-11-27 12:03 | PC.NURSE ---
Midline was placed 24 hours ago. The dressing was bloody so a sterile dressing change was done.
[2024-11-28 12:10] VITALS: BP 115/76; PULSE 78; RESP 18; TEMP 36.4; O2SAT 95
[2024-11-28] MEDS: ertapenem 1,000 mg SDV 1000 MG IVP (12:11)
[2024-11-29] MEDS: ertapenem 1,000 mg SDV 1000 MG IVP (12:21)
[2024-11-29 12:33] VITALS: BP 103/72; PULSE 81; RESP 16; TEMP 36.7
[2024-11-30] MEDS: ertapenem 1,000 mg SDV 1000 MG IVP (12:05)
[2024-11-30 12:14] VITALS: BP 112/64; PULSE 78; O2SAT 96
[2024-12-01] MEDS: ertapenem 1,000 mg SDV 1000 MG IVP (10:47)
[2024-12-01 10:55] VITALS: BP 93/66; PULSE 75; RESP 18; TEMP 36.6; O2SAT 94
[2024-12-02] MEDS: ertapenem 1,000 mg SDV 1000 MG IVP (12:05)
== END 2024-12-14 23:59 | disposition home or self-care (01) ==
PROVIDERS: PCP Family Medicine; Visit Provider Urology
DX: Z53.9 Procedure and treatment not carried out, unspecified reason (principal)
CPT/HCPCS: 96374; J1335

== ENCOUNTER → 2025-01-13 11:59 | Outpatient (BNVA) | payer MEDICARE, MEDICAID, SELFPAY ==
[2021-07-27 14:04] VITALS: BP 116/71; BMI 31.2
== END ==
PROVIDERS: Visit Provider Specialist
DX: G81.14 Spastic hemiplegia affecting left nondominant side (principal); D68.59 Other primary thrombophilia; Z79.01 Long term (current) use of anticoagulants; I63.511 Cerebral infarction due to unspecified occlusion or stenosis of right middle cerebral artery
CPT/HCPCS: 64644; 99214; J0585; J9999

== ENCOUNTER 2025-01-24 12:53 | Outpatient (RCR) | payer OTHER, MEDICAID, SELFPAY ==
[2021-07-27 14:04] VITALS: BP 116/71; BMI 31.2
== END 2025-02-13 23:59 | disposition home or self-care (01) ==
LOC: SPO 12:53
PROVIDERS: PCP Family Medicine; Visit Provider Nurse Practitioner Family
DX: I69.354 Hemiplegia and hemiparesis following cerebral infarction affecting left non-dominant side (principal)
CPT/HCPCS: 11056; 11721; 97110; 97162; 97167; 97530

== ENCOUNTER 2025-02-05 13:38 | Emergency (ER) | payer MEDICARE, MEDICAID, SELFPAY ==
[2021-07-27 14:04] VITALS: BP 116/71; BMI 31.2
[2025-02-05 13:39] VITALS: BP 125/85; PULSE 81; RESP 16; TEMP 36.5; O2SAT 99; BMI 26.4
--- NOTE | 2025-02-05 13:47 | ED_ITS ---
HPI - Extremity Problem General: Chief complaint: Extremity Injury, Upper Stated complaint: fall Time Seen by Provider: 02/05/25 13:46 History of Present Illness: 60-year-old female with a history of fac tor V Leyden mutation, chronic anticoagulation on Eliquis, anemia, hypothyroidism, chronic kidney disease, peripheral vascular disease, stroke with left-sided weakness, psychosis, anxiety and PTSD who presents emergency room with rib pain and left hand pain from a fall a week ago. She says she thought it was just getting it better but it did not. She has swelling and some pain just below the fifth digit on her hand. No wrist pain. She cannot move that arm without using her other arm to move it. She also has some pain in her left ribs just under her breast. Related Data Home Medications ?Medication ?Instructions ?Recorded ?Confirmed ipratropium 20 mcg-albuterol 100 2 puff inhalation Q6H PRN 02/08/20 01/24/25 mcg/actuation mist for inhalation shortness of breath or wheezing (Combivent Respimat) acetaminophen 325 mg tablet 325 - 650 mg PO QID PRN Pa in 07/15/20 01/24/25 (Tylenol) albuterol sulfate 90 mcg/actuation 2 puff inhalation Q ID PRN 07/15/20 01/24/25 aerosol inhaler Shortness Of Breath [id number]-gvst-mleh 8 mg-folic 400 1 tab PO DAILY@102907/15/20 01/24/25 mcg-K 50 mcg-lutein 300 mcg tablet (Multivitamin Women 50 Plus) valacyclovir 1 gram tablet 1,000 mg PO DAILY@04/0601/24/25 apixaban 5 mg tablet (Eliquis) 5 mg PO BID 04/25/21 coenzyme Q10 75 mg capsule (Ultra 75 mg PO DAILY 06/0401/24/25 CoQ10) dexlansoprazole 60 mg 60 mg PO DAILY 01/23/2401/15 capsule,biphase delayed release (Dexilant) fluticasone propionate 50 50 mcg intranasal DAILY PRN 01/23/24 01/24/25 mcg/actuation nasal allergies spray,suspension propranolol 60 mg capsule,24 60 mg PO DAILY 01/23/2403/26/24 hr,extended release calcium carbonate 500 mg PO DAILY 07/15/2401/08 omega 9-xor-brz-fish oil 1,000 mg 1 cap PO .@1030 04/1001/24/25 (120 mg-180 mg) capsule (Fish Oil) levothyroxine 50 mcg tablet 50 mcg PO QAM 10/16/2401/08 metoclopramide HCl 10 mg tablet mg 12/03/24 01/24/25 levetiracetam 500 mg tablet mg PO 01/24/25 01/24/25 Previous Rx's ?Medication ?Instructions ?Recorded aspirin 81 mg tablet,delayed 81 mg PO DAILY #30 tabs 0 07/15/20 release baclofen 10 mg tablet See Rx Instructions .Route 0 11/09/24 .COMPLEX #120 tabs bupropion HCl 300 mg 24 hr tablet, 300 mg PO QAM #30 t abs 01/12/25 extended release fluoxetine 40 mg capsule 80 mg (2 x 40 mg) PO DAILY # 60 caps 01/12/25 onabotulinumtoxinA 100 unit 500 unit IM .[id number] #5 ea 01/13/25 solution for injection (Botox) levetiracetam 500 mg 1,000 mg (2 x 500 mg) PO MIGUEL ANGEL LY #60 01/27/25 tablet,extended release 24 hr tabs (Keppra XR) hydroxyzine pamoate 50 mg capsule 50 mg PO TID PRN anx iety #90 caps 01/31/25 ziprasidone HCl 60 mg capsule See Rx Instructions .Rou te 02/03/25 .COMPLEX #60 caps hydrocodone 5 mg-acetaminophen 325 1 tab PO Q6H PRN pa in #20 tabs 02/05/25 mg tablet polyethylene glycol 3350 17 17 g PO DAILY #510 grams 1 04/07/24 gram/dose oral powder (Miralax) Allergies Allergy/AdvReac Type Severity Reaction Status Date / Time venom-wasp Allergy Severe ALGY-Anaphy Verified 02/05/25 13:44 laxis amoxicillin Allergy rash Verified 02/05/25 13:44 cefaclor (From [facility]) Allergy rash Verified 02/05/25 13:44 cefazolin Allergy rash Verified 02/05/25 13:44 clavulanic acid (From Allergy Unknown Verified 02/05/25 13:44 Augmentin) doxycycline Allergy ALGY-Rash Verified 02/05/25 13:44 Penicillins Allergy rash Verified 02/05/25 13:44 Sulfa (Sulfonamide Allergy rash Verified 02/05/25 13:44 Antibiotics) zolpidem (From Ambien) Allergy Unknown Verified 02/05/25 13:44 Review of Systems Narrative: Constitutional symptoms: Negative except as documented in HPI. Skin symptoms: Negative except as documented in HPI. Eye symptoms: Negative except as documented in HPI. ENMT symptoms: Negative except as documented in HPI. Respiratory symptoms: Negative except as documented in HPI. Cardiovascular symptoms: Negative except as documented in HPI. Gastrointestinal symptoms: Negative except as documented in HPI. Genitourinary symptoms: Negative except as documented in HPI. Musculoskeletal symptoms: Negative except as documented in HPI. Neurologic symptoms: Negative except as documented in HPI. Psychiatric symptoms: Negative except as documented in HPI. Endocrine symptoms: Negative except as documented in HPI. PFSH ED PFSH: Medical History (Updated 02/05/25 @ 15:12 by Nata Miller MD) On combination antipsychotic drug therapy Nicotine use disorder Heterozygous factor V Leiden mutation Anemia Psychiatric care Hypothyroidism Chronic kidney disease (CKD) Bile reflux gastritis Recurrent UTI GERD (gastroesophageal reflux disease) Psychosis History of unspecified psychosis diagnoses; has been on Geodon 40 mg twice daily for approximately 2 years. Anxiety disorder Chronic post-traumatic stress disorder (PTSD) Moderate episode of recurrent major depressive disorder Surgical History S/P cholecystectomy H/O esophagogastroduodenoscopy H/O colonoscopy H/O decompression of ulnar nerve H/O: hysterectomy one ovary left Family History Other Cancer Hypertension Denies family history of Diabetes CAD (coronary artery disease) Anesthesia complication Bleeding disorder Social History Smoking and tobacco/nicotine status: former use of tobacco/nicotine Second hand smoke exposure: No Alcohol intake: never Substance/Drug Use: unknown Additional social history: Patient denies drug use she admits to smoking 1 pack/day she denies being on chronic pain meds. She is companied by her friend Murphy La who serves as her caregiver part at the time. She wants full CODE STATUS and states that her daughter Lissette Troy is her next of kin and decision maker if she is unable to make her own decision Adopted: No Caregiver/support person: No Lives independently: Yes Household members: none Housing: Apartment Marital status: Single Number of children: 2 Number of grandchildren: 3 Highest education level completed: High School Graduate service: No Current occupational status: disabled Current occupation: disabled Pets and animals: Yes Pets & animals: dog(s) Sexually active: No Do you think of yourself as: Straight/Heterosexual Current gender identity: Female Karely/Mu-Ism: Congregational Special karely needs: No Agree to transfusion: Yes Female Reproductive History: Para: 2 Spontaneous abortions: Yes Physical Exam Narrative: EXAM NARRATIVE: General: Alert, no acute distress. Skin: Warm, dry. Head: Normocephalic, atraumatic. Neck: Supple, trachea midline. Eye: Extraocular movements are intact. Ears, nose, mouth and throat: mucosa moist. Cardiovascular: Regular, Normal peripheral perfusion. Respiratory: Lungs are clear to auscultation, respirations are non-labored, breath sounds are equal, Symmetrical chest wall expansion. Gastrointestinal: Soft, Nontender, Non distended Musculoskeletal: Normal ROM, no deformity. Good bit of bruising on the distal left hand on the ulnar side dorsally. Tenderness to palpation of anterior left ribs. Low ribs. Neurological: Alert and oriented, No focal neurological deficit observed. Psychiatric: Cooperative, appropriate mood & affect. Course Vital Signs: Vital signs: Vital Signs Temperature 97.7 F 02/05/25 13:39 Pulse Rate 78 02/05/25 13:56 Respiratory Rate 16 02/05/25 13:39 Blood Pressure 117/78 02/05/25 13:56 Pulse Oximetry 98 02/05/25 13:56 Oxygen Delivery Me thod Room Air 02/05/25 13:56 MDM - Extremity (Nontraumatic) Medical Decision Making Medical decision making Patient's reason for coming to the emergency room: Rib and hand pain after a fall 1 week ago Social determinants: Patient is disabled I reviewed the patient's medical record. 60-year-old female with a history of factor V Leyden mutation, chronic anticoagulation on Eliquis, anemia, hypothyroidism, chronic kidney disease, peripheral vascular disease, stroke with left-sided weakness, psychosis, anxiety and PTSD I reviewed the patient's current home meds Patient is on Eliquis Alternate historians: None Differential diagnosis including but not limited to and based on the above HPI, review of systems and physical exam: In this patient with a musculoskeletal extremity traumatic injury and x-ray is being ordered to rule out fractures and dislocations. Orders placed to evaluate differential diagnosis based on the above differential, HPI and physical exam Also x-ray of the ribs to evaluate for rib fractures pneumothorax etc. Rib x-rays: Fractures of the left 3rd through 8th ribs which could be acute or subacute in age. They may have been present on a previous study. This was reviewed and interpreted by myself the emergency room physician. I also reviewed the radiology report. X-ray of the hand: Question of a fracture of the distal radial metaphysis but patient has no pain in that area. This was reviewed and interpreted by myself the emergency room physician. I also reviewed the radiology report. Reexamination: Patient remained stable. No increased work of breathing. No altered mental status. No focal motor deficits. Assessment and plan: Hand contusion Rib fractures possibly some new ones ?Incentive spirometer in the emergency room - Discharged home - Discussed plan with patient. Answered any questions. - Evaluation and treatment of this problem were appropriate in the emergency setting. Lab Data Radiology Impressions Hand X-Ray 02/05/25 13:52 IMPRESSION: 1. Questionable nondisplaced fracture involving the distal radial metaphysis as seen on the lateral view. If this is the site of the patient's pain, dedicated wrist radiographs may be helpful for further evaluation. 2. Severe diffuse osteopenia with mild degenerative changes. Ribs X-Ray 02/05/25 13:52 IMPRESSION: 1. Fractures of the lateral left 3rd through 8th ribs which could be acute or subacute in age. Some of these appear to have been present on the prior study. 2. No radiographic evidence of acute cardiopulmonary disease. All radiology interpretation(s) finalized by discharge Discharge Plan Discharge Patient Disposition: Home Clinical Impression: Rib fractures, Contusion of hand Condition: Stable Prescriptions: New hydrocodone-acetaminophen 5-325 mg tablet 1 tab PO Q6H PRN (Reason: pain) Qty: 20 0RF polyethylene glycol 3350 [Miralax] 17 gram/dose powder 17 g PO DAILY Qty: 510 0RF Rx Instructions: Take 1 scoop daily while taking pain medications. No Action Combivent Respimat 20-100 mcg/actuation mist 2 puff inhalation Q6H PRN (Reason: shortness of breath or wheezing) Eliquis 5 mg tablet 5 mg PO BID Ultra CoQ10 75 mg capsule 75 mg PO DAILY Botox 100 unit recon soln 500 unit IM .U06gita Qty: 5 3RF bupropion HCl 300 mg tablet extended release 24 hr 300 mg PO QAM Qty: 30 2RF fluoxetine 40 mg capsule 80 mg PO DAILY Qty: 60 2RF levetiracetam 500 mg tablet PO baclofen 10 mg tablet See Rx Instructions .ROUTE .COMPLEX Qty: 120 12RF Dose Instruction: TAKE ONE TABLET (10 MG) BY MOUTH UP TO FOUR TIMES DAILY Rx Instructions: TAKE ONE TABLET (10 MG) BY MOUTH UP TO FOUR TIMES DAILY levetiracetam [Keppra XR] 500 mg tablet extended release 24 hr 1,000 mg PO DAILY Qty: 60 5RF hydroxyzine pamoate 50 mg capsule 50 mg PO TID PRN (Reason: anxiety) Qty: 90 2RF ziprasidone HCl 60 mg capsule See Rx Instructions .ROUTE .COMPLEX Qty: 60 2RF Dose Instruction: take 1 capsule BY MOUTH TWICE DAILY EVERY MORNING AND EVERY EVENING. TAKE WITH FOOD (MEAL/SNACK) OF AT LEAST 350 CALORIES Rx Instructions: Take 1 capsule BY MOUTH TWICE DAILY EVERY MORNING AND EVERY EVENING. TAKE WITH FOOD (MEAL/SNACK) OF AT LEAST 350 CALORIES valacyclovir 1 gram tablet 1,000 mg PO DAILY@1030 albuterol sulfate 90 mcg/actuation HFA aerosol inhaler 2 puff INHALATION QID PRN (Reason: Shortness Of Breath) Multivitamin Women 50 Plus 8 mg iron-400 mcg-300 mcg Tablet 1 tab PO DAILY@1030 acetaminophen [Tylenol] 325 mg Tablet 325 - 650 mg PO QID PRN (Reason: Pain) aspirin 81 mg tablet,delayed release (DR/EC) 81 mg PO DAILY Qty: 30 0RF calcium carbonate 500 mg calcium (1,250 mg) Tablet 500 mg PO DAILY omega 4-and-nva-fish oil [Fish Oil] 1,000 (120-180) mg Capsule 1 cap PO .@1030 levothyroxine 50 mcg tablet 50 mcg PO QAM metoclopramide HCl 10 mg tablet propranolol 60 mg capsule,extended release 24 hr 60 mg PO DAILY fluticasone propionate 50 mcg/actuation spray,suspension 50 mcg INTRANASAL DAILY PRN (Reason: allergies) dexlansoprazole [Dexilant] 60 mg capsule,biphase delayed releas 60 mg PO DAILY Discharge Orders: Discharge ED (Routine); Ordered 02/05/25 Ordered By: Nata Miller Referrals: Ange Keita DO [Primary Care Provider, [facility]] Discharge Diet: Usual diet Discharge Activity: Increase activity as tolerated Patient Instructions: How to Use an Incentive Spirometer (ED), Opioid Safety, Pain Management, Patient Portal & Bianca Instructions Activity Restrictions/Additional Instructions: Cellulitis please use your incentive spirometer 2-3 times daily. Thank you for choosing [facility] for your healthcare needs today. You have been screened and evaluated and felt safe for discharge. Health conditions do change or evolve sometimes and as such it is important that you follow up with your Primary Doctor to be re checked, 3-5 days is a general good time frame for follow up. You are always welcome to return to the ED for re assessment if your symptoms are worsening or you have new concerns Print Language: Kosovan Coding Level of Care Code ED Corporate Trust Officer for Delia Arellano
--- OUTSIDE RECORDS SUMMARY | 2025-02-05 13:47 | XMS_ITS | Continuity of Care Document ---
Author Organization [place] - [facility] Jo Wright, [facility] ([facility]) Address [address] [place] [address] Assessment No assessment recorded. Plan of Treatment Reminders Order Date Submit Date Provider Last Modified By Organization Details Last Modified Time Details Appointments None record ed. Lab None record ed. Referral None record ed. Procedures None record ed. Surgeries None record ed. Imaging None record ed. Medication Orders None record ed. Patient TargetsNo targets recorded. Patient Instructions Encounter Date Encounter Id Patient Instructions Last Modified By Organization Details Last Modified Time 12/08/2024 [id number] Admitted with intracranial hemorrhage. At SNF for therapy with goal of regaining independence and returning home. Blood pressure too low, will decrease propranolol to 30mg daily from 60mg. Labs on Friday. On ASA and Eliquis due to factor V. f/u 1 week. [email or web address] Not available 12/08/2024 14:21:00 Reason for Referral None Reported. Problems Name Problem SNOMED Code Status Onset Date Resolution Date Notes Provider Name and Address Organization Details Recorded Time Degenerat desi disc disease NOS Active 2006 Degenerati ve disc disease.; 10/21/2006 3:49PM by Carrie Granados LPN, Office Visit; Promoted; acuity set as *; Not Available [facility] 3 03:10:27 History of tubal ligation 924571411 Active 2006 Tubal Ligation; 1992; 10/21/2006 3:49PM by Carrie Granados LPN, Office Visit; Promoted; acuity set as *; Not Available [facility] 3 03:10:27 Tonsillec minerva Active 2006 Tonsillect cesar; 10/21/2006 3:49PM by Carrie Granados LPN, Office Visit; Promoted; acuity set as *; Not Available [facility] 3 03:10:27 History of hysterect cesar 947581264 Active 2006 Hysterecto my; Vaginal; partial in 1991---Rig ht overy removed in 2002; 10/21/2006 3:49PM by Carrie Granados LPN, Office Visit; Promoted; acuity set as *; Not Available [facility] 3 03:10:27 Post-disc harge follow-up 095976710 Active 2024 DESTINI WILEY aditi, [facility] 5 14:19:41 Intracran ial hemorrhag e 8370876 Active 2024 DESTINI WILEY aditi, [facility] 5 14:19:42 Chronic kidney disease stage 4 409780660 Active 2024 DESTINI WILEY aditi, [facility] 5 14:19:42 Factor V Leiden mutation 122324420 Active 2024 DESTINI WILEY [facility] 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 5 14:19:46 Mood disorder 11952116 Active 2024 DESTINIJ CARLOS WILEY [facility] 5 14:19:46 Gastroeso phageal reflux disease 042389221 Active 2024 DESTINI FISHER aditi, [facility] 5 14:19:51 Moderate chronic obstructi ve pulmonary disease 722318480 Active 2024 [facility] 5 14:19:51 Moderate recurrent major depressio n 29140751 Active 2024 [facility] 5 14:19:54 Hypothyro idism 19812614 Active 2024 [facility] 5 14:19:54 Problem Notes None recorded. Medical Equipment None Reported. Allergies Allergen ID Allergen Name Allergen Category Reaction Reaction Severity Criticality Documentation Date Start Date Code Code System Note Provider Name and Address Organization Details Recorded Time 87643 Product containin g penicilli n (product) medicatio n Not available Not available Not available 10/12/2022 01045 8001 SNOMED Comme nt: Recor ded 10/21 3:49P M by Kade LPN, Offic e Visit ; Promo tiara; Signi fican ce: *; ; Not Available [facility] 3 02:27:09 06556 Ceclor medicatio n Not available Not available Not available 10/12/202281380 5 RxNorm Comme nt: Recor ded 10/21 3:49P M by Kade LPN, Offic e Visit ; Promo tiara; Signi fican ce: *; ; Not Available [facility] 3 02:27:10 27959 Substance with sulfonami de structure and antibacte rial mechanism of action (substanc e) medicatio n Not available Not available Not available 10/12/2022 20891 8003 SNOMED Comme nt: Recor ded 10/21 3:49P M by Kade LPN, Offic e Visit ; Promo tiara; Signi fican ce: *; ; Not Available [facility] 3 02:27:10 Medications Name Sig Start Date Stop Date Status Note LastModified by Organization Details LastModified Time Singulair 10 mg tablet QD PRN ALLERGIE S 2006 active Recorded 10/22/19 07 3:49PM by Carrie Granados LPN, Office Visit; Refill Quantity : 30; Tablet; Not Available Not Available Not Available fluoxetin e 40 mg capsule TAKE TWO CAPSULES (80 MG TOTAL) BY MOUTH DAILY AT 9 AM active Not Available Not Available No t Available atorvasta tin 40 mg tablet TAKE ONE TABLET (40 MG) BY MOUTH DAILY AT 9 PM AT BEDTIME active Not Available Not Available No t Available clindamyc in HCl 300 mg capsule take 1 capsule BY MOUTH THREE TIMES DAILY for 7 days 12/16 completed Not Available Not Available Not Available oxybutyni n chloride ER 10 mg tablet,ex tended release 24 hr TAKE 1 TABLET BY MOUTH EVERY DAY active Not Available Not Available No t Available azithromy vincent 250 mg tablet TAKE 2 TABLETS BY MOUTH TODAY, THEN TAKE 1 TABLET DAILY ON DAYS 2-5 active Not Available Not Available No t Available fosfomyci n trometham ine 3 gram oral packet TAKE ONE PACKET (THREE GRAMS) BY MOUTH ONCE DIRECTED active Not Available Not Available No t Available Vicodin 5 mg-500 mg tablet Q 6hr/PRN 2006 active as needed for pain. VO Dr Mullins.. ....Call ed to Aly tomas ; Recorded 10/22/19 07 3:49PM by Cory Flaherty, [employer], , Office Visit; Not Available Not Available Not Available valacyclo vir 1 gram tablet TAKE 1 TABLET BY MOUTH EVERY DAY active Not Available Not Available No t Available hydrocodo ne 5 mg-acetam inophen 325 mg tablet TAKE 1 TABLET BY MOUTH EVERY 8 HOURS NEEDED FOR PAIN active Not Available Not Available No t Available sucralfat e 1 gram tablet TAKE 1 TABLET BY MOUTH THREE TIMES DAILY BEFORE MEALS NEED TO SEE DOCTOR active Not Available Not Available No t Available prednison e 20 mg tablet TAKE 1 TABLET BY MOUTH TWICE DAILY with meals for 5 days active Not Available Not Available No t Available propranol ol ER 60 mg capsule,2 4 hr,extend ed release take 1 capsule BY MOUTH AT BEDTIME active Not Available Not Available No t Available hydroxyzi ne pamoate 50 mg capsule TAKE ONE CAPSULE (50MG) BY MOUTH THREE TIMES DAILY NEEDED FOR ANXIETY active Not Available Not Available No t Available levofloxa vincent 250 mg tablet TAKE 1 TABLET BY MOUTH EVERY DAY for 7 days 12/16 completed Not Available Not Available Not Available ciproflox acin 500 mg tablet TAKE 1 TABLET BY MOUTH TWICE DAILY FOR 5 DAYS 12/16 completed Not Available Not Available Not Available Nasacort AQ 55 mcg nasal spray aerosol 2006 active 2 sprays each nostril qd; Recorded 10/22/19 3:49PM by Carrie Granados LPN, Office Visit; Refill Quantity : 1; Aerosol Soln; Not Available Not Available Not Available aspirin 81 mg tablet,de layed release TAKE 1 TABLET BY MOUTH EVERY DAY active Not Available Not Available No t Available baclofen 10 mg tablet TAKE ONE TABLET (10 MG) BY MOUTH UP TO FOUR TIMES DAILY active Not Available Not Available No t Available levothyro xine 50 mcg tablet TAKE ONE TABLET (50 MCG) BY MOUTH DAILY AT 8 AM active Not Available Not Available No t Available enoxapari n 150 mg/mL subcutane ous syringe inject 150mg SUBCUTAN EOUSLY every 12 hours. start twice daily injectio ns immediat kavon AFTER stopping eliquis. take UNTIL morning of surgery active Not Available Not Available No t Available gabapenti n 100 mg capsule TAKE ONE CAPSULE BY MOUTH THREE TIMES DAILY active Not Available Not Available No t Available azelastin e 137 mcg (0.1 %) nasal spray USE 2 SPRAYS IN EACH NOSTRIL TWICE DAILY active Not Available Not Available No t Available albuterol sulfate HFA 90 mcg/actua tion aerosol inhaler INHALE TWO PUFFS BY MOUTH INTO THE LUNGS EVERY 6 HOURS NEEDED FOR SHORTNES S OF BREATH active Not Available Not Available No t Available ziprasido ne 60 mg capsule take 1 capsule BY MOUTH TWICE DAILY EVERY MORNING and EVERY EVENING. take with food (meal/sn ack) of at least 350 calories active Not Available Not Available No t Available fluticaso ne propionat e 50 mcg/actua tion nasal spray,tim pension USE TWO SPRAYS IN EACH NOSTRIL EVERY DAY active Not Available Not Available No t Available metoclopr amide 10 mg tablet TAKE 1 TABLET BY MOUTH TWICE DAILY NEEDED FOR nausea or emesis active Not Available Not Available No t Available Flexeril 10 mg tablet QHS / HS 2006 active for neck pain; Recorded 10/22/19 07 3:49PM by Carrie Granados LPN, Office Visit; Refill Quantity : 60; Tablet; Not Available Not Available Not Available Botox 100 unit injection administ er 25 units left bicep, 25 units left pronater teres, 100 units (FOUR sites) left flexor digitoru msuperfi cialis, 100 units (FOUR sites) left flexor digitoru mprofund us, 25 units left gastrocn emiusmed ialis, 25 units left gastrocn emiuslat eralis, 50 units left soleus, 50 units left tibialis posterio r. active Not Available Not Available No t Available bupropion HCl XL 300 mg 24 hr tablet, extended release TAKE 1 TABLET BY MOUTH EVERY MORNING active Not Available Not Available No t Available nitrofura ntoin monohydra te/macroc rystals 100 mg capsule TAKE 1 CAPSULE BY MOUTH TWICE DAILY FOR 7 DAYS WITH FOOD 12/16 completed Not Available Not Available Not Available alprazola m TID/PRN 2006 active may refill at 30 day interval s ; Recorded 12/16/19 07 5:22PM by Kera Clemente RN, Refill Request; Not Available Not Available Not Available Celexa QD 2006 active Recorded 10/22/19 07 3:49PM by Carrie Granados LPN, Office Visit; Refill Quantity : 30; Tablet; Not Available Not Available Not Available FeroSul 325 mg (65 mg iron) tablet TAKE 1 TABLET BY MOUTH EVERY DAY active Not Available Not Available No t Available dexlansop razole 60 mg capsule,b iphase delayed release take 1 capsule BY MOUTH EVERY DAY active Not Available Not Available No t Available Combivent Respimat 20 mcg-100 mcg/actua tion solution for inhalatio n INHALE 1 PUFF BY MOUTH EVERY 6 HOURS active Not Available Not Available No t Available Eliquis 5 mg tablet TAKE ONE TABLET (5 MG) BY MOUTH TWICE DAILY AT 9AM & 9PM active Not Available Not Available No t Available Breztri Aerospher e 160 mcg-9mcg- 4.8mcg/ac tuation HFA aerosol inhaler INHALE TWO PUFFS TWICE DAILY active Not Available Not Available No t Available Vitals Date Recorded Body weight Heart rate Respiratory rate Body temperature Oxygen saturation Systolic And Diastolic Provider Name and Address Organization Details Last Updated DateTime 5 29839.4 1 g 90 /min 18 /min 98.5 [degF] 95 % 108/74 mm[Hg] DESTINI WILEY [facility] 14:16:28 Social History None recorded. Functional Status None recorded. Mental Status None recorded. Family History Nothing Reported. Medical History No medical history recorded. Gynecological HistoryNo gynecological history recorded. Obstetrics History GPAL:G 0 P 0 0 0 0 Immunizations Vaccine Type Date Status Note Provider Nam e and Address Organization Details Recorded Time Tdap 6 completed Not Available [facility] 12/08/2024 12:48:38 rabies, intramuscular injection 6 completed Not Available [facility] 12/08/2024 12:48:38 Pneumococcal conjugate PCV 13 9 completed Not Available [facility] 12/08/2024 12:48:38 COVID-19, mRNA, LNP-S, PF, 100 mcg/0.5mL dose or 50 mcg/0.25mL dose 1 completed Not Available [facility] 12/08/2024 12:48:38 COVID-19, mRNA, LNP-S, PF, 100 mcg/0.5mL dose or 50 mcg/0.25mL dose 1 completed Not Available [facility] 12/08/2024 12:48:38 Influenza, split virus, quadrivalent, PF 2 completed Not Available [facility] 12/08/2024 12:48:38 Influenza, split virus, trivalent, preservative 3 completed Not Available [facility] 12/08/2024 12:48:38 Influenza, split virus, trivalent, PF 4 completed Not Available [facility] 12/08/2024 12:48:38 pneumococcal polysaccharide PPV23 5 completed Not Available [facility] 12/08/2024 12:48:38 Pneumococcal conjugate PCV 13 6 completed Not Available [facility] 10/12/2022 02:32:47 Past Encounters Encounter ID Performer Location Encounter Start Date Encounter Closed Date Diagnosis/Indication Diagnosis SNOMED-CT Code Diagnosis ICD10 Code Diagnosis IMO Codes Diagnosis Note [id number] Rosas Sheikh DO [facility] ([facility]) [address] [place] [phone] 12/08/2024 12:46:43 12/16/2024 08:01:56 Post-discharge follow-up 439187263 Z09 018533 Intracrani al hemorrhage 3909475 I62.9 84303 Chronic ki dney disease stage 4 140885743 N18.4 13188304 Factor V L eiden mutation 894162436 D68.51 619634 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 304047702 I69.931 8494403 Mood disorder 40710421 F 39 97443 Gastroesop hageal reflux disease 321362865 K21.9 73325358 Moderate c hronic obstructive pulmonary disease 798279275 J44.9 110064 Moderate r ecurrent major depression 75632566 F33.1 5666548 Hypothyroidism 85594524 E03.9 94663140 Health Concerns Section Related Observation LastModified by Organization Detai ls LastModified Time None Recorded Concern Status LastModified by Organization Details LastModified Time None Recorded Payers Encounter Date Sequence Insurance Name Policy Number Policy Schmidt Covered Member ID Schmidt Member ID Guarantor Name 12/08/2024 1 [facility] PLAN - DUAL ELIGIBLE (MEDICARE REPLACEMENT/A DVANTAGE - HMO) MODSNP Camelia Lopez [id number] Camelia Lopez 12/08/2024 2 [place] Camelia Lopez [id number] Camelia Lopez Notes Date Note Type Note Provider Name and Address Organization Details Recorded Time 5 text/html Care Management - Atrial FibrillationReported by PatientCare ManagementFor prognosis, patient reportsexpected outcome: stabilizeandprognosis: good. For duration, patient reportsgreater than 12 months (chronic). For medications, patient reportscompliant with medication.ROS as noted in the HPI new admit to SNF, after hospital stay. Planning for therapy with goal of returing home. Rosas Sheikh DO [address] [place] [address], [phone], [facility] 12/10/2024 12:41:48 OBGyn Episode No OBEpisode recorded.
--- OUTSIDE RECORDS SUMMARY | 2025-02-05 13:47 | XMS_ITS | Data Portability ---
Author Organization [facility] Jo Wright [facility] Address [address] [address] Assessment No assessment recorded. Plan of Treatment [...] By Organization Details Last Modified Time 12/08/2024 [id number] Admitted with intracranial hemorrhage. At SNF for therapy with goal of regaining independence and returning home. Blood pressure too low, will decrease propranolol to 30mg daily from 60mg. Labs on Friday. On ASA and Eliquis due to factor V. f/u 1 week. [email or web address] Not available 12/08/2024 14:21:00 Reason for Referral [...] Center 3 03:10:27 History of tubal ligation 672763514 Active 2006 Tubal Ligation; 1992; 10/21/2006 3:49PM by Carrie Granados LPN, Office Visit; Promoted; acuity set as *; Not Available [facility] 3 03:10:27 Tonsillec minerva Active 2006 Tonsillect cesar; 10/21/2006 3:49PM by Carrie Granados LPN, Office Visit; Promoted; acuity set as *; Not Available [facility] 3 03:10:27 History of hysterect cesar 827330810 Active 2006 Hysterecto my; Vaginal; partial in 1991---Rig ht overy removed in 2002; 10/21/2006 3:49PM by Carrie Granados LPN, Office Visit; Promoted; acuity set as *; Not Available [facility] 3 03:10:27 Post-disc harge follow-up 251788475 Active 2024 DESTINI pennington, [facility] 5 14:19:41 Intracran ial hemorrhag e 5081955 Active 2024 DESTINI pennington, [facility] 5 14:19:42 Chronic kidney disease stage 4 857593525 [facility] 5 14:19:42 Factor V Leiden mutation 604275919 Active 2024 DESTINI WILEY [facility] 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 5 14:19:46 Mood disorder 68132582 Active 2024 DESTINI WILEY [facility] 5 14:19:46 Gastroeso phageal reflux disease 472649064 Active 2024 [facility] 5 14:19:51 Moderate chronic obstructi ve pulmonary disease 407440085 Active 2024 [facility] 5 14:19:51 Moderate recurrent major depressio n 99162988 Active 2024 [facility] 5 14:19:54 Hypothyro idism 51260804 Active 2024 [facility] 5 14:19:54 Problem Notes None recorded. Medical Equipment None Reported. Allergies Allergen ID Allergen Name Allergen Category Reaction Reaction Severity Criticality Documentation Date Start Date Code Code System Note Provider Name and Address Organization Details Recorded Time 37099 Product containin g penicilli n (product) medicatio n Not available Not available Not available 10/12/2022 38182 8001 SNOMED Comme nt: Recor ded 10/21 3:49P M by Kade LPN, Offic e Visit ; Promo tiara; Signi ficmartha ce: *; ; Not Available [facility] 3 02:27:09 43752 Ceclor medicatio n Not available Not available Not available 10/12/202293333 5 RxNorm Comme nt: Recor ded 10/21 3:49P M by Kade LPN, Offic e Visit ; Promo tiara; Signi fican ce: *; ; Not Available [facility] 3 02:27:10 38881 Substance with sulfonami de structure and antibacte rial mechanism of action (substanc e) medicatio n Not available Not available Not available 10/12/2022 51610 8003 SNOMED Comme nt: Recor ded 10/21 3:49P M by Kade LPN, Offic e Visit ; Promo tiara; Signi fican ce: *; ; Not Available [facility] 3 02:27:10 Medications Name Sig Start Date Stop Date Status Note LastModified by Organization Details LastModified Time Singulair 10 mg tablet QD PRN ALLERGSANDRA S 2006 active Recorded 10/22/19 07 3:49PM [...] Recorded 10/22/19 07 3:49PM by Cory Flaherty, IT SECURITY CONSULTING DIRECTOR, , Office Visit; Not Available Not Available [...] Address Organization Details Last Updated DateTime 5 60918.4 1 g 90 /min 18 /min 98.5 [degF] 95 % 108/74 mm[Hg] DESTINI WILEY [facility] 5 14:16:28 Social History None recorded. Functional Status None recorded. Mental Status None recorded. Family History Nothing Reported. Medical History No medical history recorded. Gynecological HistoryNo gynecological history recorded. Obstetrics History GPAL:G 0 P 0 0 0 0 Immunizations Vaccine Type Date Status Note Provider Nam e and Address Organization Details Recorded Time Tdap 6 completed Not Available [facility] 12/08/2024 12:48:38 rabies, intramuscular injection 6 completed Not Available [facility] 12/08/2024 12:48:38 Pneumococcal conjugate PCV 13 9 completed Not Available [facility] 12/08/2024 12:48:38 COVID-19, mRNA, LNP-S, PF, 100 mcg/0.5mL dose or 50 mcg/0.25mL dose 1 completed Not Available [facility] 12/08/2024 12:48:38 COVID-19, mRNA, LNP-S, PF, 100 mcg/0.5mL dose or 50 mcg/0.25mL dose 1 completed Not Available [facility] 12/08/2024 12:48:38 Influenza, split virus, quadrivalent, PF 2 completed Not Available [facility] 12/08/2024 12:48:38 Influenza, split virus, trivalent, preservative 3 completed Not Available [facility] 12/08/2024 12:48:38 Influenza, split virus, trivalent, PF 4 completed Not Available [facility] 12/08/2024 12:48:38 pneumococcal polysaccharide PPV23 5 completed Not Available [facility] 12/08/2024 12:48:38 Pneumococcal conjugate PCV 13 6 completed Not Available [facility] 10/12/2022 02:32:47 Past Encounters Encounter ID Performer Location Encounter Start Date Encounter Closed Date Diagnosis/Indication Diagnosis SNOMED-CT Code Diagnosis ICD10 Code Diagnosis IMO Codes Diagnosis Note [id number] Rosas Sheikh DO [facility] ([facility]) [address] [place] [phone] 12/08/2024 12:46:43 12/16/2024 08:01:56 Post-discharge follow-up 366597890 Z09 964893 Intracrani al hemorrhage 1715078 I62.9 24329 Chronic ki dney disease stage 4 839599613 N18.4 44520443 Factor V L eiden mutation 745383883 D68.51 118151 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 482152420 I69.460 8937620 Mood disorder 56883297 F 39 88204 Gastroesop hageal reflux disease 872728614 K21.9 05688014 Moderate c hronic obstructive pulmonary disease 051535734 J44.9 003815 Moderate r ecurrent major depression 51620591 F33.1 4840522 Hypothyroidism 25793177 E03.9 66952260 Health Concerns Section Related Observation LastModified by Organization Detai ls LastModified Time None Recorded Concern Status LastModified by Organization Details LastModified Time None Recorded Advance Directives Directive None Recorded Payers Insurance Date Sequence Insurance Name Policy Number Policy Schmidt Covered Member ID Schmidt Member ID Guarantor Name 12/08/2024 3 *SELF PAY* Do reg Lopez 12/16/2024 [place] [facility] Camelia Lopez [id number] Camelia Loepz 12/08/2024 2 [place] Camelia Lopez [id number] Camelia Lopez 12/16/2024 1 [facility] PLAN - DUAL ELIGIBLE (MEDICARE REPLACEMENT/A DVANTAGE - HMO) MODSNP Camelia Lopez [id number] Camelia Lopez Notes Date Note Type Note [...] goal of returing home. Rosas Sheikh DO [address] [place] [address], [phone], [facility] 12/10/2024 12:41:48 OBGyn Episode No OBEpisode recorded.
--- NOTE | 2025-02-05 13:52 | XRR_ITS ---
PROCEDURE INFORMATION: Exam: XR Left Hand Exam date and time: 02/05/2025 2:05 PM Age: 60 years old Clinical indication: Pain; Hand; Left; Prior surgery; Surgery date: 6+ months; Surgery type: Lt ulnar release; Additional info: Lt hand pain/brusing post fall x 3 day ago; PT has had stroke in the past, lt upper extremity is flacid, positioning sponges used to assist with exam. Best obtainable images alg TECHNIQUE: Imaging protocol: Radiologic exam of the left hand. Views: 3 or more views. COMPARISON: CR XR wrist LT min 3V* [id number] 04/10/2023 4:16 PM FINDINGS: Bones/joints: There is severe diffuse osteopenia. There is mild irregularity along the dorsal cortex of the distal radial metaphysis seen on the lateral view, which could represent a subtle nondisplaced fracture. No other suspicious fracture is seen. There are mild degenerative changes involving the hand and wrist. Soft tissues: There is soft tissue edema surrounding the wrist. XR/XR hand LT min 3V* [id number] IMPRESSION: 1. Questionable nondisplaced fracture involving the distal radial metaphysis as seen on the lateral view. If this is the site of the patient's pain, dedicated wrist radiographs may be helpful for further evaluation. 2. Severe diffuse osteopenia with mild degenerative changes.
--- NOTE | 2025-02-05 13:52 | XRR_ITS ---
PROCEDURE INFORMATION: Exam: XR Left Ribs with PA Chest Exam date and time: 02/05/2025 2:05 PM Age: 60 years old Clinical indication: Painful respiration; Additional info: Lt anterior mid chest rib pain post fall x 3 days ago TECHNIQUE: Imaging protocol: Radiologic exam of the left ribs with PA chest. Views: 3 views COMPARISON: CR XR ribs LT 2V* [id number] 03/19/2024 9:26 PM FINDINGS: Lungs: Clear. No consolidation. Pleural spaces: No significant pleural effusion. No pneumothorax. Heart/Mediastinum: Within normal limits. Bones/joints: There are fractures of the lateral left 3rd through 8th ribs, which could be acute or subacute in age. Other findings: A moderate sized hiatal hernia is noted. Surgical clips are seen projecting over the right upper quadrant compatible with a prior cholecystectomy. XR/XR ribs LT mn 3V w [id number] IMPRESSION: 1. Fractures of the lateral left 3rd through 8th ribs which could be acute or subacute in age. Some of these appear to have been present on the prior study. 2. No radiographic evidence of acute cardiopulmonary disease.
[2025-02-05 13:56] VITALS: BP 117/78; PULSE 78; O2SAT 98
[2025-02-05 15:41] VITALS: PULSE 75; RESP 16; O2SAT 97
[2025-02-05 15:54] VITALS: BP 108/54; PULSE 77; O2SAT 99
== END 2025-02-05 15:55 | disposition home or self-care (01) ==
PROVIDERS: Emergency Provider Emergency Medicine; PCP Family Medicine
DX: S22.42XA Multiple fractures of ribs, left side, initial encounter for closed fracture (principal); S60.222A Contusion of left hand, initial encounter; Z79.82 Long term (current) use of aspirin; Z79.01 Long term (current) use of anticoagulants; Z87.891 Personal history of nicotine dependence; N18.9 Chronic kidney disease, unspecified; W19.XXXA Unspecified fall, initial encounter
CPT/HCPCS: 71101; 73130; 99284

== ENCOUNTER 2025-02-14 05:00 | Outpatient (RCR) | payer MEDICARE, MEDICAID, SELFPAY ==
[2021-07-27 14:04] VITALS: BP 116/71; BMI 31.2
== END 2025-02-23 13:52 | disposition home or self-care (01) ==
LOC: SPO 05:00
PROVIDERS: PCP Family Medicine; Visit Provider Nurse Practitioner Family
DX: G81.14 Spastic hemiplegia affecting left nondominant side (principal)
CPT/HCPCS: 97110; 97530

== ENCOUNTER → 2025-02-22 08:38 | Outpatient (BNVA) | payer MEDICARE, MEDICAID, OTHER, SELFPAY ==
[2021-07-27 14:04] VITALS: BP 116/71; BMI 31.2
== END ==
PROVIDERS: PCP Family Medicine; Visit Provider Nurse Practitioner
DX: Z79.899 Other long term (current) drug therapy (principal); F41.9 Anxiety disorder, unspecified; F33.1 Major depressive disorder, recurrent, moderate; F43.12 Post-traumatic stress disorder, chronic
CPT/HCPCS: 80061; 83036

== ENCOUNTER 2025-03-01 08:41 | Outpatient (CLI) | payer MEDICARE, MEDICAID, SELFPAY ==
[2021-07-27 14:04] VITALS: BP 116/71; BMI 31.2
[2025-03-01 09:28] LABS: Hematocrit 33.8 % (36-47); Hemoglobin 11.10 g/dL (11.27-16.99); Mean Corpuscular HGB Conc 32.8 g/dL (30-55); Mean Corpuscular Hemoglobin 30.3 pg (27-33); Mean Corpuscular Volume 92.3 fl (85-98); Nucleated Red Blood Cells % 0 %; Platelet Count 297 10^3/cmm (157-399); Red Blood Count 3.66 10^6/uL (3.85-5.65); White Blood Count 7.09 10^3/uL (3.29-11.43)
[2025-03-01 09:50] LABS: Albumin Level 3.8 g/dL (3.5-5.2); Anion Gap 18.1 (5-19); Blood Urea Nitrogen 14 mg/dL (8-23); Calcium 9.1 mg/dL (8.5-10.5); Calcium 9.2 mg/dL (8.5-10.5); Carbon Dioxide 20 mmol/L (22-29); Chloride 108 mmol/L (98-107); Glucose 121 mg/dL (65-115); Potassium 4.1 mmol/L (3.5-5.1); Sodium 142 mmol/L (136-145)
[2025-03-01 09:56] LABS: Creatinine Urine, Random 51 mg/dL (28-217); Microalbum Creatinine Ratio Ur 20 mg/dL (0-20)
== END 2025-03-01 08:42 | disposition home or self-care (01) ==
PROVIDERS: PCP Family Medicine; Visit Provider Registered Nurse
DX: N18.4 Chronic kidney disease, stage 4 (severe) (principal)
CPT/HCPCS: 36415; 80069; 82044; 82306; 82310; 83970; 85025